=== PATIENT | female | born 1965 | race Two or more races ===

== ENCOUNTER 2016-07-20 08:24 | Inpatient (IN) | payer MEDICAID ==
[~2016-07-20] VITALS: Ht 162.6 cm; Wt 72.6 kg
[2016-07-20] VITALS (8 sets, daily range): BP systolic 146–172; BP diastolic 74–95
[~2016-07-20 08:24] MED LIST: NKM
--- NOTE | 2016-07-20 08:42 | Emergency Room Report ---
History of Present Illness General Chief Complaint: Pain Source: Patient, EMS Present Illness HPI 51-year-old female presents to ED for evaluation. Per EMS patient is complaining of back pain. Patient was found on the street. patient has chronic history of back pain. Patient is homeless. Upon arrival patient is lethargic. Patient had swollen eyes, swollen arms and legs. EMS later noted that patient has a history of dialysis but her last dialysis was approximately 10 days ago. Patient denies any chest pain or shortness of breath. States that she started dialysis one year ago. Only gets dialysis at [facility]. No other aggravating relieving factors. Denies any other associated symptoms Allergies: Coded Allergies: No Known Allergies (Unverified , 07/20/16) Patient History Past Medical History: DM, HTN, renal disease, dialysis Pertinent Family History: none Social History: Denies: alcohol use, drug use, smoking Now: No Immunizations: UTD Reviewed Nursing Documentation: PMH: Agreed, PSxH: Agreed Nursing Documentation-PMH Hx Hypertension: Yes Hx Diabetes: Yes Hx Dialysis: Yes - [facility] ON RIGHT SIDE OF ARM Review of Systems All Other Systems: negative except mentioned in HPI Physical Exam Vital Signs Date Time Temp Pulse Resp B/P Pulse Ox O2 Delivery O2 Flow Rate FiO2 07/20/16 08:17 95.5 75 17 145/71 98 Room Air Sp02 EP Interpretation: reviewed, normal General Appearance: no apparent distress, alert, GCS 15, non-toxic Head: normocephalic, atraumatic, other - eyes swollen bilaterally Eyes: bilateral eye EOMI, bilateral eye PERRL, bilateral eye other - eyes swollen ENT: hearing grossly normal, normal pharynx, no angioedema, normal voice Neck: full range of motion, supple/symm/no masses Respiratory: chest non-tender, lungs clear, normal breath sounds, speaking full sentences Cardiovascular #1: regular rate, rhythm, no edema Gastrointestinal: normal inspection Rectal: deferred Genitourinary: no CVA tenderness Musculoskeletal: swelling - 2+ pitting edema Neurologic: other - lethargic Psychiatric: other - lethargic Skin: normal inspection Lymphatic: normal inspection Medical Decision Making Diagnostic Impression: Primary Impression: Hyperkalemia, diminished renal excretion Additional Impressions: Fluid overload Qualified Codes: E87.70 - Fluid overload, unspecified Opiate dependence Qualified Codes: F11.29 - Opioid dependence with unspecified opioid-induced disorder ESRD (end stage renal disease) on dialysis ER Course Hospital Course 51-year-old female presents ED complaining of back pain. However presents with swollen face and swollen extremities. History of end-stage renal disease. Missed dialysis x10 days Differential diagnoses include: CA/unstable angina, V. tach, bradycardia, hyperkalemia, fluid overload Clinical course Patient placed on stretcher. 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 After initial history and physical I ordered labs, EKG Patient is difficult IV access status I placed a referral EJ line labs reviewed- potassium 6.1. BUN/Cr elevated. hb 7.4. trop negative EKG - NSR, no acute changes interpreted by me CXR - cardiomegaly. permacath in place. Given Kayexalate, insulin/D50 and calcium. Patient is already in fluid overload and would not tolerate transfusion. Patient will require dialysis before she be transfused Case discussed with Dr. Luna and he agreed to accept the patient to his service for further care and support I. I feel this is a highly complex case requiring extensive working including EKG/Rhythm strip, Xray/CT/US, Blood/urine lab work, repeat exams while in ED, and administration of strong opiates/narcotics for pain control, admission to hospital or close patient follow up. Diagnosis - hyperkalemia, ESRD on dialysis, fluid overload, opiate dependence Admitted to telemetry in serious condition Labs Test 07/20/16 08:24 07/20/16 08:38 07/20/16 08:45 Sodium Level 134 mEQ/L (135-145) Potassium Level 6.1 mEQ/L (3.4-4.9) Chloride Level 90 mEQ/L (98-107) Carbon Dioxide Level 21 mEQ/L (20-30) Anion Gap 23 (5-15) Blood Urea Nitrogen 79 mg/dL (7-23) Creatinine 10.2 mg/dL (0.5-0.9) Estimat Glomerular Filtration Rate 4.0 mL/min (>60) Glucose Level 98 mg/dL (74-106) Calcium Level 7.3 mg/dL (8.6-10.2) Total Bilirubin < 0.2 mg/dL (0.0-1.2) Aspartate Amino Transf (AST/SGOT) 20 U/L (5-40) Alanine Aminotransferase (ALT/SGPT) 9 U/L (3-33) Alkaline Phosphatase 55 U/L (35-104) Total Creatine Kinase 193 U/L (26-140) Creatine Kinase MB 4.6 ng/mL (< 3.8) Creatine Kinase MB Relative Index 2.3 Troponin I < 0.30 ng/mL (<=0.30) Total Protein 6.4 g/dL (6.6-8.7) Albumin 2.6 g/dL (3.5-5.2) Globulin 3.8 g/dL Albumin/Globulin Ratio 0.6 (1.0-2.7) Salicylates Level < 1 mg/dL (10-30) Urine Opiates Screen Positive (NEGATIVE) Acetaminophen Level < 10 ug/mL (10-30) Urine Barbiturates Screen Negative (NEGATIVE) Phencyclidine (PCP) Screen Negative (NEGATIVE) Urine Amphetamines Screen Negative (NEGATIVE) Urine Benzodiazepines Screen Negative (NEGATIVE) Urine Cocaine Screen Negative (NEGATIVE) Urine Marijuana (THC) Screen Negative (NEGATIVE) Serum Alcohol < 10 mg/dL White Blood Count 13.6 K/UL (4.8-10.8) Red Blood Count 2.81 M/UL (4.20-5.40) Hemoglobin 7.4 G/DL (12.0-16.0) Hematocrit 23.1 % (37.0-47.0) Mean Corpuscular Volume 82 FL (80-99) Mean Corpuscular Hemoglobin 26.5 PG (27.0-31.0) Mean Corpuscular Hemoglobin Concent 32.2 G/DL (32.0-36.0) Red Cell Distribution Width 17.9 % (11.6-14.8) Platelet Count 400 K/UL (150-450) Mean Platelet Volume 5.1 FL (6.5-10.1) Neutrophils (%) (Auto) % (45.0-75.0) Lymphocytes (%) (Auto) % (20.0-45.0) Monocytes (%) (Auto) % (1.0-10.0) Eosinophils (%) (Auto) % (0.0-3.0) Basophils (%) (Auto) % (0.0-2.0) Differential Total Cells Counted 100 Neutrophils % (Manual) 79 % (45-75) Lymphocytes % (Manual) 11 % (20-45) Monocytes % (Manual) 7 % (1-10) Eosinophils % (Manual) 3 % (0-3) Basophils % (Manual) 0 % (0-2) Band Neutrophils 0 % (0-8) Platelet Estimate Adequate Platelet Morphology Normal Hypochromasia 1+ Anisocytosis 1+ EKG Diagnostic Results Rate: normal Rhythm: NSR ST Segments: other ASA given to the pt in ED: No Rhythm Strip Diag. Results EP Interpretation: yes Rhythm: NSR, no PVC's, no ectopy Chest X-Ray Diagnostic Results Chest X-Ray Ordered: Yes # of Views/Limited/Complete: 1 View Interpretation: no consolidation, no effusion, no pneumothorax, no acute cardiopulmonary disease, other - cardiomegaly. permacath in place Indication: Other - fluid overload Impression: No acute disease Date Electronically Signed: Jul 20, 2016 Time Electronically Signed: 10:01 Last Vital Signs Date Time Temp Pulse Resp B/P Pulse Ox O2 Delivery O2 Flow Rate FiO2 07/20/16 08:17 95.5 75 17 145/71 98 Room Air Status: improved Disposition: ADMITTED INPATIENT Condition: Serious TANGELA BUCKNER M.D. Jul 20, 2016 08:42
[2016-07-20 09:19] LABS: MEAN CORPUSCULAR HEMOGLOBIN 26.5 PG (27.0-31.0); MEAN CORPUSCULAR HGB CONC 32.2 G/DL (32.0-36.0); MEAN CORPUSCULAR VOLUME 82 FL (80-99); MEAN PLATELET VOLUME 5.1 FL (6.5-10.1); PLATELET COUNT 400 K/UL (150-450); RED BLOOD COUNT 2.81 M/UL (4.20-5.40); RED CELL DISTRIBUTION WIDTH 17.9 % (11.6-14.8); WHITE BLOOD COUNT 13.6 K/UL (4.8-10.8)
[2016-07-20 09:40] LABS: TROPONIN I < 0.30 ng/mL (<=0.30)
[2016-07-20 09:41] LABS: ACETAMINOPHEN < 10 ug/mL (10-30); ALANINE AMINOTRANSFERASE 9 U/L (3-33); ALBUMIN/GLOBULIN RATIO 0.6 (1.0-2.7); ALCOHOL < 10 mg/dL; ANION GAP 23 (5-15); ASPARTATE AMINO TRANSFERASE 20 U/L (5-40); CALCIUM 7.3 mg/dL (8.6-10.2); CARBON DIOXIDE 21 mEQ/L (20-30); CHLORIDE 90 mEQ/L (98-107); CREATININE 10.2 mg/dL (0.5-0.9); HEMOLYSIS 9; SODIUM 134 mEQ/L (135-145); TOTAL PROTEIN 6.4 g/dL (6.6-8.7)
[2016-07-20 09:42] LABS: POTASSIUM 6.1 mEQ/L (3.4-4.9)
[2016-07-20 09:52] LABS: CKMB 4.6 ng/mL (< 3.8)
[2016-07-20 09:58] LABS: ANISOCYTOSIS 1+; BAND NEUTROPHILS % (MANUAL) 0 % (0-8); BASOPHILS % (MANUAL) 0 % (0-2); EOSINOPHILS % (MANUAL) 3 % (0-3); HYPOCHROMASIA 1+; LYMPHOCYTES % (MANUAL) 11 % (20-45); NEUTROPHILS % (MANUAL) 79 % (45-75); PLATELET ESTIMATE ADEQUATE; PLATELET MORPHOLOGY NORMAL; TOTAL CELLS COUNTED 100
[2016-07-20] MEDS ORDERED: Sodium Polystyrene Sulfonate 15gm Powder ORAL ONE (10:00)
[2016-07-20] MEDS ORDERED: Calcium Gluconate 1gm/10ml vial IVP ONE (10:00)
[2016-07-20] MEDS ORDERED: Miralax 17gm pkt ORAL PRN (10:15)
[2016-07-20] MEDS ORDERED: DuoNeb 0.5-3(2.5)mg/3ml neb HHN PRN (10:15)
--- NOTE | 2016-07-20 10:20 | Consultation ---
Consult Note Consult Note Chief Complaint: Pain 51-year-old female presents to ED for evaluation. Per EMS patient is complaining of back pain. Patient was found on the street. patient has chronic history of back pain. Patient is homeless. Upon arrival patient is lethargic. Patient had swollen eyes, swollen arms and legs. EMS later noted that patient has a history of dialysis but her last dialysis was approximately 10 days ago. Patient denies any chest pain or shortness of breath. States that she started dialysis one year ago. Only gets dialysis at [facility]. No other aggravating relieving factors. Denies any other associated symptoms Past Medical History: DM, HTN, renal disease, dialysis Hx Hypertension: Yes Hx Diabetes: Yes Hx Dialysis: Yes - [facility] ON RIGHT SIDE OF ARM Assessment/Plan ESRD , Right chest Permacath- No Dialysis for sometimes Volume Overload Encephalopathy Anemia Plan: Dialysis NOW, + UF Anemia vitale BP control per orders ERICK MOSES Jul 20, 2016 10:20
[2016-07-20] MEDS ORDERED: Sodium Polystyrene Sulfonate Enema RECTAL ONE (10:45)
[2016-07-20 11:06] LABS: INR 1.1 (0.9-1.1)
[2016-07-20 11:44] LABS: IRON 20 ug/dL (37-145); TOTAL IRON BINDING CAPACITY 183 ug/dL (250-400)
[2016-07-20 11:56] LABS: PHOSPHORUS 6.6 MG/DL (2.5-4.9)
[2016-07-20 12:10] LABS: FERRITIN 549 ng/mL (13-150); URIC ACID 7.7 MG/DL (2.6-7.2)
--- NOTE | 2016-07-20 13:37 | History and Physical ---
History of Present Illness General Date patient seen: Jul 20, 2016 Reason for Hospitalization: Pain Present Illness HPI 51-year-old female with hx of ESRF, homelessness presented to ED for evaluation of back pain. Patient was found on the street. Upon arrival patient was lethargic. Patient had swollen eyes, swollen arms and legs. EMS later noted that patient has a history of dialysis but her last dialysis was approximately 10 days ago. Upon arrival to floor, she still is lethargic and somnolent and cant' give any accurate history. Allergies: Coded Allergies: No Known Allergies (Unverified , 07/20/16) Medication History Scheduled No Known Medications* (NKM - No Known Medications*), 0 ., (Reported) Patient History Healthcare decision maker Resuscitation status Advanced Directive on File Past Medical/Surgical History Past Medical/Surgical History: (1) Homelessness (2) ESRD (end stage renal disease) on dialysis Review of Systems All Other Systems: negative except mentioned in HPI Physical Exam General Appearance: WD/WN Lines, tubes and drains: peripheral HEENT: normocephalic, anicteric Neck: non-tender, normal alignment Respiratory/Chest: chest wall non-tender, lungs clear Breasts: no masses Cardiovascular/Chest: normal peripheral pulses Abdomen: normal bowel sounds, non tender Genitourinary/Rectal: normal genital exam, normal rectal exam Extremities: normal range of motion, moderate edema Skin Exam: normal pigmentation, cyanotic Neurologic: social services aide II-XII grossly normal, no motor/sensory deficits Lymphatic: anterior cervical Last 24 Hour Vital Signs Date Time Temp Pulse Resp B/P Pulse Ox O2 Delivery O2 Flow Rate FiO2 07/20/16 11:31 96.1 67 18 148/75 99 Room Air 07/20/16 10:51 95.5 88 16 166/88 95 Room Air 07/20/16 10:30 88 16 166/88 95 Room Air 07/20/16 08:25 88 17 172/91 100 Room Air 07/20/16 08:17 95.5 75 17 145/71 98 Room Air Laboratory Tests Test 07/20/16 08:24 07/20/16 08:38 07/20/16 08:45 Sodium Level 134 mEQ/L (135-145) L Potassium Level 6.1 mEQ/L (3.4-4.9) *H Chloride Level 90 mEQ/L (98-107) L Carbon Dioxide Level 21 mEQ/L (20-30) Anion Gap 23 (5-15) H Blood Urea Nitrogen 79 mg/dL (7-23) H Creatinine 10.2 mg/dL (0.5-0.9) H Estimat Glomerular Filtration Rate 4.0 mL/min (>60) Glucose Level 98 mg/dL (74-106) Calcium Level 7.3 mg/dL (8.6-10.2) L Total Bilirubin < 0.2 mg/dL (0.0-1.2) Aspartate Amino Transf (AST/SGOT) 20 U/L (5-40) Alanine Aminotransferase (ALT/SGPT) 9 U/L (3-33) Alkaline Phosphatase 55 U/L (35-104) Total Creatine Kinase 193 U/L (26-140) H Creatine Kinase MB 4.6 ng/mL (< 3.8) H Creatine Kinase MB Relative Index 2.3 Troponin I < 0.30 ng/mL (<=0.30) Pro-B-Type Natriuretic Peptide > 20087 pg/mL (0-125) H Total Protein 6.4 g/dL (6.6-8.7) L Albumin 2.6 g/dL (3.5-5.2) L Globulin 3.8 g/dL Albumin/Globulin Ratio 0.6 (1.0-2.7) L Salicylates Level < 1 mg/dL (10-30) L Urine Opiates Screen Positive (NEGATIVE) H Acetaminophen Level < 10 ug/mL (10-30) L Urine Barbiturates Screen Negative (NEGATIVE) Phencyclidine (PCP) Screen Negative (NEGATIVE) Urine Amphetamines Screen Negative (NEGATIVE) Urine Benzodiazepines Screen Negative (NEGATIVE) Urine Cocaine Screen Negative (NEGATIVE) Urine Marijuana (THC) Screen Negative (NEGATIVE) Serum Alcohol < 10 mg/dL Ammonia 82 umol/L (11-51) H White Blood Count 13.6 K/UL (4.8-10.8) H Red Blood Count 2.81 M/UL (4.20-5.40) L Hemoglobin 7.4 G/DL (12.0-16.0) L Hematocrit 23.1 % (37.0-47.0) L Mean Corpuscular Volume 82 FL (80-99) Mean Corpuscular Hemoglobin 26.5 PG (27.0-31.0) L Mean Corpuscular Hemoglobin Concent 32.2 G/DL (32.0-36.0) Red Cell Distribution Width 17.9 % (11.6-14.8) H Platelet Count 400 K/UL (150-450) Mean Platelet Volume 5.1 FL (6.5-10.1) L Neutrophils (%) (Auto) % (45.0-75.0) Lymphocytes (%) (Auto) % (20.0-45.0) Monocytes (%) (Auto) % (1.0-10.0) Eosinophils (%) (Auto) % (0.0-3.0) Basophils (%) (Auto) % (0.0-2.0) Differential Total Cells Counted 100 Neutrophils % (Manual) 79 % (45-75) H Lymphocytes % (Manual) 11 % (20-45) L Monocytes % (Manual) 7 % (1-10) Eosinophils % (Manual) 3 % (0-3) Basophils % (Manual) 0 % (0-2) Band Neutrophils 0 % (0-8) Platelet Estimate Adequate Platelet Morphology Normal Hypochromasia 1+ Anisocytosis 1+ Prothrombin Time 11.0 SEC (9.30-11.50) Prothromb Time International Ratio 1.1 (0.9-1.1) Activated Partial Thromboplast Time 34 SEC (23-33) H Hemoglobin A1c 4.4 % (< 6.0) Uric Acid 7.7 MG/DL (2.6-7.2) H Phosphorus Level 6.6 MG/DL (2.5-4.9) H Iron Level 20 ug/dL (37-145) L Total Iron Binding Capacity 183 ug/dL (250-400) L Percent Iron Saturation 11 % (15-50) L Unsaturated Iron Binding 163 ug/dL (112-346) Ferritin 549 ng/mL (13-150) H Vitamin B12 Level 474 pg/mL (211-946) Folate Pending Height (Feet): 5 Height (Inches): 4.00 Weight (Pounds): 160 Medications Current Medications Medications (Trade) Dose Ordered Sig/Papo Route PRN Reason Start Time Stop Time Status Last Admin Dose Admin Acetaminophen (Tylenol) 650 mg Q4H PRN ORAL Fever 07/20/16 10:15 08/19/16 10:14 Albuterol/ Ipratropium (DuoNeb 0.5-3(2.5)mg/3ml) 3 ml Q4H PRN HHN Shortness of Breath 07/20/16 10:15 07/25/16 10:14 Dextrose (Dextrose 50%) STAT PRN IV Hypoglycemia 07/20/16 10:15 08/19/16 10:14 Heparin Sodium (Porcine) (Heparin 5000 units/ml) 5,000 units EVERY 12 HOURS SUBQ 07/20/16 21:00 08/19/16 20:59 Ondansetron HCl (Zofran) 4 mg Q6H PRN IVP Nausea & Vomiting 07/20/16 10:15 08/19/16 10:14 Polyethylene Glycol (Miralax) 17 gm DAILYPRN PRN ORAL Constipation 07/20/16 10:15 08/19/16 10:14 Temazepam (Restoril) 15 mg HSPRN PRN ORAL Insomnia 07/20/16 10:15 07/27/16 10:14 Assessment/Plan Problem List: (1) ESRF (end stage renal failure) ICD Codes: N18.6 - End stage renal disease SNOMED: 02003690 (2) Fluid overload ICD Codes: E87.70 - Fluid overload, unspecified SNOMED: 19608693 Qualifiers: Qualified Codes: E87.70 - Fluid overload, unspecified (3) Opiate dependence ICD Codes: F11.20 - Opioid dependence, uncomplicated SNOMED: 86286704 Qualifiers: Qualified Codes: F11.29 - Opioid dependence with unspecified opioid-induced disorder (4) Homelessness ICD Codes: Z59.0 - Homelessness SNOMED: 75182163 Assessment/Plan respiratory treatment Hemodialysis neonatal social worker check electrolytes monitor bp check echocardiogram EMMANUEL DOUGHERTY Jul 20, 2016 13:37
--- NOTE | 2016-07-20 13:47 | Diagnostic Imaging Report ---
Indication: Cough Technique: One view of the chest Comparison: none Findings: Patient is rotated to the right. There is a right jugular tunneled dialysis catheter. The heart is enlarged. There is equivocal minimal interstitial congestion. No focal airspace consolidation. No effusions Impression: Cardiomegaly. Equivocal minimal interstitial congestion-correlate with clinical findings. No acute process otherwise
[2016-07-20] MEDS: Heparin 5000 units/ml inj SUBQ SCH (21:13)
[2016-07-21 00:05] VITALS: BP 145/83
[2016-07-21 04:12] VITALS: BP 148/91
[2016-07-21 07:35] LABS: MEAN CORPUSCULAR HGB CONC 32.3 G/DL (32.0-36.0); MEAN CORPUSCULAR VOLUME 84 FL (80-99); MEAN PLATELET VOLUME 5.2 FL (6.5-10.1); PLATELET COUNT 363 K/UL (150-450); RED BLOOD COUNT 2.92 M/UL (4.20-5.40); RED CELL DISTRIBUTION WIDTH 17.4 % (11.6-14.8); WHITE BLOOD COUNT 10.1 K/UL (4.8-10.8)
[2016-07-21 07:55] LABS: AMMONIA 28 umol/L (11-51)
[2016-07-21 07:56] LABS: ALANINE AMINOTRANSFERASE 8 U/L (3-33); ALBUMIN/GLOBULIN RATIO 0.6 (1.0-2.7); ANION GAP 18 (5-15); ASPARTATE AMINO TRANSFERASE 14 U/L (5-40); CARBON DIOXIDE 26 mEQ/L (20-30); CHLORIDE 92 mEQ/L (98-107); CHOLESTEROL 139 mg/dL (< 200); CHOLESTEROL/HDL RATIO 3.2 (3.3-4.4); CREATININE 8.3 mg/dL (0.5-0.9); HEMOLYSIS 13; LDL CHOLESTEROL (CALC.) 76 mg/dL (60-99); MAGNESIUM 1.9 mg/dL (1.7-2.5); PHOSPHORUS 5.6 mg/dL (2.5-4.8); POTASSIUM 5.6 mEQ/L (3.4-4.9); SODIUM 136 mEQ/L (135-145); TOTAL PROTEIN 5.4 g/dL (6.6-8.7); URIC ACID 6.2 mg/dL (3.0-7.5)
--- NOTE | 2016-07-21 08:01 | Cardiology Report ---
APPROVED REPORT EXAM: Two-dimensional and M-mode echocardiogram with Doppler and color Doppler. INDICATION LV function M-Mode DIMENSIONS IVSd1.2 (0.7-1.1cm)Left Atrium (MM)3.9 (1.6-4.0cm) LVDd4.0 (3.5-5.6cm)Aortic Root3.2 (2.0-3.7cm) PWd2.2 (0.7-1.1cm)Aortic Cusp Exc.2.1 (1.5-2.0cm) LVDs2.7 (2.5-4.0cm) PWs2.5 cm Normal left ventricular chamber size, systolic function and wall motion. Left ventricular ejection fraction estimated to be 60 %. Mild left ventricular hypertrophy. Anterior Echo-free space, may be due to pericardial fat or effusion. Mild left atrial enlargement. Right cardiac chamber sizes are within normal limits. Focal aortic valve sclerosis with adequate cusp excursion. Thickened mitral valve leaflets with normal excursion. Mitral annulus and aortic root calcification. Normal pulmonic valve structure. Normal tricuspid valve structure. IVC dilated at 2.7 cm without physiologic collapse suggestive of increased RA pressure. A color flow and spectral Doppler study was performed and revealed: Mild aortic regurgitation. Moderate mitral regurgitation. Mitral diastolic velocities suggest reduced left ventricular relaxation c/w mild LV diastolic dysfunction (Grade I). Moderate tricuspid regurgitation. Tricuspid systolic velocities suggests peak right ventricular systolic pressure of 71 mmHg, consistent with severe pulmonary hypertension. Mild pulmonic regurgitation present.
[2016-07-21 08:25] VITALS: BP 146/90
[2016-07-21 09:03] LABS: BASOPHILS % (MANUAL) 3 % (0-2); EOSINOPHILS % (MANUAL) 3 % (0-3); LYMPHOCYTES % (MANUAL) 16 % (20-45); NEUTROPHILS % (MANUAL) 77 % (45-75); TOTAL CELLS COUNTED 100
[2016-07-21 09:04] LABS: ANISOCYTOSIS 1+; BAND NEUTROPHILS % (MANUAL) 0 % (0-8); HYPOCHROMASIA 3+; PLATELET ESTIMATE ADEQUATE; PLATELET MORPHOLOGY NORMAL
[2016-07-21] MEDS: Heparin 5000 units/ml inj SUBQ SCH ×2 (09:13→20:52)
--- NOTE | 2016-07-21 09:44 | General Progress Note ---
Assessment/Plan Status: stable - from renal stand Status Narrative K 5.6 Assessment/Plan status; ESRD , Right chest Permacath- No Dialysis for sometimes Volume Overload Encephalopathy Anemia Plan: Dialysis 07/20 next 07/22 Anemia vitale, IV Iron and SQ EPO BP control- Phos binders , Vit D and Kayexelate per orders Subjective ROS Limited/Unobtainable: No Constitutional: Reports: malaise, weakness Allergies: Coded Allergies: No Known Allergies (Unverified , 07/20/16) Objective Last 24 Hour Vital Signs Date Time Temp Pulse Resp B/P Pulse Ox O2 Delivery O2 Flow Rate FiO2 07/21/16 08:25 97.9 82 20 146/90 100 Nasal Cannula 2.0 07/21/16 07:55 Nasal Cannula 2.0 28 07/21/16 07:54 100 Nasal Cannula 2.0 28 07/21/16 07:53 83 18 Room Air 21 07/21/16 04:12 98.1 82 19 148/91 100 07/21/16 04:00 82 07/21/16 03:43 98.1 07/21/16 03:21 78 20 99 Nasal Cannula 2.0 28 07/21/16 03:11 Nasal Cannula 2.0 28 07/21/16 03:11 99 Nasal Cannula 2.0 28 07/21/16 03:09 82 22 99 Nasal Cannula 2.0 28 07/21/16 00:05 98.1 94 19 145/83 96 Room Air 07/21/16 00:00 90 07/20/16 20:06 98.2 86 19 147/83 99 Room Air 07/20/16 20:00 85 07/20/16 19:58 84 18 Room Air 21 07/20/16 18:00 96.3 92 20 146/74 100 Room Air 07/20/16 16:52 Room Air 07/20/16 16:50 96.6 78 20 164/91 97 Room Air 07/20/16 16:00 77 07/20/16 15:26 97.2 91 18 154/95 100 Room Air 07/20/16 13:15 96.3 75 165/94 Room Air 07/20/16 13:15 Room Air 07/20/16 12:00 77 07/20/16 11:31 96.1 67 18 148/75 99 Room Air 07/20/16 10:51 95.5 88 16 166/88 95 Room Air 07/20/16 10:30 88 16 166/88 95 Room Air Intake and Output 07/20/16 07/21/16 19:00 07:00 Intake Total 0 ml 240 ml Output Total 2100 ml 100 ml Balance -2100 ml 140 ml Intake Oral 0 ml 240 ml Output Urine Total 100 ml 100 ml Peritoneal Dialysis UF 2000 ml Laboratory Tests 07/21/16 05:10: White Blood Count 10.1, Red Blood Count 2.92L, Hemoglobin 7.9L, Hematocrit 24.4L , Mean Corpuscular Volume 84, Mean Corpuscular Hemoglobin 27.0, Mean Corpuscular Hemoglobin Concent 32.3, Red Cell Distribution Width 17.4H, Platelet Count 363, Mean Platelet Volume 5.2L, Neutrophils (%) (Auto) , Lymphocytes (%) (Auto) , Monocytes (%) (Auto) , Eosinophils (%) (Auto) , Basophils (%) (Auto) , Differential Total Cells Counted 100, Neutrophils % ( Manual) 77H, Lymphocytes % (Manual) 16L, Monocytes % (Manual) 1, Eosinophils % ( Manual) 3, Basophils % (Manual) 3H, Band Neutrophils 0, Platelet Estimate Adequate, Platelet Morphology Normal, Hypochromasia 3+, Anisocytosis 1+, Sodium Level 136, Potassium Level 5.6H, Chloride Level 92L, Carbon Dioxide Level 26, Anion Gap 18H, Blood Urea Nitrogen 54#H, Creatinine 8.3H, Estimat Glomerular Filtration Rate 5.0, Glucose Level 79, Uric Acid 6.2, Calcium Level 7.0L, Phosphorus Level 5.6H, Magnesium Level 1.9, Total Bilirubin < 0.2, Aspartate Amino Transf (AST/SGOT) 14, Alanine Aminotransferase (ALT/SGPT) 8, Alkaline Phosphatase 46, Ammonia 28, Total Protein 5.4L, Albumin 2.1L, Globulin 3.3, Albumin/Globulin Ratio 0.6L, Triglycerides Level 95, Cholesterol Level 139, LDL Cholesterol 76, HDL Cholesterol 44, Cholesterol/HDL Ratio 3.2L Height (Feet): 5 Height (Inches): 4.00 Weight (Pounds): 160 General Appearance: no apparent distress, lethargic Objective no change ERICK MOSES Jul 21, 2016 09:44
[2016-07-21] MEDS ORDERED: Vitamin D 50,000 units cap ORAL SCH (10:00)
[2016-07-21] MEDS ORDERED: Sodium Polystyrene Sulfonate 15gm Powder ORAL ONE (10:00)
[2016-07-21] MEDS ORDERED: Calcitriol 0.5mcg Cap ORAL SCH (10:00)
[2016-07-21 11:30] VITALS: BP 149/94
[2016-07-21] MEDS ORDERED: Iron Sucrose 200 MG in NS 110 ML IVPB ONE (12:00)
--- NOTE | 2016-07-21 12:37 | Pulmonology Progress Note ---
Assessment/Plan Problems: (1) ESRF (end stage renal failure) (2) Fluid overload (3) Opiate dependence (4) Homelessness Assessment/Plan HD by nephrology check electrolytes social service consult dc planning Subjective ROS Limited/Unobtainable: No Interval Events: got dialyzed yesterday, got blood as well Allergies: Coded Allergies: No Known Allergies (Unverified , 07/20/16) Objective Last 24 Hour Vital Signs Date Time Temp Pulse Resp B/P Pulse Ox O2 Delivery O2 Flow Rate FiO2 07/21/16 11:42 79 149/94 07/21/16 11:30 98.4 79 20 149/94 99 Nasal Cannula 2.0 07/21/16 08:25 97.9 82 20 146/90 100 Nasal Cannula 2.0 07/21/16 07:55 Nasal Cannula 2.0 28 07/21/16 07:54 100 Nasal Cannula 2.0 28 07/21/16 07:53 83 18 Room Air 21 07/21/16 04:12 98.1 82 19 148/91 100 07/21/16 04:00 82 07/21/16 03:43 98.1 07/21/16 03:21 78 20 99 Nasal Cannula 2.0 28 07/21/16 03:11 Nasal Cannula 2.0 28 07/21/16 03:11 99 Nasal Cannula 2.0 28 07/21/16 03:09 82 22 99 Nasal Cannula 2.0 28 07/21/16 00:05 98.1 94 19 145/83 96 Room Air 07/21/16 00:00 90 07/20/16 20:06 98.2 86 19 147/83 99 Room Air 07/20/16 20:00 85 07/20/16 19:58 84 18 Room Air 21 07/20/16 18:00 96.3 92 20 146/74 100 Room Air 07/20/16 16:52 Room Air 07/20/16 16:50 96.6 78 20 164/91 97 Room Air 07/20/16 16:00 77 07/20/16 15:26 97.2 91 18 154/95 100 Room Air 07/20/16 13:15 96.3 75 165/94 Room Air 07/20/16 13:15 Room Air Intake and Output 07/20/16 07/21/16 19:00 07:00 Intake Total 0 ml 240 ml Output Total 2100 ml 100 ml Balance -2100 ml 140 ml Intake Oral 0 ml 240 ml Output Urine Total 100 ml 100 ml Peritoneal Dialysis UF 2000 ml General Appearance: WD/WN HEENT: normocephalic, atraumatic Respiratory/Chest: chest wall non-tender, lungs clear Abdomen: normal bowel sounds, soft, non tender Genitourinary: normal external genitalia Extremities: no clubbing Skin: no rash Laboratory Tests 07/21/16 05:10: White Blood Count 10.1, Red Blood Count 2.92L, Hemoglobin 7.9L, Hematocrit 24.4L , Mean Corpuscular Volume 84, Mean Corpuscular Hemoglobin 27.0, Mean Corpuscular Hemoglobin Concent 32.3, Red Cell Distribution Width 17.4H, Platelet Count 363, Mean Platelet Volume 5.2L, Neutrophils (%) (Auto) , Lymphocytes (%) (Auto) , Monocytes (%) (Auto) , Eosinophils (%) (Auto) , Basophils (%) (Auto) , Differential Total Cells Counted 100, Neutrophils % ( Manual) 77H, Lymphocytes % (Manual) 16L, Monocytes % (Manual) 1, Eosinophils % ( Manual) 3, Basophils % (Manual) 3H, Band Neutrophils 0, Platelet Estimate Adequate, Platelet Morphology Normal, Hypochromasia 3+, Anisocytosis 1+, Sodium Level 136, Potassium Level 5.6H, Chloride Level 92L, Carbon Dioxide Level 26, Anion Gap 18H, Blood Urea Nitrogen 54#H, Creatinine 8.3H, Estimat Glomerular Filtration Rate 5.0, Glucose Level 79, Uric Acid 6.2, Calcium Level 7.0L, Phosphorus Level 5.6H, Magnesium Level 1.9, Total Bilirubin < 0.2, Aspartate Amino Transf (AST/SGOT) 14, Alanine Aminotransferase (ALT/SGPT) 8, Alkaline Phosphatase 46, Ammonia 28, Total Protein 5.4L, Albumin 2.1L, Globulin 3.3, Albumin/Globulin Ratio 0.6L, Triglycerides Level 95, Cholesterol Level 139, LDL Cholesterol 76, HDL Cholesterol 44, Cholesterol/HDL Ratio 3.2L 07/21/16 11:55: Urine Color [Pending], Urine Appearance [Pending], Urine pH [Pending], Urine Specific [place] [Pending], Urine Protein [Pending], Urine Glucose (UA) [Pending ], Urine Ketones [Pending], Urine Occult Blood [Pending], Urine Nitrite [Pending ], Urine Bilirubin [Pending], Urine Urobilinogen [Pending], Urine Leukocyte Esterase [Pending], Urine RBC [Pending], Urine WBC [Pending], Urine Squamous Epithelial Cells [Pending], Urine Bacteria [Pending] Current Medications Medications (Trade) Dose Ordered Sig/Papo Route PRN Reason Start Time Stop Time Status Last Admin Dose Admin Acetaminophen (Tylenol) 650 mg Q4H PRN ORAL Fever 07/20/16 10:15 08/19/16 10:14 07/21/16 02:44 Albuterol/ Ipratropium (DuoNeb 0.5-3(2.5)mg/3ml) 3 ml Q4H PRN HHN Shortness of Breath 07/20/16 10:15 07/25/16 10:14 07/21/16 03:12 Amlodipine Besylate (Norvasc) 5 mg DAILY ORAL 07/21/16 10:00 08/20/16 09:59 07/21/16 11:42 Calcitriol (Rocaltrol) 0.5 mcg DAILY ORAL 07/21/16 10:00 08/20/16 09:59 07/21/16 11:42 Dextrose (Dextrose 50%) STAT PRN IV Hypoglycemia 07/20/16 10:15 08/19/16 10:14 Epoetin Sid (Procrit (for ESRD on dialysis)) 10,000 units MON-WED-WED SUBQ 07/22/16 21:00 08/21/16 20:59 Ergocalciferol (Drisdol) 50,000 intlu QWEEK ORAL 07/21/16 10:00 08/20/16 09:59 07/21/16 11:47 Heparin Sodium (Porcine) (Heparin 5000 units/ml) 5,000 units EVERY 12 HOURS SUBQ 07/20/16 21:00 08/19/16 20:59 07/21/16 09:13 Ondansetron HCl (Zofran) 4 mg Q6H PRN IVP Nausea & Vomiting 07/20/16 10:15 08/19/16 10:14 Polyethylene Glycol (Miralax) 17 gm DAILYPRN PRN ORAL Constipation 07/20/16 10:15 08/19/16 10:14 Sevelamer Carbonate (Renvela) 1,600 mg THREE TIMES A DAY ORAL 07/21/16 10:00 08/20/16 09:59 07/21/16 12:28 Temazepam (Restoril) 15 mg HSPRN PRN ORAL Insomnia 07/20/16 10:15 07/27/16 10:14 EMMANUEL DOUGHERTY Jul 21, 2016 12:37
[2016-07-21 12:44] LABS: APPEARANCE,URINE CLEAR; KETONES,URINE NEGATIVE (NEGATIVE); LEUKOCYTE ESTERASE ,URINE NEGATIVE (NEGATIVE); NITRITE,URINE NEGATIVE (NEGATIVE); PH,URINE 8 (4.5-8.0); PROTEIN,URINE 4+ (NEGATIVE); UROBILINOGEN,URINE NORMAL MG/DL (0.0-1.0)
[2016-07-21 13:08] LABS: BACTERIA,URINE FEW /HPF; SQUAMOUS EPITHELIAL CELL,UR FEW /LPF (NONE/OCC); WBC,URINE 0-2 /HPF (0 - 2)
[2016-07-21 14:02] LABS: OTHERS PATHOLOGIST COMMENT
[2016-07-21 16:00] VITALS: BP 155/99
[2016-07-21] MEDS: DuoNeb 0.5-3(2.5)mg/3ml neb HHN PRN (17:46)
--- NOTE | 2016-07-21 18:14 | Cardiology Report ---
APPROVED REPORT EKG Measurement Heart [id number] Normal sinus rhythm Possible Anterior infarct, age undetermined Abnormal ECG
[2016-07-21 20:00] VITALS: BP 164/108
[2016-07-21] MEDS ORDERED: Morphine Sulfate 2mg/ml Inj IVP PRN (22:30)
[2016-07-22] VITALS (9 sets, daily range): BP systolic 114–220; BP diastolic 72–108
[2016-07-22 07:12] LABS: ALANINE AMINOTRANSFERASE 8 U/L (3-33); ALBUMIN/GLOBULIN RATIO 0.6 (1.0-2.7); ANION GAP 18 (5-15); ASPARTATE AMINO TRANSFERASE 16 U/L (5-40); CALCIUM 6.8 mg/dL (8.6-10.2); CARBON DIOXIDE 25 mEQ/L (20-30); CHLORIDE 93 mEQ/L (98-107); CREATININE 9.3 mg/dL (0.5-0.9); GLOMERULAR FILTRATION RATE 4.5 mL/min (>60); HEMOLYSIS 21; MAGNESIUM 1.9 mg/dL (1.7-2.5); PHOSPHORUS 6.6 mg/dL (2.5-4.8); POTASSIUM 5.5 mEQ/L (3.4-4.9); SODIUM 136 mEQ/L (135-145); TOTAL PROTEIN 5.6 g/dL (6.6-8.7); URIC ACID 6.7 mg/dL (3.0-7.5)
[2016-07-22] MEDS: Docusate 100mg cap ORAL SCH ×3 (09:20→18:00)
--- NOTE | 2016-07-22 10:28 | General Progress Note ---
Assessment/Plan Status: doing well Status Narrative homeless- asks for placement OP dialysis Assessment/Plan status; ESRD , Right chest Permacath- ( and left arm fistula with bruit) No Dialysis for sometimes Volume Overload Encephalopathy Anemia Plan: Dialysis 07/20 next 07/22 Anemia vitale, IV Iron and SQ EPO BP control- adjust meds- DC singh Phos binders , Vit D and Kayexelate SS eval per orders Subjective ROS Limited/Unobtainable: No Constitutional: Reports: malaise, other - more responsive Allergies: Coded Allergies: No Known Allergies (Unverified , 07/20/16) Objective Last 24 Hour Vital Signs Date Time Temp Pulse Resp B/P Pulse Ox O2 Delivery O2 Flow Rate FiO2 07/22/16 09:00 82 149/89 07/22/16 08:26 99 Room Air 07/22/16 08:26 Room Air 07/22/16 08:26 76 16 Room Air 21 07/22/16 08:00 97.2 76 20 156/72 99 Room Air 07/22/16 04:00 96.9 82 20 149/89 Room Air 07/22/16 00:00 97.8 85 20 114/101 99 Room Air 07/21/16 23:47 184/101 07/21/16 20:00 97.9 89 16 164/108 98 Room Air 07/21/16 19:33 98 Room Air 07/21/16 19:33 Room Air 07/21/16 19:32 80 18 Room Air 21 07/21/16 17:34 90 17 98 Nasal Cannula 2.0 07/21/16 17:27 88 16 98 Nasal Cannula 2.0 07/21/16 16:00 98.2 87 20 155/99 96 Room Air 07/21/16 12:00 79 07/21/16 11:42 79 149/94 07/21/16 11:30 98.4 79 20 149/94 99 Nasal Cannula 2.0 Intake and Output 07/21/16 07/22/16 19:00 07:00 Intake Total 440 ml Output Total 160 ml 100 ml Balance 280 ml -100 ml Intake Oral 440 ml Output Urine Total 160 ml 100 ml # Bowel Movements 1 Laboratory Tests 07/21/16 11:55: Urine Color Yellow, Urine Appearance Clear, Urine pH 8, Urine Specific [place] 1.015, Urine Protein 4+H, Urine Glucose (UA) 3+H, Urine Ketones Negative, Urine Occult Blood 2+H, Urine Nitrite Negative, Urine Bilirubin Negative, Urine Urobilinogen Normal, Urine Leukocyte Esterase Negative, Urine RBC 2-4H, Urine WBC 0-2, Urine Squamous Epithelial Cells Few, Urine Bacteria Few 07/22/16 05:15: Sodium Level 136, Potassium Level 5.5H, Chloride Level 93L, Carbon Dioxide Level 25, Anion Gap 18H, Blood Urea Nitrogen 62H, Creatinine 9.3H, Estimat Glomerular Filtration Rate 4.5, Glucose Level 74, Uric Acid 6.7, Calcium Level 6.8L, Phosphorus Level 6.6H, Magnesium Level 1.9, Total Bilirubin < 0.2, Aspartate Amino Transf (AST/SGOT) 16, Alanine Aminotransferase (ALT/SGPT) 8, Alkaline Phosphatase 43, Total Protein 5.6L, Albumin 2.1L, Globulin 3.5, Albumin /Globulin Ratio 0.6L Height (Feet): 5 Height (Inches): 4.00 Weight (Pounds): 160 General Appearance: no apparent distress, lethargic Cardiovascular: regular rhythm Respiratory/Chest: decreased breath sounds Abdomen: soft Objective no change ERICK MOSES Jul 22, 2016 10:28
[2016-07-22] MEDS: Calcitriol 0.5mcg Cap ORAL SCH (10:40)
[2016-07-22] MEDS: Heparin 5000 units/ml inj SUBQ SCH ×2 (10:41→21:00)
[2016-07-22] MEDS: Morphine Sulfate 2mg/ml Inj SUBQ PRN (15:06)
[2016-07-22 17:29] LABS: MEAN CORPUSCULAR HEMOGLOBIN 27.8 PG (27.0-31.0); MEAN CORPUSCULAR HGB CONC 32.5 G/DL (32.0-36.0); MEAN CORPUSCULAR VOLUME 85 FL (80-99); MEAN PLATELET VOLUME 4.6 FL (6.5-10.1); PLATELET COUNT 326 K/UL (150-450); RED BLOOD COUNT 2.73 M/UL (4.20-5.40); RED CELL DISTRIBUTION WIDTH 17.5 % (11.6-14.8); WHITE BLOOD COUNT 11.5 K/UL (4.8-10.8)
[2016-07-22 18:46] LABS: ANISOCYTOSIS 1+; BASOPHILS % (MANUAL) 1 % (0-2); EOSINOPHILS % (MANUAL) 3 % (0-3); HYPOCHROMASIA 2+; LYMPHOCYTES % (MANUAL) 17 % (20-45); NEUTROPHILS % (MANUAL) 73 % (45-75); TOTAL CELLS COUNTED 100
[2016-07-22 18:47] LABS: BAND NEUTROPHILS % (MANUAL) 0 % (0-8); PLATELET ESTIMATE ADEQUATE; PLATELET MORPHOLOGY NORMAL
[2016-07-22] MEDS ORDERED: Epogen (for ESRD on dialysis) SUBQ SCH (21:00)
[2016-07-22] MEDS: Epogen (for ESRD on dialysis) SUBQ SCH (21:00)
[2016-07-22] MEDS ORDERED: Minoxidil 2.5mg tab ORAL ONE (22:00)
--- NOTE | 2016-07-22 22:17 | Pulmonology Progress Note ---
Assessment/Plan Problems: (1) ESRF (end stage renal failure) (2) Fluid overload (3) Opiate dependence (4) Homelessness Assessment/Plan HD by nephrology check electrolytes social service consult bilateral arthrocentesis done awaiting placement in a snif in [place] Subjective ROS Limited/Unobtainable: No Constitutional: Reports: no symptoms HEENT: Repors: no symptoms Allergies: Coded Allergies: No Known Allergies (Unverified , 07/20/16) Objective Last 24 Hour Vital Signs Date Time Temp Pulse Resp B/P Pulse Ox O2 Delivery O2 Flow Rate FiO2 07/22/16 21:08 78 177/96 07/22/16 20:38 94 Nasal Cannula 2.0 28 07/22/16 20:38 Nasal Cannula 2.0 28 07/22/16 20:36 78 18 Nasal Cannula 2.0 28 07/22/16 19:54 97.3 72 18 215/108 98 Room Air 07/22/16 19:23 Room Air 2.0 21 07/22/16 18:56 220/108 07/22/16 18:36 86 207/101 07/22/16 18:36 207/101 07/22/16 16:30 98.8 86 18 182/101 99 Room Air 07/22/16 16:00 Room Air 2.0 07/22/16 12:44 174/90 07/22/16 12:09 98.1 72 18 174/90 99 Room Air 07/22/16 09:00 82 149/89 07/22/16 08:26 99 Room Air 07/22/16 08:26 Room Air 07/22/16 08:26 76 16 Room Air 21 07/22/16 08:00 97.2 76 20 156/72 99 Room Air 07/22/16 04:00 96.9 82 20 149/89 Room Air 07/22/16 00:00 97.8 85 20 114/101 99 Room Air 07/21/16 23:47 184/101 Intake and Output 07/21/16 07/22/16 19:00 07:00 Intake Total 440 ml Output Total 160 ml 100 ml Balance 280 ml -100 ml Intake Oral 440 ml Output Urine Total 160 ml 100 ml # Bowel Movements 1 General Appearance: WD/WN HEENT: normocephalic Respiratory/Chest: chest wall non-tender, lungs clear Cardiovascular: normal peripheral pulses, normal rate Abdomen: normal bowel sounds, soft, non tender Extremities: no cyanosis, other - effusion in both knees Skin: no rash Microbiology Date/Time Source Procedure Growth Status 07/20/16 09:15 Nasal Nares MRSA Culture - Final Staphylococcus Aureus - Mrsa Complete 07/21/16 11:55 Indwelling Cath Urine Culture - Preliminary NO GROWTH Resulted 07/20/16 09:15 Rectum VRE Culture - Final Enterococcus Faecium - Vre Complete Laboratory Tests 07/22/16 05:15: Sodium Level 136, Potassium Level 5.5H, Chloride Level 93L, Carbon Dioxide Level 25, Anion Gap 18H, Blood Urea Nitrogen 62H, Creatinine 9.3H, Estimat Glomerular Filtration Rate 4.5, Glucose Level 74, Uric Acid 6.7, Calcium Level 6.8L, Phosphorus Level 6.6H, Magnesium Level 1.9, Total Bilirubin < 0.2, Aspartate Amino Transf (AST/SGOT) 16, Alanine Aminotransferase (ALT/SGPT) 8, Alkaline Phosphatase 43, Total Protein 5.6L, Albumin 2.1L, Globulin 3.5, Albumin /Globulin Ratio 0.6L 07/22/16 16:30: White Blood Count 11.5H, Red Blood Count 2.73L, Hemoglobin 7.6L, Hematocrit 23.3L, Mean Corpuscular Volume 85, Mean Corpuscular Hemoglobin 27.8, Mean Corpuscular Hemoglobin Concent 32.5, Red Cell Distribution Width 17.5H, Platelet Count 326, Mean Platelet Volume 4.6L, Neutrophils (%) (Auto) , Lymphocytes (%) (Auto) , Monocytes (%) (Auto) , Eosinophils (%) (Auto) , Basophils (%) (Auto) , Differential Total Cells Counted 100, Neutrophils % ( Manual) 73, Lymphocytes % (Manual) 17L, Monocytes % (Manual) 6, Eosinophils % ( Manual) 3, Basophils % (Manual) 1, Band Neutrophils 0, Platelet Estimate Adequate, Platelet Morphology Normal, Red Blood Cell Morphology , Hypochromasia 2+, Anisocytosis 1+, Hepatitis B Surface Antigen [Pending], Hepatitis B Surface Antibody, Quant [Pending], Hepatitis C Antibody [Pending] 07/22/16 17:00: Body Fluid Source [Pending], Body Fluid Volume [Pending], Body Fluid RBC [ Pending], Body Fluid Total Nucleated Cells [Pending], Body Fluid Polynuclear WBCs (%) [Pending], Body Fluid Mononuclear WBCs (%) [Pending] Current Medications Medications (Trade) Dose Ordered Sig/Papo Route PRN Reason Start Time Stop Time Status Last Admin Dose Admin Acetaminophen (Tylenol) 650 mg Q4H PRN ORAL Fever 07/21/16 15:00 08/20/16 14:59 Albuterol/ Ipratropium (DuoNeb 0.5-3(2.5)mg/3ml) 3 ml Q4H PRN HHN Shortness of Breath 07/21/16 15:00 07/26/16 14:59 07/21/16 17:46 Calcitriol (Rocaltrol) 0.5 mcg DAILY ORAL 07/22/16 09:00 08/21/16 08:59 07/22/16 10:40 Clonidine HCl (Catapres) 0.1 mg Q4H PRN ORAL For High Blood Pressure 07/22/16 23:59 08/21/16 23:58 Clonidine HCl (Catapres) 0.1 mg Q6H PRN ORAL For High Blood Pressure 07/21/16 22:30 07/22/16 22:30 07/22/16 18:36 Dextrose (Dextrose 50%) STAT PRN IV Hypoglycemia 07/21/16 15:00 08/20/16 14:59 Docusate Sodium (Colace) 100 mg THREE TIMES A DAY ORAL 07/22/16 09:00 08/21/16 08:59 07/22/16 18:00 Epoetin Sid (Procrit (for ESRD on dialysis)) 10,000 units WED-WED-WED SUBQ 07/22/16 21:00 08/21/16 20:59 Ergocalciferol (Drisdol) 50,000 intlu QWEEK ORAL 07/28/16 09:00 08/27/16 08:59 Heparin Sodium (Porcine) (Heparin 5000 units/ml) 5,000 units EVERY 12 HOURS SUBQ 07/21/16 21:00 08/20/16 20:59 07/22/16 10:41 Lisinopril (Prinivil) 20 mg Q12HR ORAL 07/22/16 22:00 08/21/16 21:59 Morphine Sulfate (Morphine Sulfate) 2 mg Q4H PRN SUBQ For Pain 07/22/16 15:00 07/29/16 14:59 07/22/16 15:06 Nifedipine (Procardia XL) 30 mg Q12HR ORAL 07/23/16 09:00 08/22/16 08:59 Ondansetron HCl (Zofran) 4 mg Q6H PRN IVP Nausea & Vomiting 07/21/16 15:00 08/20/16 14:59 Polyethylene Glycol (Miralax) 17 gm DAILYPRN PRN ORAL Constipation 07/21/16 15:00 08/20/16 14:59 Sevelamer Carbonate (Renvela) 2,400 mg THREE TIMES A DAY ORAL 07/22/16 09:00 08/21/16 08:59 07/22/16 18:37 Temazepam (Restoril) 15 mg HSPRN PRN ORAL Insomnia 07/21/16 21:00 07/28/16 20:59 EMMANUEL DOUGHERTY Jul 22, 2016 22:17
[2016-07-22 22:23] LABS: BD FL VOLUME 100 mL
[2016-07-22 22:24] LABS: BODY FLUID NUCLEATED CELLS 44 /CUMM; BODY FLUID RBC 1753 /CUMM; MONONUCLEAR WBC 83 %; POLYMORPHONUCLEAR WBC 17 %
[2016-07-22] MEDS: Lisinopril 20mg tab ORAL SCH (22:47)
[2016-07-22 22:55] LABS: BD FL VOLUME 50 mL
[2016-07-22 22:56] LABS: BODY FLUID NUCLEATED CELLS 108 /CUMM; BODY FLUID RBC 1797 /CUMM; MONONUCLEAR WBC 92 %; POLYMORPHONUCLEAR WBC 8 %
[2016-07-23] MEDS: Morphine Sulfate 2mg/ml Inj SUBQ PRN ×2 (01:47→09:13)
[2016-07-23 04:00] VITALS: BP 167/78
[2016-07-23 06:48] LABS: ALANINE AMINOTRANSFERASE 8 U/L (3-33); ALBUMIN/GLOBULIN RATIO 0.6 (1.0-2.7); ANION GAP 17 (5-15); ASPARTATE AMINO TRANSFERASE 13 U/L (5-40); CALCIUM 7.3 mg/dL (8.6-10.2); CARBON DIOXIDE 28 mEQ/L (20-30); CHLORIDE 92 mEQ/L (98-107); CREATININE 6.8 mg/dL (0.5-0.9); GLOMERULAR FILTRATION RATE 6.4 mL/min (>60); HEMOLYSIS 1; PHOSPHORUS 5.3 mg/dL (2.5-4.8); POTASSIUM 4.1 mEQ/L (3.4-4.9); SODIUM 137 mEQ/L (135-145); TOTAL PROTEIN 5.7 g/dL (6.6-8.7); URIC ACID 4.8 mg/dL (3.0-7.5)
[2016-07-23 07:11] LABS: MEAN CORPUSCULAR HEMOGLOBIN 26.6 PG (27.0-31.0); MEAN CORPUSCULAR HGB CONC 31.2 G/DL (32.0-36.0); MEAN CORPUSCULAR VOLUME 85 FL (80-99); MEAN PLATELET VOLUME 4.7 FL (6.5-10.1); PLATELET COUNT 353 K/UL (150-450); RED BLOOD COUNT 2.93 M/UL (4.20-5.40); RED CELL DISTRIBUTION WIDTH 17.4 % (11.6-14.8); WHITE BLOOD COUNT 12.1 K/UL (4.8-10.8)
[2016-07-23 08:00] VITALS: BP 169/98
[2016-07-23] MEDS ORDERED: Lisinopril 20mg tab ORAL SCH (09:00)
[2016-07-23] MEDS ORDERED: Metoprolol 25mg tab ORAL SCH (09:00)
[2016-07-23] MEDS: Calcitriol 0.5mcg Cap ORAL SCH (09:03)
[2016-07-23] MEDS: Lisinopril 20mg tab ORAL SCH ×2 (09:03→20:23)
[2016-07-23] MEDS: Docusate 100mg cap ORAL SCH ×3 (09:04→17:44)
[2016-07-23] MEDS: Heparin 5000 units/ml inj SUBQ SCH ×2 (09:09→20:24)
[2016-07-23] MEDS: Miralax 17gm pkt ORAL PRN (09:26)
[2016-07-23 10:43] LABS: ANISOCYTOSIS 1+; BAND NEUTROPHILS % (MANUAL) 0 % (0-8); BASOPHILS % (MANUAL) 0 % (0-2); EOSINOPHILS % (MANUAL) 4 % (0-3); HYPOCHROMASIA 1+; LYMPHOCYTES % (MANUAL) 14 % (20-45); NEUTROPHILS % (MANUAL) 79 % (45-75); PLATELET ESTIMATE ADEQUATE; PLATELET MORPHOLOGY NORMAL; TOTAL CELLS COUNTED 100
[2016-07-23 12:10] VITALS: BP 169/93
--- NOTE | 2016-07-23 13:46 | General Progress Note ---
Assessment/Plan Status: stable Status Narrative BP OOC Assessment/Plan Status; ESRD , Right chest Permacath- ( and left arm fistula with bruit) No Dialysis for sometimes Volume Overload Encephalopathy Anemia Plan: Dialysis next 07/24 Anemia vitale, IV Iron and SQ EPO BP control- adjust meds- DC singh Phos binders , Vit D and Kayexelate prn SS eval per orders Subjective ROS Limited/Unobtainable: No Constitutional: Reports: malaise Allergies: Coded Allergies: No Known Allergies (Unverified , 07/20/16) Objective Last 24 Hour Vital Signs Date Time Temp Pulse Resp B/P Pulse Ox O2 Delivery O2 Flow Rate FiO2 07/23/16 12:13 169/93 07/23/16 12:10 98.2 73 19 169/93 97 Room Air 07/23/16 10:00 81 18 Nasal Cannula 2.0 28 07/23/16 10:00 96 Nasal Cannula 2.0 28 07/23/16 10:00 Nasal Cannula 2.0 28 07/23/16 09:43 98.4 07/23/16 09:03 90 169/98 07/23/16 09:03 90 169/98 07/23/16 09:03 169/98 07/23/16 08:00 98.4 90 18 169/98 96 Room Air 07/23/16 05:37 167/78 07/23/16 04:00 98.2 93 20 167/78 100 Nasal Cannula 2.0 07/22/16 23:57 98.6 82 18 164/93 92 Nasal Cannula 2.0 07/22/16 22:47 164/93 07/22/16 22:46 164/93 07/22/16 21:08 78 177/96 07/22/16 20:38 94 Nasal Cannula 2.0 07/22/16 20:38 Nasal Cannula 2.0 28 07/22/16 20:36 78 18 Nasal Cannula 2.0 28 07/22/16 19:54 97.3 72 18 215/108 98 Room Air 07/22/16 19:23 Room Air 2.0 21 07/22/16 18:56 220/108 07/22/16 18:36 86 207/101 07/22/16 18:36 207/101 07/22/16 16:30 98.8 86 18 182/101 99 Room Air 07/22/16 16:00 Room Air 2.0 21 Intake and Output 07/22/16 07/23/16 19:00 07:00 Intake Total 450 ml 120 ml Output Total 100 ml 2300 ml Balance 350 ml -2180 ml Intake Oral 450 ml 120 ml Output Urine Total 100 ml 0 ml Hemodialysis UF 2300 ml Laboratory Tests 07/22/16 16:30: White Blood Count 11.5H, Red Blood Count 2.73L, Hemoglobin 7.6L, Hematocrit 23.3L, Mean Corpuscular Volume 85, Mean Corpuscular Hemoglobin 27.8, Mean Corpuscular Hemoglobin Concent 32.5, Red Cell Distribution Width 17.5H, Platelet Count 326, Mean Platelet Volume 4.6L, Neutrophils (%) (Auto) , Lymphocytes (%) (Auto) , Monocytes (%) (Auto) , Eosinophils (%) (Auto) , Basophils (%) (Auto) , Differential Total Cells Counted 100, Neutrophils % ( Manual) 73, Lymphocytes % (Manual) 17L, Monocytes % (Manual) 6, Eosinophils % ( Manual) 3, Basophils % (Manual) 1, Band Neutrophils 0, Platelet Estimate Adequate, Platelet Morphology Normal, Red Blood Cell Morphology , Hypochromasia 2+, Anisocytosis 1+, Hepatitis B Surface Antigen [Pending], Hepatitis B Surface Antibody, Quant [Pending], Hepatitis C Antibody [Pending] 07/22/16 17:00: Body Fluid Source Synovial, l, Body Fluid Volume 50, Body Fluid RBC 1797, Body Fluid Total Nucleated Cells 108, Body Fluid Polynuclear WBCs (%) 8, Body Fluid Mononuclear WBCs (%) 92, Synovial Fluid Crystals [Pending] 07/23/16 04:55: White Blood Count 12.1H, Red Blood Count 2.93L, Hemoglobin 7.8L, Hematocrit 24.9L, Mean Corpuscular Volume 85, Mean Corpuscular Hemoglobin 26.6L, Mean Corpuscular Hemoglobin Concent 31.2L, Red Cell Distribution Width 17.4H, Platelet Count 353, Mean Platelet Volume 4.7L, Neutrophils (%) (Auto) , Lymphocytes (%) (Auto) , Monocytes (%) (Auto) , Eosinophils (%) (Auto) , Basophils (%) (Auto) , Differential Total Cells Counted 100, Neutrophils % ( Manual) 79H, Lymphocytes % (Manual) 14L, Monocytes % (Manual) 3, Eosinophils % ( Manual) 4H, Basophils % (Manual) 0, Band Neutrophils 0, Platelet Estimate Adequate, Platelet Morphology Normal, Hypochromasia 1+, Anisocytosis 1+, Sodium Level 137, Potassium Level 4.1, Chloride Level 92L, Carbon Dioxide Level 28, Anion Gap 17H, Blood Urea Nitrogen 43H, Creatinine 6.8H, Estimat Glomerular Filtration Rate 6.4, Glucose Level 89, Uric Acid 4.8, Calcium Level 7.3L, Phosphorus Level 5.3H, Total Bilirubin < 0.2, Aspartate Amino Transf (AST/SGOT) 13, Alanine Aminotransferase (ALT/SGPT) 8, Alkaline Phosphatase 43, Pro-B-Type Natriuretic Peptide > [id number], Total Protein 5.7L, Albumin 2.2L, Globulin 3.5, Albumin/Globulin Ratio 0.6L Height (Feet): 5 Height (Inches): 4.00 Weight (Pounds): 160 General Appearance: no apparent distress Objective no change ERICK MOSES Jul 23, 2016 13:46
--- NOTE | 2016-07-23 15:52 | Pulmonology Progress Note ---
Assessment/Plan Problems: (1) ESRF (end stage renal failure) (2) Fluid overload (3) Opiate dependence (4) Homelessness Assessment/Plan HD by nephrology check electrolytes social service consult bilateral arthrocentesis done awaiting placement in a snif in [place] Subjective Interval Events: comfortable Allergies: Coded Allergies: No Known Allergies (Unverified , 07/20/16) Objective Last 24 Hour Vital Signs Date Time Temp Pulse Resp B/P Pulse Ox O2 Delivery O2 Flow Rate FiO2 07/23/16 12:13 169/93 07/23/16 12:10 98.2 73 19 169/93 97 Room Air 07/23/16 10:00 81 18 Nasal Cannula 2.0 28 07/23/16 10:00 96 Nasal Cannula 2.0 28 07/23/16 10:00 Nasal Cannula 2.0 28 07/23/16 09:43 98.4 07/23/16 09:03 90 169/98 07/23/16 09:03 90 169/98 07/23/16 09:03 169/98 07/23/16 08:00 98.4 90 18 169/98 96 Room Air 07/23/16 05:37 167/78 07/23/16 04:00 98.2 93 20 167/78 100 Nasal Cannula 2.0 07/22/16 23:57 98.6 82 18 164/93 92 Nasal Cannula 2.0 07/22/16 22:47 164/93 07/22/16 22:46 164/93 07/22/16 21:08 78 177/96 07/22/16 20:38 94 Nasal Cannula 2.0 28 07/22/16 20:38 Nasal Cannula 2.0 28 07/22/16 20:36 78 18 Nasal Cannula 2.0 28 07/22/16 19:54 97.3 72 18 215/108 98 Room Air 07/22/16 19:23 Room Air 2.0 21 07/22/16 18:56 220/108 07/22/16 18:36 86 207/101 07/22/16 18:36 207/101 07/22/16 16:30 98.8 86 18 182/101 99 Room Air 07/22/16 16:00 Room Air 2.0 21 Intake and Output 07/22/16 07/23/16 19:00 07:00 Intake Total 450 ml 120 ml Output Total 100 ml 2300 ml Balance 350 ml -2180 ml Intake Oral 450 ml 120 ml Output Urine Total 100 ml 0 ml Hemodialysis UF 2300 ml Objective General Appearance: WD/WN HEENT: normocephalic Respiratory/Chest: chest wall non-tender, lungs clear Cardiovascular: normal peripheral pulses, normal rate Abdomen: normal bowel sounds, soft, non tender Extremities: no cyanosis, other - effusion in both knees Skin: no rash General Appearance: WD/WN Microbiology Date/Time Source Procedure Growth Status 07/22/16 17:00 Synovial Fluid Gram Stain - Final Resulted 07/22/16 17:00 Synovial Fluid Body Fluid Culture - Preliminary NO GROWTH Resulted 07/22/16 17:00 Synovial Fluid Gram Stain - Final Resulted 07/22/16 17:00 Synovial Fluid Body Fluid Culture - Preliminary NO GROWTH Resulted 07/21/16 11:55 Indwelling Cath Urine Culture - Preliminary NO GROWTH AFTER 24 HOURS Resulted Laboratory Tests 07/22/16 16:30: White Blood Count 11.5H, Red Blood Count 2.73L, Hemoglobin 7.6L, Hematocrit 23.3L, Mean Corpuscular Volume 85, Mean Corpuscular Hemoglobin 27.8, Mean Corpuscular Hemoglobin Concent 32.5, Red Cell Distribution Width 17.5H, Platelet Count 326, Mean Platelet Volume 4.6L, Neutrophils (%) (Auto) , Lymphocytes (%) (Auto) , Monocytes (%) (Auto) , Eosinophils (%) (Auto) , Basophils (%) (Auto) , Differential Total Cells Counted 100, Neutrophils % ( Manual) 73, Lymphocytes % (Manual) 17L, Monocytes % (Manual) 6, Eosinophils % ( Manual) 3, Basophils % (Manual) 1, Band Neutrophils 0, Platelet Estimate Adequate, Platelet Morphology Normal, Red Blood Cell Morphology , Hypochromasia 2+, Anisocytosis 1+, Hepatitis B Surface Antigen [Pending], Hepatitis B Surface Antibody, Quant [Pending], Hepatitis C Antibody [Pending] 07/22/16 17:00: Body Fluid Source Synovial, l, Body Fluid Volume 50, Body Fluid RBC 1797, Body Fluid Total Nucleated Cells 108, Body Fluid Polynuclear WBCs (%) 8, Body Fluid Mononuclear WBCs (%) 92, Synovial Fluid Crystals [Pending] 07/23/16 04:55: White Blood Count 12.1H, Red Blood Count 2.93L, Hemoglobin 7.8L, Hematocrit 24.9L, Mean Corpuscular Volume 85, Mean Corpuscular Hemoglobin 26.6L, Mean Corpuscular Hemoglobin Concent 31.2L, Red Cell Distribution Width 17.4H, Platelet Count 353, Mean Platelet Volume 4.7L, Neutrophils (%) (Auto) , Lymphocytes (%) (Auto) , Monocytes (%) (Auto) , Eosinophils (%) (Auto) , Basophils (%) (Auto) , Differential Total Cells Counted 100, Neutrophils % ( Manual) 79H, Lymphocytes % (Manual) 14L, Monocytes % (Manual) 3, Eosinophils % ( Manual) 4H, Basophils % (Manual) 0, Band Neutrophils 0, Platelet Estimate Adequate, Platelet Morphology Normal, Hypochromasia 1+, Anisocytosis 1+, Sodium Level 137, Potassium Level 4.1, Chloride Level 92L, Carbon Dioxide Level 28, Anion Gap 17H, Blood Urea Nitrogen 43H, Creatinine 6.8H, Estimat Glomerular Filtration Rate 6.4, Glucose Level 89, Uric Acid 4.8, Calcium Level 7.3L, Phosphorus Level 5.3H, Total Bilirubin < 0.2, Aspartate Amino Transf (AST/SGOT) 13, Alanine Aminotransferase (ALT/SGPT) 8, Alkaline Phosphatase 43, Pro-B-Type Natriuretic Peptide > 31440M, Total Protein 5.7L, Albumin 2.2L, Globulin 3.5, Albumin/Globulin Ratio 0.6L Current Medications Medications (Trade) Dose Ordered Sig/Papo Route PRN Reason Start Time Stop Time Status Last Admin Dose Admin Acetaminophen (Tylenol) 650 mg Q4H PRN ORAL Fever 07/21/16 15:00 08/20/16 14:59 Albuterol/ Ipratropium (DuoNeb 0.5-3(2.5)mg/3ml) 3 ml Q4H PRN HHN Shortness of Breath 07/21/16 15:00 07/26/16 14:59 07/21/16 17:46 Calcitriol (Rocaltrol) 0.5 mcg DAILY ORAL 07/22/16 09:00 08/21/16 08:59 07/23/16 09:03 Clonidine HCl (Catapres) 0.1 mg Q8H ORAL 07/23/16 22:00 08/22/16 21:59 Dextrose (Dextrose 50%) STAT PRN IV Hypoglycemia 07/21/16 15:00 08/20/16 14:59 Docusate Sodium (Colace) 100 mg THREE TIMES A DAY ORAL 07/22/16 09:00 08/21/16 08:59 07/23/16 12:14 Epoetin Sid (Procrit (for ESRD on dialysis)) 10,000 units WED-WED-WED SUBQ 07/22/16 21:00 08/21/16 20:59 Ergocalciferol (Drisdol) 50,000 intlu QWEEK ORAL 07/28/16 09:00 08/27/16 08:59 Heparin Sodium (Porcine) (Heparin 5000 units/ml) 5,000 units EVERY 12 HOURS SUBQ 07/21/16 21:00 08/20/16 20:59 07/23/16 09:09 Lisinopril (Prinivil) 20 mg Q12HR ORAL 07/22/16 22:00 08/21/16 21:59 07/23/16 09:03 Minoxidil (Loniten) 2.5 mg Q4H PRN ORAL SBP>160 07/23/16 13:45 08/22/16 13:44 Morphine Sulfate (Morphine Sulfate) 2 mg Q4H PRN SUBQ For Pain 07/22/16 15:00 07/29/16 14:59 07/23/16 09:13 Nifedipine (Procardia XL) 60 mg Q12HR ORAL 07/23/16 09:00 08/22/16 08:59 07/23/16 09:03 Ondansetron HCl (Zofran) 4 mg Q6H PRN IVP Nausea & Vomiting 07/21/16 15:00 08/20/16 14:59 Polyethylene Glycol (Miralax) 17 gm DAILYPRN PRN ORAL Constipation 07/21/16 15:00 08/20/16 14:59 07/23/16 09:26 Sevelamer Carbonate (Renvela) 2,400 mg THREE TIMES A DAY ORAL 07/22/16 09:00 08/21/16 08:59 07/23/16 12:13 Temazepam (Restoril) 15 mg HSPRN PRN ORAL Insomnia 07/21/16 21:00 07/28/16 20:59 EMMANUEL DOUGHERTY Jul 23, 2016 15:52
[2016-07-23 16:00] VITALS: BP 146/73
[2016-07-23 20:27] VITALS: BP 147/82
[2016-07-24 00:24] VITALS: BP 167/80
[2016-07-24 04:39] VITALS: BP 154/91
[2016-07-24] MEDS: Morphine Sulfate 2mg/ml Inj SUBQ PRN ×2 (04:46→22:11)
[2016-07-24 07:36] VITALS: BP 123/73
--- NOTE | 2016-07-24 08:30 | Pulmonology Progress Note ---
Assessment/Plan Assessment/Plan ASSESSMENT ESRD on HD fluid overload anemia of chronic renal disease s/p blood transfusion, hyperkalemia acute encephalopathy severe pulmonary HTN HTN moderate MR opiate dependency homelessness s/p bilateral arthrocentesis PLAN OF CARE [place] floor HD as per nephro monitor renal parameters, lytes s/p Kayexalate, K stable O2 HHN prn CXR with some interstitial congestion ECHO with EF 60% and RVSP of 71 c/w severe pulmonary HTN , moderate MR acute encephalopathy likely was due to ESRD and missed HD as well as elevated ammonia ammonia level pending for this am BP management with CCB and Clonidine anemia w/up with low iron, on IV iron and EPO, monitor HH, transfuse prn , urine cx negative, synovial fluid negative ( from arthrocentesis) phospho binders elizabeth D DVT prophylaxis awaiting for placement case discussed and evaluated by supervising physician Subjective Allergies: Coded Allergies: No Known Allergies (Unverified , 07/20/16) Subjective afebrile on RA pulse ox stable labs pending for this am mental status back to baseline denies chest pain, SOB Objective Last 24 Hour Vital Signs Date Time Temp Pulse Resp B/P Pulse Ox O2 Delivery O2 Flow Rate FiO2 07/24/16 07:36 97.9 85 15 123/73 95 Room Air 07/24/16 06:11 157/89 07/24/16 05:16 99.1 07/24/16 04:39 99.1 93 20 154/91 96 Room Air 07/24/16 00:24 98.2 100 21 167/80 96 Room Air 07/23/16 22:55 166/74 07/23/16 20:27 99.1 92 18 147/82 96 Room Air 07/23/16 20:23 146/73 07/23/16 20:22 80 146/73 07/23/16 19:16 Nasal Cannula 2.0 28 07/23/16 19:16 94 Nasal Cannula 2.0 28 07/23/16 19:16 80 18 Nasal Cannula 2.0 28 07/23/16 16:00 98.2 86 18 146/73 90 Nasal Cannula 2.0 07/23/16 12:13 169/93 07/23/16 12:10 98.2 73 19 169/93 97 Room Air 07/23/16 10:00 81 18 Nasal Cannula 2.0 07/23/16 10:00 96 Nasal Cannula 2.0 28 07/23/16 10:00 Nasal Cannula 2.0 28 07/23/16 09:03 90 169/98 07/23/16 09:03 90 169/98 07/23/16 09:03 169/98 Intake and Output 07/23/16 07/24/16 19:00 07:00 Intake Total 420 ml Balance 420 ml Intake Oral 420 ml # Voids 1 # Bowel Movements 1 General Appearance: no acute distress, other - awake, alert, responsive HEENT: anicteric, mucous membranes moist Respiratory/Chest: lungs clear - mdoerate air entry , no respiratory distress, no accessory muscle use, other - R chest PermCath and left arm fistula with bruit Abdomen: normal bowel sounds, soft, non tender Extremities: other - knee edema +1, trace edema BLE Neurologic/Psychiatric: abnormal gait, alert Microbiology Date/Time Source Procedure Growth Status 07/22/16 17:00 Synovial Fluid Gram Stain - Final Resulted 07/22/16 17:00 Synovial Fluid Body Fluid Culture - Preliminary NO GROWTH Resulted 07/22/16 17:00 Synovial Fluid Gram Stain - Final Resulted 07/22/16 17:00 Synovial Fluid Body Fluid Culture - Preliminary NO GROWTH Resulted 07/21/16 11:55 Indwelling Cath Urine Culture - Final NO GROWTH AFTER 48 HOURS Complete Current Medications Medications (Trade) Dose Ordered Sig/Papo Route PRN Reason Start Time Stop Time Status Last Admin Dose Admin Acetaminophen (Tylenol) 650 mg Q4H PRN ORAL Fever 07/21/16 15:00 08/20/16 14:59 Albuterol/ Ipratropium (DuoNeb 0.5-3(2.5)mg/3ml) 3 ml Q4H PRN HHN Shortness of Breath 07/21/16 15:00 07/26/16 14:59 07/21/16 17:46 Calcitriol (Rocaltrol) 0.5 mcg DAILY ORAL 07/22/16 09:00 08/21/16 08:59 07/23/16 09:03 Clonidine HCl (Catapres) 0.1 mg Q8H ORAL 07/23/16 22:00 08/22/16 21:59 07/24/16 06:11 Dextrose (Dextrose 50%) STAT PRN IV Hypoglycemia 07/21/16 15:00 08/20/16 14:59 Docusate Sodium (Colace) 100 mg THREE TIMES A DAY ORAL 07/22/16 09:00 08/21/16 08:59 07/23/16 17:44 Epoetin Sid (Procrit (for ESRD on dialysis)) 10,000 units WED-WED-WED SUBQ 07/22/16 21:00 08/21/16 20:59 Ergocalciferol (Drisdol) 50,000 intlu QWEEK ORAL 07/28/16 09:00 08/27/16 08:59 Heparin Sodium (Porcine) (Heparin 5000 units/ml) 5,000 units EVERY 12 HOURS SUBQ 07/21/16 21:00 08/20/16 20:59 07/23/16 20:24 Lisinopril (Prinivil) 20 mg Q12HR ORAL 07/22/16 22:00 08/21/16 21:59 07/23/16 20:23 Minoxidil (Loniten) 2.5 mg Q4H PRN ORAL SBP>160 07/23/16 13:45 08/22/16 13:44 Morphine Sulfate (Morphine Sulfate) 2 mg Q4H PRN SUBQ For Pain 07/22/16 15:00 07/29/16 14:59 07/24/16 04:46 Nifedipine (Procardia XL) 60 mg Q12HR ORAL 07/23/16 09:00 08/22/16 08:59 07/23/16 20:22 Ondansetron HCl (Zofran) 4 mg Q6H PRN IVP Nausea & Vomiting 07/21/16 15:00 08/20/16 14:59 Polyethylene Glycol (Miralax) 17 gm DAILYPRN PRN ORAL Constipation 07/21/16 15:00 08/20/16 14:59 07/23/16 09:26 Sevelamer Carbonate (Renvela) 2,400 mg THREE TIMES A DAY ORAL 07/22/16 09:00 08/21/16 08:59 07/23/16 17:44 Temazepam (Restoril) 15 mg HSPRN PRN ORAL Insomnia 07/21/16 21:00 07/28/16 20:59 Whitney Cornejo NP ([facility]) Jul 24, 2016 08:30
[2016-07-24] MEDS: Lisinopril 20mg tab ORAL SCH ×2 (09:00→21:03)
[2016-07-24 09:14] LABS: OTHERS PATHOLOGIST COMMENT
[2016-07-24] MEDS: Docusate 100mg cap ORAL SCH ×3 (09:40→18:31)
[2016-07-24] MEDS: Heparin 5000 units/ml inj SUBQ SCH ×2 (09:41→21:04)
[2016-07-24] MEDS: Calcitriol 0.5mcg Cap ORAL SCH (09:46)
--- NOTE | 2016-07-24 09:54 | General Progress Note ---
Assessment/Plan Status: stable Assessment/Plan Status; ESRD , Right chest Permacath- ( and left arm fistula with bruit) No Dialysis for sometimes Volume Overload Encephalopathy Anemia Plan: Dialysis next 07/24 today Anemia vitale, IV Iron and SQ EPO BP control- adjust meds- DC singh Phos binders , Vit D and Kayexelate prn SS eval for disposition per orders Subjective ROS Limited/Unobtainable: No Allergies: Coded Allergies: No Known Allergies (Unverified , 07/20/16) Objective Last 24 Hour Vital Signs Date Time Temp Pulse Resp B/P Pulse Ox O2 Delivery O2 Flow Rate FiO2 07/24/16 09:00 75 123/73 07/24/16 09:00 123/73 07/24/16 08:04 95 Nasal Cannula 2.0 07/24/16 08:04 Nasal Cannula 2.0 28 07/24/16 08:04 75 18 Nasal Cannula 2.0 07/24/16 07:36 97.9 85 15 123/73 95 Room Air 07/24/16 06:11 157/89 07/24/16 05:16 99.1 07/24/16 04:39 99.1 93 20 154/91 96 Room Air 07/24/16 00:24 98.2 100 21 167/80 96 Room Air 07/23/16 22:55 166/74 07/23/16 20:27 99.1 92 18 147/82 96 Room Air 07/23/16 20:23 146/73 07/23/16 20:22 80 146/73 07/23/16 19:16 Nasal Cannula 2.0 07/23/16 19:16 94 Nasal Cannula 2.0 07/23/16 19:16 80 18 Nasal Cannula 2.0 07/23/16 16:00 98.2 86 18 146/73 90 Nasal Cannula 2.0 07/23/16 12:13 169/93 07/23/16 12:10 98.2 73 19 169/93 97 Room Air 07/23/16 10:00 81 18 Nasal Cannula 2.0 07/23/16 10:00 96 Nasal Cannula 2.0 28 07/23/16 10:00 Nasal Cannula 2.0 28 Intake and Output 07/23/16 07/24/16 19:00 07:00 Intake Total 420 ml Balance 420 ml Intake Oral 420 ml # Voids 1 # Bowel Movements 1 Height (Feet): 5 Height (Inches): 4.00 Weight (Pounds): 160 General Appearance: no apparent distress Objective no change ERICK MOSES Jul 24, 2016 09:54
[2016-07-24 12:50] VITALS: BP 132/79
[2016-07-24 16:13] VITALS: BP 152/78
[2016-07-24 20:00] VITALS: BP 150/97
[2016-07-24] MEDS: Epogen (for ESRD on dialysis) SUBQ SCH (21:05)
[2016-07-25] VITALS: BP 144/86
[2016-07-25 04:00] VITALS: BP 146/83
[2016-07-25 08:00] VITALS: BP 175/91
[2016-07-25] MEDS ORDERED: Tubing IV Secondary IV ONE (09:10)
[2016-07-25] MEDS: Docusate 100mg cap ORAL SCH ×3 (09:35→18:25)
[2016-07-25] MEDS: Calcitriol 0.5mcg Cap ORAL SCH (09:35)
[2016-07-25] MEDS: Lisinopril 20mg tab ORAL SCH ×2 (09:35→21:18)
[2016-07-25] MEDS: Heparin 5000 units/ml inj SUBQ SCH ×2 (09:37→21:19)
[2016-07-25] MEDS: Minoxidil 2.5mg tab ORAL PRN (09:39)
--- NOTE | 2016-07-25 11:32 | Pulmonology Progress Note ---
Assessment/Plan Assessment/Plan ASSESSMENT ESRD on HD fluid overload anemia of chronic renal disease s/p blood transfusion, hyperkalemia -resolved acute encephalopathy -resolved severe pulmonary HTN HTN moderate MR opiate dependency homelessness s/p bilateral arthrocentesis PLAN OF CARE [place] floor HD as per nephro monitor renal parameters, lytes s/p Kayexalate, K stable O2 HHN prn CXR with some interstitial congestion ECHO with EF 60% and RVSP of 71 c/w severe pulmonary HTN , moderate MR acute encephalopathy likely was due to ESRD and missed HD as well as elevated ammonia ammonia level WNL BP management with CCB and Clonidine anemia w/up with low iron, on IV iron and EPO, monitor HH, transfuse prn , goal to keep Hgb above 7 urine cx negative, synovial fluid negative ( from arthrocentesis) phospho binders vitamin D DVT prophylaxis awaiting for placement PT Rx, ambulants with walker case discussed and evaluated by supervising physician Subjective Allergies: Coded Allergies: No Known Allergies (Unverified , 07/20/16) Subjective afebrile on RA pulse ox stable still with mild leukocytosis mental status back to baseline denies chest pain, SOB Objective Last 24 Hour Vital Signs Date Time Temp Pulse Resp B/P Pulse Ox O2 Delivery O2 Flow Rate FiO2 07/25/16 09:39 175/91 07/25/16 09:35 175/91 07/25/16 09:34 86 175/91 07/25/16 08:00 98.2 86 18 175/91 93 Room Air 07/25/16 07:12 75 16 Room Air 21 07/25/16 07:12 94 Room Air 21 07/25/16 07:12 Room Air 07/25/16 06:10 146/83 07/25/16 04:00 97.9 92 18 146/83 97 Nasal Cannula 15.0 07/25/16 00:00 97.0 94 20 144/86 96 Nasal Cannula 15.0 07/24/16 22:41 98.8 07/24/16 22:12 168/92 07/24/16 21:03 98 150/97 07/24/16 21:03 150/97 07/24/16 20:00 98.8 98 18 150/97 95 Nasal Cannula 15.0 07/24/16 19:17 94 Nasal Cannula 2.0 28 6/16/17 19:17 83 18 Nasal Cannula 2.0 28 07/24/16 19:17 Nasal Cannula 2.0 28 07/24/16 16:13 97.9 84 16 152/78 94 Room Air 07/24/16 15:59 Nasal Cannula 2.0 28 07/24/16 14:00 132/79 07/24/16 12:50 98.4 87 16 132/79 93 Nasal Cannula 07/24/16 11:50 Nasal Cannula 2.0 28 Intake and Output 07/24/16 07/25/16 19:00 07:00 Intake Total 1500 ml 680 ml Output Total 2300 ml 0 ml Balance -800 ml 680 ml Intake Oral 1500 ml 680 ml Output Urine Total 0 ml Hemodialysis UF 2300 ml Objective General Appearance: no acute distress, awake, alert, responsive HEENT: anicteric, mucous membranes moist Respiratory/Chest: lungs clear - moderate air entry , no respiratory distress, no accessory muscle use, R chest PermCath and left arm fistula with bruit Abdomen: normal bowel sounds, soft, non tender Extremities: knee edema +1, trace edema BLE Neurologic/Psychiatric: abnormal gait, alert Microbiology Date/Time Source Procedure Growth Status 07/22/16 17:00 Synovial Fluid Gram Stain - Final Resulted 07/22/16 17:00 Synovial Fluid Body Fluid Culture - Preliminary NO GROWTH AFTER 72 HOURS Resulted 07/22/16 17:00 Synovial Fluid Gram Stain - Final Resulted 07/22/16 17:00 Synovial Fluid Body Fluid Culture - Preliminary NO GROWTH AFTER 72 HOURS Resulted Laboratory Tests 07/24/16 14:15: Ammonia 12 Current Medications Medications (Trade) Dose Ordered Sig/Papo Route PRN Reason Start Time Stop Time Status Last Admin Dose Admin Acetaminophen (Tylenol) 650 mg Q4H PRN ORAL Fever 07/21/16 15:00 08/20/16 14:59 Albuterol/ Ipratropium (DuoNeb 0.5-3(2.5)mg/3ml) 3 ml Q4H PRN HHN Shortness of Breath 07/21/16 15:00 07/26/16 14:59 07/21/16 17:46 Calcitriol (Rocaltrol) 0.5 mcg DAILY ORAL 07/22/16 09:00 08/21/16 08:59 07/25/16 09:35 Clonidine HCl (Catapres) 0.1 mg Q8H ORAL 07/23/16 22:00 08/22/16 21:59 07/25/16 06:10 Dextrose (Dextrose 50%) STAT PRN IV Hypoglycemia 07/21/16 15:00 08/20/16 14:59 Docusate Sodium (Colace) 100 mg THREE TIMES A DAY ORAL 07/22/16 09:00 08/21/16 08:59 07/25/16 09:35 Epoetin Sid (Procrit (for ESRD on dialysis)) 10,000 units WED-WED-WED SUBQ 07/22/16 21:00 08/21/16 20:59 07/24/16 21:05 Ergocalciferol (Drisdol) 50,000 intlu QWEEK ORAL 07/28/16 09:00 08/27/16 08:59 Heparin Sodium (Porcine) (Heparin 5000 units/ml) 5,000 units EVERY 12 HOURS SUBQ 07/21/16 21:00 08/20/16 20:59 07/25/16 09:37 Lisinopril (Prinivil) 20 mg Q12HR ORAL 07/22/16 22:00 08/21/16 21:59 07/25/16 09:35 Minoxidil (Loniten) 2.5 mg Q4H PRN ORAL SBP>160 07/23/16 13:45 08/22/16 13:44 07/25/16 09:39 Morphine Sulfate (Morphine Sulfate) 2 mg Q4H PRN SUBQ For Pain 07/22/16 15:00 07/29/16 14:59 07/24/16 22:11 Nifedipine (Procardia XL) 60 mg Q12HR ORAL 07/23/16 09:00 08/22/16 08:59 07/25/16 09:34 Ondansetron HCl (Zofran) 4 mg Q6H PRN IVP Nausea & Vomiting 07/21/16 15:00 08/20/16 14:59 Polyethylene Glycol (Miralax) 17 gm DAILYPRN PRN ORAL Constipation 07/21/16 15:00 08/20/16 14:59 07/23/16 09:26 Sevelamer Carbonate (Renvela) 2,400 mg THREE TIMES A DAY ORAL 07/22/16 09:00 08/21/16 08:59 07/25/16 09:35 Temazepam (Restoril) 15 mg HSPRN PRN ORAL Insomnia 07/21/16 21:00 07/28/16 20:59 [facility] ([facility])Whitney NP Jul 25, 2016 11:32
[2016-07-25 12:00] VITALS: BP 134/68
[2016-07-25 15:52] VITALS: BP 143/72
--- NOTE | 2016-07-25 16:15 | General Progress Note ---
Assessment/Plan Status: stable Assessment/Plan Status; ESRD , Right chest Permacath- ( and left arm fistula with bruit) No Dialysis for sometimes Volume Overload Encephalopathy Anemia Plan: Dialysis next 07/27 today Anemia vitale, IV Iron and SQ EPO BP control- adjust meds- DC singh Phos binders , Vit D and Kayexelate prn SS eval for disposition per orders Subjective ROS Limited/Unobtainable: No Allergies: Coded Allergies: No Known Allergies (Unverified , 07/20/16) Objective Last 24 Hour Vital Signs Date Time Temp Pulse Resp B/P Pulse Ox O2 Delivery O2 Flow Rate FiO2 07/25/16 15:52 98.8 100 18 143/72 93 Room Air 07/25/16 12:58 134/68 07/25/16 12:00 97.2 95 20 134/68 94 Room Air 07/25/16 09:39 175/91 07/25/16 09:35 175/91 07/25/16 09:34 86 175/91 07/25/16 08:00 98.2 86 18 175/91 93 Room Air 07/25/16 07:12 75 16 Room Air 21 07/25/16 07:12 94 Room Air 21 07/25/16 07:12 Room Air 07/25/16 06:10 146/83 07/25/16 04:00 97.9 92 18 146/83 97 Nasal Cannula 15.0 07/25/16 00:00 97.0 94 20 144/86 96 Nasal Cannula 15.0 07/24/16 22:41 98.8 07/24/16 22:12 168/92 07/24/16 21:03 98 150/97 07/24/16 21:03 150/97 07/24/16 20:00 98.8 98 18 150/97 95 Nasal Cannula 15.0 07/24/16 19:17 94 Nasal Cannula 2.0 28 07/24/16 19:17 83 18 Nasal Cannula 2.0 28 07/24/16 19:17 Nasal Cannula 2.0 28 Intake and Output 07/24/16 07/25/16 19:00 07:00 Intake Total 1500 ml 680 ml Output Total 2300 ml 0 ml Balance -800 ml 680 ml Intake Oral 1500 ml 680 ml Output Urine Total 0 ml Hemodialysis UF 2300 ml Height (Feet): 5 Height (Inches): 4.00 Weight (Pounds): 160 General Appearance: no apparent distress Objective no change ERICK MOSES Jul 25, 2016 16:15
[2016-07-25] MEDS: Morphine Sulfate 2mg/ml Inj SUBQ PRN (18:21)
[2016-07-25 20:00] VITALS: BP 173/79
[2016-07-25] MEDS: Artificial Tears 1.4% Op Soln BOTH EYES PRN (22:53)
[2016-07-26] VITALS: BP 173/96
[2016-07-26 04:00] VITALS: BP 193/108
[2016-07-26] MEDS: Minoxidil 2.5mg tab ORAL PRN ×2 (04:31→10:09)
[2016-07-26] MEDS: Morphine Sulfate 2mg/ml Inj SUBQ PRN ×3 (04:32→21:33)
[2016-07-26] MEDS: DuoNeb 0.5-3(2.5)mg/3ml neb HHN PRN ×2 (04:53→19:10)
[2016-07-26 08:00] VITALS: BP 179/80
[2016-07-26] MEDS: Renvela 2400 mg pkt ORAL SCH ×3 (10:08→18:01)
[2016-07-26] MEDS: Calcitriol 0.5mcg Cap ORAL SCH (10:08)
[2016-07-26] MEDS: Miralax 17gm pkt ORAL PRN (10:09)
[2016-07-26] MEDS: Docusate 100mg cap ORAL SCH ×3 (10:09→18:01)
[2016-07-26] MEDS: Lisinopril 20mg tab ORAL SCH ×2 (10:09→21:24)
[2016-07-26] MEDS: Heparin 5000 units/ml inj SUBQ SCH ×2 (10:12→21:23)
--- NOTE | 2016-07-26 11:28 | Pulmonology Progress Note ---
Assessment/Plan Assessment/Plan ASSESSMENT ESRD on HD fluid overload anemia of chronic renal disease s/p blood transfusion, hyperkalemia -resolved acute encephalopathy -resolved severe pulmonary HTN HTN moderate MR opiate dependency homelessness s/p bilateral arthrocentesis PLAN OF CARE [place] floor HD as per nephro monitor renal parameters, lytes s/p Kayexalate, K stable O2 HHN prn CXR with some interstitial congestion ECHO with EF 60% and RVSP of 71 c/w severe pulmonary HTN , moderate MR acute encephalopathy likely was due to ESRD and missed HD as well as initially elevated ammonia ammonia level WNL currently BP management with CCB and Clonidine anemia w/up with low iron, on IV iron and EPO, monitor HH, transfuse prn , goal to keep Hgb above 7 urine cx negative, synovial fluid negative ( from arthrocentesis) phospho binders vitamin D DVT prophylaxis awaiting for placement PT Rx, ambulatory with walker if challenges with dc planning to SNF,patient is ambulatory with walker case discussed and evaluated by supervising physician Subjective Allergies: Coded Allergies: No Known Allergies (Unverified , 07/20/16) Subjective afebrile on RA pulse ox stable mental status back to baseline denies chest pain, SOB declined labs for 2 days Objective Last 24 Hour Vital Signs Date Time Temp Pulse Resp B/P Pulse Ox O2 Delivery O2 Flow Rate FiO2 07/26/16 10:09 179/80 07/26/16 10:09 179/80 07/26/16 10:08 88 179/80 07/26/16 08:00 97.0 88 18 179/80 97 Nasal Cannula 2.0 07/26/16 07:22 Nasal Cannula 2.0 28 07/26/16 07:22 83 16 Nasal Cannula 2.0 28 07/26/16 07:22 95 Nasal Cannula 2.0 28 07/26/16 05:48 173/96 07/26/16 05:05 87 17 100 Nasal Cannula 2.0 07/26/16 04:54 94 16 97 Nasal Cannula 2.0 07/26/16 04:31 173/96 07/26/16 04:00 98.2 92 20 193/108 96 Nasal Cannula 2.0 07/26/16 00:00 98.2 95 20 173/96 96 Nasal Cannula 07/25/16 21:18 173/79 07/25/16 21:18 97 173/79 07/25/16 21:18 173/79 07/25/16 20:00 98.2 97 20 173/79 97 Nasal Cannula 2.0 07/25/16 19:10 Nasal Cannula 2.0 28 07/25/16 19:10 95 Nasal Cannula 2.0 28 07/25/16 19:10 74 16 Room Air 21 07/25/16 15:52 98.8 100 18 143/72 93 Room Air 07/25/16 12:58 134/68 07/25/16 12:00 97.2 95 20 134/68 94 Room Air Intake and Output 07/25/16 07/26/16 19:00 07:00 Intake Total 600 ml Balance 600 ml Intake Oral 600 ml # Voids 1 Objective General Appearance: no acute distress, awake, alert, responsive HEENT: anicteric, mucous membranes moist Respiratory/Chest: lungs clear - moderate air entry , no respiratory distress, no accessory muscle use, R chest PermCath and left arm fistula with bruit Abdomen: normal bowel sounds, soft, non tender Extremities: knee edema +1, trace edema BLE Neurologic/Psychiatric: abnormal gait, alert Current Medications Medications (Trade) Dose Ordered Sig/Papo Route PRN Reason Start Time Stop Time Status Last Admin Dose Admin Acetaminophen (Tylenol) 650 mg Q4H PRN ORAL Fever 07/21/16 15:00 08/20/16 14:59 Albuterol/ Ipratropium (DuoNeb 0.5-3(2.5)mg/3ml) 3 ml Q4H PRN HHN Shortness of Breath 07/21/16 15:00 07/26/16 14:59 07/26/16 04:53 Artificial Tears (Akwa-Tears) 2 drop Q6H PRN BOTH EYES Dry Eyes 07/25/16 22:30 08/24/16 22:29 07/25/16 22:53 Calcitriol (Rocaltrol) 0.5 mcg DAILY ORAL 07/22/16 09:00 08/21/16 08:59 07/26/16 10:08 Clonidine HCl (Catapres) 0.1 mg Q8H ORAL 07/23/16 22:00 08/22/16 21:59 07/26/16 05:48 Dextrose (Dextrose 50%) STAT PRN IV Hypoglycemia 07/21/16 15:00 08/20/16 14:59 Docusate Sodium (Colace) 100 mg THREE TIMES A DAY ORAL 07/22/16 09:00 08/21/16 08:59 07/26/16 10:09 Epoetin Sid (Procrit (for ESRD on dialysis)) 10,000 units WED-WED-WED SUBQ 07/22/16 21:00 08/21/16 20:59 07/24/16 21:05 Ergocalciferol (Drisdol) 50,000 intlu QWEEK ORAL 07/28/16 09:00 08/27/16 08:59 Heparin Sodium (Porcine) (Heparin 5000 units/ml) 5,000 units EVERY 12 HOURS SUBQ 07/21/16 21:00 08/20/16 20:59 07/26/16 10:12 Lisinopril (Prinivil) 20 mg Q12HR ORAL 07/22/16 22:00 08/21/16 21:59 07/26/16 10:09 Minoxidil (Loniten) 2.5 mg Q4H PRN ORAL SBP>160 07/23/16 13:45 08/22/16 13:44 07/26/16 10:09 Morphine Sulfate (Morphine Sulfate) 2 mg Q4H PRN SUBQ For Pain 07/22/16 15:00 07/29/16 14:59 07/26/16 10:22 Nifedipine (Procardia XL) 60 mg Q12HR ORAL 07/23/16 09:00 08/22/16 08:59 07/26/16 10:08 Ondansetron HCl (Zofran) 4 mg Q6H PRN IVP Nausea & Vomiting 07/21/16 15:00 08/20/16 14:59 Polyethylene Glycol (Miralax) 17 gm DAILYPRN PRN ORAL Constipation 07/21/16 15:00 08/20/16 14:59 07/26/16 10:09 Sevelamer Carbonate (Renvela) 2,400 mg THREE TIMES A DAY ORAL 07/26/16 09:00 08/25/16 08:59 07/26/16 10:08 Temazepam (Restoril) 15 mg HSPRN PRN ORAL Insomnia 07/21/16 21:00 07/28/16 20:59 Whitney Cornejo NP ([facility]) Jul 26, 2016 11:28
[2016-07-26 11:36] VITALS: BP 160/84
[2016-07-26 15:51] VITALS: BP 151/79
[2016-07-26 20:00] VITALS: BP 168/86
--- NOTE | 2016-07-26 21:27 | General Progress Note ---
Assessment/Plan Status: unchanged Assessment/Plan Status; ESRD , Right chest Permacath- ( and left arm fistula with bruit) No Dialysis for sometimes Volume Overload Encephalopathy Anemia right UE venous out let obstruction Plan: Dialysis next 07/27 today- Venogram RUE Anemia vitale, IV Iron and SQ EPO BP control- adjust meds- DC singh Phos binders , Vit D and Kayexelate prn SS eval for disposition per orders Subjective ROS Limited/Unobtainable: No Constitutional: Reports: malaise, other - right UE swelling Allergies: Coded Allergies: No Known Allergies (Unverified , 07/20/16) Objective Last 24 Hour Vital Signs Date Time Temp Pulse Resp B/P Pulse Ox O2 Delivery O2 Flow Rate FiO2 07/26/16 20:00 98.6 99 18 168/86 92 Room Air 07/26/16 19:20 97 16 97 Nasal Cannula 2.0 28 07/26/16 19:14 28 07/26/16 19:13 94 16 96 Nasal Cannula 2.0 28 07/26/16 19:13 96 Nasal Cannula 2.0 28 07/26/16 19:13 Nasal Cannula 2.0 28 07/26/16 19:12 94 16 Nasal Cannula 2.0 28 07/26/16 15:51 97.9 98 18 151/79 100 Nasal Cannula 2.0 07/26/16 14:18 160/84 07/26/16 11:36 98.2 90 18 160/84 100 Nasal Cannula 2.0 07/26/16 10:52 98.2 07/26/16 10:09 179/80 07/26/16 10:09 179/80 07/26/16 10:08 88 179/80 07/26/16 08:00 97.0 88 18 179/80 97 Nasal Cannula 2.0 07/26/16 07:22 Nasal Cannula 2.0 28 07/26/16 07:22 83 16 Nasal Cannula 2.0 28 07/26/16 07:22 95 Nasal Cannula 2.0 28 07/26/16 05:48 173/96 07/26/16 05:05 87 17 100 Nasal Cannula 2.0 07/26/16 04:54 94 16 97 Nasal Cannula 2.0 07/26/16 04:31 173/96 07/26/16 04:00 98.2 92 20 193/108 96 Nasal Cannula 2.0 07/26/16 00:00 98.2 95 20 173/96 96 Nasal Cannula Intake and Output 07/25/16 07/26/16 19:00 07:00 Intake Total 600 ml Balance 600 ml Intake Oral 600 ml # Voids 1 Height (Feet): 5 Height (Inches): 4.00 Weight (Pounds): 160 General Appearance: no apparent distress Respiratory/Chest: other - permacath right chest Extremities: other - RUE swelling Edema: 4+ Arm (R) Objective no change ERICK MOSES Jul 26, 2016 21:26
[2016-07-27] VITALS (21 sets, daily range): BP systolic 134–202; BP diastolic 75–95
[2016-07-27] MEDS: Morphine Sulfate 2mg/ml Inj SUBQ PRN ×2 (03:20→18:05)
[2016-07-27 08:38] LABS: HEPATITIS BE ANTIGEN/CEDARS NONREACTIVE (NONREACTIVE); HEPATITIS C VIRUS AB/CEDARS 14.57 S/CO (<0.80)
[2016-07-27] MEDS: Lisinopril 20mg tab ORAL SCH ×2 (08:57→21:57)
[2016-07-27] MEDS: Calcitriol 0.5mcg Cap ORAL SCH (08:57)
[2016-07-27] MEDS: Renvela 2400 mg pkt ORAL SCH ×3 (08:58→18:01)
[2016-07-27] MEDS: Heparin 5000 units/ml inj SUBQ SCH ×2 (09:00→22:03)
[2016-07-27] MEDS: Docusate 100mg cap ORAL SCH ×3 (09:02→18:01)
[2016-07-27] MEDS ORDERED: Heparin 2000 units/Ns 1000ml 1,000 ML ONE (10:13)
[2016-07-27] MEDS ORDERED: Lidocaine 1% Plain 30 ml INJ ONE (10:13)
[2016-07-27] MEDS ORDERED: Sodium Bicarbonate 4% 2.4meq/5ml vial IV PRN (10:30)
[2016-07-27] MEDS ORDERED: Lidocaine 1% Plain 30 ml INJ PRN (10:30)
[2016-07-27] MEDS ORDERED: Heparin 2000 units/Ns 1000ml INJ PRN (10:30)
--- NOTE | 2016-07-27 11:00 | General Progress Note ---
Assessment/Plan Status: stable Assessment/Plan Status; ESRD , Right chest Permacath- ( and left arm fistula with bruit) No Dialysis for sometimes Volume Overload Encephalopathy Anemia right UE venous out let obstruction Plan: Dialysis next 07/27 today- Venogram RUE Anemia vitale, IV Iron and SQ EPO BP control- adjust meds- Phos binders , Vit D and Kayexelate prn SS eval for disposition per orders Subjective ROS Limited/Unobtainable: No Allergies: Coded Allergies: No Known Allergies (Unverified , 07/20/16) Objective Last 24 Hour Vital Signs Date Time Temp Pulse Resp B/P Pulse Ox O2 Delivery O2 Flow Rate FiO2 07/27/16 08:58 80 166/90 07/27/16 08:57 166/90 07/27/16 08:00 98.1 80 18 166/90 100 Nasal Cannula 2.0 07/27/16 05:34 134/75 07/27/16 04:00 98.2 89 18 134/75 98 Nasal Cannula 2.0 07/27/16 00:00 98.6 101 20 159/77 95 Nasal Cannula 3.0 07/26/16 21:24 168/86 07/26/16 21:24 99 168/86 07/26/16 21:24 168/86 07/26/16 20:00 98.6 99 18 168/86 92 Room Air 07/26/16 19:20 97 16 97 Nasal Cannula 2.0 28 07/26/16 19:14 28 07/26/16 19:13 94 16 96 Nasal Cannula 2.0 28 07/26/16 19:13 96 Nasal Cannula 2.0 28 07/26/16 19:13 Nasal Cannula 2.0 28 07/26/16 19:12 94 16 Nasal Cannula 2.0 28 07/26/16 15:51 97.9 98 18 151/79 100 Nasal Cannula 2.0 07/26/16 14:18 160/84 07/26/16 11:36 98.2 90 18 160/84 100 Nasal Cannula 2.0 Intake and Output 07/26/16 07/27/16 19:00 07:00 Intake Total 720 ml Balance 720 ml Intake Oral 720 ml # Voids 1 1 Height (Feet): 5 Height (Inches): 4.00 Weight (Pounds): 160 General Appearance: no apparent distress Cardiovascular: normal rate Respiratory/Chest: lungs clear Abdomen: soft Edema: 3+ Arm (R) Objective no change ERICK MOSES Jul 27, 2016 11:00
[2016-07-27] MEDS ORDERED: Lidocaine 1% 10mg/ml/EPI 0.01mg/ml 50ml INJ ONE (12:30)
--- NOTE | 2016-07-27 17:02 | General Progress Note ---
Progress Note Progress Note Dictated consult to follow ESRD on HD s/p right chest permcath and left basilic vein avf (1st stage) 6 months ago at [facility] by another physician Obese Medical non-compliance with uremia DM HTN Anemia s/p right chest permcath removal Anasarca and arm edema Rec; HD via [facility] cath/ do not use left arm avf--too deep medial and inaccessible Abx per ID PRBC with HD Check arm duplex Once cleared by ID and optimized; will schedule for left arm basilic vein transposition avf/graft and new permcath in OR Social worl/case mx eval re placement d/w Dr Luna and RN at bedside RAVIN LAI Jul 27, 2016 17:02
[2016-07-27] MEDS: Artificial Tears 1.4% Op Soln BOTH EYES PRN (18:08)
--- NOTE | 2016-07-27 19:18 | Pulmonology Progress Note ---
Assessment/Plan Problems: (1) ESRF (end stage renal failure) (2) Fluid overload (3) Opiate dependence (4) Homelessness Assessment/Plan HD by nephrology check electrolytes social service consult bilateral arthrocentesis done no access for HD, vascular surgeon f/u persistent high wbc, ID evaluation Subjective ROS Limited/Unobtainable: No Allergies: Coded Allergies: No Known Allergies (Unverified , 07/20/16) Objective Last 24 Hour Vital Signs Date Time Temp Pulse Resp B/P Pulse Ox O2 Delivery O2 Flow Rate FiO2 07/27/16 18:35 97.6 07/27/16 16:16 97.6 93 20 174/80 99 Nasal Cannula 2.0 07/27/16 13:43 194/07/27/16 13:15 86 14 100 Nasal Cannula 6.0 07/27/16 13:10 89 14 100 Nasal Cannula 6.0 07/27/16 13:05 89 14 100 Nasal Cannula 6.0 07/27/16 13:00 89 14 191 100 Nasal Cannula 6.0 07/27/16 12:55 88 14 191 100 Nasal Cannula 6.0 07/27/16 12:50 91 14 202/92 100 Nasal Cannula 6.0 07/27/16 12:45 88 12 183/83 100 Nasal Cannula 6.0 07/27/16 12:40 89 10 195/86 100 Nasal Cannula 6.0 07/27/16 12:35 88 20 180/95 99 Nasal Cannula 6.0 07/27/16 12:30 83 18 185/84 100 Nasal Cannula 6.0 07/27/16 12:25 82 18 186/88 100 Nasal Cannula 6.0 07/27/16 12:20 82 18 183/83 100 Nasal Cannula 6.0 07/27/16 12:15 84 18 189/88 100 Nasal Cannula 6.0 07/27/16 12:10 85 16 186/87 100 Nasal Cannula 6.0 07/27/16 12:05 84 18 185/88 100 Nasal Cannula 6.0 07/27/16 10:24 88 18 6.0 07/27/16 09:45 98 Nasal Cannula 2.0 28 07/27/16 09:45 Nasal Cannula 2.0 28 07/27/16 09:45 81 16 Nasal Cannula 2.0 28 07/27/16 08:58 80 166/90 07/27/16 08:57 166/90 07/27/16 08:00 98.1 80 18 166/90 100 Nasal Cannula 2.0 07/27/16 05:34 134/75 07/27/16 04:00 98.2 89 18 134/75 98 Nasal Cannula 2.0 07/27/16 00:00 98.6 101 20 159/77 95 Nasal Cannula 3.0 07/26/16 21:24 168/86 07/26/16 21:24 99 168/86 07/26/16 21:24 168/86 07/26/16 20:00 98.6 99 18 168/86 92 Room Air 07/26/16 19:20 97 16 97 Nasal Cannula 2.0 28 Intake and Output 07/26/16 07/27/16 19:00 07:00 Intake Total 720 ml Balance 720 ml Intake Oral 720 ml # Voids 1 1 Objective General Appearance: WD/WN HEENT: normocephalic Respiratory/Chest: chest wall non-tender, lungs clear Cardiovascular: normal peripheral pulses, normal rate Abdomen: normal bowel sounds, soft, non tender Extremities: no cyanosis, other - effusion in both knees Skin: no rash Current Medications Medications (Trade) Dose Ordered Sig/Papo Route PRN Reason Start Time Stop Time Status Last Admin Dose Admin Acetaminophen (Tylenol) 650 mg Q4H PRN ORAL Fever 07/21/16 15:00 08/20/16 14:59 Albuterol/ Ipratropium (DuoNeb 0.5-3(2.5)mg/3ml) 3 ml Q4H PRN HHN Shortness of Breath 07/26/16 12:00 07/31/16 11:59 07/26/16 19:10 Artificial Tears (Akwa-Tears) 2 drop Q6H PRN BOTH EYES Dry Eyes 07/25/16 22:30 08/24/16 22:29 07/27/16 18:08 Calcitriol (Rocaltrol) 0.5 mcg DAILY ORAL 07/22/16 09:00 08/21/16 08:59 07/27/16 08:57 Clonidine HCl (Catapres) 0.1 mg Q8H ORAL 07/23/16 22:00 08/22/16 21:59 07/27/16 13:43 Dextrose (Dextrose 50%) STAT PRN IV Hypoglycemia 07/21/16 15:00 08/20/16 14:59 Docusate Sodium (Colace) 100 mg THREE TIMES A DAY ORAL 07/22/16 09:00 08/21/16 08:59 07/27/16 18:01 Epoetin Sid (Procrit (for ESRD on dialysis)) 10,000 units WED-WED-WED SUBQ 07/22/16 21:00 08/21/16 20:59 07/24/16 21:05 Ergocalciferol (Drisdol) 50,000 intlu QWEEK ORAL 07/28/16 09:00 08/27/16 08:59 Heparin Sodium (Porcine) (Heparin 5000 units/ml) 5,000 units EVERY 12 HOURS SUBQ 07/21/16 21:00 08/20/16 20:59 07/26/16 21:23 Heparin Sodium/ Sodium Chloride (Heparin 2000 units/Ns 1000ml premix) 2,000 unit ONCE PRN INJ VENOGRAM 07/27/16 10:30 07/27/16 23:59 Lidocaine HCl (Xylocaine 1% 30ml) 30 ml ONCE PRN INJ VENOGRAM 07/27/16 10:30 07/27/16 23:59 Lisinopril (Prinivil) 20 mg Q12HR ORAL 07/22/16 22:00 08/21/16 21:59 07/27/16 08:57 Minoxidil (Loniten) 2.5 mg Q4H PRN ORAL SBP>160 07/23/16 13:45 08/22/16 13:44 07/26/16 10:09 Morphine Sulfate (Morphine Sulfate) 2 mg Q4H PRN SUBQ For Pain 07/22/16 15:00 07/29/16 14:59 07/27/16 18:05 Nifedipine (Procardia XL) 60 mg Q12HR ORAL 07/23/16 09:00 08/22/16 08:59 07/27/16 08:58 Ondansetron HCl (Zofran) 4 mg Q6H PRN IVP Nausea & Vomiting 07/21/16 15:00 08/20/16 14:59 Polyethylene Glycol (Miralax) 17 gm DAILYPRN PRN ORAL Constipation 07/21/16 15:00 08/20/16 14:59 07/26/16 10:09 Sevelamer Carbonate (Renvela) 2,400 mg THREE TIMES A DAY ORAL 07/26/16 09:00 08/25/16 08:59 07/27/16 18:01 Sodium Bicarbonate (Sodium Bicarbonate 4%) 5 ml ONCE PRN IV prn venogram 07/27/16 10:30 07/27/16 20:59 Temazepam (Restoril) 15 mg HSPRN PRN ORAL Insomnia 07/21/16 21:00 07/28/16 20:59 EMMANUEL DOUGHERTY Jul 27, 2016 19:18
[2016-07-27] MEDS: Epogen (for ESRD on dialysis) SUBQ SCH (21:59)
--- NOTE | 2016-07-27 22:39 | Diagnostic Imaging Report ---
APPROVED REPORT CPT Code: 71502 Present Symptoms Upper Extremity Pain: Right Upper Extremity Edema: Right Shortness of breath UPPER EXTREMITY: Venous imaging reveals patency of the internal jugular, subclavian, axillary and brachial veins. The basilic vein is also patent. Doppler indicates normal spontaneous flow within these venous segments. The cephalic vein was not well visualized.
--- NOTE | 2016-07-27 23:45 | Consultation ---
DATE OF CONSULTATION: 07/27/2016 VASCULAR SURGERY CONSULTATION CONSULTING PHYSICIAN: Michael Arroyo M.D. REFERRING PHYSICIAN: 1. Mikey Luna M.D. 2. Cortes Rick M.D. REASON FOR CONSULTATION: AV shunt evaluation. HISTORY OF PRESENT ILLNESS: This is a 51-year-old -[place] female who reportedly suffers from end-stage renal disease on hemodialysis. The patient had a right chest tunneled Gjye-I-Cqffydog as well as left medial antecubital basilic vein first-stage AV fistula done at [facility], reportedly six months ago by another physician. The patient reportedly was found with altered mental status. The patient does suffer from opiate-dependency and uremic encephalopathy. Since admission, her right chest [id number] has been removed. She does have anasarca arm and leg edema. She has a medial left antecubital basilic vein fistula, which is very deep and vascular surgery is consulted for further evaluation. PAST MEDICAL HISTORY: As above. The patient with obesity, hypertension, encephalopathy, end-stage renal disease on hemodialysis, history of right chest Bajg-S-Dabuxdqu as well as left medial basilic vein AV fistula first stage, opiate dependency, anemia, and hypertension. MEDICATIONS: See attached MAR. ALLERGIES: No known drug allergies. SOCIAL HISTORY: Denies history of smoking, drugs or alcohol--Opiate dependent FAMILY HISTORY: Unremarkable. REVIEW OF SYSTEMS: Cardiovascular: No history of chest pain or palpitation. Pulmonary: No cough. No hemoptysis. Gastrointestinal: No history of abdominal pain, constipation, or diarrhea. Genitourinary: No urinary symptoms. Neurological: No history of stroke or seizures. PHYSICAL EXAMINATION: VITAL SIGNS: Heart rate is 80, temperature 98.1 degrees, respirations 18, blood pressure is 166/90 and saturation is 100% on two liters. CHEST: He has a left medial very deep basilic vein AV fistula and has a palpable thrill, it is too deep to be accessed. She has bilateral arm edema. Right chest Perm-A-Cath site is clean, dry and intact. It has been removed already by another physician. LUNGS: Rhonchi. HEART: Regular rate and rhythm. ABDOMEN: Soft and nontender. EXTREMITIES: She has palpable femoral pulses. Feet are warm. Intact dopplersbilaterally. LABORATORY AND DIAGNOSTIC DATA: Her laboratories from 07/23/2016 revealed WBC of 12.1, hemoglobin 7.8 and platelet count 353,000. Her INR is 1.1. Her sodium 137, potassium 4.1, BUN is 43, creatinine 6.8 and glucose is 89. Her BNP is more than 70,000. IMPRESSION: 1. End-stage renal disease, requiring permanent access for hemodialysis. 2. History of left antecubital medial basilic vein arteriovenous fistula inaccessible and too deep. 3. History of obesity. 4. Uremia. 5. Encephalopathy. 6. Opiate dependency. 7. Anasarca. 8. Hypertension. PLAN AND RECOMMENDATION: 1. We will obtain arm AV shunt duplex and vein mapping. 2. Continue dialysis through a temporary Jose Carlos catheter. 3. Antibiotics per Infectious Disease service. 4. Once medically optimized and cleared by ID service and Renal service, we will schedule the patient for more permanent access with a left upper arm basilic vein transposition AV fistula versus graft placement as well as a new tunneled Perm-A-Cath. This will be scheduled in the operating room. The above was discussed at length with the patient and the nurse at bedside. Michael Arroyo M.D. DR: EMMIE JOB#: [id number] CC: Genevieve Wheeler M.D. George Fouladian, M.D. [facility]Matt
[2016-07-28] VITALS (9 sets, daily range): BP systolic 159–208; BP diastolic 76–93
[2016-07-28] MEDS: Minoxidil 2.5mg tab ORAL PRN ×2 (04:28→08:48)
[2016-07-28] MEDS: Renvela 2400 mg pkt ORAL SCH ×3 (08:48→17:32)
[2016-07-28] MEDS: Calcitriol 0.5mcg Cap ORAL SCH (08:48)
[2016-07-28] MEDS: Lisinopril 20mg tab ORAL SCH ×2 (08:49→21:00)
[2016-07-28] MEDS: Docusate 100mg cap ORAL SCH ×3 (08:53→17:32)
[2016-07-28] MEDS: Vitamin D 50,000 units cap ORAL SCH (08:54)
[2016-07-28] MEDS: Heparin 5000 units/ml inj SUBQ SCH ×2 (08:54→21:00)
--- NOTE | 2016-07-28 09:38 | General Progress Note ---
Assessment/Plan Status: unchanged Status Narrative right permacath removed yesterdat + angioplasty has no access , due for a muharkar- Vasc. Surg already on board Assessment/Plan Status; ESRD , Right chest Permacath- ( and left arm fistula with bruit) No Dialysis for sometimes Volume Overload Encephalopathy Anemia right UE venous out let obstruction Plan: Dialysis as soon as an access is placed Anemia vitale, IV Iron and SQ EPO BP control- adjust meds- Phos binders , Vit D and Kayexelate prn SS eval for disposition per orders Subjective ROS Limited/Unobtainable: No Constitutional: Reports: malaise Allergies: Coded Allergies: No Known Allergies (Unverified , 07/20/16) Objective Last 24 Hour Vital Signs Date Time Temp Pulse Resp B/P Pulse Ox O2 Delivery O2 Flow Rate FiO2 07/28/16 08:49 78 194/86 07/28/16 08:49 194/86 07/28/16 08:48 194/86 07/28/16 08:33 97.0 93 20 196/86 95 Room Air 07/28/16 07:54 Room Air 07/28/16 07:53 96 Room Air 21 07/28/16 07:52 93 18 Room Air 21 07/28/16 05:51 168/95 07/28/16 04:28 167/102 07/28/16 04:00 98.1 87 20 169/90 98 Nasal Cannula 2.0 07/28/16 04:00 98.1 87 20 169/90 98 Room Air 07/28/16 00:00 97.7 93 20 159/83 98 Room Air 07/27/16 21:58 97 161/88 07/27/16 21:57 161/88 07/27/16 21:56 161/88 07/27/16 20:07 83 18 Nasal Cannula 2.0 28 07/27/16 20:07 Nasal Cannula 2.0 28 07/27/16 20:07 98 Nasal Cannula 2.0 28 07/27/16 20:00 98.2 95 20 157/83 96 Room Air 07/27/16 18:35 97.6 07/27/16 16:16 97.6 93 20 174/80 99 Nasal Cannula 2.0 07/27/16 13:43 194/85 07/27/16 13:15 86 14 194/85 100 Nasal Cannula 6.0 07/27/16 13:10 89 14 100 Nasal Cannula 6.0 07/27/16 13:05 89 14 100 Nasal Cannula 6.0 07/27/16 13:00 89 14 100 Nasal Cannula 6.0 07/27/16 12:55 88 14 100 Nasal Cannula 6.0 07/27/16 12:50 91 14 100 Nasal Cannula 6.0 07/27/16 12:45 88 12 183/83 100 Nasal Cannula 6.0 07/27/16 12:40 89 10 100 Nasal Cannula 6.0 07/27/16 12:35 88 20 180/95 99 Nasal Cannula 6.0 07/27/16 12:30 83 18 185/84 100 Nasal Cannula 6.0 07/27/16 12:25 82 18 186/88 100 Nasal Cannula 6.0 07/27/16 12:20 82 18 183/83 100 Nasal Cannula 6.0 07/27/16 12:15 84 18 189/88 100 Nasal Cannula 6.0 07/27/16 12:10 85 16 186/87 100 Nasal Cannula 6.0 07/27/16 12:05 84 18 185/88 100 Nasal Cannula 6.0 07/27/16 10:24 88 18 6.0 07/27/16 09:45 98 Nasal Cannula 2.0 28 07/27/16 09:45 Nasal Cannula 2.0 28 07/27/16 09:45 81 16 Nasal Cannula 2.0 28 Intake and Output 07/27/16 07/28/16 19:00 07:00 Intake Total 840 ml Balance 840 ml Intake Oral 840 ml # Voids 2 Height (Feet): 5 Height (Inches): 4.00 Weight (Pounds): 160 General Appearance: no apparent distress Cardiovascular: regular rhythm Respiratory/Chest: decreased breath sounds Abdomen: distended Edema: 2+ Arm (L), 2+ Arm (R) Objective no change ERICK MOSES Jul 28, 2016 09:38
--- NOTE | 2016-07-28 10:24 | Consultation ---
Consult Note Consult Note ID # [id number] JORGE LUIS FREEMAN M.D. Jul 28, 2016 10:24
[2016-07-28] MEDS ORDERED: Lidocaine 1% Plain 30 ml INJ ONE (12:00)
[2016-07-28] MEDS ORDERED: Heparin 2000 units/Ns 1000ml INJ ONE (12:00)
[2016-07-28] MEDS: DuoNeb 0.5-3(2.5)mg/3ml neb HHN PRN (12:29)
--- NOTE | 2016-07-28 14:17 | Pre-Procedure Note/Attestation ---
Pre-Procedure Note/Attestation Complete Prior to Procedure Planned Procedure: not applicable Procedure Narrative: Temporary dialysis catheter Indications for Procedure Pre-Operative Diagnosis: renal failure Attestation I attest that I discussed the nature of the procedure; its benefits; risks and complications; and alternatives (and the risks and benefits of such alternatives ), prior to the procedure, with the patient (or the patient's legal front desk representative). I attest that, if there was a reasonable possibility of needing a blood transfusion, the patient (or the patient's legal front desk representative) was given the [facility] standardized written summary, pursuant to the Fercho Ainsley Blood Safety Act ([place] Health and Safety Code # 1645, as amended). I attest that I re-evaluated the patient just prior to the surgery and that there has been no change in the patient's H&P, except as documented below: MEGGAN RIZVI M.D. Jul 28, 2016 14:17
[2016-07-28] MEDS ORDERED: Heparin Sod 1000 units/ml 10ml ONE (14:34)
[2016-07-28] MEDS: cloNIDine 0.2mg Tab ORAL SCH ×2 (15:04→23:11)
--- NOTE | 2016-07-28 16:00 | Brief Operative Note ---
Immediate Post Operative Note Operative Note Pre-op Diagnosis: renal failure Procedure: R groin asha Post-op Diagnosis: same as pre-op Findings: consistent w/pre-op dx studies Anesthesia: local Specimen: none Complications: none Fluids: none Implant(s) used?: Yes - 30 cm temp dialysis catheter 3 lumen MEGGAN RIZVI M.D. Jul 28, 2016 16:00
--- NOTE | 2016-07-28 18:40 | Pulmonology Progress Note ---
Assessment/Plan Problems: (1) ESRF (end stage renal failure) (2) Fluid overload (3) Opiate dependence (4) Homelessness Assessment/Plan HD by nephrology check electrolytes social service consult bilateral arthrocentesis done persistent high wbc, ID evaluation new access by radiology put today Subjective ROS Limited/Unobtainable: No Allergies: Coded Allergies: No Known Allergies (Unverified , 07/20/16) Objective Last 24 Hour Vital Signs Date Time Temp Pulse Resp B/P Pulse Ox O2 Delivery O2 Flow Rate FiO2 07/28/16 16:09 98.2 92 20 172/83 96 Room Air 07/28/16 15:04 206/93 07/28/16 14:30 88 22 206/93 100 Nasal Cannula 2.0 07/28/16 14:25 90 22 196/91 99 Nasal Cannula 2.0 07/28/16 14:12 90 16 2.0 07/28/16 12:31 28 07/28/16 12:31 92 16 99 Nasal Cannula 2.0 28 07/28/16 12:29 87 16 99 Nasal Cannula 2.0 28 07/28/16 12:07 98.1 87 19 177/87 99 Room Air 07/28/16 08:49 78 194/86 07/28/16 08:49 194/86 07/28/16 08:48 194/86 07/28/16 08:33 97.0 93 20 196/86 95 Room Air 07/28/16 07:54 Room Air 07/28/16 07:53 96 Room Air 21 07/28/16 07:52 93 18 Room Air 21 07/28/16 05:51 168/95 07/28/16 04:28 167/102 07/28/16 04:00 98.1 87 20 169/90 98 Nasal Cannula 2.0 07/28/16 04:00 98.1 87 20 169/90 98 Room Air 07/28/16 00:00 97.7 93 20 159/83 98 Room Air 07/27/16 21:58 97 161/88 07/27/16 21:57 161/88 07/27/16 21:56 161/88 07/27/16 20:07 83 18 Nasal Cannula 2.0 28 07/27/16 20:07 Nasal Cannula 2.0 28 07/27/16 20:07 98 Nasal Cannula 2.0 28 07/27/16 20:00 98.2 95 20 157/83 96 Room Air Intake and Output 07/27/16 07/28/16 19:00 07:00 Intake Total 840 ml Balance 840 ml Intake Oral 840 ml # Voids 2 Objective General Appearance: WD/WN HEENT: normocephalic Respiratory/Chest: chest wall non-tender, lungs clear Cardiovascular: normal peripheral pulses, normal rate Abdomen: normal bowel sounds, soft, non tender Extremities: no cyanosis, other - effusion in both knees Skin: no rash Current Medications Medications (Trade) Dose Ordered Sig/Papo Route PRN Reason Start Time Stop Time Status Last Admin Dose Admin Acetaminophen (Tylenol) 650 mg Q4H PRN ORAL Fever 07/21/16 15:00 08/20/16 14:59 Albuterol/ Ipratropium (DuoNeb 0.5-3(2.5)mg/3ml) 3 ml Q4H PRN HHN Shortness of Breath 07/26/16 12:00 07/31/16 11:59 07/28/16 12:29 Artificial Tears (Akwa-Tears) 2 drop Q6H PRN BOTH EYES Dry Eyes 07/25/16 22:30 08/24/16 22:29 07/27/16 18:08 Calcitriol (Rocaltrol) 0.5 mcg DAILY ORAL 07/22/16 09:00 08/21/16 08:59 07/28/16 08:48 Clonidine HCl (Catapres) 0.2 mg Q8H ORAL 07/28/16 14:00 08/27/16 13:59 07/28/16 15:04 Dextrose (Dextrose 50%) STAT PRN IV Hypoglycemia 07/21/16 15:00 08/20/16 14:59 Docusate Sodium (Colace) 100 mg THREE TIMES A DAY ORAL 07/22/16 09:00 08/21/16 08:59 07/28/16 17:32 Epoetin Sid (Procrit (for ESRD on dialysis)) 10,000 units MON-WED-WED SUBQ 07/22/16 21:00 08/21/16 20:59 07/27/16 21:59 Ergocalciferol (Drisdol) 50,000 intlu QWEEK ORAL 07/28/16 09:00 08/27/16 08:59 Heparin Sodium (Porcine) (Heparin 5000 units/ml) 5,000 units EVERY 12 HOURS SUBQ 07/21/16 21:00 08/20/16 20:59 07/27/16 22:03 Lisinopril (Prinivil) 20 mg Q12HR ORAL 07/22/16 22:00 08/21/16 21:59 07/28/16 08:49 Minoxidil (Loniten) 2.5 mg Q4H PRN ORAL SBP>160 07/23/16 13:45 08/22/16 13:44 07/28/16 08:48 Morphine Sulfate (Morphine Sulfate) 2 mg Q4H PRN SUBQ For Pain 07/22/16 15:00 07/29/16 14:59 07/27/16 18:05 Nifedipine (Procardia XL) 60 mg Q12HR ORAL 07/23/16 09:00 08/22/16 08:59 07/28/16 08:49 Ondansetron HCl (Zofran) 4 mg Q6H PRN IVP Nausea & Vomiting 07/21/16 15:00 08/20/16 14:59 Polyethylene Glycol (Miralax) 17 gm DAILYPRN PRN ORAL Constipation 07/21/16 15:00 08/20/16 14:59 07/26/16 10:09 Sevelamer Carbonate (Renvela) 2,400 mg THREE TIMES A DAY ORAL 07/26/16 09:00 08/25/16 08:59 07/28/16 17:32 Temazepam (Restoril) 15 mg HSPRN PRN ORAL Insomnia 07/21/16 21:00 07/28/16 20:59 EMMANUEL DOUGHERTY Jul 28, 2016 18:40
[2016-07-28 20:04] LABS: MEAN CORPUSCULAR HEMOGLOBIN 27.3 PG (27.0-31.0); MEAN CORPUSCULAR HGB CONC 32.8 G/DL (32.0-36.0); MEAN CORPUSCULAR VOLUME 83 FL (80-99); MEAN PLATELET VOLUME 4.4 FL (6.5-10.1); PLATELET COUNT 408 K/UL (150-450); RED BLOOD COUNT 2.64 M/UL (4.20-5.40); RED CELL DISTRIBUTION WIDTH 16.6 % (11.6-14.8); WHITE BLOOD COUNT 9.6 K/UL (4.8-10.8)
[2016-07-28 20:37] LABS: ALANINE AMINOTRANSFERASE 6 U/L (3-33); ALBUMIN/GLOBULIN RATIO 0.5 (1.0-2.7); ANION GAP 17 (5-15); ASPARTATE AMINO TRANSFERASE 19 U/L (5-40); CALCIUM 7.9 mg/dL (8.6-10.2); CARBON DIOXIDE 27 mEQ/L (20-30); CHLORIDE 89 mEQ/L (98-107); CREATININE 9.2 mg/dL (0.5-0.9); GLOMERULAR FILTRATION RATE 4.5 mL/min (>60); HEMOLYSIS 3; POTASSIUM 5.9 mEQ/L (3.4-4.9); SODIUM 133 mEQ/L (135-145); TOTAL PROTEIN 5.7 g/dL (6.6-8.7)
--- NOTE | 2016-07-28 21:00 | Consultation ---
DATE OF CONSULTATION: 07/28/2016 CONSULTING PHYSICIAN: Albert Todd M.D. REFERRING PHYSICIAN: Mikey Luna M.D. REASON FOR CONSULTATION: Evaluation of the patient for leukocytosis. HISTORY OF PRESENT ILLNESS: The patient is a 51-year-old female with multiple medical problems, who was admitted to this medical center for lethargy. The patient was found to have mild leukocytosis that has been persistent. The patient also had some swelling in the knees status post tap showed no significant evidence of arthritis. Infectious Disease consultation has been requested for further evaluation of the patient. The patient denies having fever or chills. MEDICATIONS: Off of antibiotics. ALLERGIES: No known drug allergies. SOCIAL HISTORY: The patient is homeless. FAMILY HISTORY: Noncontributory. REVIEW OF SYSTEMS: Pulmonary: No significant cough. Cardiovascular: No chest pain. Abdomen: No diarrhea. No nausea or vomiting. Genitourinary: The patient has end-stage renal disease. Skin: No rash. Musculoskeletal: As mentioned above. PHYSICAL EXAMINATION: VITAL SIGNS: Temperature is 97 degrees, blood pressure 194/86, pulse 93, and respiratory rate 18. HEENT: Mild pale conjunctivae No icterus. NECK: No lymphadenopathy. CHEST: Coarse breathing sounds. HEART: S1 and S2. ABDOMEN: Soft and nontender. EXTREMITIES: No cyanosis. The patient has a site of AV fistula on the left arm. LABORATORY AND DIAGNOSTIC DATA: Spinal fluid shows 108 and 44 white blood cells, 92 and 82 respectively lymphocytes. UA unremarkable. White blood cells at the time of admission, 13.6 and today is 12.1, hemoglobin 7.8, and platelets 353,000. BUN 43 and creatinine 6.8. ALT, AST and alkaline phosphatase unremarkable. Hepatitis BS antibody positive. Hepatitis C antibody positive. Synovial fluid culture no growth. So far urine culture, no growth. Chest x-ray, [facility]. ASSESSMENT: The patient is a 51-year-old female with multiple medical problems who has been admitted to this medical center with general weakness. The patient has lost access and it was removed since it was nonfunctional. The patient is afebrile, no significant signs or symptoms that suggest infectious process. Bacteremia is less likely however blood culture . Leukocytosis is mild, does not appear to be due to any infectious process. We will monitor the patient off of antibiotics for that. PLAN: 1. We will monitor the patient off of antibiotics. 2. We will send blood culture. 3. Monitor CBC. 4. Monitor BMP. 5. Check hepatitis B PCR. 6. Based on the patient's clinical course and labs, we will do further recommendation. Thank you, Dr. Luna, for allowing me to participate in the care of this patient. I will follow this patient with you during this hospitalization. Albert Todd M.D. DR: CYDNEY JOB#: [id number] CC:
[2016-07-28 21:13] LABS: BAND NEUTROPHILS % (MANUAL) 1 % (0-8); BASOPHILS % (MANUAL) 1 % (0-2); EOSINOPHILS % (MANUAL) 6 % (0-3); LYMPHOCYTES % (MANUAL) 24 % (20-45); NEUTROPHILS % (MANUAL) 63 % (45-75); TOTAL CELLS COUNTED 100
[2016-07-28 21:14] LABS: ANISOCYTOSIS 1+; HYPOCHROMASIA 1+; PLATELET ESTIMATE ADEQUATE; PLATELET MORPHOLOGY NORMAL
[2016-07-28] MEDS: Morphine Sulfate 2mg/ml Inj SUBQ PRN (23:11)
[2016-07-29] VITALS (8 sets, daily range): BP systolic 156–184; BP diastolic 80–93
[2016-07-29] MEDS: cloNIDine 0.2mg Tab ORAL SCH ×3 (05:31→21:58)
[2016-07-29] MEDS: Renvela 2400 mg pkt ORAL SCH ×3 (09:27→17:40)
[2016-07-29] MEDS: Docusate 100mg cap ORAL SCH ×3 (09:27→17:40)
[2016-07-29] MEDS: Calcitriol 0.5mcg Cap ORAL SCH (09:27)
[2016-07-29] MEDS: Lisinopril 20mg tab ORAL SCH ×2 (09:27→20:27)
[2016-07-29] MEDS: Heparin 5000 units/ml inj SUBQ SCH ×2 (09:35→20:28)
--- NOTE | 2016-07-29 09:57 | Infectious Diseases Prog Note ---
Assessment/Plan Assessment/Plan A: The patient is a 51-year-old female with Low grade fever x 1 Leukocytosis , improving Hepatitis BS antibody positive. Hepatitis C antibody positive status post knee joint tap : No evidence of arthritis ESRD on HD PLAN: monitor the patient off of antibiotics. Monitor blood culture. Monitor CBC. Monitor BMP. hepatitis C PCR HD as per nephro Subjective Constitutional: Denies: anorexia, chills, drenching sweats, fatigue, fever, no symptoms, other Allergies: Coded Allergies: No Known Allergies (Unverified , 07/20/16) Objective Vital Signs Last 24 Hour Vital Signs Date Time Temp Pulse Resp B/P Pulse Ox O2 Delivery O2 Flow Rate FiO2 07/29/16 09:27 82 161/82 07/29/16 09:27 161/82 07/29/16 08:27 98.6 82 20 161/82 96 Nasal Cannula 2.0 07/29/16 07:39 98 Nasal Cannula 2.0 28 07/29/16 07:39 Nasal Cannula 2.0 07/29/16 07:38 79 16 Nasal Cannula 2.0 07/29/16 05:31 177/89 07/29/16 04:00 97.9 83 20 177/89 98 Nasal Cannula 07/29/16 00:57 99.0 167/92 07/29/16 00:00 100.6 99 19 181/85 99 Nasal Cannula 07/28/16 23:11 188/75 07/28/16 21:26 Nasal Cannula 2.0 21 07/28/16 21:00 89 161/76 07/28/16 21:00 161/76 07/28/16 20:00 98.4 89 17 161/76 94 Nasal Cannula 07/28/16 19:30 Room Air 21 07/28/16 19:30 95 Room Air 21 07/28/16 19:30 94 16 Room Air 21 07/28/16 18:45 Room Air 2.0 07/28/16 16:09 98.2 92 20 172/83 96 Room Air 07/28/16 15:04 206/93 07/28/16 14:30 88 22 206/93 100 Nasal Cannula 2.0 07/28/16 14:25 90 22 196/91 99 Nasal Cannula 2.0 07/28/16 14:12 90 16 2.0 07/28/16 12:31 28 07/28/16 12:31 92 16 99 Nasal Cannula 2.0 28 07/28/16 12:29 87 16 99 Nasal Cannula 2.0 28 07/28/16 12:07 98.1 87 19 177/87 99 Room Air Height (Feet): 5 Height (Inches): 4.00 Weight (Pounds): 160 HEENT: anicteric Respiratory/Chest: no respiratory distress Cardiovascular: regularly irregular Abdomen: non distended Laboratory Tests Test 07/28/16 19:30 White Blood Count 9.6 K/UL (4.8-10.8) Red Blood Count 2.64 M/UL (4.20-5.40) L Hemoglobin 7.2 G/DL (12.0-16.0) L Hematocrit 22.0 % (37.0-47.0) L Mean Corpuscular Volume 83 FL (80-99) Mean Corpuscular Hemoglobin 27.3 PG (27.0-31.0) Mean Corpuscular Hemoglobin Concent 32.8 G/DL (32.0-36.0) Red Cell Distribution Width 16.6 % (11.6-14.8) H Platelet Count 408 K/UL (150-450) Mean Platelet Volume 4.4 FL (6.5-10.1) L Neutrophils (%) (Auto) % (45.0-75.0) Lymphocytes (%) (Auto) % (20.0-45.0) Monocytes (%) (Auto) % (1.0-10.0) Eosinophils (%) (Auto) % (0.0-3.0) Basophils (%) (Auto) % (0.0-2.0) Differential Total Cells Counted 100 Neutrophils % (Manual) 63 % (45-75) Lymphocytes % (Manual) 24 % (20-45) Monocytes % (Manual) 5 % (1-10) Eosinophils % (Manual) 6 % (0-3) H Basophils % (Manual) 1 % (0-2) Band Neutrophils 1 % (0-8) Platelet Estimate Adequate Platelet Morphology Normal Hypochromasia 1+ Anisocytosis 1+ Sodium Level 133 mEQ/L (135-145) L Potassium Level 5.9 mEQ/L (3.4-4.9) H Chloride Level 89 mEQ/L (98-107) L Carbon Dioxide Level 27 mEQ/L (20-30) Anion Gap 17 (5-15) H Blood Urea Nitrogen 71 mg/dL (7-23) H Creatinine 9.2 mg/dL (0.5-0.9) H Estimat Glomerular Filtration Rate 4.5 mL/min (>60) Glucose Level 112 mg/dL (74-106) H Calcium Level 7.9 mg/dL (8.6-10.2) L Total Bilirubin < 0.2 mg/dL (0.0-1.2) Aspartate Amino Transf (AST/SGOT) 19 U/L (5-40) Alanine Aminotransferase (ALT/SGPT) 6 U/L (3-33) Alkaline Phosphatase 37 U/L (35-104) Total Protein 5.7 g/dL (6.6-8.7) L Albumin 2.1 g/dL (3.5-5.2) L Globulin 3.6 g/dL Albumin/Globulin Ratio 0.5 (1.0-2.7) L Hepatitis C Antibody Pending Hepatitis C RNA (PCR) IUs/ml Pending Hepatitis C RNA (PCR) log IUs/ml Pending Current Medications Medications (Trade) Dose Ordered Sig/Papo Route PRN Reason Start Time Stop Time Status Last Admin Dose Admin Acetaminophen (Tylenol) 650 mg Q4H PRN ORAL Fever 07/21/16 15:00 08/20/16 14:59 Albuterol/ Ipratropium (DuoNeb 0.5-3(2.5)mg/3ml) 3 ml Q4H PRN HHN Shortness of Breath 07/26/16 12:00 07/31/16 11:59 07/28/16 12:29 Artificial Tears (Akwa-Tears) 2 drop Q6H PRN BOTH EYES Dry Eyes 07/25/16 22:30 08/24/16 22:29 07/27/16 18:08 Calcitriol (Rocaltrol) 0.5 mcg DAILY ORAL 07/22/16 09:00 08/21/16 08:59 07/29/16 09:27 Clonidine HCl (Catapres) 0.2 mg Q8H ORAL 07/28/16 14:00 08/27/16 13:59 07/29/16 05:31 Dextrose (Dextrose 50%) STAT PRN IV Hypoglycemia 07/21/16 15:00 08/20/16 14:59 Docusate Sodium (Colace) 100 mg THREE TIMES A DAY ORAL 07/22/16 09:00 08/21/16 08:59 07/29/16 09:27 Epoetin Sid (Procrit (for ESRD on dialysis)) 10,000 units WED-WED-WED SUBQ 07/22/16 21:00 08/21/16 20:59 07/27/16 21:59 Ergocalciferol (Drisdol) 50,000 intlu QWEEK ORAL 07/28/16 09:00 08/27/16 08:59 Heparin Sodium (Porcine) (Heparin 5000 units/ml) 5,000 units EVERY 12 HOURS SUBQ 07/21/16 21:00 08/20/16 20:59 07/29/16 09:35 Lisinopril (Prinivil) 20 mg Q12HR ORAL 07/22/16 22:00 08/21/16 21:59 07/29/16 09:27 Minoxidil (Loniten) 2.5 mg Q4H PRN ORAL SBP>160 07/23/16 13:45 08/22/16 13:44 07/28/16 08:48 Morphine Sulfate (Morphine Sulfate) 2 mg Q4H PRN SUBQ For Pain 07/22/16 15:00 07/29/16 14:59 07/28/16 23:11 Nifedipine (Procardia XL) 60 mg Q12HR ORAL 07/23/16 09:00 08/22/16 08:59 07/29/16 09:27 Ondansetron HCl (Zofran) 4 mg Q6H PRN IVP Nausea & Vomiting 07/21/16 15:00 08/20/16 14:59 Polyethylene Glycol (Miralax) 17 gm DAILYPRN PRN ORAL Constipation 07/21/16 15:00 08/20/16 14:59 07/26/16 10:09 Sevelamer Carbonate (Renvela) 2,400 mg THREE TIMES A DAY ORAL 07/26/16 09:00 08/25/16 08:59 07/29/16 09:27 JORGE LUIS FREEMAN M.D. Jul 29, 2016 09:57
--- NOTE | 2016-07-29 10:46 | Diagnostic Imaging Report ---
Indication: WEAK Technique: Informed consent obtained prior to commencement of the procedure.. Ultrasound confirms patent compressible right common femoral and greater saphenous vein. Total sterile technique, including sterile probe cover and sterile gel, sterile gloves, hand hygiene, hat, mask, sterile gown, large sterile drape, and preparation with 2% chlorhexidine utilized.Local anesthesia with 1% lidocaine. Under real-time ultrasound guidance, puncture lateral branch of right greater saphenous vein using 20-gauge micropuncture needle. Saphenous venous access was utilized in order to keep the catheter away from the inguinal fold. Passage of an 0.018 guidewire, insertion 4 Czech micropuncture introducer, passage 0.035 guidewire, over which was passed serial dilators and then a 3 cm length triple-lumen temporary dialysis catheter, under fluoroscopic supervision. Completion stored digital radiograph obtained, demonstrating catheter tip position at mid inferior vena cava The patient tolerated the procedure well, without immediate complication. Fluoroscopy time 0.5 minutes Dose Area Product [id number] [id number] Impression: Successful placement of right femoral central venous catheter, as described.
--- NOTE | 2016-07-29 14:20 | General Progress Note ---
Assessment/Plan Status: stable Status Narrative has Jose Carlos in groin - dialysed 07/28 Assessment/Plan Status; ESRD , presented Right chest Permacath- ( and left arm fistula with bruit) No Dialysis for sometimes Volume Overload Encephalopathy Anemia right UE venous out let obstruction Plan: Right Permacath removed 07/27 Jose Carlos femoral placed 07/29 HD 07/30 with transfusion Anemia vitale, IV Iron and SQ EPO BP control- adjust meds- Phos binders , Vit D and Kayexelate prn SS eval for disposition per orders Subjective ROS Limited/Unobtainable: No Allergies: Coded Allergies: No Known Allergies (Unverified , 07/20/16) Objective Last 24 Hour Vital Signs Date Time Temp Pulse Resp B/P Pulse Ox O2 Delivery O2 Flow Rate FiO2 07/29/16 11:55 98.2 82 20 156/84 96 Nasal Cannula 2.0 07/29/16 09:27 82 161/82 07/29/16 09:27 161/82 07/29/16 08:27 98.6 82 20 161/82 96 Nasal Cannula 2.0 07/29/16 07:39 98 Nasal Cannula 2.0 28 07/29/16 07:39 Nasal Cannula 2.0 28 07/29/16 07:38 79 16 Nasal Cannula 2.0 07/29/16 05:31 177/89 07/29/16 04:00 97.9 83 20 177/89 98 Nasal Cannula 07/29/16 00:57 99.0 167/92 07/29/16 00:00 100.6 99 19 181/85 99 Nasal Cannula 07/28/16 23:11 188/75 07/28/16 21:26 Nasal Cannula 2.0 07/28/16 21:00 89 161/76 07/28/16 21:00 161/76 07/28/16 20:00 98.4 89 17 161/76 94 Nasal Cannula 07/28/16 19:30 Room Air 21 07/28/16 19:30 95 Room Air 21 07/28/16 19:30 94 16 Room Air 21 07/28/16 18:45 Room Air 2.0 28 07/28/16 16:09 98.2 92 20 172/83 96 Room Air 07/28/16 15:04 206/93 07/28/16 14:30 88 22 206/93 100 Nasal Cannula 2.0 07/28/16 14:25 90 22 196/91 99 Nasal Cannula 2.0 Intake and Output 07/28/16 07/29/16 19:00 07:00 Intake Total 240 ml 120 ml Output Total 2500 ml Balance 240 ml -2380 ml Intake Oral 240 ml 120 ml Hemodialysis UF 2500 ml # Voids 1 Laboratory Tests 07/28/16 19:30: White Blood Count 9.6, Red Blood Count 2.64L, Hemoglobin 7.2L, Hematocrit 22.0L , Mean Corpuscular Volume 83, Mean Corpuscular Hemoglobin 27.3, Mean Corpuscular Hemoglobin Concent 32.8, Red Cell Distribution Width 16.6H, Platelet Count 408, Mean Platelet Volume 4.4L, Neutrophils (%) (Auto) , Lymphocytes (%) (Auto) , Monocytes (%) (Auto) , Eosinophils (%) (Auto) , Basophils (%) (Auto) , Differential Total Cells Counted 100, Neutrophils % ( Manual) 63, Lymphocytes % (Manual) 24, Monocytes % (Manual) 5, Eosinophils % ( Manual) 6H, Basophils % (Manual) 1, Band Neutrophils 1, Platelet Estimate Adequate, Platelet Morphology Normal, Hypochromasia 1+, Anisocytosis 1+, Sodium Level 133L, Potassium Level 5.9H, Chloride Level 89L, Carbon Dioxide Level 27, Anion Gap 17H, Blood Urea Nitrogen 71H, Creatinine 9.2H, Estimat Glomerular Filtration Rate 4.5, Glucose Level 112H, Calcium Level 7.9L, Total Bilirubin < 0.2, Aspartate Amino Transf (AST/SGOT) 19, Alanine Aminotransferase (ALT/SGPT) 6 , Alkaline Phosphatase 37, Total Protein 5.7L, Albumin 2.1L, Globulin 3.6, Albumin/Globulin Ratio 0.5L, Hepatitis C Antibody [Pending], Hepatitis C RNA ( PCR) IUs/ml [Pending], Hepatitis C RNA (PCR) log IUs/ml [Pending] Height (Feet): 5 Height (Inches): 4.00 Weight (Pounds): 160 General Appearance: no apparent distress Cardiovascular: tachycardia Respiratory/Chest: decreased breath sounds Objective no change ERICK MOSES Jul 29, 2016 14:20
[2016-07-29] MEDS: Artificial Tears 1.4% Op Soln BOTH EYES PRN (15:07)
[2016-07-29] MEDS ORDERED: Morphine Sulfate 2mg/ml Inj SUBQ PRN (16:15)
--- NOTE | 2016-07-29 16:22 | Pulmonology Progress Note ---
Assessment/Plan Problems: (1) ESRF (end stage renal failure) (2) Fluid overload (3) Opiate dependence (4) Homelessness Assessment/Plan HD by nephrology check electrolytes s/p bilateral arthrocentesis persistent high wbc, ID evaluation need fistula repair in am Subjective ROS Limited/Unobtainable: No Constitutional: Reports: no symptoms HEENT: Repors: no symptoms Respiratory: Reports: no symptoms Allergies: Coded Allergies: No Known Allergies (Unverified , 07/20/16) Objective Last 24 Hour Vital Signs Date Time Temp Pulse Resp B/P Pulse Ox O2 Delivery O2 Flow Rate FiO2 07/29/16 15:07 156/84 07/29/16 11:55 98.2 82 20 156/84 96 Nasal Cannula 2.0 07/29/16 09:27 82 161/82 07/29/16 09:27 161/82 07/29/16 08:27 98.6 82 20 161/82 96 Nasal Cannula 2.0 07/29/16 07:39 98 Nasal Cannula 2.0 28 07/29/16 07:39 Nasal Cannula 2.0 28 07/29/16 07:38 79 16 Nasal Cannula 2.0 28 07/29/16 05:31 177/89 07/29/16 04:00 97.9 83 20 177/89 98 Nasal Cannula 07/29/16 00:57 99.0 167/92 07/29/16 00:00 100.6 99 19 181/85 99 Nasal Cannula 07/28/16 23:11 188/75 07/28/16 21:26 Nasal Cannula 2.0 21 07/28/16 21:00 89 161/76 07/28/16 21:00 161/76 07/28/16 20:00 98.4 89 17 161/76 94 Nasal Cannula 07/28/16 19:30 Room Air 21 07/28/16 19:30 95 Room Air 21 07/28/16 19:30 94 16 Room Air 21 07/28/16 18:45 Room Air 2.0 28 Intake and Output 07/28/16 07/29/16 19:00 07:00 Intake Total 240 ml 120 ml Output Total 2500 ml Balance 240 ml -2380 ml Intake Oral 240 ml 120 ml Hemodialysis UF 2500 ml # Voids 1 Objective General Appearance: WD/WN HEENT: normocephalic Respiratory/Chest: chest wall non-tender, lungs clear Cardiovascular: normal peripheral pulses, normal rate Abdomen: normal bowel sounds, soft, non tender Extremities: no cyanosis, other - effusion in both knees Skin: no rash Laboratory Tests 07/28/16 19:30: White Blood Count 9.6, Red Blood Count 2.64L, Hemoglobin 7.2L, Hematocrit 22.0L , Mean Corpuscular Volume 83, Mean Corpuscular Hemoglobin 27.3, Mean Corpuscular Hemoglobin Concent 32.8, Red Cell Distribution Width 16.6H, Platelet Count 408, Mean Platelet Volume 4.4L, Neutrophils (%) (Auto) , Lymphocytes (%) (Auto) , Monocytes (%) (Auto) , Eosinophils (%) (Auto) , Basophils (%) (Auto) , Differential Total Cells Counted 100, Neutrophils % ( Manual) 63, Lymphocytes % (Manual) 24, Monocytes % (Manual) 5, Eosinophils % ( Manual) 6H, Basophils % (Manual) 1, Band Neutrophils 1, Platelet Estimate Adequate, Platelet Morphology Normal, Hypochromasia 1+, Anisocytosis 1+, Sodium Level 133L, Potassium Level 5.9H, Chloride Level 89L, Carbon Dioxide Level 27, Anion Gap 17H, Blood Urea Nitrogen 71H, Creatinine 9.2H, Estimat Glomerular Filtration Rate 4.5, Glucose Level 112H, Calcium Level 7.9L, Total Bilirubin < 0.2, Aspartate Amino Transf (AST/SGOT) 19, Alanine Aminotransferase (ALT/SGPT) 6 , Alkaline Phosphatase 37, Total Protein 5.7L, Albumin 2.1L, Globulin 3.6, Albumin/Globulin Ratio 0.5L, Hepatitis C Antibody [Pending], Hepatitis C RNA ( PCR) IUs/ml [Pending], Hepatitis C RNA (PCR) log IUs/ml [Pending] Current Medications Medications (Trade) Dose Ordered Sig/Papo Route PRN Reason Start Time Stop Time Status Last Admin Dose Admin Acetaminophen (Tylenol) 650 mg Q4H PRN ORAL Fever 07/21/16 15:00 08/20/16 14:59 Albuterol/ Ipratropium (DuoNeb 0.5-3(2.5)mg/3ml) 3 ml Q4H PRN HHN Shortness of Breath 07/26/16 12:00 07/31/16 11:59 07/28/16 12:29 Artificial Tears (Akwa-Tears) 2 drop Q6H PRN BOTH EYES Dry Eyes 07/25/16 22:30 08/24/16 22:29 07/29/16 15:07 Calcitriol (Rocaltrol) 0.5 mcg DAILY ORAL 07/22/16 09:00 08/21/16 08:59 07/29/16 09:27 Clonidine HCl (Catapres) 0.2 mg Q8H ORAL 07/28/16 14:00 08/27/16 13:59 07/29/16 15:07 Dextrose (Dextrose 50%) STAT PRN IV Hypoglycemia 07/21/16 15:00 08/20/16 14:59 Docusate Sodium (Colace) 100 mg THREE TIMES A DAY ORAL 07/22/16 09:00 08/21/16 08:59 07/29/16 15:07 Epoetin Sid (Procrit (for ESRD on dialysis)) 10,000 units WED-WED-WED SUBQ 07/22/16 21:00 08/21/16 20:59 07/27/16 21:59 Ergocalciferol (Drisdol) 50,000 intlu QWEEK ORAL 07/28/16 09:00 08/27/16 08:59 Heparin Sodium (Porcine) (Heparin 5000 units/ml) 5,000 units EVERY 12 HOURS SUBQ 07/21/16 21:00 08/20/16 20:59 07/29/16 09:35 Lisinopril (Prinivil) 20 mg Q12HR ORAL 07/22/16 22:00 08/21/16 21:59 07/29/16 09:27 Minoxidil (Loniten) 2.5 mg Q4H PRN ORAL SBP>160 07/23/16 13:45 08/22/16 13:44 07/28/16 08:48 Morphine Sulfate (Morphine Sulfate) 2 mg Q4H PRN SUBQ For Pain 07/29/16 16:15 08/05/16 16:14 Nifedipine (Procardia XL) 60 mg Q12HR ORAL 07/23/16 09:00 08/22/16 08:59 07/29/16 09:27 Ondansetron HCl (Zofran) 4 mg Q6H PRN IVP Nausea & Vomiting 07/21/16 15:00 08/20/16 14:59 Polyethylene Glycol (Miralax) 17 gm DAILYPRN PRN ORAL Constipation 07/21/16 15:00 08/20/16 14:59 07/26/16 10:09 Sevelamer Carbonate (Renvela) 2,400 mg THREE TIMES A DAY ORAL 07/26/16 09:00 08/25/16 08:59 07/29/16 15:07 EMMANUEL DOUGHERTY Jul 29, 2016 16:22
[2016-07-29] MEDS: Minoxidil 2.5mg tab ORAL PRN (17:40)
[2016-07-29] MEDS: Epogen (for ESRD on dialysis) SUBQ SCH (20:26)
[2016-07-30] VITALS (13 sets, daily range): BP systolic 143–218; BP diastolic 80–104
[2016-07-30] MEDS: cloNIDine 0.2mg Tab ORAL SCH ×3 (05:09→21:31)
[2016-07-30 07:09] LABS: MEAN CORPUSCULAR HEMOGLOBIN 28.3 PG (27.0-31.0); MEAN CORPUSCULAR HGB CONC 33.3 G/DL (32.0-36.0); MEAN CORPUSCULAR VOLUME 85 FL (80-99); MEAN PLATELET VOLUME 4.9 FL (6.5-10.1); PLATELET COUNT 471 K/UL (150-450); RED BLOOD COUNT 2.64 M/UL (4.20-5.40); WHITE BLOOD COUNT 7.9 K/UL (4.8-10.8)
[2016-07-30 07:32] LABS: ALANINE AMINOTRANSFERASE 7 U/L (3-33); ALBUMIN/GLOBULIN RATIO 0.6 (1.0-2.7); ASPARTATE AMINO TRANSFERASE 11 U/L (5-40); CALCIUM 7.9 mg/dL (8.6-10.2); CARBON DIOXIDE 28 mEQ/L (20-30); CHLORIDE 91 mEQ/L (98-107); CREATININE 8.4 mg/dL (0.5-0.9); HEMOLYSIS 0; SODIUM 134 mEQ/L (135-145); TOTAL PROTEIN 5.7 g/dL (6.6-8.7)
[2016-07-30 07:44] LABS: ANION GAP 15 (5-15)
[2016-07-30 07:47] LABS: POTASSIUM 6.3 mEQ/L (3.4-4.9)
[2016-07-30 07:49] LABS: PROTHROMBIN TIME 10.5 SEC (9.30-11.50)
[2016-07-30] MEDS: Heparin 5000 units/ml inj SUBQ SCH ×2 (08:16→21:06)
[2016-07-30] MEDS: Calcitriol 0.5mcg Cap ORAL SCH (09:33)
[2016-07-30] MEDS: Renvela 2400 mg pkt ORAL SCH ×3 (09:33→17:29)
[2016-07-30] MEDS: Lisinopril 20mg tab ORAL SCH ×2 (09:34→21:04)
[2016-07-30] MEDS: Docusate 100mg cap ORAL SCH ×3 (09:36→17:28)
[2016-07-30] MEDS ORDERED: Thrombin 5000 units TOPIC ONE (10:00)
[2016-07-30] MEDS ORDERED: Lidocaine 1% Plain 30 ml INJ ONE (10:01)
[2016-07-30] MEDS ORDERED: Isovue-M 300 15ml INJ ONE (10:01)
[2016-07-30] MEDS ORDERED: Bupivacaine 0.25% Inj 30ml INJ ONE (10:02)
[2016-07-30] MEDS ORDERED: Bacitracin 50000 Units Vial ONE (10:03)
[2016-07-30] MEDS ORDERED: Lidocaine 0.5% Epi 50 mL Vial ONE (10:03)
[2016-07-30 10:10] LABS: ANISOCYTOSIS 1+; BAND NEUTROPHILS % (MANUAL) 0 % (0-8); BASOPHILS % (MANUAL) 0 % (0-2); EOSINOPHILS % (MANUAL) 7 % (0-3); HYPOCHROMASIA 1+; LYMPHOCYTES % (MANUAL) 16 % (20-45); NEUTROPHILS % (MANUAL) 72 % (45-75); PLATELET ESTIMATE ADEQUATE; PLATELET MORPHOLOGY NORMAL; TOTAL CELLS COUNTED 100
[2016-07-30 10:48] LABS: OTHERS PATHOLOGIST COMMENT
[2016-07-30] MEDS ORDERED: Sterile Water Irrig 1000ml IRRIG ONE (11:00)
[2016-07-30] MEDS ORDERED: Midazolam 2mg/2ml Inj ONE (11:00)
[2016-07-30] MEDS ORDERED: NS Irrig 1000ml ONE (11:00)
[2016-07-30] MEDS ORDERED: Morphine Sulfate 10mg/ml Inj ONE (11:00)
[2016-07-30] MEDS ORDERED: fentaNYL 100 mcg/2 mL IV ONE (11:00)
[2016-07-30] MEDS ORDERED: NS 275ml ONE (11:00)
--- NOTE | 2016-07-30 11:07 | Anethesia Preoperative Eval ---
Anesthesia Pre-op PMH/ROS General Date of Evaluation: Jul 30, 2016 Time of Evaluation: 11:01 Anesthesiologist: Aquiles ASA Score: ASA 3 Mallampati Score Class I : Soft palate, uvula, fauces, pillars visible Class II: Soft palate, uvula, fauces visible Class III: Soft palate, base of uvula visible Class IV: Only hard plate visible Mallampati Classification: Class III Surgeon: Dina Diagnosis: ESRD Surgical Procedure: Revision of L arm A-V shunt Anesthesia History: none Social History: smoking - h/o, alcohol use - h/o abuse, drug use - h/o IVDA Family History: no anesthesia problems Allergies: Coded Allergies: No Known Allergies (Unverified , 07/20/16) Medications: see eMAR Past Medical History Cardiovascular: Reports: HTN, Denies: CAD, RI, arrhythmia, other, valve dz Pulmonary: Reports: LOUIS, Denies: COPD, asthma, other Gastrointestinal/Genitourinary: Reports: ESRD - last HD 07/28, GERD, other - Hep C. Neurologic/Psychiatric: Reports: depression/anxiety, other - encephalopathy, Denies: CVA, TIA, dementia Endocrine: Reports: hypothyroidism, Denies: DM, other, steroids HEENT: Denies: MORONGO (L), MORONGO (R), cataract (L), cataract (R), glaucoma, other Hematology/Immune: Reports: anemia - of chronic d-s, Denies: DVT, bleeding disorder, other Musculoskeletal/Integumentary: Reports: DJD, edema - bilateral upper extr., Denies: DDD, OA, RA, other PMH Narrative: as above PSxH Narrative: multiple for HD access Anesthesia Pre-op Phys. Exam Physician Exam Last Vital Signs Date Time Temp Pulse Resp B/P Pulse Ox O2 Delivery O2 Flow Rate FiO2 07/30/16 09:34 162/83 07/30/16 09:33 86 07/30/16 08:02 98.1 15 98 07/30/16 07:28 Nasal Cannula 2.0 28 Constitutional: NAD Neurologic: CN 2-12 intact Cardiovascular: RRR Respiratory: other - diminished breath sounds Gastrointestinal: S/NT/ND Airway Exam Mallampati Score: Class III MO: limited Neck: short ROM: limited Teeth: missing, broken Dentures: no lower, no upper Anesthesia Pre-op A/P Labs Coagulation Test 07/30/16 06:15 Prothrombin Time 10.5 SEC (9.30-11.50) Prothromb Time International Ratio 1.0 (0.9-1.1) Activated Partial Thromboplast Time 33 SEC (23-33) Studies Pre-op Studies: echo - EF >50% Risk Assessment & Plan Assessment: ASA 3 Plan: GA with LMA possible intraoperative blood transfusion Status Change Before Surgery: No Pre-Antibiotics Drug: Ancef 1 gr. Given Within 1 Hr of Incision: Yes Time Given: 11:25 WILLIAM GREEN M.D. Jul 30, 2016 11:07
--- NOTE | 2016-07-30 11:14 | Pre-Procedure Note/Attestation ---
Pre-Procedure Note/Attestation Complete Prior to Procedure Planned Procedure: left Procedure Narrative: Left arm arteriovenous shunt revision and dialysis catheter replacement Indications for Procedure Pre-Operative Diagnosis: ESRD need for access Inaccessible left arm av shunt Attestation I attest that I discussed the nature of the procedure; its benefits; risks and complications; and alternatives (and the risks and benefits of such alternatives ), prior to the procedure, with the patient (or the patient's legal sales donor recruitment representative). I attest that, if there was a reasonable possibility of needing a blood transfusion, the patient (or the patient's legal sales donor recruitment representative) was given the [facility] standardized written summary, pursuant to the Fercho [place] Blood Safety Act ([place] Health and Safety Code # 1645, as amended). I attest that I re-evaluated the patient just prior to the surgery and that there has been no change in the patient's H&P, except as documented below: RAVIN LAI Jul 30, 2016 11:14
[2016-07-30] MEDS ORDERED: Propofol 10mg/ml 20ml IV ONE (12:06)
[2016-07-30] MEDS ORDERED: DiphenhydrAMINE 50mg/ml Inj IVP PRN (13:30)
[2016-07-30] MEDS ORDERED: Midazolam 2mg/2ml Inj IVP PRN (13:30)
[2016-07-30] MEDS ORDERED: Bacitracin Oint 15gm Tube TOPIC ONE (13:51)
--- NOTE | 2016-07-30 14:47 | Operative Note - PDOC ---
Operative Note Operative Note Pre-op Diagnosis: ESRD need for access Inaccessible left arm av shunt Procedure: Left arm basilic vein transposition avf Ligation of old avf Left IJ permcath (14.5 Fr x 27 cm [employer]) Left IJ cvp line Remove right femoral Jose Carlos cath Bilateral jugular ultrasound Post-op Diagnosis: same as pre-op Operative Findings: consistent w/pre-op dx studies Surgeon: Ravin Arroyo MD Anesthesiologist: Aquiles FAYE Anesthesia: local Specimen: none Complications: none Condition: stable Fluids: 300 Estimated Blood Loss: minimal Drains: none Implant(s) used?: Yes - 14.5 fr x 27 cm RAVIN Montes Jul 30, 2016 14:47
--- NOTE | 2016-07-30 14:55 | General Progress Note ---
Progress Note Progress Note New left upper arm basilic vein transposition avf done with 2+ thrill 2+ radial pulse Old left arm avf ligated Right IJ occluded by ultrasound Left IJ permcath placed without difficulty Left IJ CVP line placed for anesthesia-- had no IV access Right fem Jose Carlos cath removed Patient tolerated procedure and anesthesia well Rec HD via new permcath Remove neck cvp line before discharge 2 wks f/u for left arm suture removal Allow 6-8 wks for left arm avf maturation prior to shunt use Ok for d/c planning per vascular point RAVIN LAI Jul 30, 2016 14:55
--- NOTE | 2016-07-30 14:56 | Immediate Post-Op Evaluation ---
Immediate Post-Op Evalulation Immediate Post-Op Evalulation Procedure: Revision of L arm A-V fistula, Dialysis scatheter replacement Date of Evaluation: Jul 30, 2016 Time of Evaluation: 14:54 IV Fluids: 300 Blood Products: 1 unit of PRBC Estimated Blood Loss: 50 Urinary Output: none Blood Pressure Systolic: 168 Blood Pressure Diastolic: 86 Pulse Rate: 82 Respiratory Rate: 20 O2 Sat by Pulse Oximetry: 99 Temperature (Fahrenheit): 97.6 Pain Score (1-10): 2 Nausea: No Vomiting: No Complications none Patient Status: reacts, patent, none Hydration Status: adequate WILLIAM GREEN M.D. Jul 30, 2016 14:56
[2016-07-30] MEDS: Meperidine 25mg/0.5ml Inj (FOR RIGORS ONLY) IV PRN ×2 (15:17→17:08)
--- NOTE | 2016-07-30 15:46 | Diagnostic Imaging Report ---
Indications: Central venous catheter placement Technique: Portable AP chest Findings: Comparison: 07/20/2016 Right-sided hemodialysis catheter has been removed. New tunneled hemodialysis catheter has been placed via the left internal jugular vein, tip in the region of the right atrium. Separate centimeters catheter has also been placed via the left internal jugular vein, tip in the region of the central aspect of the left brachiocephalic vein. No pneumothorax, apical pleural cap, or mediastinal widening demonstrated. Consolidative opacity has developed in the left lung base. Blunting of the left costophrenic angle has developed and persists on the right. Cardiac silhouette remains enlarged. No other change. IMPRESSION: Removal of right, placement of left tunneled hemodialysis catheters, tip of the latter in acceptable position; no evidence of acute complication Interval placement of separate central venous catheter via left internal jugular vein, tip in acceptable position; no evidence of acute complication Development of left lung base atelectasis versus pneumonia Persistent right, development of left basal pleural effusion this, may be congestive
[2016-07-30] MEDS: Hydromorphone 0.5mg/0.5ml inj IVP PRN ×2 (15:47→17:09)
--- NOTE | 2016-07-30 15:53 | General Progress Note ---
Assessment/Plan Status: unchanged Status Narrative has new AVF and permacath Assessment/Plan Status; ESRD , presented Right chest Permacath- ( and left arm fistula with bruit) No Dialysis for sometimes Volume Overload Encephalopathy Anemia right UE venous out let obstruction Plan: HD 07/30 with transfusion pending Anemia vitale, IV Iron and SQ EPO BP control- adjust meds- Phos binders , Vit D and Kayexelate prn SS eval for disposition per orders discussed with RN Subjective ROS Limited/Unobtainable: No Allergies: Coded Allergies: No Known Allergies (Unverified , 07/20/16) Objective Last 24 Hour Vital Signs Date Time Temp Pulse Resp B/P Pulse Ox O2 Delivery O2 Flow Rate FiO2 07/30/16 15:30 81 17 198/89 100 Simple Mask 6.0 07/30/16 15:15 88 16 205/93 100 Simple Mask 6.0 07/30/16 15:00 81 18 218/100 100 Simple Mask 6.0 07/30/16 14:56 82 20 99 07/30/16 14:50 79 17 203/104 100 Simple Mask 6.0 07/30/16 14:45 98.1 83 20 169/82 100 Simple Mask 6.0 07/30/16 09:34 162/83 07/30/16 09:33 86 162/83 07/30/16 08:02 98.1 86 15 162/83 98 07/30/16 07:28 84 18 Nasal Cannula 2.0 07/30/16 07:28 96 Nasal Cannula 2.0 07/30/16 07:28 Nasal Cannula 2.0 07/30/16 05:09 143/82 07/30/16 04:00 98.2 81 18 143/82 99 Room Air 07/29/16 23:59 98.4 80 17 157/80 94 Nasal Cannula 07/29/16 21:58 167/78 07/29/16 20:27 184/93 07/29/16 20:26 87 184/93 07/29/16 20:04 Nasal Cannula 2.0 28 07/29/16 20:04 97 Nasal Cannula 2.0 07/29/16 20:04 85 18 Nasal Cannula 2.0 07/29/16 20:00 97.3 87 20 184/93 94 Nasal Cannula 6/21/17 17:40 172/85 07/29/16 16:23 98.0 80 19 172/85 96 Nasal Cannula 2.0 Intake and Output 07/29/16 07/30/16 19:00 07:00 Intake Total 360 ml Output Total 0 ml Balance 360 ml Intake Oral 360 ml Output Urine Total 0 ml Laboratory Tests 07/30/16 06:15: Prothrombin Time 10.5, Prothromb Time International Ratio 1.0, Activated Partial Thromboplast Time 33 Height (Feet): 5 Height (Inches): 4.00 Weight (Pounds): 160 General Appearance: no apparent distress Objective no change ERICK MOSES Jul 30, 2016 15:53
[2016-07-30] MEDS ORDERED: ceFAZolin sod 0.5 GM in D5W 55 ML IV SCH (17:00)
--- NOTE | 2016-07-30 17:48 | Pulmonology Progress Note ---
Assessment/Plan Problems: (1) ESRF (end stage renal failure) (2) Fluid overload (3) Opiate dependence (4) Homelessness Assessment/Plan HD by nephrology check electrolytes s/p bilateral arthrocentesis discharge when ok with Nephroly Subjective ROS Limited/Unobtainable: No Allergies: Coded Allergies: No Known Allergies (Unverified , 07/20/16) Objective Last 24 Hour Vital Signs Date Time Temp Pulse Resp B/P Pulse Ox O2 Delivery O2 Flow Rate FiO2 07/30/16 16:40 97.8 81 16 196/96 100 Nasal Cannula 3.0 07/30/16 16:30 85 18 203/92 100 Nasal Cannula 3.0 07/30/16 16:15 87 16 205/95 100 Nasal Cannula 3.0 07/30/16 16:10 Nasal Cannula 3.0 28 07/30/16 16:00 82 15 189/98 100 Nasal Cannula 3.0 07/30/16 15:45 85 14 200/89 100 Nasal Cannula 3.0 07/30/16 15:30 81 17 198/89 100 Simple Mask 6.0 07/30/16 15:15 88 16 205/93 100 Simple Mask 6.0 07/30/16 15:00 81 18 218/100 100 Simple Mask 6.0 07/30/16 14:56 82 20 99 07/30/16 14:50 79 17 203/104 100 Simple Mask 6.0 07/30/16 14:45 98.1 83 20 169/82 100 Simple Mask 6.0 07/30/16 09:34 162/83 07/30/16 09:33 86 162/83 07/30/16 08:02 98.1 86 15 162/83 98 07/30/16 07:28 84 18 Nasal Cannula 2.0 28 07/30/16 07:28 96 Nasal Cannula 2.0 28 07/30/16 07:28 Nasal Cannula 2.0 28 07/30/16 05:09 143/82 07/30/16 04:00 98.2 81 18 143/82 99 Room Air 07/29/16 23:59 98.4 80 17 157/80 94 Nasal Cannula 07/29/16 21:58 167/78 07/29/16 20:27 184/93 07/29/16 20:26 87 184/93 6/21/17 20:04 Nasal Cannula 2.0 28 07/29/16 20:04 97 Nasal Cannula 2.0 28 07/29/16 20:04 85 18 Nasal Cannula 2.0 28 07/29/16 20:00 97.3 87 20 184/93 94 Nasal Cannula Intake and Output 07/29/16 07/30/16 19:00 07:00 Intake Total 360 ml Output Total 0 ml Balance 360 ml Intake Oral 360 ml Output Urine Total 0 ml Objective General Appearance: WD/WN HEENT: normocephalic Respiratory/Chest: chest wall non-tender, lungs clear Cardiovascular: normal peripheral pulses, normal rate Abdomen: normal bowel sounds, soft, non tender Extremities: no cyanosis, other - effusion in both knees Skin: no rash Laboratory Tests 07/30/16 06:15: Prothrombin Time 10.5, Prothromb Time International Ratio 1.0, Activated Partial Thromboplast Time 33 Current Medications Medications (Trade) Dose Ordered Sig/Papo Route PRN Reason Start Time Stop Time Status Last Admin Dose Admin Acetaminophen (Tylenol) 650 mg Q4H PRN ORAL Fever 07/21/16 15:00 08/20/16 14:59 Albuterol/ Ipratropium (DuoNeb 0.5-3(2.5)mg/3ml) 3 ml Q4H PRN HHN Shortness of Breath 07/26/16 12:00 07/31/16 11:59 07/28/16 12:29 Artificial Tears (Akwa-Tears) 2 drop Q6H PRN BOTH EYES Dry Eyes 07/25/16 22:30 08/24/16 22:29 07/29/16 15:07 Calcitriol (Rocaltrol) 0.5 mcg DAILY ORAL 07/22/16 09:00 08/21/16 08:59 07/30/16 09:33 Cefazolin Sodium/ Dextrose (Ancef/D5W) 55 ml @ 110 mls/hr Q8H IV 07/30/16 17:00 08/06/16 16:59 Clonidine HCl (Catapres) 0.2 mg Q8H ORAL 07/28/16 14:00 08/27/16 13:59 07/29/16 21:58 Dextrose (Dextrose 50%) STAT PRN IV Hypoglycemia 07/21/16 15:00 08/20/16 14:59 Diphenhydramine HCl (Benadryl) 25 mg Q15M PRN IVP Itching 07/30/16 13:30 07/30/16 20:30 07/30/16 16:27 Docusate Sodium (Colace) 100 mg THREE TIMES A DAY ORAL 07/22/16 09:00 08/21/16 08:59 07/29/16 17:40 Epoetin Sid (Procrit (for ESRD on dialysis)) 10,000 units WED-WED-WED SUBQ 07/22/16 21:00 08/21/16 20:59 07/29/16 20:26 Ergocalciferol (Drisdol) 50,000 intlu QWEEK ORAL 07/28/16 09:00 08/27/16 08:59 Heparin Sodium (Porcine) (Heparin 5000 units/ml) 5,000 units EVERY 12 HOURS SUBQ 07/21/16 21:00 08/20/16 20:59 07/29/16 20:28 Hydromorphone HCl (Dilaudid) 0.5 mg Q15M PRN IVP Severe Pain (Pain Scale 7-10) 07/30/16 13:30 07/30/16 20:30 07/30/16 15:47 Lisinopril (Prinivil) 20 mg Q12HR ORAL 07/22/16 22:00 08/21/16 21:59 07/30/16 09:34 Meperidine HCl 25 mg 25 mg Q15M PRN IV Shivering 07/30/16 13:30 07/30/16 20:30 07/30/16 15:17 Midazolam HCl (Versed 2mg/2ml vial) 1 mg Q15M PRN IVP For Anxiety 07/30/16 13:30 07/30/16 20:30 Minoxidil (Loniten) 2.5 mg Q4H PRN ORAL SBP>160 07/23/16 13:45 08/22/16 13:44 07/29/16 17:40 Morphine Sulfate 2 mg 2 mg Q4H PRN SUBQ For Pain 07/29/16 16:15 08/05/16 16:14 Nifedipine (Procardia XL) 60 mg Q12HR ORAL 07/23/16 09:00 08/22/16 08:59 07/30/16 09:33 Ondansetron HCl (Zofran) 4 mg Q1H PRN IVP Nausea & Vomiting 07/30/16 13:30 07/30/16 20:30 Ondansetron HCl (Zofran) 4 mg Q6H PRN IVP Nausea & Vomiting 07/21/16 15:00 08/20/16 14:59 Polyethylene Glycol (Miralax) 17 gm DAILYPRN PRN ORAL Constipation 07/21/16 15:00 08/20/16 14:59 07/26/16 10:09 Sevelamer Carbonate (Renvela) 2,400 mg THREE TIMES A DAY ORAL 07/26/16 09:00 08/25/16 08:59 07/30/16 09:33 Sodium Chloride (Sodium Chloride 1000ml bag) 1,000 ml @ 10 mls/hr Q24H IVLG 07/30/16 13:25 07/30/16 20:30 EMMANUEL DOUGHERTY Jul 30, 2016 17:48
--- NOTE | 2016-07-30 18:20 | Infectious Diseases Prog Note ---
Assessment/Plan Assessment/Plan A: The patient is a 51-year-old female with Low grade fever , SP Leukocytosis , SP Hepatitis BS antibody positive. Hepatitis C antibody positive status post knee joint tap : No evidence of arthritis ESRD on HD SP Left arm arteriovenous shunt revision and dialysis catheter replacement SP right, placement of left tunneled hemodialysis catheter 07/28 PLAN: monitor the patient off of antibiotics. Monitor blood culture. Monitor CBC. Monitor BMP. hepatitis C PCR HD as per nephro Subjective Constitutional: Denies: anorexia, chills, drenching sweats, fatigue, fever, no symptoms, other Allergies: Coded Allergies: No Known Allergies (Unverified , 07/20/16) Objective Vital Signs Last 24 Hour Vital Signs Date Time Temp Pulse Resp B/P Pulse Ox O2 Delivery O2 Flow Rate FiO2 07/30/16 16:40 97.8 81 16 196/96 100 Nasal Cannula 3.0 07/30/16 16:30 85 18 203/92 100 Nasal Cannula 3.0 07/30/16 16:10 Nasal Cannula 3.0 07/30/16 16:00 82 15 189/98 100 Nasal Cannula 3.0 07/30/16 15:45 85 14 200/89 100 Nasal Cannula 3.0 07/30/16 15:30 81 17 198/89 100 Simple Mask 6.0 07/30/16 15:15 88 16 205/93 100 Simple Mask 6.0 07/30/16 15:00 81 18 218/100 100 Simple Mask 6.0 07/30/16 14:56 82 20 99 07/30/16 14:50 79 17 203/104 100 Simple Mask 6.0 07/30/16 14:45 98.1 83 20 169/82 100 Simple Mask 6.0 07/30/16 09:34 162/83 07/30/16 09:33 86 162/83 07/30/16 08:02 98.1 86 15 162/83 98 07/30/16 07:28 84 18 Nasal Cannula 2.0 07/30/16 07:28 96 Nasal Cannula 2.0 07/30/16 07:28 Nasal Cannula 2.0 07/30/16 05:09 143/82 07/30/16 04:00 98.2 81 18 143/82 99 Room Air 07/29/16 23:59 98.4 80 17 157/80 94 Nasal Cannula 07/29/16 21:58 167/78 07/29/16 20:27 184/93 07/29/16 20:26 87 184/93 07/29/16 20:04 Nasal Cannula 2.0 28 07/29/16 20:04 97 Nasal Cannula 2.0 28 07/29/16 20:04 85 18 Nasal Cannula 2.0 28 07/29/16 20:00 97.3 87 20 184/93 94 Nasal Cannula Height (Feet): 5 Height (Inches): 4.00 Weight (Pounds): 160 HEENT: anicteric Respiratory/Chest: normal breath sounds Cardiovascular: regular rhythm Abdomen: no organomegaly Laboratory Tests Test 07/30/16 06:15 Prothrombin Time 10.5 SEC (9.30-11.50) Prothromb Time International Ratio 1.0 (0.9-1.1) Activated Partial Thromboplast Time 33 SEC (23-33) Current Medications Medications (Trade) Dose Ordered Sig/Papo Route PRN Reason Start Time Stop Time Status Last Admin Dose Admin Acetaminophen (Tylenol) 650 mg Q4H PRN ORAL Fever 07/21/16 15:00 08/20/16 14:59 Albuterol/ Ipratropium (DuoNeb 0.5-3(2.5)mg/3ml) 3 ml Q4H PRN HHN Shortness of Breath 07/26/16 12:00 07/31/16 11:59 07/28/16 12:29 Artificial Tears (Akwa-Tears) 2 drop Q6H PRN BOTH EYES Dry Eyes 07/25/16 22:30 08/24/16 22:29 07/29/16 15:07 Calcitriol (Rocaltrol) 0.5 mcg DAILY ORAL 07/22/16 09:00 08/21/16 08:59 07/30/16 09:33 Cefazolin Sodium/ Dextrose (Ancef/D5W) 55 ml @ 110 mls/hr Q8H IV 07/30/16 17:00 08/06/16 16:59 Clonidine HCl (Catapres) 0.2 mg Q8H ORAL 07/28/16 14:00 08/27/16 13:59 07/29/16 21:58 Dextrose (Dextrose 50%) STAT PRN IV Hypoglycemia 07/21/16 15:00 08/20/16 14:59 Diphenhydramine HCl (Benadryl) 25 mg Q15M PRN IVP Itching 07/30/16 13:30 07/30/16 20:30 07/30/16 16:27 Docusate Sodium (Colace) 100 mg THREE TIMES A DAY ORAL 07/22/16 09:00 08/21/16 08:59 07/29/16 17:40 Epoetin Sid (Procrit (for ESRD on dialysis)) 10,000 units WED-WED-WED SUBQ 07/22/16 21:00 08/21/16 20:59 07/29/16 20:26 Ergocalciferol (Drisdol) 50,000 intlu QWEEK ORAL 07/28/16 09:00 08/27/16 08:59 Heparin Sodium (Porcine) (Heparin 5000 units/ml) 5,000 units EVERY 12 HOURS SUBQ 07/21/16 21:00 08/20/16 20:59 07/29/16 20:28 Hydromorphone HCl (Dilaudid) 0.5 mg Q15M PRN IVP Severe Pain (Pain Scale 7-10) 07/30/16 13:30 07/30/16 20:30 07/30/16 15:47 Lisinopril (Prinivil) 20 mg Q12HR ORAL 07/22/16 22:00 08/21/16 21:59 07/30/16 09:34 Meperidine HCl 25 mg 25 mg Q15M PRN IV Shivering 07/30/16 13:30 07/30/16 20:30 07/30/16 15:17 Midazolam HCl (Versed 2mg/2ml vial) 1 mg Q15M PRN IVP For Anxiety 07/30/16 13:30 07/30/16 20:30 Minoxidil (Loniten) 2.5 mg Q4H PRN ORAL SBP>160 07/23/16 13:45 08/22/16 13:44 07/29/16 17:40 Morphine Sulfate 2 mg 2 mg Q4H PRN SUBQ For Pain 07/29/16 16:15 08/05/16 16:14 Nifedipine (Procardia XL) 60 mg Q12HR ORAL 07/23/16 09:00 08/22/16 08:59 07/30/16 09:33 Ondansetron HCl (Zofran) 4 mg Q1H PRN IVP Nausea & Vomiting 07/30/16 13:30 07/30/16 20:30 Ondansetron HCl (Zofran) 4 mg Q6H PRN IVP Nausea & Vomiting 07/21/16 15:00 08/20/16 14:59 Polyethylene Glycol (Miralax) 17 gm DAILYPRN PRN ORAL Constipation 07/21/16 15:00 08/20/16 14:59 07/26/16 10:09 Sevelamer Carbonate (Renvela) 2,400 mg THREE TIMES A DAY ORAL 07/26/16 09:00 08/25/16 08:59 07/30/16 09:33 Sodium Chloride (Sodium Chloride 1000ml bag) 1,000 ml @ 10 mls/hr Q24H IVLG 07/30/16 13:25 07/30/16 20:30 JORGE LUIS FREEMAN M.D. Jul 30, 2016 18:20
[2016-07-30] MEDS: Artificial Tears 1.4% Op Soln BOTH EYES PRN (20:18)
[2016-07-31] VITALS: BP 131/65
[2016-07-31] MEDS ORDERED: Morphine Sulfate 2mg/ml Inj IVP PRN (00:15)
[2016-07-31] MEDS: Morphine Sulfate 4mg/ml Inj IVP PRN ×2 (03:52→09:52)
[2016-07-31] MEDS: cloNIDine 0.2mg Tab ORAL SCH ×3 (06:15→21:17)
[2016-07-31 07:54] VITALS: BP 163/93
--- NOTE | 2016-07-31 09:37 | Infectious Diseases Prog Note ---
Assessment/Plan Assessment/Plan A: The patient is a 51-year-old female with Low grade fever , SP Leukocytosis , SP Hepatitis BS antibody positive. Hepatitis C antibody positive status post knee joint tap : No evidence of arthritis ESRD on HD SP Left arm arteriovenous shunt revision and dialysis catheter replacement SP right, placement of left tunneled hemodialysis catheter 07/28 PLAN: monitor the patient off of antibiotics. Monitor CBC. Monitor BMP. hepatitis C PCR HD as per nephro Subjective Constitutional: Denies: anorexia, chills, drenching sweats, fatigue, fever, no symptoms, other Allergies: Coded Allergies: No Known Allergies (Unverified , 07/20/16) Objective Vital Signs Last 24 Hour Vital Signs Date Time Temp Pulse Resp B/P Pulse Ox O2 Delivery O2 Flow Rate FiO2 07/31/16 07:54 97.7 89 15 163/93 96 Room Air 07/31/16 06:15 160/90 07/31/16 00:00 98.7 94 18 131/65 97 Room Air 07/30/16 22:48 99.9 07/30/16 21:31 168/84 07/30/16 21:04 97 168/84 07/30/16 21:04 168/84 07/30/16 20:25 99 Nasal Cannula 3.0 32 07/30/16 20:25 Nasal Cannula 3.0 32 07/30/16 20:00 97.5 87 20 176/80 100 Nasal Cannula 07/30/16 19:56 Nasal Cannula 3.0 28 07/30/16 16:40 97.8 81 16 196/96 100 Nasal Cannula 3.0 07/30/16 16:30 85 18 203/92 100 Nasal Cannula 3.0 07/30/16 16:10 Nasal Cannula 3.0 28 07/30/16 16:00 82 15 189/98 100 Nasal Cannula 3.0 07/30/16 15:45 85 14 200/89 100 Nasal Cannula 3.0 07/30/16 15:30 81 17 198/89 100 Simple Mask 6.0 07/30/16 15:15 88 16 205/93 100 Simple Mask 6.0 07/30/16 15:00 81 18 218/100 100 Simple Mask 6.0 07/30/16 14:56 82 20 99 07/30/16 14:50 79 17 203/104 100 Simple Mask 6.0 07/30/16 14:45 98.1 83 20 169/82 100 Simple Mask 6.0 Height (Feet): 5 Height (Inches): 4.00 Weight (Pounds): 160 HEENT: anicteric Respiratory/Chest: normal breath sounds Cardiovascular: regularly irregular Abdomen: non distended Current Medications Medications (Trade) Dose Ordered Sig/Papo Route PRN Reason Start Time Stop Time Status Last Admin Dose Admin Acetaminophen (Tylenol) 650 mg Q4H PRN ORAL Fever 07/21/16 15:00 08/20/16 14:59 07/30/16 21:49 Albuterol/ Ipratropium (DuoNeb 0.5-3(2.5)mg/3ml) 3 ml Q4H PRN HHN Shortness of Breath 07/26/16 12:00 07/31/16 11:59 07/28/16 12:29 Artificial Tears (Akwa-Tears) 2 drop Q6H PRN BOTH EYES Dry Eyes 07/25/16 22:30 08/24/16 22:29 07/30/16 20:18 Calcitriol (Rocaltrol) 0.5 mcg DAILY ORAL 07/22/16 09:00 08/21/16 08:59 07/30/16 09:33 Clonidine HCl (Catapres) 0.2 mg Q8H ORAL 07/28/16 14:00 08/27/16 13:59 07/31/16 06:15 Dextrose (Dextrose 50%) STAT PRN IV Hypoglycemia 07/21/16 15:00 08/20/16 14:59 Docusate Sodium (Colace) 100 mg THREE TIMES A DAY ORAL 07/22/16 09:00 08/21/16 08:59 07/29/16 17:40 Epoetin Sid (Procrit (for ESRD on dialysis)) 10,000 units MON-WED-FRI SUBQ 07/22/16 21:00 08/21/16 20:59 07/29/16 20:26 Ergocalciferol (Drisdol) 50,000 intlu QWEEK ORAL 07/28/16 09:00 08/27/16 08:59 Heparin Sodium (Porcine) (Heparin 5000 units/ml) 5,000 units EVERY 12 HOURS SUBQ 07/21/16 21:00 08/20/16 20:59 07/30/16 21:06 Lisinopril (Prinivil) 20 mg Q12HR ORAL 07/22/16 22:00 08/21/16 21:59 07/30/16 21:04 Minoxidil (Loniten) 2.5 mg Q4H PRN ORAL SBP>160 07/23/16 13:45 08/22/16 13:44 07/29/16 17:40 Morphine Sulfate (Morphine Sulfate) 4 mg Q4H PRN IVP For Pain 07/30/16 22:30 08/06/16 22:29 07/31/16 03:52 Nifedipine (Procardia XL) 60 mg Q12HR ORAL 07/23/16 09:00 08/22/16 08:59 07/30/16 21:04 Ondansetron HCl (Zofran) 4 mg Q6H PRN IVP Nausea & Vomiting 07/21/16 15:00 08/20/16 14:59 Polyethylene Glycol (Miralax) 17 gm DAILYPRN PRN ORAL Constipation 07/21/16 15:00 08/20/16 14:59 07/26/16 10:09 Sevelamer Carbonate (Renvela) 2,400 mg THREE TIMES A DAY ORAL 07/26/16 09:00 08/25/16 08:59 07/30/16 09:33 JORGE LUIS FREEMAN M.D. Jul 31, 2016 09:37
[2016-07-31] MEDS: Calcitriol 0.5mcg Cap ORAL SCH (09:50)
[2016-07-31] MEDS: Heparin 5000 units/ml inj SUBQ SCH ×2 (09:50→21:19)
[2016-07-31] MEDS: Lisinopril 20mg tab ORAL SCH ×2 (09:50→21:17)
[2016-07-31] MEDS: Minoxidil 2.5mg tab ORAL PRN ×2 (09:51→14:46)
[2016-07-31] MEDS: Renvela 2400 mg pkt ORAL SCH ×3 (09:51→18:02)
[2016-07-31] MEDS: Miralax 17gm pkt ORAL PRN (09:51)
[2016-07-31] MEDS: Docusate 100mg cap ORAL SCH ×3 (09:51→18:02)
[2016-07-31 09:56] LABS: BASOPHILS % (AUTO) 0.9 % (0.0-2.0); EOSINOPHILS % (AUTO) 3.6 % (0.0-3.0); LYMPHOCYTES % (AUTO) 15.5 % (20.0-45.0); MEAN CORPUSCULAR HEMOGLOBIN 28.7 PG (27.0-31.0); MEAN CORPUSCULAR HGB CONC 33.3 G/DL (32.0-36.0); MEAN CORPUSCULAR VOLUME 86 FL (80-99); MEAN PLATELET VOLUME 4.9 FL (6.5-10.1); MONOCYTES % (AUTO) 7.6 % (1.0-10.0); NEUTROPHILS % (AUTO) 72.4 % (45.0-75.0); PLATELET COUNT 467 K/UL (150-450); RED BLOOD COUNT 3.27 M/UL (4.20-5.40); RED CELL DISTRIBUTION WIDTH 15.7 % (11.6-14.8); WHITE BLOOD COUNT 9.6 K/UL (4.8-10.8)
[2016-07-31 10:33] LABS: ALBUMIN/GLOBULIN RATIO 0.6 (1.0-2.7); CALCIUM 7.7 mg/dL (8.6-10.2); CREATININE 6.5 mg/dL (0.5-0.9); GLOMERULAR FILTRATION RATE 6.7 mL/min (>60); PHOSPHORUS 4.5 mg/dL (2.5-4.8); POTASSIUM 4.8 mEQ/L (3.4-4.9); TOTAL PROTEIN 5.8 g/dL (6.6-8.7)
--- NOTE | 2016-07-31 11:00 | Diagnostic Imaging Report ---
Indication: VENOUS ACC intraoperative Technique: Digital intraoperative images Comparison: None Findings: Intraprocedural images document placement of a tunneled dialysis catheter via the left internal jugular vein, tip in the high right atrium. Subsequent images document placement of a left jugular central venous catheter, tip projected at the level of the innominate venous confluence. Impression: Intraoperative imaging, as described
[2016-07-31 11:30] VITALS: BP 199/105
--- NOTE | 2016-07-31 13:04 | 48 Hour Post Anesthesia Eval ---
Post Anesthesia Evaluation Procedure: Revision of L arm A-V fistula, Dialysis scatheter replacement Date of Evaluation: Jul 31, 2016 Time of Evaluation: 12:57 Blood Pressure Systolic: 156 0: 78 Pulse Rate: 76 Respiratory Rate: 22 Temperature (Fahrenheit): 97.6 O2 Sat by Pulse Oximetry: 98 Airway: patent Nausea: No Vomiting: No Pain Intensity: 3 Hydration Status: adequate Cardiopulmonary Status: stable Mental Status/LOC: patient returned to baseline Follow-up Care/Observations: n/a Post-Anesthesia Complications: none Follow-up care needed: N/A WILLIAM GREEN M.D. Jul 31, 2016 13:04
--- NOTE | 2016-07-31 13:14 | General Progress Note ---
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 Subjective ROS Limited/Unobtainable: No Constitutional: Reports: malaise, weakness Allergies: Coded Allergies: No Known Allergies (Unverified , 07/20/16) Objective Last 24 Hour Vital Signs Date Time Temp Pulse Resp B/P Pulse Ox O2 Delivery O2 Flow Rate FiO2 07/31/16 13:04 76 22 98 07/31/16 11:30 98.6 95 18 199/105 96 Room Air 07/31/16 09:51 163/93 07/31/16 09:50 89 163/93 07/31/16 09:50 163/93 07/31/16 07:54 97.7 89 15 163/93 96 Room Air 07/31/16 06:15 160/90 07/31/16 00:00 98.7 94 18 131/65 97 Room Air 07/30/16 22:48 99.9 07/30/16 21:31 168/84 07/30/16 21:04 97 168/84 07/30/16 21:04 168/84 07/30/16 20:25 99 Nasal Cannula 3.0 32 07/30/16 20:25 Nasal Cannula 3.0 32 07/30/16 20:00 97.5 87 20 176/80 100 Nasal Cannula 07/30/16 19:56 Nasal Cannula 3.0 07/30/16 16:40 97.8 81 16 196/96 100 Nasal Cannula 3.0 07/30/16 16:30 85 18 203/92 100 Nasal Cannula 3.0 07/30/16 16:10 Nasal Cannula 3.0 28 07/30/16 16:00 82 15 189/98 100 Nasal Cannula 3.0 07/30/16 15:45 85 14 200/89 100 Nasal Cannula 3.0 07/30/16 15:30 81 17 198/89 100 Simple Mask 6.0 07/30/16 15:15 88 16 205/93 100 Simple Mask 6.0 07/30/16 15:00 81 18 218/100 100 Simple Mask 6.0 07/30/16 14:56 82 20 99 07/30/16 14:50 79 17 203/104 100 Simple Mask 6.0 07/30/16 14:45 98.1 83 20 169/82 100 Simple Mask 6.0 Intake and Output 07/30/16 07/31/16 19:00 07:00 Intake Total 50 ml 120 ml Output Total 2300 ml Balance 50 ml -2180 ml Intake Oral 0 ml 120 ml IV Total 50 ml Hemodialysis UF 2300 ml # Voids 1 Laboratory Tests 07/31/16 08:00: White Blood Count 9.6, Red Blood Count 3.27L, Hemoglobin 9.4L, Hematocrit 28.1L , Mean Corpuscular Volume 86, Mean Corpuscular Hemoglobin 28.7, Mean Corpuscular Hemoglobin Concent 33.3, Red Cell Distribution Width 15.7H, Platelet Count 467H, Mean Platelet Volume 4.9L, Neutrophils (%) (Auto) 72.4, Lymphocytes (%) (Auto) 15.5L, Monocytes (%) (Auto) 7.6, Eosinophils (%) (Auto) 3.6H, Basophils (%) (Auto) 0.9, Sodium Level 134L, Potassium Level 4.8, Chloride Level 90L, Carbon Dioxide Level 31H, Anion Gap 13, Blood Urea Nitrogen 47H, Creatinine 6.5H, Estimat Glomerular Filtration Rate 6.7, Glucose Level 101 , Calcium Level 7.7L, Phosphorus Level 4.5, Total Bilirubin 0.2, Aspartate Amino Transf (AST/SGOT) 15, Alanine Aminotransferase (ALT/SGPT) 5, Alkaline Phosphatase 41, Total Protein 5.8L, Albumin 2.2L, Globulin 3.6, Albumin/ Globulin Ratio 0.6L Height (Feet): 5 Height (Inches): 4.00 Weight (Pounds): 160 General Appearance: no apparent distress Respiratory/Chest: decreased breath sounds Abdomen: soft, distended Objective no change ERICK MOSES Jul 31, 2016 13:14
--- NOTE | 2016-07-31 13:27 | Pulmonology Progress Note ---
Assessment/Plan Problems: (1) ESRF (end stage renal failure) (2) Fluid overload (3) Opiate dependence (4) Homelessness Assessment/Plan HD by nephrology check electrolytes monitor BP s/p bilateral arthrocentesis awaiting placement all notes reviewed. Subjective ROS Limited/Unobtainable: No Constitutional: Reports: no symptoms HEENT: Repors: no symptoms Respiratory: Reports: no symptoms Allergies: Coded Allergies: No Known Allergies (Unverified , 07/20/16) Objective Last 24 Hour Vital Signs Date Time Temp Pulse Resp B/P Pulse Ox O2 Delivery O2 Flow Rate FiO2 07/31/16 13:04 76 22 98 07/31/16 11:30 98.6 95 18 199/105 96 Room Air 07/31/16 09:51 163/93 07/31/16 09:50 89 163/93 07/31/16 09:50 163/93 07/31/16 07:54 97.7 89 15 163/93 96 Room Air 07/31/16 06:15 160/90 07/31/16 00:00 98.7 94 18 131/65 97 Room Air 07/30/16 22:48 99.9 07/30/16 21:31 168/84 07/30/16 21:04 97 168/84 07/30/16 21:04 168/84 07/30/16 20:25 99 Nasal Cannula 3.0 32 07/30/16 20:25 Nasal Cannula 3.0 32 07/30/16 20:00 97.5 87 20 176/80 100 Nasal Cannula 07/30/16 19:56 Nasal Cannula 3.0 28 07/30/16 16:40 97.8 81 16 196/96 100 Nasal Cannula 3.0 07/30/16 16:30 85 18 203/92 100 Nasal Cannula 3.0 07/30/16 16:10 Nasal Cannula 3.0 28 07/30/16 16:00 82 15 189/98 100 Nasal Cannula 3.0 07/30/16 15:45 85 14 200/89 100 Nasal Cannula 3.0 07/30/16 15:30 81 17 198/89 100 Simple Mask 6.0 07/30/16 15:15 88 16 205/93 100 Simple Mask 6.0 07/30/16 15:00 81 18 218/100 100 Simple Mask 6.0 07/30/16 14:56 82 20 99 07/30/16 14:50 79 17 203/104 100 Simple Mask 6.0 07/30/16 14:45 98.1 83 20 169/82 100 Simple Mask 6.0 Intake and Output 07/30/16 07/31/16 19:00 07:00 Intake Total 50 ml 120 ml Output Total 2300 ml Balance 50 ml -2180 ml Intake Oral 0 ml 120 ml IV Total 50 ml Hemodialysis UF 2300 ml # Voids 1 Objective General Appearance: WD/WN HEENT: normocephalic Respiratory/Chest: chest wall non-tender, lungs clear Cardiovascular: normal peripheral pulses, normal rate Abdomen: normal bowel sounds, soft, non tender Extremities: no cyanosis, other - effusion in both knees Skin: no rash Laboratory Tests 07/31/16 08:00: White Blood Count 9.6, Red Blood Count 3.27L, Hemoglobin 9.4L, Hematocrit 28.1L , Mean Corpuscular Volume 86, Mean Corpuscular Hemoglobin 28.7, Mean Corpuscular Hemoglobin Concent 33.3, Red Cell Distribution Width 15.7H, Platelet Count 467H, Mean Platelet Volume 4.9L, Neutrophils (%) (Auto) 72.4, Lymphocytes (%) (Auto) 15.5L, Monocytes (%) (Auto) 7.6, Eosinophils (%) (Auto) 3.6H, Basophils (%) (Auto) 0.9, Sodium Level 134L, Potassium Level 4.8, Chloride Level 90L, Carbon Dioxide Level 31H, Anion Gap 13, Blood Urea Nitrogen 47H, Creatinine 6.5H, Estimat Glomerular Filtration Rate 6.7, Glucose Level 101 , Calcium Level 7.7L, Phosphorus Level 4.5, Total Bilirubin 0.2, Aspartate Amino Transf (AST/SGOT) 15, Alanine Aminotransferase (ALT/SGPT) 5, Alkaline Phosphatase 41, Total Protein 5.8L, Albumin 2.2L, Globulin 3.6, Albumin/ Globulin Ratio 0.6L Current Medications Medications (Trade) Dose Ordered Sig/Papo Route PRN Reason Start Time Stop Time Status Last Admin Dose Admin Acetaminophen (Tylenol) 650 mg Q4H PRN ORAL Fever 07/21/16 15:00 08/20/16 14:59 07/30/16 21:49 Artificial Tears (Akwa-Tears) 2 drop Q6H PRN BOTH EYES Dry Eyes 07/25/16 22:30 08/24/16 22:29 07/30/16 20:18 Calcitriol (Rocaltrol) 0.5 mcg DAILY ORAL 07/22/16 09:00 08/21/16 08:59 07/31/16 09:50 Chlorhexidine Gluconate (Celeste-Hex 2%) 1 applic Q24H TOPIC 07/31/16 21:00 08/30/16 20:59 Clonidine HCl (Catapres) 0.2 mg Q8H ORAL 07/28/16 14:00 08/27/16 13:59 07/31/16 06:15 Dextrose (Dextrose 50%) STAT PRN IV Hypoglycemia 07/21/16 15:00 08/20/16 14:59 Docusate Sodium (Colace) 100 mg THREE TIMES A DAY ORAL 07/22/16 09:00 08/21/16 08:59 07/31/16 09:51 Epoetin Sid (Procrit (for ESRD on dialysis)) 10,000 units WED-WED-WED SUBQ 07/22/16 21:00 08/21/16 20:59 07/29/16 20:26 Ergocalciferol (Drisdol) 50,000 intlu QWEEK ORAL 07/28/16 09:00 08/27/16 08:59 Heparin Sodium (Porcine) (Heparin 5000 units/ml) 5,000 units EVERY 12 HOURS SUBQ 07/21/16 21:00 08/20/16 20:59 07/31/16 09:50 Lisinopril (Prinivil) 20 mg Q12HR ORAL 07/22/16 22:00 08/21/16 21:59 07/31/16 09:50 Minoxidil (Loniten) 2.5 mg Q4H PRN ORAL SBP>160 07/23/16 13:45 08/22/16 13:44 07/31/16 09:51 Morphine Sulfate (Morphine Sulfate) 4 mg Q4H PRN IVP For Pain 07/30/16 22:30 08/06/16 22:29 07/31/16 09:52 Nifedipine (Procardia XL) 60 mg Q12HR ORAL 07/23/16 09:00 08/22/16 08:59 07/31/16 09:50 Ondansetron HCl (Zofran) 4 mg Q6H PRN IVP Nausea & Vomiting 07/21/16 15:00 08/20/16 14:59 Polyethylene Glycol (Miralax) 17 gm DAILYPRN PRN ORAL Constipation 07/21/16 15:00 08/20/16 14:59 07/31/16 09:51 Sevelamer Carbonate (Renvela) 2,400 mg THREE TIMES A DAY ORAL 07/26/16 09:00 08/25/16 08:59 07/31/16 09:51 EMMANUEL DOUGHERTY Jul 31, 2016 13:27
[2016-07-31 16:05] VITALS: BP 149/80
[2016-07-31] MEDS: Artificial Tears 1.4% Op Soln BOTH EYES PRN (18:02)
[2016-07-31 20:00] VITALS: BP 159/85
[2016-07-31] MEDS: Dyna-Hex 2% Top Sol 8oz TOPIC SCH (21:18)
[2016-07-31] MEDS: Epogen (for ESRD on dialysis) SUBQ SCH (21:18)
[2016-08-01] VITALS: BP 168/90
[2016-08-01] MEDS: Morphine Sulfate 4mg/ml Inj IVP PRN ×5 (00:44→23:21)
[2016-08-01] MEDS: Minoxidil 2.5mg tab ORAL PRN (03:31)
[2016-08-01 04:00] VITALS: BP 149/78
[2016-08-01] MEDS: Artificial Tears 1.4% Op Soln BOTH EYES PRN ×2 (04:59→18:51)
[2016-08-01] MEDS: cloNIDine 0.2mg Tab ORAL SCH ×3 (05:34→21:30)
[2016-08-01 07:46] LABS: BASOPHILS % (AUTO) 1.6 % (0.0-2.0); EOSINOPHILS % (AUTO) 4.6 % (0.0-3.0); LYMPHOCYTES % (AUTO) 22.7 % (20.0-45.0); MEAN CORPUSCULAR HEMOGLOBIN 28.1 PG (27.0-31.0); MEAN CORPUSCULAR HGB CONC 32.2 G/DL (32.0-36.0); MEAN CORPUSCULAR VOLUME 87 FL (80-99); MEAN PLATELET VOLUME 5.1 FL (6.5-10.1); MONOCYTES % (AUTO) 10.2 % (1.0-10.0); NEUTROPHILS % (AUTO) 60.9 % (45.0-75.0); PLATELET COUNT 437 K/UL (150-450); RED BLOOD COUNT 3.28 M/UL (4.20-5.40); RED CELL DISTRIBUTION WIDTH 16.2 % (11.6-14.8); WHITE BLOOD COUNT 9.5 K/UL (4.8-10.8)
[2016-08-01 08:10] LABS: ALANINE AMINOTRANSFERASE 5 U/L (3-33); ALBUMIN/GLOBULIN RATIO 0.6 (1.0-2.7); ANION GAP 14 (5-15); ASPARTATE AMINO TRANSFERASE 12 U/L (5-40); CALCIUM 7.8 mg/dL (8.6-10.2); CARBON DIOXIDE 30 mEQ/L (20-30); CHLORIDE 91 mEQ/L (98-107); CREATININE 7.4 mg/dL (0.5-0.9); GLOMERULAR FILTRATION RATE 5.8 mL/min (>60); HEMOLYSIS 2; PHOSPHORUS 4.9 mg/dL (2.5-4.8); POTASSIUM 5.3 mEQ/L (3.4-4.9); SODIUM 135 mEQ/L (135-145)
[2016-08-01 08:30] VITALS: BP 147/79
[2016-08-01] MEDS: Lisinopril 20mg tab ORAL SCH ×2 (09:00→21:29)
--- NOTE | 2016-08-01 09:35 | General Progress Note ---
Assessment/Plan Status: stable Assessment/Plan Status; ESRD , presented Right chest Permacath- ( and left arm fistula with bruit) No Dialysis for sometimes Volume Overload Encephalopathy Anemia right UE venous out let obstruction Plan: HD due today 08/01 Transfused 07/30 BP control- adjust meds- Phos binders , Vit D and Kayexelate prn SS eval for disposition per orders discussed with shuttlecock feather trimmer Subjective ROS Limited/Unobtainable: No Constitutional: Reports: malaise, weakness Allergies: Coded Allergies: No Known Allergies (Unverified , 07/20/16) Objective Last 24 Hour Vital Signs Date Time Temp Pulse Resp B/P Pulse Ox O2 Delivery O2 Flow Rate FiO2 08/01/16 08:30 98.2 91 19 147/79 94 Nasal Cannula 08/01/16 05:34 149/78 08/01/16 04:00 98.4 90 18 149/78 100 Room Air 08/01/16 03:31 168/90 08/01/16 00:00 99.1 87 20 168/90 100 Nasal Cannula 3.0 07/31/16 21:17 159/85 07/31/16 21:17 91 159/85 07/31/16 21:17 159/85 07/31/16 20:00 98.2 91 18 159/85 100 Nasal Cannula 2.0 07/31/16 19:05 98 Nasal Cannula 3.0 32 07/31/16 19:05 Nasal Cannula 3.0 32 07/31/16 16:05 99.5 99 18 149/80 97 Room Air 07/31/16 14:46 199/105 07/31/16 14:44 156/78 07/31/16 13:04 76 22 98 07/31/16 11:30 98.6 95 18 199/105 96 Room Air 07/31/16 09:51 163/93 07/31/16 09:50 89 163/93 07/31/16 09:50 163/93 Intake and Output 07/31/16 08/01/16 19:00 07:00 Intake Total 1000 ml 120 ml Balance 1000 ml 120 ml Intake Oral 1000 ml 120 ml # Voids 1 Laboratory Tests 08/01/16 05:00: White Blood Count 9.5, Red Blood Count 3.28L, Hemoglobin 9.2L, Hematocrit 28.6L , Mean Corpuscular Volume 87, Mean Corpuscular Hemoglobin 28.1, Mean Corpuscular Hemoglobin Concent 32.2, Red Cell Distribution Width 16.2H, Platelet Count 437, Mean Platelet Volume 5.1L, Neutrophils (%) (Auto) 60.9, Lymphocytes (%) (Auto) 22.7, Monocytes (%) (Auto) 10.2H, Eosinophils (%) (Auto) 4.6H, Basophils (%) (Auto) 1.6, Sodium Level 135, Potassium Level 5.3H, Chloride Level 91L, Carbon Dioxide Level 30, Anion Gap 14, Blood Urea Nitrogen 54H, Creatinine 7.4H, Estimat Glomerular Filtration Rate 5.8, Glucose Level 82, Calcium Level 7.8L, Phosphorus Level 4.9H, Total Bilirubin < 0.2, Aspartate Amino Transf (AST/SGOT) 12, Alanine Aminotransferase (ALT/SGPT) 5, Alkaline Phosphatase 43, Total Protein 6.0L, Albumin 2.3L, Globulin 3.7, Albumin/ Globulin Ratio 0.6L Height (Feet): 5 Height (Inches): 4.00 Weight (Pounds): 160 General Appearance: no apparent distress Objective no change ERICK MOSES Aug 01, 2016 09:35
[2016-08-01] MEDS: Calcitriol 0.5mcg Cap ORAL SCH (10:44)
[2016-08-01] MEDS: Docusate 100mg cap ORAL SCH ×4 (10:44→17:58)
[2016-08-01] MEDS: Heparin 5000 units/ml inj SUBQ SCH ×2 (10:46→21:32)
[2016-08-01] MEDS: Renvela 2400 mg pkt ORAL SCH ×4 (10:46→17:58)
[2016-08-01 12:00] VITALS: BP_SYST 107; BP_SYST 154; BP_DIAS 65; BP_DIAS 93
[2016-08-01 14:13] LABS: HEP C VIRUS RNA (LOG IU/ML) 4.276 (.); HEPATITIS C QUANT 18860 IU/mL (.)
[2016-08-01 16:06] VITALS: BP 155/80
--- NOTE | 2016-08-01 17:52 | Pulmonology Progress Note ---
Assessment/Plan Problems: (1) ESRF (end stage renal failure) (2) Fluid overload (3) Opiate dependence (4) Homelessness Assessment/Plan HD by nephrology check electrolytes monitor BP s/p bilateral arthrocentesis awaiting placement all notes reviewed. Subjective ROS Limited/Unobtainable: No Allergies: Coded Allergies: No Known Allergies (Unverified , 07/20/16) Objective Last 24 Hour Vital Signs Date Time Temp Pulse Resp B/P Pulse Ox O2 Delivery O2 Flow Rate FiO2 08/01/16 16:06 98.2 92 19 155/80 95 Nasal Cannula 08/01/16 15:15 Nasal Cannula 2.0 08/01/16 12:00 98.1 85 18 154/93 100 Nasal Cannula 08/01/16 11:40 Nasal Cannula 2.0 08/01/16 09:00 91 147/79 08/01/16 09:00 147/79 08/01/16 08:30 98.2 91 19 147/79 94 Nasal Cannula 08/01/16 05:34 149/78 08/01/16 04:00 98.4 90 18 149/78 100 Room Air 08/01/16 03:31 168/90 08/01/16 00:00 99.1 87 20 168/90 100 Nasal Cannula 3.0 07/31/16 21:17 159/85 07/31/16 21:17 91 159/85 07/31/16 21:17 159/85 07/31/16 20:00 98.2 91 18 159/85 100 Nasal Cannula 2.0 07/31/16 19:05 98 Nasal Cannula 3.0 32 07/31/16 19:05 Nasal Cannula 3.0 32 Intake and Output 07/31/16 08/01/16 19:00 07:00 Intake Total 1000 ml 120 ml Balance 1000 ml 120 ml Intake Oral 1000 ml 120 ml # Voids 1 Objective General Appearance: WD/WN HEENT: normocephalic Respiratory/Chest: chest wall non-tender, lungs clear Cardiovascular: normal peripheral pulses, normal rate Abdomen: normal bowel sounds, soft, non tender Extremities: no cyanosis, other - effusion in both knees Skin: no rash Laboratory Tests 08/01/16 05:00: White Blood Count 9.5, Red Blood Count 3.28L, Hemoglobin 9.2L, Hematocrit 28.6L , Mean Corpuscular Volume 87, Mean Corpuscular Hemoglobin 28.1, Mean Corpuscular Hemoglobin Concent 32.2, Red Cell Distribution Width 16.2H, Platelet Count 437, Mean Platelet Volume 5.1L, Neutrophils (%) (Auto) 60.9, Lymphocytes (%) (Auto) 22.7, Monocytes (%) (Auto) 10.2H, Eosinophils (%) (Auto) 4.6H, Basophils (%) (Auto) 1.6, Sodium Level 135, Potassium Level 5.3H, Chloride Level 91L, Carbon Dioxide Level 30, Anion Gap 14, Blood Urea Nitrogen 54H, Creatinine 7.4H, Estimat Glomerular Filtration Rate 5.8, Glucose Level 82, Calcium Level 7.8L, Phosphorus Level 4.9H, Total Bilirubin < 0.2, Aspartate Amino Transf (AST/SGOT) 12, Alanine Aminotransferase (ALT/SGPT) 5, Alkaline Phosphatase 43, Total Protein 6.0L, Albumin 2.3L, Globulin 3.7, Albumin/ Globulin Ratio 0.6L Current Medications Medications (Trade) Dose Ordered Sig/Papo Route PRN Reason Start Time Stop Time Status Last Admin Dose Admin Acetaminophen (Tylenol) 650 mg Q4H PRN ORAL Fever 07/21/16 15:00 08/20/16 14:59 07/30/16 21:49 Artificial Tears (Akwa-Tears) 2 drop Q6H PRN BOTH EYES Dry Eyes 07/25/16 22:30 08/24/16 22:29 08/01/16 04:59 Calcitriol (Rocaltrol) 0.5 mcg DAILY ORAL 07/22/16 09:00 08/21/16 08:59 08/01/16 10:44 Chlorhexidine Gluconate (Celeste-Hex 2%) 1 applic Q24H TOPIC 07/31/16 21:00 08/30/16 20:59 07/31/16 21:18 Clonidine HCl (Catapres) 0.2 mg Q8H ORAL 07/28/16 14:00 08/27/16 13:59 08/01/16 05:34 Dextrose (Dextrose 50%) STAT PRN IV Hypoglycemia 07/21/16 15:00 08/20/16 14:59 Docusate Sodium (Colace) 100 mg THREE TIMES A DAY ORAL 07/22/16 09:00 08/21/16 08:59 08/01/16 10:44 Epoetin Sid (Procrit (for ESRD on dialysis)) 10,000 units WED-WED-WED SUBQ 07/22/16 21:00 08/21/16 20:59 07/31/16 21:18 Ergocalciferol (Drisdol) 50,000 intlu QWEEK ORAL 07/28/16 09:00 08/27/16 08:59 Heparin Sodium (Porcine) (Heparin 5000 units/ml) 5,000 units EVERY 12 HOURS SUBQ 07/21/16 21:00 08/20/16 20:59 08/01/16 10:46 Lisinopril (Prinivil) 20 mg Q12HR ORAL 07/22/16 22:00 08/21/16 21:59 07/31/16 21:17 Minoxidil (Loniten) 2.5 mg Q4H PRN ORAL SBP>160 07/23/16 13:45 08/22/16 13:44 08/01/16 03:31 Morphine Sulfate (Morphine Sulfate) 4 mg Q4H PRN IVP For Pain 07/30/16 22:30 08/06/16 22:29 08/01/16 12:14 Nifedipine (Procardia XL) 60 mg Q12HR ORAL 07/23/16 09:00 08/22/16 08:59 07/31/16 21:17 Ondansetron HCl (Zofran) 4 mg Q6H PRN IVP Nausea & Vomiting 07/21/16 15:00 08/20/16 14:59 Polyethylene Glycol (Miralax) 17 gm DAILYPRN PRN ORAL Constipation 07/21/16 15:00 08/20/16 14:59 07/31/16 09:51 Sevelamer Carbonate (Renvela) 2,400 mg THREE TIMES A DAY ORAL 07/26/16 09:00 08/25/16 08:59 08/01/16 10:46 EMMANUEL DOUGHERTY Aug 01, 2016 17:52
[2016-08-01] MEDS: Miralax 17gm pkt ORAL PRN (17:58)
[2016-08-01 20:00] VITALS: BP 168/82
[2016-08-01] MEDS: Dyna-Hex 2% Top Sol 8oz TOPIC SCH (21:29)
[2016-08-02] VITALS: BP 170/90
[2016-08-02] MEDS: Minoxidil 2.5mg tab ORAL PRN ×2 (00:26→23:41)
--- NOTE | 2016-08-02 03:15 | Operative Note - Dictated ---
DATE OF OPERATION: 07/30/2016 SURGEON: Michael Arroyo M.D. ANESTHESIOLOGIST: Mj Kwan M.D. PREOPERATIVE DIAGNOSES: 1. End-stage renal disease requiring permanent access for hemodialysis. 2. Morbid obesity with history of hypertension, diabetes, and hepatitis C. 3. History of noncompliance and opioid dependency. 4. History of right-sided central vein occlusion with a prior history of PermCath catheter and left antecubital AV shunt placement by another physician. 5. Limited venous access. POSTOPERATIVE DIAGNOSES: 1. End-stage renal disease requiring permanent access for hemodialysis. 2. Morbid obesity with history of hypertension, diabetes, and hepatitis C. 3. History of noncompliance and opioid dependency. 4. History of right-sided central vein occlusion with a prior history of PermCath catheter and left antecubital AV shunt placement by another physician. 5. Limited venous access. PROCEDURE: 1. Left upper arm basilic vein transposition arteriovenous fistula. 2. Exploration and ligation of old left antecubital arteriovenous fistula. 3. Dilatation of left upper arm basilic vein. 4. Placement of left internal jugular vein tunnelled hemodialysis PermCath catheter (14.5-Bhutanese x 23 cm HemoStar Swoodoo). 5. Bilateral internal jugular vein ultrasound sonography with intraoperative fluoroscopy with interpretation and supervision of the above. 6. Placement of the left proximal internal jugular vein central venous catheter and removal of the right femoral temporary dialysis catheter. ANESTHESIA: Local with general. COMPLICATIONS: None. FINDINGS: 1. Left basilic vein AV fistula at antecubital fossa, it was too deep to be accessible for HD so ligated closer arterial anastomosis. Then the proximal basilic vein was dilated and dissected all the way down to the axillary vein, this was transposed to the subcutaneous tissue and new anastomosis was performed. The brachial artery was soft, measured about 4 mm in size with minimal plaques with transposition of AV fistula. The patient has a strongly palpable thrill and radial pulse. 2. The patient had no peripheral IV access. Thus, internal jugular vein central venous catheter was placed which was widely patent for anesthesia and medications use. The right internal jugular vein was completely thrombosed. The left internal jugular vein was widely patent with a good case of central venous catheter with the tip at the proximal superior vena cava. 3. The left internal jugular vein tunnelled permcatheter was also placed with the tip in the atriocaval junction with good curvature. The femoral Jose Carlos catheter was removed. 4. The patient will be dialyzed through left chest PermCath catheter for another six weeks until further maturation of the left arm AV shunt prior to AV shunt access use. INDICATION FOR THE PROCEDURE: This is a 51-year-old female who presented for evaluation and procedure. Risks and benefits were discussed and consent was obtained. BRIEF HISTORY AND PROCEDURE: The patient was brought to the procedure room. After a dose of antibiotics and sedation by the anesthesiologist, left chest and left arm was prepped and draped in usual sterile manner. The left right internal jugular vein was visualized using ultrasonography. This was accessed using micropuncture technique. A 4-Bhutanese sheath was placed. Over 3.5 guidewire, sequential dilation was carried out. A 16-Bhutanese self peeling sheath was placed. The left chest was anesthetized. Skin was incised. A 14.5-Bhutanese x 27 centimeter HemoStar Bard was subcutaneously tunneled towards the left neck and left chest. The catheter was advanced with self-peeling sheath. The sheath was peeled away. There was good curvature and good venous flush. The tip of the PermCath and left chest was in the atrial femoral junction. The PermCath was flushed with heparinized solution and secured to the skin using 3-0 and 2-0 nylon suture interuppted and 4-0 Monocryl subcuticular skin closure. Both internal jugular vein was visualized using ultrasonography. The findings were as mentioned above. The proximal left internal jugular vein was accessed using a micropuncture technique, over an 0.35 guidewire sequential dilation was carried out and a 8-Bhutanese x 16 cm double lumen cvp catheter was advanced without difficulty. The wire was removed. The catheter was flushed with heparinized saline solution and secured the skin using 2-0 nylon suture. Sterile dressings were applied. The patient tolerated this part of the procedure well and left OR. Longitudinal skin incision was placed on the medial aspect of the upper arm up to the left axillary segment. Old basilic vein AV fistula was circumferentially dissected and proximal basilic vein was dilated all the way down to the left axillary vein. All the branches were divided between 2-0 and 3-0 silk suture. Vein was flushed with heparinized solution. Left lateral upper arm subcutaneous tunnel was created. The tunnel was dilated using a red rubber catheter the vein was brought through the tunnel. The left brachial artery was sharply dissected. Proximal double loop control was obtained. Arteriotomy less than half a centimeter was carried out. The left brachial artery was flushed with heparinized saline solution. Attention is carried out between end of the basilic vein and brachial artery using a running 6-0 Prolene suture. Forward and backward flush was given. Anastomosis was completed. Flow was restored with a strongly palpable thrill and radial pulse. Anastomosis remained hemostatic. Wound was irrigated with antibiotic irrigation and closed using interrupted 2-0 and 3-0 Vicryl suture. The skin was closed using skin nyasia and sterile dressing was applied. The patient tolerated this part of the procedure very well. Attention was then turned to the right femoral catheter, this was removed. Old femoral Jose Carlos was removed. Local pressure dressing was achieved. Sterile dressing applied. The patient tolerated the procedure very well. Michael Arroyo M.D. DR: JENNIFER JOB#: [id number] CC: Mikey uLna M.D.; Fax#: [phone] Arroyo M.D. ; Fax#: [phone] Rick M.D. [facility]ITALMatt
[2016-08-02] MEDS: Morphine Sulfate 4mg/ml Inj IVP PRN ×3 (03:24→21:33)
[2016-08-02 04:00] VITALS: BP 167/91
[2016-08-02] MEDS: cloNIDine 0.2mg Tab ORAL SCH ×3 (06:39→21:31)
[2016-08-02 08:00] VITALS: BP 134/80
[2016-08-02] MEDS: Docusate 100mg cap ORAL SCH ×3 (10:01→18:15)
--- NOTE | 2016-08-02 10:01 | Infectious Diseases Prog Note ---
Assessment/Plan Assessment/Plan ASSESSMENT: 51-year-old female with: Low grade fever , SP Leukocytosis , SP Hepatitis BS antibody positive. Hepatitis C antibody, PCR positive / chronic HCV - LFTs WNL status post knee joint tap : No evidence of arthritis ESRD on HD SP Left arm arteriovenous shunt revision and dialysis catheter replacement SP right, placement of left tunneled hemodialysis catheter 07/28 MRSA, VRE colonized NKDA Full Code PLAN: monitor the patient off of antibiotics. Monitor CBC. Monitor BMP. hepatitis C PCR, outpt Rx HD as per nephro Subjective Allergies: Coded Allergies: No Known Allergies (Unverified , 07/20/16) Subjective remains afebrile. comfortable Objective Vital Signs Last 24 Hour Vital Signs Date Time Temp Pulse Resp B/P Pulse Ox O2 Delivery O2 Flow Rate FiO2 08/02/16 08:00 97.1 89 18 134/80 93 Room Air 08/02/16 06:39 167/91 08/02/16 04:00 97.7 89 18 167/91 96 Room Air 08/02/16 00:26 168/82 08/02/16 00:00 98.4 92 19 170/90 97 Room Air 08/01/16 22:47 Room Air 08/01/16 22:47 Room Air 08/01/16 21:30 168/82 08/01/16 21:29 102 168/82 08/01/16 21:29 168/82 08/01/16 20:00 98.4 102 20 168/82 95 Room Air 08/01/16 16:06 98.2 92 19 155/80 95 Nasal Cannula 08/01/16 15:15 Nasal Cannula 2.0 08/01/16 12:00 98.1 85 18 154/93 100 Nasal Cannula 08/01/16 11:40 Nasal Cannula 2.0 Height (Feet): 5 Height (Inches): 4.00 Weight (Pounds): 160 General Appearance: no acute distress Respiratory/Chest: no respiratory distress Cardiovascular: normal rate, regular rhythm Abdomen: normal bowel sounds, soft, non tender, non distended Current Medications Medications (Trade) Dose Ordered Sig/Papo Route PRN Reason Start Time Stop Time Status Last Admin Dose Admin Acetaminophen (Tylenol) 650 mg Q4H PRN ORAL Fever 07/21/16 15:00 08/20/16 14:59 07/30/16 21:49 Artificial Tears (Akwa-Tears) 2 drop Q6H PRN BOTH EYES Dry Eyes 07/25/16 22:30 08/24/16 22:29 08/01/16 18:51 Calcitriol (Rocaltrol) 0.5 mcg DAILY ORAL 07/22/16 09:00 08/21/16 08:59 08/01/16 10:44 Chlorhexidine Gluconate (Celeste-Hex 2%) 1 applic Q24H TOPIC 07/31/16 21:00 08/30/16 20:59 08/01/16 21:29 Clonidine HCl (Catapres) 0.2 mg Q8H ORAL 07/28/16 14:00 08/27/16 13:59 08/02/16 06:39 Dextrose (Dextrose 50%) STAT PRN IV Hypoglycemia 07/21/16 15:00 08/20/16 14:59 Docusate Sodium (Colace) 100 mg THREE TIMES A DAY ORAL 07/22/16 09:00 08/21/16 08:59 08/01/16 17:58 Epoetin Sid (Procrit (for ESRD on dialysis)) 10,000 units WED-WED-WED SUBQ 07/22/16 21:00 08/21/16 20:59 07/31/16 21:18 Ergocalciferol (Drisdol) 50,000 intlu QWEEK ORAL 07/28/16 09:00 08/27/16 08:59 Heparin Sodium (Porcine) (Heparin 5000 units/ml) 5,000 units EVERY 12 HOURS SUBQ 07/21/16 21:00 08/20/16 20:59 08/01/16 21:32 Lisinopril (Prinivil) 20 mg Q12HR ORAL 07/22/16 22:00 08/21/16 21:59 08/01/16 21:29 Minoxidil (Loniten) 2.5 mg Q4H PRN ORAL SBP>160 07/23/16 13:45 08/22/16 13:44 08/02/16 00:26 Morphine Sulfate (Morphine Sulfate) 4 mg Q4H PRN IVP For Pain 07/30/16 22:30 08/06/16 22:29 08/02/16 03:24 Nifedipine (Procardia XL) 60 mg Q12HR ORAL 07/23/16 09:00 08/22/16 08:59 08/01/16 21:29 Ondansetron HCl (Zofran) 4 mg Q6H PRN IVP Nausea & Vomiting 07/21/16 15:00 08/20/16 14:59 08/01/16 22:25 Polyethylene Glycol (Miralax) 17 gm DAILYPRN PRN ORAL Constipation 07/21/16 15:00 08/20/16 14:59 08/01/16 17:58 Sevelamer Carbonate (Renvela) 2,400 mg THREE TIMES A DAY ORAL 07/26/16 09:00 08/25/16 08:59 08/01/16 17:58 LISETTE NICHOLS Aug 02, 2016 10:01
[2016-08-02] MEDS: Renvela 2400 mg pkt ORAL SCH ×3 (10:02→18:15)
[2016-08-02] MEDS: Lisinopril 20mg tab ORAL SCH ×2 (10:02→21:32)
[2016-08-02] MEDS: Calcitriol 0.5mcg Cap ORAL SCH (10:02)
[2016-08-02] MEDS: Heparin 5000 units/ml inj SUBQ SCH ×2 (10:04→21:34)
--- NOTE | 2016-08-02 10:36 | General Progress Note ---
Assessment/Plan Status: stable Assessment/Plan Status; ESRD , presented Right chest Permacath- ( and left arm fistula with bruit) No Dialysis for sometimes Volume Overload Encephalopathy Anemia right UE venous out let obstruction Plan: HD next 08/03 Transfused 07/30 BP control- adjust meds- Phos binders , Vit D and Kayexelate prn SS eval for disposition per orders discussed with director of marketing analytics Subjective ROS Limited/Unobtainable: No Constitutional: Reports: malaise Allergies: Coded Allergies: No Known Allergies (Unverified , 07/20/16) Objective Last 24 Hour Vital Signs Date Time Temp Pulse Resp B/P Pulse Ox O2 Delivery O2 Flow Rate FiO2 08/02/16 10:02 134/80 08/02/16 10:01 89 134/80 08/02/16 08:00 97.1 89 18 134/80 93 Room Air 08/02/16 06:39 167/91 08/02/16 04:00 97.7 89 18 167/91 96 Room Air 08/02/16 00:26 168/82 08/02/16 00:00 98.4 92 19 170/90 97 Room Air 08/01/16 22:47 Room Air 08/01/16 22:47 Room Air 08/01/16 21:30 168/82 08/01/16 21:29 102 168/82 08/01/16 21:29 168/82 08/01/16 20:00 98.4 102 20 168/82 95 Room Air 08/01/16 16:06 98.2 92 19 155/80 95 Nasal Cannula 08/01/16 15:15 Nasal Cannula 2.0 08/01/16 12:00 98.1 85 18 154/93 100 Nasal Cannula 08/01/16 11:40 Nasal Cannula 2.0 Intake and Output 08/01/16 08/02/16 19:00 07:00 Intake Total 180 ml Output Total 3700 ml Balance -3700 ml 180 ml Intake Oral 180 ml Hemodialysis UF 3700 ml Height (Feet): 5 Height (Inches): 4.00 Weight (Pounds): 160 General Appearance: no apparent distress Cardiovascular: normal peripheral pulses Respiratory/Chest: decreased breath sounds Objective no change ERICK MOSES Aug 02, 2016 10:36
[2016-08-02 12:00] VITALS: BP 147/84
[2016-08-02] MEDS ORDERED: Docusate 100mg cap ORAL SCH (13:30)
[2016-08-02] MEDS: Lactulose 20gm/30ml UDC ORAL SCH ×2 (14:50→18:15)
[2016-08-02] MEDS: Nystatin Powder 100,000 units/gm 15gm TOPIC SCH ×2 (15:37→18:21)
[2016-08-02 16:00] VITALS: BP 136/77
--- NOTE | 2016-08-02 17:50 | Pulmonology Progress Note ---
Assessment/Plan Problems: (1) ESRF (end stage renal failure) (2) Fluid overload (3) Opiate dependence (4) Homelessness (5) Hepatitis C Assessment/Plan HD by nephrology check electrolytes monitor BP s/p bilateral arthrocentesis awaiting placement all notes reviewed. Subjective ROS Limited/Unobtainable: No Constitutional: Reports: no symptoms HEENT: Repors: no symptoms Respiratory: Reports: no symptoms Cardiovascular: Reports: no symptoms Allergies: Coded Allergies: No Known Allergies (Unverified , 07/20/16) Objective Last 24 Hour Vital Signs Date Time Temp Pulse Resp B/P Pulse Ox O2 Delivery O2 Flow Rate FiO2 08/02/16 16:00 98.4 85 19 136/77 96 Room Air 08/02/16 14:56 Nasal Cannula 2.0 28 08/02/16 14:56 97 Nasal Cannula 2.0 28 08/02/16 14:54 141/81 08/02/16 12:00 98.1 88 19 147/84 99 Room Air 08/02/16 10:02 134/80 08/02/16 10:01 89 134/80 08/02/16 08:00 97.1 89 18 134/80 93 Room Air 08/02/16 06:39 167/91 08/02/16 04:00 97.7 89 18 167/91 96 Room Air 08/02/16 00:26 168/82 08/02/16 00:00 98.4 92 19 170/90 97 Room Air 08/01/16 22:47 Room Air 08/01/16 22:47 Room Air 08/01/16 21:30 168/82 08/01/16 21:29 102 168/82 08/01/16 21:29 168/82 08/01/16 20:00 98.4 102 20 168/82 95 Room Air Intake and Output 08/01/16 08/02/16 19:00 07:00 Intake Total 180 ml Output Total 3700 ml Balance -3700 ml 180 ml Intake Oral 180 ml Hemodialysis UF 3700 ml Objective General Appearance: WD/WN HEENT: normocephalic Respiratory/Chest: chest wall non-tender, lungs clear Cardiovascular: normal peripheral pulses, normal rate Abdomen: normal bowel sounds, soft, non tender Extremities: no cyanosis, other - effusion in both knees Skin: no rash Current Medications Medications (Trade) Dose Ordered Sig/Papo Route PRN Reason Start Time Stop Time Status Last Admin Dose Admin Acetaminophen (Tylenol) 650 mg Q4H PRN ORAL Fever 07/21/16 15:00 08/20/16 14:59 07/30/16 21:49 Artificial Tears (Akwa-Tears) 2 drop Q6H PRN BOTH EYES Dry Eyes 07/25/16 22:30 08/24/16 22:29 08/01/16 18:51 Calcitriol (Rocaltrol) 0.5 mcg DAILY ORAL 07/22/16 09:00 08/21/16 08:59 08/02/16 10:02 Chlorhexidine Gluconate (Celeste-Hex 2%) 1 applic Q24H TOPIC 07/31/16 21:00 08/30/16 20:59 08/01/16 21:29 Clonidine HCl (Catapres) 0.2 mg Q8H ORAL 07/28/16 14:00 08/27/16 13:59 08/02/16 14:54 Dextrose (Dextrose 50%) STAT PRN IV Hypoglycemia 07/21/16 15:00 08/20/16 14:59 Docusate Sodium (Colace) 100 mg THREE TIMES A DAY ORAL 07/22/16 09:00 08/21/16 08:59 08/02/16 14:50 Epoetin Sid (Procrit (for ESRD on dialysis)) 10,000 units WED-WED-WED SUBQ 07/22/16 21:00 08/21/16 20:59 07/31/16 21:18 Ergocalciferol (Drisdol) 50,000 intlu QWEEK ORAL 07/28/16 09:00 08/27/16 08:59 Heparin Sodium (Porcine) (Heparin 5000 units/ml) 5,000 units EVERY 12 HOURS SUBQ 07/21/16 21:00 08/20/16 20:59 08/02/16 10:04 Lactulose (Cephulac) 30 gm THREE TIMES A DAY ORAL 08/02/16 13:30 09/01/16 13:29 08/02/16 14:50 Lisinopril (Prinivil) 20 mg Q12HR ORAL 07/22/16 22:00 08/21/16 21:59 08/02/16 10:02 Mineral Oil (Fleet's Mineral Oil Enema) 133 ml EVERY OTHER DAY RECTAL 08/04/16 09:00 09/03/16 08:59 Minoxidil (Loniten) 2.5 mg Q4H PRN ORAL SBP>160 07/23/16 13:45 08/22/16 13:44 08/02/16 00:26 Morphine Sulfate (Morphine Sulfate) 4 mg Q4H PRN IVP For Pain 07/30/16 22:30 08/06/16 22:29 08/02/16 16:27 Nifedipine (Procardia XL) 60 mg Q12HR ORAL 07/23/16 09:00 08/22/16 08:59 08/02/16 10:01 Nystatin (Nystop Powder) 1 applic THREE TIMES A DAY TOPIC 08/02/16 13:00 09/01/16 12:59 08/02/16 15:37 Ondansetron HCl (Zofran) 4 mg Q6H PRN IVP Nausea & Vomiting 07/21/16 15:00 08/20/16 14:59 08/01/16 22:25 Polyethylene Glycol (Miralax) 17 gm BEDTIME ORAL 08/02/16 21:00 09/01/16 20:59 Polyethylene Glycol (Miralax) 17 gm DAILYPRN PRN ORAL Constipation 07/21/16 15:00 08/20/16 14:59 08/01/16 17:58 Sennosides (Senokot) 8.6 mg DAILY ORAL 08/03/16 09:00 09/02/16 08:59 Sevelamer Carbonate (Renvela) 2,400 mg THREE TIMES A DAY ORAL 07/26/16 09:00 08/25/16 08:59 08/02/16 14:50 EMMANUEL DOUGHERTY Aug 02, 2016 17:50
[2016-08-02 20:00] VITALS: BP 155/81
[2016-08-02] MEDS: Miralax 17gm pkt ORAL SCH (21:32)
[2016-08-02] MEDS: Dyna-Hex 2% Top Sol 8oz TOPIC SCH (21:32)
[2016-08-03] VITALS (9 sets, daily range): BP systolic 141–195; BP diastolic 70–111
[2016-08-03] MEDS: Morphine Sulfate 4mg/ml Inj IVP PRN ×3 (01:56→20:49)
[2016-08-03] MEDS: Artificial Tears 1.4% Op Soln BOTH EYES PRN ×2 (04:41→18:28)
[2016-08-03 05:03] LABS: BASOPHILS % (AUTO) 1.7 % (0.0-2.0); EOSINOPHILS % (AUTO) 4.9 % (0.0-3.0); LYMPHOCYTES % (AUTO) 17.1 % (20.0-45.0); MEAN CORPUSCULAR HEMOGLOBIN 27.7 PG (27.0-31.0); MEAN CORPUSCULAR HGB CONC 31.7 G/DL (32.0-36.0); MEAN CORPUSCULAR VOLUME 87 FL (80-99); MEAN PLATELET VOLUME 4.9 FL (6.5-10.1); MONOCYTES % (AUTO) 9.9 % (1.0-10.0); NEUTROPHILS % (AUTO) 66.4 % (45.0-75.0); PLATELET COUNT 431 K/UL (150-450); RED BLOOD COUNT 3.18 M/UL (4.20-5.40); RED CELL DISTRIBUTION WIDTH 16.4 % (11.6-14.8); WHITE BLOOD COUNT 9.9 K/UL (4.8-10.8)
[2016-08-03 05:39] LABS: ALANINE AMINOTRANSFERASE 5 U/L (3-33); ALBUMIN/GLOBULIN RATIO 0.7 (1.0-2.7); ANION GAP 15 (5-15); ASPARTATE AMINO TRANSFERASE 14 U/L (5-40); CALCIUM 8.3 mg/dL (8.6-10.2); CARBON DIOXIDE 31 mEQ/L (20-30); CHLORIDE 92 mEQ/L (98-107); CREATININE 6.5 mg/dL (0.5-0.9); GLOMERULAR FILTRATION RATE 6.7 mL/min (>60); HEMOLYSIS 0; PHOSPHORUS 4.5 mg/dL (2.5-4.8); POTASSIUM 5.3 mEQ/L (3.4-4.9); SODIUM 138 mEQ/L (135-145); TOTAL PROTEIN 5.7 g/dL (6.6-8.7)
[2016-08-03] MEDS: cloNIDine 0.2mg Tab ORAL SCH ×3 (05:46→21:42)
[2016-08-03] MEDS: Nystatin Powder 100,000 units/gm 15gm TOPIC SCH ×3 (08:27→18:27)
[2016-08-03] MEDS: Lactulose 20gm/30ml UDC ORAL SCH ×3 (08:28→18:27)
[2016-08-03] MEDS: Renvela 2400 mg pkt ORAL SCH ×3 (08:28→18:27)
[2016-08-03] MEDS: Lisinopril 20mg tab ORAL SCH ×2 (08:29→20:40)
[2016-08-03] MEDS: Docusate 100mg cap ORAL SCH ×3 (08:29→18:27)
[2016-08-03] MEDS: Calcitriol 0.5mcg Cap ORAL SCH (08:30)
[2016-08-03] MEDS: Heparin 5000 units/ml inj SUBQ SCH ×2 (08:32→20:48)
--- NOTE | 2016-08-03 11:21 | General Progress Note ---
Assessment/Plan Status: stable - from renal stand Assessment/Plan Status; ESRD , presented Right chest Permacath- ( and left arm fistula with bruit) No Dialysis for sometimes Volume Overload Encephalopathy Anemia right UE venous out let obstruction Plan: HD next 08/03- done Transfused 07/30 BP control- adjust meds- Phos binders , Vit D and Kayexelate prn SS eval for disposition per orders discussed with glost placer Subjective ROS Limited/Unobtainable: No Allergies: Coded Allergies: No Known Allergies (Unverified , 07/20/16) Objective Last 24 Hour Vital Signs Date Time Temp Pulse Resp B/P Pulse Ox O2 Delivery O2 Flow Rate FiO2 08/03/16 08:29 169/77 08/03/16 08:28 77 169/77 08/03/16 08:15 Nasal Cannula 2.0 08/03/16 08:15 98 Nasal Cannula 2.0 08/03/16 08:03 97.9 77 20 169/77 97 Nasal Cannula 2.0 08/03/16 08:00 97.2 83 21 169/70 Room Air 08/03/16 08:00 Room Air 08/03/16 05:46 195/105 08/03/16 04:30 98.6 83 20 195/105 99 Nasal Cannula 3.0 08/03/16 04:30 Nasal Cannula 3.0 08/03/16 04:00 98.2 86 18 147/85 94 Nasal Cannula 2.0 08/03/16 00:00 98.2 94 20 188/97 99 Nasal Cannula 2.0 08/02/16 23:41 188/97 08/02/16 21:32 87 155/81 08/02/16 21:32 155/81 08/02/16 21:31 155/81 08/02/16 20:00 98.4 87 18 155/81 97 Nasal Cannula 08/02/16 19:45 96 Nasal Cannula 2.0 08/02/16 19:45 Nasal Cannula 2.0 08/02/16 16:00 98.4 85 19 136/77 96 Room Air 08/02/16 14:56 Nasal Cannula 2.0 08/02/16 14:56 97 Nasal Cannula 2.0 08/02/16 14:54 141/81 08/02/16 12:00 98.1 88 19 147/84 99 Room Air Intake and Output 08/02/16 08/03/16 19:00 07:00 Intake Total 240 ml Balance 240 ml Intake Oral 240 ml # Voids 1 # Bowel Movements 2 Laboratory Tests 08/03/16 04:30: White Blood Count 9.9, Red Blood Count 3.18L, Hemoglobin 8.8L, Hematocrit 27.7L , Mean Corpuscular Volume 87, Mean Corpuscular Hemoglobin 27.7, Mean Corpuscular Hemoglobin Concent 31.7L, Red Cell Distribution Width 16.4H, Platelet Count 431, Mean Platelet Volume 4.9L, Neutrophils (%) (Auto) 66.4, Lymphocytes (%) (Auto) 17.1L, Monocytes (%) (Auto) 9.9, Eosinophils (%) (Auto) 4.9H, Basophils (%) (Auto) 1.7, Sodium Level 138, Potassium Level 5.3H, Chloride Level 92L, Carbon Dioxide Level 31H, Anion Gap 15, Blood Urea Nitrogen 47H, Creatinine 6.5H, Estimat Glomerular Filtration Rate 6.7, Glucose Level 90, Calcium Level 8.3L, Phosphorus Level 4.5, Total Bilirubin < 0.2, Aspartate Amino Transf (AST/SGOT) 14, Alanine Aminotransferase (ALT/SGPT) 5, Alkaline Phosphatase 46, Total Protein 5.7L, Albumin 2.4L, Globulin 3.3, Albumin/ Globulin Ratio 0.7L Height (Feet): 5 Height (Inches): 4.00 Weight (Pounds): 160 General Appearance: no apparent distress Objective no change ERICK MOSES Aug 03, 2016 11:21
--- NOTE | 2016-08-03 14:52 | Pulmonology Progress Note ---
Assessment/Plan Problems: (1) ESRF (end stage renal failure) (2) Fluid overload (3) Opiate dependence (4) Homelessness (5) Hepatitis C Assessment/Plan dc planning in processHD by nephrology check electrolytes monitor BP s/p bilateral arthrocentesis awaiting placement all notes reviewed. Subjective ROS Limited/Unobtainable: No Constitutional: Reports: no symptoms HEENT: Repors: no symptoms Respiratory: Reports: no symptoms Allergies: Coded Allergies: No Known Allergies (Unverified , 07/20/16) Objective Last 24 Hour Vital Signs Date Time Temp Pulse Resp B/P Pulse Ox O2 Delivery O2 Flow Rate FiO2 08/03/16 13:34 141/72 08/03/16 11:41 97.6 87 20 141/72 96 Nasal Cannula 2.0 08/03/16 08:29 169/77 08/03/16 08:28 77 169/77 08/03/16 08:15 Nasal Cannula 2.0 08/03/16 08:15 98 Nasal Cannula 2.0 08/03/16 08:03 97.9 77 20 169/77 97 Nasal Cannula 2.0 08/03/16 08:00 97.2 83 21 169/70 Room Air 08/03/16 08:00 Room Air 08/03/16 05:46 195/105 08/03/16 04:30 98.6 83 20 195/105 99 Nasal Cannula 3.0 08/03/16 04:30 Nasal Cannula 3.0 08/03/16 04:00 98.2 86 18 147/85 94 Nasal Cannula 2.0 08/03/16 00:00 98.2 94 20 188/97 99 Nasal Cannula 2.0 08/02/16 23:41 188/97 08/02/16 21:32 87 155/81 08/02/16 21:32 155/81 08/02/16 21:31 155/81 08/02/16 20:00 98.4 87 18 155/81 97 Nasal Cannula 08/02/16 19:45 96 Nasal Cannula 2.0 08/02/16 19:45 Nasal Cannula 2.0 08/02/16 16:00 98.4 85 19 136/77 96 Room Air 08/02/16 14:56 Nasal Cannula 2.0 08/02/16 14:56 97 Nasal Cannula 2.0 08/02/16 14:54 141/81 Intake and Output 08/02/16 08/03/16 19:00 07:00 Intake Total 240 ml Balance 240 ml Intake Oral 240 ml # Voids 1 # Bowel Movements 2 Objective General Appearance: WD/WN HEENT: normocephalic Respiratory/Chest: chest wall non-tender, lungs clear Cardiovascular: normal peripheral pulses, normal rate Abdomen: normal bowel sounds, soft, non tender Extremities: no cyanosis, other - effusion in both knees Skin: no rash Laboratory Tests 08/03/16 04:30: White Blood Count 9.9, Red Blood Count 3.18L, Hemoglobin 8.8L, Hematocrit 27.7L , Mean Corpuscular Volume 87, Mean Corpuscular Hemoglobin 27.7, Mean Corpuscular Hemoglobin Concent 31.7L, Red Cell Distribution Width 16.4H, Platelet Count 431, Mean Platelet Volume 4.9L, Neutrophils (%) (Auto) 66.4, Lymphocytes (%) (Auto) 17.1L, Monocytes (%) (Auto) 9.9, Eosinophils (%) (Auto) 4.9H, Basophils (%) (Auto) 1.7, Sodium Level 138, Potassium Level 5.3H, Chloride Level 92L, Carbon Dioxide Level 31H, Anion Gap 15, Blood Urea Nitrogen 47H, Creatinine 6.5H, Estimat Glomerular Filtration Rate 6.7, Glucose Level 90, Calcium Level 8.3L, Phosphorus Level 4.5, Total Bilirubin < 0.2, Aspartate Amino Transf (AST/SGOT) 14, Alanine Aminotransferase (ALT/SGPT) 5, Alkaline Phosphatase 46, Total Protein 5.7L, Albumin 2.4L, Globulin 3.3, Albumin/ Globulin Ratio 0.7L Current Medications Medications (Trade) Dose Ordered Sig/Papo Route PRN Reason Start Time Stop Time Status Last Admin Dose Admin Acetaminophen (Tylenol) 650 mg Q4H PRN ORAL Fever 07/21/16 15:00 08/20/16 14:59 07/30/16 21:49 Artificial Tears (Akwa-Tears) 2 drop Q6H PRN BOTH EYES Dry Eyes 07/25/16 22:30 08/24/16 22:29 08/03/16 04:41 Calcitriol (Rocaltrol) 0.5 mcg DAILY ORAL 07/22/16 09:00 08/21/16 08:59 08/03/16 08:30 Chlorhexidine Gluconate (Celeste-Hex 2%) 1 applic Q24H TOPIC 07/31/16 21:00 08/30/16 20:59 08/02/16 21:32 Clonidine HCl (Catapres) 0.2 mg Q8H ORAL 07/28/16 14:00 08/27/16 13:59 08/03/16 13:34 Dextrose (Dextrose 50%) STAT PRN IV Hypoglycemia 07/21/16 15:00 08/20/16 14:59 Docusate Sodium (Colace) 100 mg THREE TIMES A DAY ORAL 07/22/16 09:00 08/21/16 08:59 08/03/16 13:34 Epoetin Sid (Procrit (for ESRD on dialysis)) 10,000 units WED-WED-WED SUBQ 07/22/16 21:00 08/21/16 20:59 07/31/16 21:18 Ergocalciferol (Drisdol) 50,000 intlu QWEEK ORAL 07/28/16 09:00 08/27/16 08:59 Heparin Sodium (Porcine) (Heparin 5000 units/ml) 5,000 units EVERY 12 HOURS SUBQ 07/21/16 21:00 08/20/16 20:59 08/03/16 08:32 Hydralazine HCl (Apresoline) 25 mg Q8HR ORAL 08/03/16 14:00 09/02/16 13:59 Lactulose (Cephulac) 30 gm THREE TIMES A DAY ORAL 08/02/16 13:30 09/01/16 13:29 08/03/16 13:34 Lisinopril (Prinivil) 20 mg Q12HR ORAL 07/22/16 22:00 08/21/16 21:59 08/03/16 08:29 Mineral Oil (Fleet's Mineral Oil Enema) 133 ml EVERY OTHER DAY RECTAL 08/04/16 09:00 09/03/16 08:59 Minoxidil (Loniten) 2.5 mg Q4H PRN ORAL SBP>160 07/23/16 13:45 08/22/16 13:44 08/02/16 23:41 Morphine Sulfate (Morphine Sulfate) 4 mg Q4H PRN IVP For Pain 07/30/16 22:30 08/06/16 22:29 08/03/16 13:35 Nifedipine (Procardia XL) 60 mg Q12HR ORAL 07/23/16 09:00 08/22/16 08:59 08/03/16 08:28 Nystatin (Nystop Powder) 1 applic THREE TIMES A DAY TOPIC 08/02/16 13:00 09/01/16 12:59 08/03/16 13:34 Ondansetron HCl (Zofran) 4 mg Q6H PRN IVP Nausea & Vomiting 07/21/16 15:00 08/20/16 14:59 08/02/16 23:10 Polyethylene Glycol (Miralax) 17 gm BEDTIME ORAL 08/02/16 21:00 09/01/16 20:59 08/02/16 21:32 Polyethylene Glycol (Miralax) 17 gm DAILYPRN PRN ORAL Constipation 07/21/16 15:00 08/20/16 14:59 08/01/16 17:58 Sennosides (Senokot) 8.6 mg DAILY ORAL 08/03/16 09:00 09/02/16 08:59 08/03/16 08:28 Sevelamer Carbonate (Renvela) 2,400 mg THREE TIMES A DAY ORAL 07/26/16 09:00 08/25/16 08:59 08/03/16 13:34 EMMANUEL DOUGHERTY Aug 03, 2016 14:52
[2016-08-03] MEDS: HydrALAZINE 50mg tab ORAL SCH ×2 (15:02→21:43)
--- NOTE | 2016-08-03 18:25 | Infectious Diseases Prog Note ---
Assessment/Plan Assessment/Plan ASSESSMENT: 51-year-old female with: Low grade fever , SP Leukocytosis , SP Hepatitis BS antibody positive. Hepatitis C antibody, PCR positive / chronic HCV - LFTs WNL status post knee joint tap : No evidence of arthritis ESRD on HD SP Left arm arteriovenous shunt revision and dialysis catheter replacement SP right, placement of left tunneled hemodialysis catheter 07/28 Homeless MRSA, VRE colonized NKDA Full Code PLAN: ok to DC off of antibiotics from ID standpoint Monitor CBC. Monitor BMP. hepatitis C PCR, outpt Rx HD as per nephro DC planning Subjective Allergies: Coded Allergies: No Known Allergies (Unverified , 07/20/16) Subjective remains afebrile. DC planning ongoing Objective Vital Signs Last 24 Hour Vital Signs Date Time Temp Pulse Resp B/P Pulse Ox O2 Delivery O2 Flow Rate FiO2 08/03/16 16:27 20 149/85 97 08/03/16 15:30 98.0 89 19 166/88 95 Nasal Cannula 2.0 08/03/16 15:02 166/88 08/03/16 13:34 141/72 08/03/16 11:41 97.6 87 20 141/72 96 Nasal Cannula 2.0 08/03/16 08:29 169/77 08/03/16 08:28 77 169/77 08/03/16 08:15 Nasal Cannula 2.0 28 08/03/16 08:15 98 Nasal Cannula 2.0 28 08/03/16 08:03 97.9 77 20 169/77 97 Nasal Cannula 2.0 08/03/16 08:00 97.2 83 21 169/70 Room Air 08/03/16 08:00 Room Air 08/03/16 05:46 195/105 08/03/16 04:30 98.6 83 20 195/105 99 Nasal Cannula 3.0 08/03/16 04:30 Nasal Cannula 3.0 08/03/16 04:00 98.2 86 18 147/85 94 Nasal Cannula 2.0 08/03/16 00:00 98.2 94 20 188/97 99 Nasal Cannula 2.0 08/02/16 23:41 188/97 08/02/16 21:32 87 155/81 08/02/16 21:32 155/81 08/02/16 21:31 155/81 08/02/16 20:00 98.4 87 18 155/81 97 Nasal Cannula 08/02/16 19:45 96 Nasal Cannula 2.0 28 08/02/16 19:45 Nasal Cannula 2.0 28 Height (Feet): 5 Height (Inches): 4.00 Weight (Pounds): 160 General Appearance: no acute distress Respiratory/Chest: no respiratory distress Cardiovascular: normal rate, regular rhythm Abdomen: normal bowel sounds, soft, non tender, non distended Laboratory Tests Test 08/03/16 04:30 White Blood Count 9.9 K/UL (4.8-10.8) Red Blood Count 3.18 M/UL (4.20-5.40) L Hemoglobin 8.8 G/DL (12.0-16.0) L Hematocrit 27.7 % (37.0-47.0) L Mean Corpuscular Volume 87 FL (80-99) Mean Corpuscular Hemoglobin 27.7 PG (27.0-31.0) Mean Corpuscular Hemoglobin Concent 31.7 G/DL (32.0-36.0) L Red Cell Distribution Width 16.4 % (11.6-14.8) H Platelet Count 431 K/UL (150-450) Mean Platelet Volume 4.9 FL (6.5-10.1) L Neutrophils (%) (Auto) 66.4 % (45.0-75.0) Lymphocytes (%) (Auto) 17.1 % (20.0-45.0) L Monocytes (%) (Auto) 9.9 % (1.0-10.0) Eosinophils (%) (Auto) 4.9 % (0.0-3.0) H Basophils (%) (Auto) 1.7 % (0.0-2.0) Sodium Level 138 mEQ/L (135-145) Potassium Level 5.3 mEQ/L (3.4-4.9) H Chloride Level 92 mEQ/L (98-107) L Carbon Dioxide Level 31 mEQ/L (20-30) H Anion Gap 15 (5-15) Blood Urea Nitrogen 47 mg/dL (7-23) H Creatinine 6.5 mg/dL (0.5-0.9) H Estimat Glomerular Filtration Rate 6.7 mL/min (>60) Glucose Level 90 mg/dL (74-106) Calcium Level 8.3 mg/dL (8.6-10.2) L Phosphorus Level 4.5 mg/dL (2.5-4.8) Total Bilirubin < 0.2 mg/dL (0.0-1.2) Aspartate Amino Transf (AST/SGOT) 14 U/L (5-40) Alanine Aminotransferase (ALT/SGPT) 5 U/L (3-33) Alkaline Phosphatase 46 U/L (35-104) Total Protein 5.7 g/dL (6.6-8.7) L Albumin 2.4 g/dL (3.5-5.2) L Globulin 3.3 g/dL Albumin/Globulin Ratio 0.7 (1.0-2.7) L Current Medications Medications (Trade) Dose Ordered Sig/Papo Route PRN Reason Start Time Stop Time Status Last Admin Dose Admin Acetaminophen (Tylenol) 650 mg Q4H PRN ORAL Fever 07/21/16 15:00 08/20/16 14:59 07/30/16 21:49 Artificial Tears (Akwa-Tears) 2 drop Q6H PRN BOTH EYES Dry Eyes 07/25/16 22:30 08/24/16 22:29 08/03/16 04:41 Calcitriol (Rocaltrol) 0.5 mcg DAILY ORAL 07/22/16 09:00 08/21/16 08:59 08/03/16 08:30 Chlorhexidine Gluconate (Celeste-Hex 2%) 1 applic Q24H TOPIC 07/31/16 21:00 08/30/16 20:59 08/02/16 21:32 Clonidine HCl (Catapres) 0.2 mg Q8H ORAL 07/28/16 14:00 08/27/16 13:59 08/03/16 13:34 Dextrose (Dextrose 50%) STAT PRN IV Hypoglycemia 07/21/16 15:00 08/20/16 14:59 Docusate Sodium (Colace) 100 mg THREE TIMES A DAY ORAL 07/22/16 09:00 08/21/16 08:59 08/03/16 13:34 Epoetin Sid (Procrit (for ESRD on dialysis)) 10,000 units WED-WED-WED SUBQ 07/22/16 21:00 08/21/16 20:59 07/31/16 21:18 Ergocalciferol (Drisdol) 50,000 intlu QWEEK ORAL 07/28/16 09:00 08/27/16 08:59 Heparin Sodium (Porcine) (Heparin 5000 units/ml) 5,000 units EVERY 12 HOURS SUBQ 07/21/16 21:00 08/20/16 20:59 08/03/16 08:32 Hydralazine HCl (Apresoline) 25 mg Q8HR ORAL 08/03/16 14:00 09/02/16 13:59 08/03/16 15:02 Lactulose (Cephulac) 30 gm THREE TIMES A DAY ORAL 08/02/16 13:30 09/01/16 13:29 08/03/16 13:34 Lisinopril (Prinivil) 20 mg Q12HR ORAL 07/22/16 22:00 08/21/16 21:59 08/03/16 08:29 Mineral Oil (Fleet's Mineral Oil Enema) 133 ml EVERY OTHER DAY RECTAL 08/04/16 09:00 09/03/16 08:59 Minoxidil (Loniten) 2.5 mg Q4H PRN ORAL SBP>160 07/23/16 13:45 08/22/16 13:44 08/02/16 23:41 Morphine Sulfate (Morphine Sulfate) 4 mg Q4H PRN IVP For Pain 07/30/16 22:30 08/06/16 22:29 08/03/16 13:35 Nifedipine (Procardia XL) 60 mg Q12HR ORAL 07/23/16 09:00 08/22/16 08:59 08/03/16 08:28 Nystatin (Nystop Powder) 1 applic THREE TIMES A DAY TOPIC 08/02/16 13:00 09/01/16 12:59 08/03/16 13:34 Ondansetron HCl (Zofran) 4 mg Q6H PRN IVP Nausea & Vomiting 07/21/16 15:00 08/20/16 14:59 08/02/16 23:10 Polyethylene Glycol (Miralax) 17 gm BEDTIME ORAL 08/02/16 21:00 09/01/16 20:59 08/02/16 21:32 Polyethylene Glycol (Miralax) 17 gm DAILYPRN PRN ORAL Constipation 07/21/16 15:00 08/20/16 14:59 08/01/16 17:58 Sennosides (Senokot) 8.6 mg DAILY ORAL 08/03/16 09:00 09/02/16 08:59 08/03/16 08:28 Sevelamer Carbonate (Renvela) 2,400 mg THREE TIMES A DAY ORAL 07/26/16 09:00 08/25/16 08:59 08/03/16 13:34 LISETTE NICHOLS Aug 03, 2016 18:25
[2016-08-03] MEDS: Miralax 17gm pkt ORAL SCH (20:40)
[2016-08-03] MEDS: Dyna-Hex 2% Top Sol 8oz TOPIC SCH (21:41)
[2016-08-03] MEDS: Epogen (for ESRD on dialysis) SUBQ SCH (21:41)
[2016-08-04] VITALS: BP 157/93
[2016-08-04] MEDS: Morphine Sulfate 4mg/ml Inj IVP PRN ×4 (01:26→18:35)
[2016-08-04 04:00] VITALS: BP 156/80
[2016-08-04] MEDS: HydrALAZINE 50mg tab ORAL SCH ×3 (06:33→22:08)
[2016-08-04] MEDS: cloNIDine 0.2mg Tab ORAL SCH ×3 (06:33→22:08)
[2016-08-04 07:49] VITALS: BP 138/82
[2016-08-04] MEDS: Vitamin D 50,000 units cap ORAL SCH (08:06)
[2016-08-04] MEDS: Lactulose 20gm/30ml UDC ORAL SCH ×3 (08:06→17:47)
[2016-08-04] MEDS: Calcitriol 0.5mcg Cap ORAL SCH (08:06)
[2016-08-04] MEDS: Renvela 2400 mg pkt ORAL SCH ×3 (08:06→17:46)
[2016-08-04] MEDS: Docusate 100mg cap ORAL SCH ×3 (08:06→17:46)
--- NOTE | 2016-08-04 08:56 | General Progress Note ---
Assessment/Plan Status: stable Assessment/Plan Status; ESRD , presented Right chest Permacath- ( and left arm fistula with bruit) No Dialysis for sometimes Volume Overload Encephalopathy Anemia right UE venous out let obstruction Plan: HD next 08/05 Transfused 07/30 BP control- adjust meds- Phos binders , Vit D and Kayexelate prn SS eval for disposition per orders discussed with belt notcher Subjective ROS Limited/Unobtainable: No Allergies: Coded Allergies: No Known Allergies (Unverified , 07/20/16) Objective Last 24 Hour Vital Signs Date Time Temp Pulse Resp B/P Pulse Ox O2 Delivery O2 Flow Rate FiO2 08/04/16 07:49 98.6 88 20 138/82 97 Nasal Cannula 2.0 08/04/16 06:36 98 Nasal Cannula 2.0 08/04/16 06:36 Nasal Cannula 2.0 08/04/16 06:33 156/80 08/04/16 06:33 156/80 08/04/16 04:00 98.2 76 18 156/80 97 Room Air 08/04/16 00:00 99.9 87 16 157/93 95 Nasal Cannula 08/03/16 23:25 Nasal Cannula 2.0 28 08/03/16 23:25 98 Nasal Cannula 2.0 28 08/03/16 21:43 158/111 08/03/16 21:42 158/111 08/03/16 20:41 89 158/111 08/03/16 20:40 158/111 08/03/16 20:00 98.2 89 18 158/111 97 Nasal Cannula 08/03/16 16:27 20 149/85 97 08/03/16 15:30 98.0 89 19 166/88 95 Nasal Cannula 2.0 08/03/16 15:02 166/88 08/03/16 13:34 141/72 08/03/16 11:41 97.6 87 20 141/72 96 Nasal Cannula 2.0 Intake and Output 08/03/16 08/04/16 19:00 07:00 Intake Total 360 ml 120 ml Output Total 3000 ml Balance -2640 ml 120 ml Intake Oral 360 ml 120 ml Output Urine Total 0 ml Hemodialysis UF 3000 ml # Bowel Movements 2 Height (Feet): 5 Height (Inches): 4.00 Weight (Pounds): 160 General Appearance: no apparent distress Objective no change FOULADIAN,ERICK Aug 04, 2016 08:56
[2016-08-04] MEDS: Fleet's Mineral Oil Enema RECTAL SCH (09:00)
[2016-08-04] MEDS: Lisinopril 20mg tab ORAL SCH ×2 (10:37→22:09)
[2016-08-04] MEDS: Nystatin Powder 100,000 units/gm 15gm TOPIC SCH ×3 (10:37→17:47)
[2016-08-04] MEDS: Heparin 5000 units/ml inj SUBQ SCH ×2 (10:38→21:00)
[2016-08-04 11:21] VITALS: BP 146/60
--- NOTE | 2016-08-04 14:41 | Diagnostic Imaging Report ---
APPROVED REPORT CPT Code: 09546 Present Symptoms Comments: Swelling BILATERAL: Imaging reveals a patent deep venous system bilaterally. There is no evidence of thrombus within the femoral, popliteal segments. The greater saphenous veins are also within normal limits. Doppler indicates normal spontaneous flow within these segments.
--- NOTE | 2016-08-04 14:46 | Diagnostic Imaging Report ---
APPROVED REPORT CPT Code: G0365 Present Symptoms Comments: Hx of median left antecubital basilic vein AVF Comments The left arms cephalic and basilic veins were measured and evaluated for patency. Vein Measurements(cm) Cephalic Basilic Right LeftRight Left Upper Arm0.43Mid Upper Arm0.73 Mid Upper Arm0.39Antecubital Fossa0.41 Upper Forearm0.39 Antecubital Fossa0.24Wrist LEFT UPPER EXTREMITY: Imaging reveals patency of the brachial artery to basilic vein dialysis access graft at the median antecubital vein level. Velocities obtained from the fistula are within normal limits in the proximal and distal anastomotic site. The venous outflow is widely patent. There is no evidence of pseudo-aneurysm or abscess. Velocities were obtained from different levels are as follows: Proximal brachial artery: 151 cm/s Proximal anastomosis: 3.8 mm, 294 cm/s Mid AVF: 5.8 mm, 260 cm/s Brachial artery: distal 60 cm/s, Radial artery 65 cm/s, and Ulnar artery 49 cm/s UPPER EXTREMITY: Venous imaging reveals patency of the internal jugular, subclavian, axillary and brachial veins. The cephalic and basilic veins are also patent. Doppler indicates normal spontaneous flow within these venous segments.
[2016-08-04 15:44] VITALS: BP 151/82
--- NOTE | 2016-08-04 16:01 | Pulmonology Progress Note ---
Assessment/Plan Problems: (1) ESRF (end stage renal failure) (2) Fluid overload (3) Opiate dependence (4) Homelessness (5) Hepatitis C Assessment/Plan dc planning in process HD by nephrology check electrolytes monitor BP s/p bilateral arthrocentesis awaiting placement all notes reviewed. Subjective ROS Limited/Unobtainable: No Constitutional: Reports: no symptoms HEENT: Repors: no symptoms Respiratory: Reports: no symptoms Allergies: Coded Allergies: No Known Allergies (Unverified , 07/20/16) Objective Last 24 Hour Vital Signs Date Time Temp Pulse Resp B/P Pulse Ox O2 Delivery O2 Flow Rate FiO2 08/04/16 15:44 98.2 90 20 151/82 96 Nasal Cannula 2.0 08/04/16 15:32 151/82 08/04/16 15:32 151/82 08/04/16 11:21 98.1 79 20 146/60 96 Nasal Cannula 2.0 08/04/16 10:37 138/82 08/04/16 10:36 88 138/82 08/04/16 07:49 98.6 88 20 138/82 97 Nasal Cannula 2.0 08/04/16 06:36 98 Nasal Cannula 2.0 08/04/16 06:36 Nasal Cannula 2.0 08/04/16 06:33 156/80 08/04/16 06:33 156/80 08/04/16 04:00 98.2 76 18 156/80 97 Room Air 08/04/16 00:00 99.9 87 16 157/93 95 Nasal Cannula 08/03/16 23:25 Nasal Cannula 2.0 28 08/03/16 23:25 98 Nasal Cannula 2.0 28 08/03/16 21:43 158/111 08/03/16 21:42 158/111 08/03/16 20:41 89 158/111 08/03/16 20:40 158/111 08/03/16 20:00 98.2 89 18 158/111 97 Nasal Cannula 08/03/16 16:27 20 149/85 97 Intake and Output 08/03/16 08/04/16 19:00 07:00 Intake Total 360 ml 120 ml Output Total 3000 ml Balance -2640 ml 120 ml Intake Oral 360 ml 120 ml Output Urine Total 0 ml Hemodialysis UF 3000 ml # Bowel Movements 2 Objective General Appearance: WD/WN HEENT: normocephalic Respiratory/Chest: chest wall non-tender, lungs clear Cardiovascular: normal peripheral pulses, normal rate Abdomen: normal bowel sounds, soft, non tender Extremities: no cyanosis, other - effusion in both knees Skin: no rash Current Medications Medications (Trade) Dose Ordered Sig/Papo Route PRN Reason Start Time Stop Time Status Last Admin Dose Admin Acetaminophen (Tylenol) 650 mg Q4H PRN ORAL Fever 07/21/16 15:00 08/20/16 14:59 07/30/16 21:49 Artificial Tears (Akwa-Tears) 2 drop Q6H PRN BOTH EYES Dry Eyes 07/25/16 22:30 08/24/16 22:29 08/03/16 18:28 Calcitriol (Rocaltrol) 0.5 mcg DAILY ORAL 07/22/16 09:00 08/21/16 08:59 08/04/16 08:06 Chlorhexidine Gluconate (Celeste-Hex 2%) 1 applic Q24H TOPIC 07/31/16 21:00 08/30/16 20:59 08/03/16 21:41 Clonidine HCl (Catapres) 0.2 mg Q8H ORAL 07/28/16 14:00 08/27/16 13:59 08/04/16 15:32 Dextrose (Dextrose 50%) STAT PRN IV Hypoglycemia 07/21/16 15:00 08/20/16 14:59 Docusate Sodium (Colace) 100 mg THREE TIMES A DAY ORAL 07/22/16 09:00 08/21/16 08:59 08/04/16 14:18 Epoetin Sid (Procrit (for ESRD on dialysis)) 10,000 units WED-WED-WED SUBQ 07/22/16 21:00 08/21/16 20:59 08/03/16 21:41 Ergocalciferol (Drisdol) 50,000 intlu QWEEK ORAL 07/28/16 09:00 08/27/16 08:59 08/04/16 08:06 Heparin Sodium (Porcine) (Heparin 5000 units/ml) 5,000 units EVERY 12 HOURS SUBQ 07/21/16 21:00 08/20/16 20:59 08/04/16 10:38 Hydralazine HCl (Apresoline) 25 mg Q8HR ORAL 08/03/16 14:00 09/02/16 13:59 08/04/16 15:32 Lactulose (Cephulac) 30 gm THREE TIMES A DAY ORAL 08/02/16 13:30 09/01/16 13:29 08/03/16 18:27 Lisinopril (Prinivil) 20 mg Q12HR ORAL 07/22/16 22:00 08/21/16 21:59 08/04/16 10:37 Mineral Oil (Fleet's Mineral Oil Enema) 133 ml EVERY OTHER DAY RECTAL 08/04/16 09:00 09/03/16 08:59 Minoxidil (Loniten) 2.5 mg Q4H PRN ORAL SBP>160 07/23/16 13:45 08/22/16 13:44 08/02/16 23:41 Morphine Sulfate (Morphine Sulfate) 4 mg Q4H PRN IVP For Pain 07/30/16 22:30 08/06/16 22:29 08/04/16 14:18 Nifedipine (Procardia XL) 60 mg Q12HR ORAL 07/23/16 09:00 08/22/16 08:59 08/04/16 10:36 Nystatin (Nystop Powder) 1 applic THREE TIMES A DAY TOPIC 08/02/16 13:00 09/01/16 12:59 08/04/16 14:18 Ondansetron HCl (Zofran) 4 mg Q6H PRN IVP Nausea & Vomiting 07/21/16 15:00 08/20/16 14:59 08/02/16 23:10 Polyethylene Glycol (Miralax) 17 gm BEDTIME ORAL 08/02/16 21:00 09/01/16 20:59 08/03/16 20:40 Polyethylene Glycol (Miralax) 17 gm DAILYPRN PRN ORAL Constipation 07/21/16 15:00 08/20/16 14:59 08/01/16 17:58 Sennosides (Senokot) 8.6 mg DAILY ORAL 08/03/16 09:00 09/02/16 08:59 08/04/16 08:05 Sevelamer Carbonate (Renvela) 2,400 mg THREE TIMES A DAY ORAL 07/26/16 09:00 08/25/16 08:59 08/04/16 14:18 EMMANUEL DOUGHERTY 27, 2017 16:01
--- NOTE | 2016-08-04 16:34 | Diagnostic Imaging Report ---
Indications: Hemodialysis-dependent chronic kidney disease, right upper extremity swelling, indwelling right sided tunneled hemodialysis catheter, left upper extremity arteriovenous fistula created one year ago per patient, never used Technique: Procedure, indications, risks, alternatives were explained to the patient, who understands and gives written consent to proceed. Strict aseptic technique was utilized, including hand washing, use of hat and mask, use of sterile gown and gloves, prepping of right arm skin with 2% chlorhexidine solution, and application of large sterile barrier over this area. Skin and subcutaneous soft tissues were infiltrated with 1% lidocaine and sodium bicarbonate. A small dermatotomy made, through which the larger of 2 patent right brachial veins percutaneously under direct sonographic guidance with a 5 Citizen [place] micropuncture set. Dilute nonionic iodine contrast injected micropuncture dilator, digital subtraction images of right upper extremity central veins obtained. The micropuncture dilator left in place. Strict aseptic technique was utilized, including hand washing, use of hat and mask, use of sterile gown and gloves, prepping of external portion of indwelling tunneled hemodialysis catheter, surrounding right chest wall skin with 2% chlorhexidine solution, and application of full body sterile barrier over this area. Skin and subcutaneous soft tissues along the subcutaneous portion of catheter were infiltrated with 1% lidocaine and sodium bicarbonate. The subcutaneous portion of the dialysis catheter was blunt-dissected free, then catheter easily removed. Dermatotomy site and subcutaneous tract were manually compressed to achieve hemostasis, then cleansed and bandaged. Final spot film image was obtained. In the right arm, exchange was made over a 0.035 inch Bentson guidewire for a 7 Citizen [place] introducer sheath and 5 Citizen [place] Kumpe catheter. Latter was advanced with the aid of a 0.035 inch steerable hydrophilic guidewire across the stenosis in the proximal aspect of the right cephalic vein into, then through the superior vena cava into the inferior vena cava. Exchange was made through the catheter for the Bentson guidewire. Stenosis in the right brachiocephalic vein was nominally dilated for a duration of 5 minutes with a 12 x 40 mm balloon angioplasty catheter, latter deflated and removed, contrast injected and followup images obtained. 5 Citizen [place] Kumpe catheter or a vascular sheath over guidewire into superior vena cava, then advanced with the aid of a steerable hydrophilic guidewire retrograde through the left brachiocephalic, subclavian, and axillary veins into the left basilic vein. Nonionic contrast was injected, digital subtraction images of left upper extremity venous outflow from elbow to the chest obtained. All remaining apparatus was removed, right arm dermatotomy site manually compressed to achieve hemostasis, then cleansed and bandaged. Patient tolerated procedures well without immediate complications and was returned to her room in stable condition. Total fluoroscopy time: 711 seconds. Dose-area product: 71 mGy-m2 Findings: Right upper extremity venogram demonstrates patent, normal caliber] and subclavian veins, focal high-grade stenosis up to 80% diameter and proximal aspect of right brachiocephalic vein traversed by indwelling tunneled hemodialysis catheter, normal caliber superior vena cava. High-grade stenosis persists following tunneled dialysis catheter removal. Stenosis reduced to less than 50% diameter following balloon angioplasty. Removed catheter is intact. Multiple planes at the level of the left elbow opacify, converging admission the level to form a single dominant runoff vein--either basilic or brachial, continuing as relatively enlarged left axillary and subclavian veins. Though surgical clips are present within the soft tissues at the level of the left elbow, neither arteriovenous -- anastomosis nor arterial inflow could be identified. IMPRESSION: Focal high-grade stenosis up to 80% diameter and right brachiocephalic vein, traverses by indwelling hemodialysis catheter, reduced to less than 50% diameter following catheter removal and balloon angioplasty. Should stenosis recur within 3 months, this would constitute failure of angioplasty. Consideration should then be given to stent placement. Tunneled hemodialysis catheter removal Patent left upper extremity venous outflow is described with failure to identify arteriovenous fistula at the level of the elbow. Further evaluation warranted.
--- NOTE | 2016-08-04 19:04 | Infectious Diseases Prog Note ---
Assessment/Plan Assessment/Plan ASSESSMENT: 51-year-old female with: Low grade fever , SP Leukocytosis , SP Hepatitis BS antibody positive. Hepatitis C antibody, PCR positive / chronic HCV - LFTs WNL status post knee joint tap : No evidence of arthritis ESRD on HD SP Left arm arteriovenous shunt revision and dialysis catheter replacement SP right, placement of left tunneled hemodialysis catheter 07/28 Homeless MRSA, VRE colonized NKDA Full Code PLAN: ok to DC off of antibiotics from ID standpoint Monitor CBC. Monitor BMP. hepatitis C PCR, outpt Rx HD as per nephro DC planning Subjective Allergies: Coded Allergies: No Known Allergies (Unverified , 07/20/16) Subjective remains afebrile. DC planning ongoing Objective Vital Signs Last 24 Hour Vital Signs Date Time Temp Pulse Resp B/P Pulse Ox O2 Delivery O2 Flow Rate FiO2 08/04/16 15:44 98.2 90 20 151/82 96 Nasal Cannula 2.0 08/04/16 15:32 151/82 08/04/16 15:32 151/82 08/04/16 11:21 98.1 79 20 146/60 96 Nasal Cannula 2.0 08/04/16 10:37 138/82 08/04/16 10:36 88 138/82 08/04/16 07:49 98.6 88 20 138/82 97 Nasal Cannula 2.0 08/04/16 06:36 98 Nasal Cannula 2.0 08/04/16 06:36 Nasal Cannula 2.0 08/04/16 06:33 156/80 08/04/16 06:33 156/80 08/04/16 04:00 98.2 76 18 156/80 97 Room Air 08/04/16 00:00 99.9 87 16 157/93 95 Nasal Cannula 08/03/16 23:25 Nasal Cannula 2.0 28 08/03/16 23:25 98 Nasal Cannula 2.0 28 08/03/16 21:43 158/111 08/03/16 21:42 158/111 08/03/16 20:41 89 158/111 08/03/16 20:40 158/111 08/03/16 20:00 98.2 89 18 158/111 97 Nasal Cannula Height (Feet): 5 Height (Inches): 4.00 Weight (Pounds): 160 General Appearance: no acute distress Respiratory/Chest: no respiratory distress Cardiovascular: normal rate, regular rhythm Abdomen: normal bowel sounds, soft, non tender, non distended Current Medications Medications (Trade) Dose Ordered Sig/Papo Route PRN Reason Start Time Stop Time Status Last Admin Dose Admin Acetaminophen (Tylenol) 650 mg Q4H PRN ORAL Fever 07/21/16 15:00 08/20/16 14:59 07/30/16 21:49 Artificial Tears (Akwa-Tears) 2 drop Q6H PRN BOTH EYES Dry Eyes 07/25/16 22:30 08/24/16 22:29 08/03/16 18:28 Calcitriol (Rocaltrol) 0.5 mcg DAILY ORAL 07/22/16 09:00 08/21/16 08:59 08/04/16 08:06 Chlorhexidine Gluconate (Celeste-Hex 2%) 1 applic Q24H TOPIC 07/31/16 21:00 08/30/16 20:59 08/03/16 21:41 Clonidine HCl (Catapres) 0.2 mg Q8H ORAL 07/28/16 14:00 08/27/16 13:59 08/04/16 15:32 Dextrose (Dextrose 50%) STAT PRN IV Hypoglycemia 07/21/16 15:00 08/20/16 14:59 Docusate Sodium (Colace) 100 mg THREE TIMES A DAY ORAL 07/22/16 09:00 08/21/16 08:59 08/04/16 17:46 Epoetin Sid (Procrit (for ESRD on dialysis)) 10,000 units WED-WED-WED SUBQ 07/22/16 21:00 08/21/16 20:59 08/03/16 21:41 Ergocalciferol (Drisdol) 50,000 intlu QWEEK ORAL 07/28/16 09:00 08/27/16 08:59 08/04/16 08:06 Heparin Sodium (Porcine) (Heparin 5000 units/ml) 5,000 units EVERY 12 HOURS SUBQ 07/21/16 21:00 08/20/16 20:59 08/04/16 10:38 Hydralazine HCl (Apresoline) 25 mg Q8HR ORAL 08/03/16 14:00 09/02/16 13:59 08/04/16 15:32 Lactulose (Cephulac) 30 gm THREE TIMES A DAY ORAL 08/02/16 13:30 09/01/16 13:29 08/03/16 18:27 Lisinopril (Prinivil) 20 mg Q12HR ORAL 07/22/16 22:00 08/21/16 21:59 08/04/16 10:37 Mineral Oil (Fleet's Mineral Oil Enema) 133 ml EVERY OTHER DAY RECTAL 08/04/16 09:00 09/03/16 08:59 Minoxidil (Loniten) 2.5 mg Q4H PRN ORAL SBP>160 07/23/16 13:45 08/22/16 13:44 08/02/16 23:41 Morphine Sulfate (Morphine Sulfate) 4 mg Q4H PRN IVP For Pain 07/30/16 22:30 08/06/16 22:29 08/04/16 18:35 Nifedipine (Procardia XL) 60 mg Q12HR ORAL 07/23/16 09:00 08/22/16 08:59 08/04/16 10:36 Nystatin (Nystop Powder) 1 applic THREE TIMES A DAY TOPIC 08/02/16 13:00 09/01/16 12:59 08/04/16 17:47 Ondansetron HCl (Zofran) 4 mg Q6H PRN IVP Nausea & Vomiting 07/21/16 15:00 08/20/16 14:59 08/02/16 23:10 Polyethylene Glycol (Miralax) 17 gm BEDTIME ORAL 08/02/16 21:00 09/01/16 20:59 08/03/16 20:40 Polyethylene Glycol (Miralax) 17 gm DAILYPRN PRN ORAL Constipation 07/21/16 15:00 08/20/16 14:59 08/01/16 17:58 Sennosides (Senokot) 8.6 mg DAILY ORAL 08/03/16 09:00 09/02/16 08:59 08/04/16 08:05 Sevelamer Carbonate (Renvela) 2,400 mg THREE TIMES A DAY ORAL 07/26/16 09:00 08/25/16 08:59 08/04/16 17:46 LISETTE NICHOLS Aug 04, 2016 19:04
[2016-08-04 20:00] VITALS: BP 156/82
[2016-08-04] MEDS: Miralax 17gm pkt ORAL SCH (21:00)
[2016-08-04] MEDS: Dyna-Hex 2% Top Sol 8oz TOPIC SCH (22:10)
[2016-08-05] VITALS: BP 165/95
[2016-08-05] MEDS: Morphine Sulfate 4mg/ml Inj IVP PRN ×4 (01:02→19:56)
[2016-08-05 04:00] VITALS: BP 157/88
[2016-08-05] MEDS: cloNIDine 0.2mg Tab ORAL SCH ×3 (05:44→22:17)
[2016-08-05] MEDS: HydrALAZINE 50mg tab ORAL SCH ×3 (05:45→22:17)
[2016-08-05 07:42] LABS: BASOPHILS % (AUTO) 1.7 % (0.0-2.0); EOSINOPHILS % (AUTO) 5.7 % (0.0-3.0); LYMPHOCYTES % (AUTO) 15.2 % (20.0-45.0); MEAN CORPUSCULAR HEMOGLOBIN 27.6 PG (27.0-31.0); MEAN CORPUSCULAR HGB CONC 31.5 G/DL (32.0-36.0); MEAN CORPUSCULAR VOLUME 88 FL (80-99); MEAN PLATELET VOLUME 4.7 FL (6.5-10.1); MONOCYTES % (AUTO) 8.5 % (1.0-10.0); NEUTROPHILS % (AUTO) 68.9 % (45.0-75.0); PLATELET COUNT 439 K/UL (150-450); RED BLOOD COUNT 3.35 M/UL (4.20-5.40); RED CELL DISTRIBUTION WIDTH 16.8 % (11.6-14.8); WHITE BLOOD COUNT 10.7 K/UL (4.8-10.8)
[2016-08-05 07:59] VITALS: BP 180/92
[2016-08-05] MEDS: Renvela 2400 mg pkt ORAL SCH ×3 (08:26→17:22)
[2016-08-05] MEDS: Docusate 100mg cap ORAL SCH ×3 (08:26→17:06)
[2016-08-05] MEDS: Lisinopril 20mg tab ORAL SCH ×2 (08:27→21:19)
[2016-08-05] MEDS: Heparin 5000 units/ml inj SUBQ SCH ×2 (08:28→21:23)
[2016-08-05] MEDS: Artificial Tears 1.4% Op Soln BOTH EYES PRN (08:30)
[2016-08-05] MEDS: Lactulose 20gm/30ml UDC ORAL SCH ×3 (08:30→17:06)
[2016-08-05] MEDS: Nystatin Powder 100,000 units/gm 15gm TOPIC SCH ×3 (08:30→17:23)
[2016-08-05] MEDS: Calcitriol 0.5mcg Cap ORAL SCH (08:32)
[2016-08-05 08:33] LABS: ALBUMIN/GLOBULIN RATIO 0.7 (1.0-2.7); CALCIUM 8.3 mg/dL (8.6-10.2); CREATININE 6.4 mg/dL (0.5-0.9); GLOMERULAR FILTRATION RATE 6.8 mL/min (>60); PHOSPHORUS 4.5 mg/dL (2.5-4.8); POTASSIUM 5.3 mEQ/L (3.4-4.9); TOTAL PROTEIN 5.9 g/dL (6.6-8.7)
--- NOTE | 2016-08-05 08:50 | Infectious Diseases Prog Note ---
Assessment/Plan Assessment/Plan ASSESSMENT: 51-year-old female with: Low grade fever , SP Leukocytosis , SP Hepatitis BS antibody positive. Hepatitis C antibody, PCR positive / chronic HCV - LFTs WNL status post knee joint tap : No evidence of arthritis ESRD on HD SP Left arm arteriovenous shunt revision and dialysis catheter replacement SP right, placement of left tunneled hemodialysis catheter 07/28 Homeless MRSA, VRE colonized NKDA Full Code PLAN: ok to DC off of antibiotics from ID standpoint Monitor CBC. Monitor BMP. HD as per nephro DC planning Subjective Constitutional: Denies: anorexia, chills, drenching sweats, fatigue, fever, no symptoms, other Allergies: Coded Allergies: No Known Allergies (Unverified , 07/20/16) Objective Vital Signs Last 24 Hour Vital Signs Date Time Temp Pulse Resp B/P Pulse Ox O2 Delivery O2 Flow Rate FiO2 08/05/16 08:27 180/92 08/05/16 08:26 82 180/92 08/05/16 07:59 98.2 82 18 180/92 99 Room Air 08/05/16 07:50 Nasal Cannula 2.0 08/05/16 07:49 98 Nasal Cannula 2.0 08/05/16 05:45 157/88 08/05/16 05:44 157/88 08/05/16 04:00 98.2 80 20 157/88 97 Nasal Cannula 2.0 08/05/16 00:00 98.2 84 20 165/95 95 Nasal Cannula 2.0 08/04/16 22:09 156/82 08/04/16 22:08 156/82 08/04/16 22:08 156/82 08/04/16 22:08 85 156/82 08/04/16 20:00 97.9 85 20 156/82 95 Room Air 08/04/16 19:02 Nasal Cannula 2.0 08/04/16 19:02 97 Nasal Cannula 2.0 08/04/16 15:44 98.2 90 20 151/82 96 Nasal Cannula 2.0 08/04/16 15:32 151/82 08/04/16 15:32 151/82 08/04/16 11:21 98.1 79 20 146/60 96 Nasal Cannula 2.0 08/04/16 10:37 138/82 08/04/16 10:36 88 138/82 Height (Feet): 5 Height (Inches): 4.00 Weight (Pounds): 160 HEENT: anicteric Respiratory/Chest: no accessory muscle use Cardiovascular: regular rhythm Abdomen: non distended Laboratory Tests Test 08/05/16 06:15 White Blood Count 10.7 K/UL (4.8-10.8) Red Blood Count 3.35 M/UL (4.20-5.40) L Hemoglobin 9.3 G/DL (12.0-16.0) L Hematocrit 29.4 % (37.0-47.0) L Mean Corpuscular Volume 88 FL (80-99) Mean Corpuscular Hemoglobin 27.6 PG (27.0-31.0) Mean Corpuscular Hemoglobin Concent 31.5 G/DL (32.0-36.0) L Red Cell Distribution Width 16.8 % (11.6-14.8) H Platelet Count 439 K/UL (150-450) Mean Platelet Volume 4.7 FL (6.5-10.1) L Neutrophils (%) (Auto) 68.9 % (45.0-75.0) Lymphocytes (%) (Auto) 15.2 % (20.0-45.0) L Monocytes (%) (Auto) 8.5 % (1.0-10.0) Eosinophils (%) (Auto) 5.7 % (0.0-3.0) H Basophils (%) (Auto) 1.7 % (0.0-2.0) Sodium Level 134 mEQ/L (135-145) L Potassium Level 5.3 mEQ/L (3.4-4.9) H Chloride Level 88 mEQ/L (98-107) L Carbon Dioxide Level 30 mEQ/L (20-30) Anion Gap 16 (5-15) H Blood Urea Nitrogen 42 mg/dL (7-23) H Creatinine 6.4 mg/dL (0.5-0.9) H Estimat Glomerular Filtration Rate 6.8 mL/min (>60) Glucose Level 91 mg/dL (74-106) Calcium Level 8.3 mg/dL (8.6-10.2) L Phosphorus Level 4.5 mg/dL (2.5-4.8) Total Bilirubin 0.3 mg/dL (0.0-1.2) Aspartate Amino Transf (AST/SGOT) 17 U/L (5-40) Alanine Aminotransferase (ALT/SGPT) 5 U/L (3-33) Alkaline Phosphatase 56 U/L (35-104) Total Protein 5.9 g/dL (6.6-8.7) L Albumin 2.5 g/dL (3.5-5.2) L Globulin 3.4 g/dL Albumin/Globulin Ratio 0.7 (1.0-2.7) L Current Medications Medications (Trade) Dose Ordered Sig/Papo Route PRN Reason Start Time Stop Time Status Last Admin Dose Admin Acetaminophen (Tylenol) 650 mg Q4H PRN ORAL Fever 07/21/16 15:00 08/20/16 14:59 07/30/16 21:49 Artificial Tears (Akwa-Tears) 2 drop Q6H PRN BOTH EYES Dry Eyes 07/25/16 22:30 08/24/16 22:29 08/05/16 08:30 Calcitriol (Rocaltrol) 0.5 mcg DAILY ORAL 07/22/16 09:00 08/21/16 08:59 08/05/16 08:32 Chlorhexidine Gluconate (Celeste-Hex 2%) 1 applic Q24H TOPIC 07/31/16 21:00 08/30/16 20:59 08/04/16 22:10 Clonidine HCl (Catapres) 0.2 mg Q8H ORAL 07/28/16 14:00 08/27/16 13:59 08/05/16 05:44 Dextrose (Dextrose 50%) STAT PRN IV Hypoglycemia 07/21/16 15:00 08/20/16 14:59 Docusate Sodium (Colace) 100 mg THREE TIMES A DAY ORAL 07/22/16 09:00 08/21/16 08:59 08/05/16 08:26 Epoetin Sid (Procrit (for ESRD on dialysis)) 10,000 units WED-WED-WED SUBQ 07/22/16 21:00 08/21/16 20:59 08/03/16 21:41 Ergocalciferol (Drisdol) 50,000 intlu QWEEK ORAL 07/28/16 09:00 08/27/16 08:59 08/04/16 08:06 Heparin Sodium (Porcine) (Heparin 5000 units/ml) 5,000 units EVERY 12 HOURS SUBQ 07/21/16 21:00 08/20/16 20:59 08/05/16 08:28 Hydralazine HCl (Apresoline) 25 mg Q8HR ORAL 08/03/16 14:00 09/02/16 13:59 08/05/16 05:45 Lactulose (Cephulac) 30 gm THREE TIMES A DAY ORAL 08/02/16 13:30 09/01/16 13:29 08/05/16 08:30 Lisinopril (Prinivil) 20 mg Q12HR ORAL 07/22/16 22:00 08/21/16 21:59 08/05/16 08:27 Mineral Oil (Fleet's Mineral Oil Enema) 133 ml EVERY OTHER DAY RECTAL 08/04/16 09:00 09/03/16 08:59 Minoxidil (Loniten) 2.5 mg Q4H PRN ORAL SBP>160 07/23/16 13:45 08/22/16 13:44 08/02/16 23:41 Morphine Sulfate (Morphine Sulfate) 4 mg Q4H PRN IVP For Pain 07/30/16 22:30 08/06/16 22:29 08/05/16 05:46 Nifedipine (Procardia XL) 60 mg Q12HR ORAL 07/23/16 09:00 08/22/16 08:59 08/05/16 08:26 Nystatin (Nystop Powder) 1 applic THREE TIMES A DAY TOPIC 08/02/16 13:00 09/01/16 12:59 08/05/16 08:30 Ondansetron HCl (Zofran) 4 mg Q6H PRN IVP Nausea & Vomiting 07/21/16 15:00 08/20/16 14:59 08/02/16 23:10 Polyethylene Glycol (Miralax) 17 gm BEDTIME ORAL 08/02/16 21:00 09/01/16 20:59 08/03/16 20:40 Polyethylene Glycol (Miralax) 17 gm DAILYPRN PRN ORAL Constipation 07/21/16 15:00 08/20/16 14:59 08/01/16 17:58 Sennosides (Senokot) 8.6 mg DAILY ORAL 08/03/16 09:00 09/02/16 08:59 08/05/16 08:26 Sevelamer Carbonate (Renvela) 2,400 mg THREE TIMES A DAY ORAL 07/26/16 09:00 08/25/16 08:59 08/05/16 08:26 JORGE LUIS FREEMAN M.D. Aug 05, 2016 08:50
--- NOTE | 2016-08-05 11:17 | General Progress Note ---
Assessment/Plan Status: stable Assessment/Plan Status; ESRD , presented Right chest Permacath- ( and left arm fistula with bruit) No Dialysis for sometimes Volume Overload Encephalopathy Anemia right UE venous out let obstruction Plan: HD next 08/05 Transfused 07/30 BP control- adjust meds- Phos binders , Vit D and Kayexelate prn SS eval for disposition per orders discussed with enrollment manager ??? Subjective ROS Limited/Unobtainable: No Constitutional: Reports: malaise Allergies: Coded Allergies: No Known Allergies (Unverified , 07/20/16) Objective Last 24 Hour Vital Signs Date Time Temp Pulse Resp B/P Pulse Ox O2 Delivery O2 Flow Rate FiO2 08/05/16 08:27 180/92 08/05/16 08:26 82 180/92 08/05/16 07:59 98.2 82 18 180/92 99 Room Air 08/05/16 07:50 Nasal Cannula 2.0 08/05/16 07:49 98 Nasal Cannula 2.0 08/05/16 05:45 157/88 08/05/16 05:44 157/88 08/05/16 04:00 98.2 80 20 157/88 97 Nasal Cannula 2.0 08/05/16 00:00 98.2 84 20 165/95 95 Nasal Cannula 2.0 08/04/16 22:09 156/82 08/04/16 22:08 156/82 08/04/16 22:08 156/82 08/04/16 22:08 85 156/82 08/04/16 20:00 97.9 85 20 156/82 95 Room Air 08/04/16 19:02 Nasal Cannula 2.0 08/04/16 19:02 97 Nasal Cannula 2.0 08/04/16 15:44 98.2 90 20 151/82 96 Nasal Cannula 2.0 08/04/16 15:32 151/82 08/04/16 15:32 151/82 08/04/16 11:21 98.1 79 20 146/60 96 Nasal Cannula 2.0 Intake and Output 08/04/16 08/05/16 19:00 07:00 Intake Total 360 ml Output Total 0 ml Balance 360 ml Intake Oral 360 ml Output Urine Total 0 ml # Voids 1 # Bowel Movements 1 1 Laboratory Tests 6/28/17 06:15: White Blood Count 10.7, Red Blood Count 3.35L, Hemoglobin 9.3L, Hematocrit 29.4L , Mean Corpuscular Volume 88, Mean Corpuscular Hemoglobin 27.6, Mean Corpuscular Hemoglobin Concent 31.5L, Red Cell Distribution Width 16.8H, Platelet Count 439, Mean Platelet Volume 4.7L, Neutrophils (%) (Auto) 68.9, Lymphocytes (%) (Auto) 15.2L, Monocytes (%) (Auto) 8.5, Eosinophils (%) (Auto) 5.7H, Basophils (%) (Auto) 1.7, Sodium Level 134L, Potassium Level 5.3H, Chloride Level 88L, Carbon Dioxide Level 30, Anion Gap 16H, Blood Urea Nitrogen 42H, Creatinine 6.4H, Estimat Glomerular Filtration Rate 6.8, Glucose Level 91, Calcium Level 8.3L, Phosphorus Level 4.5, Total Bilirubin 0.3, Aspartate Amino Transf (AST/SGOT) 17, Alanine Aminotransferase (ALT/SGPT) 5, Alkaline Phosphatase 56, Total Protein 5.9L, Albumin 2.5L, Globulin 3.4, Albumin/ Globulin Ratio 0.7L Height (Feet): 5 Height (Inches): 4.00 Weight (Pounds): 160 General Appearance: no apparent distress Objective no change ERICK MOSES Aug 05, 2016 11:17
[2016-08-05 11:55] VITALS: BP 181/93
--- NOTE | 2016-08-05 15:29 | Pulmonology Progress Note ---
Assessment/Plan Problems: (1) ESRF (end stage renal failure) (2) Fluid overload (3) Opiate dependence (4) Homelessness (5) Hepatitis C Assessment/Plan dc planning in process HD by nephrology check electrolytes monitor BP s/p bilateral arthrocentesis awaiting placement all notes reviewed. Subjective ROS Limited/Unobtainable: No Constitutional: Reports: no symptoms HEENT: Repors: no symptoms Allergies: Coded Allergies: No Known Allergies (Unverified , 07/20/16) Objective Last 24 Hour Vital Signs Date Time Temp Pulse Resp B/P Pulse Ox O2 Delivery O2 Flow Rate FiO2 08/05/16 13:19 181/93 08/05/16 13:19 181/93 08/05/16 11:55 98.4 85 18 181/93 96 Room Air 08/05/16 08:27 180/92 08/05/16 08:26 82 180/92 08/05/16 07:59 98.2 82 18 180/92 99 Room Air 08/05/16 07:50 Nasal Cannula 2.0 08/05/16 07:49 98 Nasal Cannula 2.0 08/05/16 05:45 157/88 08/05/16 05:44 157/88 08/05/16 04:00 98.2 80 20 157/88 97 Nasal Cannula 2.0 08/05/16 00:00 98.2 84 20 165/95 95 Nasal Cannula 2.0 08/04/16 22:09 156/82 08/04/16 22:08 156/82 08/04/16 22:08 156/82 08/04/16 22:08 85 156/82 08/04/16 20:00 97.9 85 20 156/82 95 Room Air 08/04/16 19:02 Nasal Cannula 2.0 08/04/16 19:02 97 Nasal Cannula 2.0 08/04/16 15:44 98.2 90 20 151/82 96 Nasal Cannula 2.0 08/04/16 15:32 151/82 08/04/16 15:32 151/82 Intake and Output 08/04/16 08/05/16 19:00 07:00 Intake Total 360 ml Output Total 0 ml Balance 360 ml Intake Oral 360 ml Output Urine Total 0 ml # Voids 1 # Bowel Movements 1 1 Objective General Appearance: WD/WN HEENT: normocephalic Respiratory/Chest: chest wall non-tender, lungs clear Cardiovascular: normal peripheral pulses, normal rate Abdomen: normal bowel sounds, soft, non tender Extremities: no cyanosis, other - effusion in both knees Skin: no rash Laboratory Tests 08/05/16 06:15: White Blood Count 10.7, Red Blood Count 3.35L, Hemoglobin 9.3L, Hematocrit 29.4L , Mean Corpuscular Volume 88, Mean Corpuscular Hemoglobin 27.6, Mean Corpuscular Hemoglobin Concent 31.5L, Red Cell Distribution Width 16.8H, Platelet Count 439, Mean Platelet Volume 4.7L, Neutrophils (%) (Auto) 68.9, Lymphocytes (%) (Auto) 15.2L, Monocytes (%) (Auto) 8.5, Eosinophils (%) (Auto) 5.7H, Basophils (%) (Auto) 1.7, Sodium Level 134L, Potassium Level 5.3H, Chloride Level 88L, Carbon Dioxide Level 30, Anion Gap 16H, Blood Urea Nitrogen 42H, Creatinine 6.4H, Estimat Glomerular Filtration Rate 6.8, Glucose Level 91, Calcium Level 8.3L, Phosphorus Level 4.5, Total Bilirubin 0.3, Aspartate Amino Transf (AST/SGOT) 17, Alanine Aminotransferase (ALT/SGPT) 5, Alkaline Phosphatase 56, Total Protein 5.9L, Albumin 2.5L, Globulin 3.4, Albumin/ Globulin Ratio 0.7L Current Medications Medications (Trade) Dose Ordered Sig/Papo Route PRN Reason Start Time Stop Time Status Last Admin Dose Admin Acetaminophen (Tylenol) 650 mg Q4H PRN ORAL Fever 07/21/16 15:00 08/20/16 14:59 07/30/16 21:49 Artificial Tears (Akwa-Tears) 2 drop Q6H PRN BOTH EYES Dry Eyes 07/25/16 22:30 08/24/16 22:29 08/05/16 08:30 Calcitriol (Rocaltrol) 0.5 mcg DAILY ORAL 07/22/16 09:00 08/21/16 08:59 08/05/16 08:32 Chlorhexidine Gluconate (Celeste-Hex 2%) 1 applic Q24H TOPIC 07/31/16 21:00 08/30/16 20:59 08/04/16 22:10 Clonidine HCl (Catapres) 0.2 mg Q8H ORAL 07/28/16 14:00 08/27/16 13:59 08/05/16 13:19 Dextrose (Dextrose 50%) STAT PRN IV Hypoglycemia 07/21/16 15:00 08/20/16 14:59 Docusate Sodium (Colace) 100 mg THREE TIMES A DAY ORAL 07/22/16 09:00 08/21/16 08:59 08/05/16 08:26 Epoetin Sid (Procrit (for ESRD on dialysis)) 10,000 units WED-WED-WED SUBQ 07/22/16 21:00 08/21/16 20:59 08/03/16 21:41 Ergocalciferol (Drisdol) 50,000 intlu QWEEK ORAL 07/28/16 09:00 08/27/16 08:59 08/04/16 08:06 Heparin Sodium (Porcine) (Heparin 5000 units/ml) 5,000 units EVERY 12 HOURS SUBQ 07/21/16 21:00 08/20/16 20:59 08/05/16 08:28 Hydralazine HCl (Apresoline) 25 mg Q8HR ORAL 08/03/16 14:00 09/02/16 13:59 08/05/16 13:19 Lactulose (Cephulac) 30 gm THREE TIMES A DAY ORAL 08/02/16 13:30 09/01/16 13:29 08/05/16 08:30 Lisinopril (Prinivil) 20 mg Q12HR ORAL 07/22/16 22:00 08/21/16 21:59 08/05/16 08:27 Mineral Oil (Fleet's Mineral Oil Enema) 133 ml EVERY OTHER DAY RECTAL 08/04/16 09:00 09/03/16 08:59 Minoxidil (Loniten) 2.5 mg Q4H PRN ORAL SBP>160 07/23/16 13:45 08/22/16 13:44 08/02/16 23:41 Morphine Sulfate (Morphine Sulfate) 4 mg Q4H PRN IVP For Pain 07/30/16 22:30 08/06/16 22:29 08/05/16 05:46 Nifedipine (Procardia XL) 60 mg Q12HR ORAL 07/23/16 09:00 08/22/16 08:59 08/05/16 08:26 Nystatin (Nystop Powder) 1 applic THREE TIMES A DAY TOPIC 08/02/16 13:00 09/01/16 12:59 08/05/16 13:19 Ondansetron HCl (Zofran) 4 mg Q6H PRN IVP Nausea & Vomiting 07/21/16 15:00 08/20/16 14:59 08/02/16 23:10 Polyethylene Glycol (Miralax) 17 gm BEDTIME ORAL 08/02/16 21:00 09/01/16 20:59 08/03/16 20:40 Polyethylene Glycol (Miralax) 17 gm DAILYPRN PRN ORAL Constipation 07/21/16 15:00 08/20/16 14:59 08/01/16 17:58 Sennosides (Senokot) 8.6 mg DAILY ORAL 08/03/16 09:00 09/02/16 08:59 08/05/16 08:26 Sevelamer Carbonate (Renvela) 2,400 mg THREE TIMES A DAY ORAL 07/26/16 09:00 08/25/16 08:59 08/05/16 13:19 EMMANUEL DOUGHERTY Aug 05, 2016 15:29
[2016-08-05 16:00] VITALS: BP 152/86
[2016-08-05 20:00] VITALS: BP 129/74
[2016-08-05] MEDS: Dyna-Hex 2% Top Sol 8oz TOPIC SCH (21:00)
[2016-08-05] MEDS: Miralax 17gm pkt ORAL SCH (21:17)
[2016-08-05] MEDS: Epogen (for ESRD on dialysis) SUBQ SCH (21:22)
[2016-08-06] VITALS: BP 120/76
[2016-08-06] MEDS: Morphine Sulfate 4mg/ml Inj IVP PRN ×6 (00:11→23:06)
[2016-08-06 04:00] VITALS: BP 152/89
[2016-08-06] MEDS: HydrALAZINE 50mg tab ORAL SCH ×3 (06:15→22:33)
[2016-08-06] MEDS: cloNIDine 0.2mg Tab ORAL SCH ×3 (06:15→22:33)
[2016-08-06 08:04] VITALS: BP 133/75
[2016-08-06] MEDS: Lactulose 20gm/30ml UDC ORAL SCH ×3 (09:00→18:32)
[2016-08-06] MEDS: Nystatin Powder 100,000 units/gm 15gm TOPIC SCH ×3 (09:09→18:32)
[2016-08-06] MEDS: Renvela 2400 mg pkt ORAL SCH ×3 (09:09→18:32)
[2016-08-06] MEDS: Lisinopril 20mg tab ORAL SCH ×2 (09:10→20:26)
[2016-08-06] MEDS: Heparin 5000 units/ml inj SUBQ SCH ×2 (09:12→20:29)
[2016-08-06] MEDS: Calcitriol 0.5mcg Cap ORAL SCH (09:12)
[2016-08-06] MEDS: Docusate 100mg cap ORAL SCH ×3 (09:22→18:32)
[2016-08-06] MEDS: Fleet's Mineral Oil Enema RECTAL SCH ×3 (09:24→18:00)
--- NOTE | 2016-08-06 09:27 | General Progress Note ---
Assessment/Plan Status: stable Assessment/Plan Status; ESRD , presented Right chest Permacath- ( and left arm fistula with bruit) No Dialysis for sometimes Volume Overload Encephalopathy Anemia right UE venous out let obstruction Plan: HD next 08/07 Transfused 07/30 BP control- adjust meds- Phos binders , Vit D and Kayexelate prn SS eval for disposition per orders discussed with risk and insurance manager ??? Subjective ROS Limited/Unobtainable: No Constitutional: Reports: malaise Allergies: Coded Allergies: No Known Allergies (Unverified , 07/20/16) Objective Last 24 Hour Vital Signs Date Time Temp Pulse Resp B/P Pulse Ox O2 Delivery O2 Flow Rate FiO2 08/06/16 09:10 85 133/75 08/06/16 09:10 133/75 08/06/16 08:08 97 Nasal Cannula 2.0 08/06/16 08:08 Nasal Cannula 2.0 08/06/16 08:04 97.9 85 15 133/75 97 08/06/16 06:15 152/89 08/06/16 06:15 152/89 08/06/16 04:00 97.9 86 18 152/89 97 Simple Mask 2.0 08/06/16 00:00 98.3 84 18 120/76 96 Nasal Cannula 2.0 08/05/16 22:17 149/71 08/05/16 22:17 149/71 08/05/16 21:19 88 129/74 08/05/16 21:19 129/74 08/05/16 20:00 98.1 88 18 129/74 96 Nasal Cannula 2.0 08/05/16 19:30 Nasal Cannula 2.0 08/05/16 19:30 96 Nasal Cannula 2.0 08/05/16 16:00 98.4 82 20 152/86 96 Nasal Cannula 2.0 08/05/16 13:19 181/93 08/05/16 13:19 181/93 08/05/16 11:55 98.4 85 18 181/93 96 Room Air Intake and Output 08/05/16 08/06/16 19:00 07:00 Intake Total 490 ml Balance 490 ml Intake Oral 490 ml # Voids 1 # Bowel Movements 2 Height (Feet): 5 Height (Inches): 4.00 Weight (Pounds): 160 General Appearance: no apparent distress Objective no change ERICK MOSES Aug 06, 2016 09:27
[2016-08-06 11:51] VITALS: BP 153/91
[2016-08-06 15:52] VITALS: BP 157/87
--- NOTE | 2016-08-06 18:41 | Pulmonology Progress Note ---
Assessment/Plan Problems: (1) ESRF (end stage renal failure) (2) Fluid overload (3) Opiate dependence (4) Homelessness (5) Hepatitis C Assessment/Plan dc planning in process HD by nephrology check electrolytes monitor BP s/p bilateral arthrocentesis awaiting placement all notes reviewed. Subjective ROS Limited/Unobtainable: No Constitutional: Reports: no symptoms HEENT: Repors: no symptoms Respiratory: Reports: no symptoms Allergies: Coded Allergies: No Known Allergies (Unverified , 07/20/16) Objective Last 24 Hour Vital Signs Date Time Temp Pulse Resp B/P Pulse Ox O2 Delivery O2 Flow Rate FiO2 08/06/16 15:52 98.8 81 15 157/87 99 Room Air 08/06/16 13:18 153/91 08/06/16 13:17 153/91 08/06/16 11:51 98.1 85 16 153/91 96 Nasal Cannula 08/06/16 09:10 85 133/75 08/06/16 09:10 133/75 08/06/16 08:08 97 Nasal Cannula 2.0 08/06/16 08:08 Nasal Cannula 2.0 08/06/16 08:04 97.9 85 15 133/75 97 08/06/16 06:15 152/89 08/06/16 06:15 152/89 08/06/16 04:00 97.9 86 18 152/89 97 Simple Mask 2.0 08/06/16 00:00 98.3 84 18 120/76 96 Nasal Cannula 2.0 08/05/16 22:17 149/71 08/05/16 22:17 149/71 08/05/16 21:19 88 129/74 08/05/16 21:19 129/74 08/05/16 20:00 98.1 88 18 129/74 96 Nasal Cannula 2.0 08/05/16 19:30 Nasal Cannula 2.0 28 08/05/16 19:30 96 Nasal Cannula 2.0 28 Intake and Output 08/05/16 08/06/16 19:00 07:00 Intake Total 490 ml Balance 490 ml Intake Oral 490 ml # Voids 1 # Bowel Movements 2 Objective General Appearance: WD/WN HEENT: normocephalic Respiratory/Chest: chest wall non-tender, lungs clear Cardiovascular: normal peripheral pulses, normal rate Abdomen: normal bowel sounds, soft, non tender Extremities: no cyanosis, other - effusion in both knees Skin: no rash Current Medications Medications (Trade) Dose Ordered Sig/Papo Route PRN Reason Start Time Stop Time Status Last Admin Dose Admin Acetaminophen (Tylenol) 650 mg Q4H PRN ORAL Fever 07/21/16 15:00 08/20/16 14:59 07/30/16 21:49 Acetaminophen/ Hydrocodone Bitart ([place] 10/325) 1 ea Q8HR PRN ORAL For Pain 08/06/16 16:15 08/13/16 16:14 Artificial Tears (Akwa-Tears) 2 drop Q6H PRN BOTH EYES Dry Eyes 07/25/16 22:30 08/24/16 22:29 08/05/16 08:30 Calcitriol (Rocaltrol) 0.5 mcg DAILY ORAL 07/22/16 09:00 08/21/16 08:59 08/06/16 09:12 Chlorhexidine Gluconate (Celeste-Hex 2%) 1 applic Q24H TOPIC 07/31/16 21:00 08/30/16 20:59 08/04/16 22:10 Clonidine HCl (Catapres) 0.2 mg Q8H ORAL 07/28/16 14:00 08/27/16 13:59 08/06/16 13:18 Dextrose (Dextrose 50%) STAT PRN IV Hypoglycemia 07/21/16 15:00 08/20/16 14:59 Docusate Sodium (Colace) 100 mg THREE TIMES A DAY ORAL 07/22/16 09:00 08/21/16 08:59 08/06/16 09:22 Epoetin Sid (Procrit (for ESRD on dialysis)) 10,000 units WED-WED-WED SUBQ 07/22/16 21:00 08/21/16 20:59 08/05/16 21:22 Ergocalciferol (Drisdol) 50,000 intlu QWEEK ORAL 07/28/16 09:00 08/27/16 08:59 08/04/16 08:06 Heparin Sodium (Porcine) (Heparin 5000 units/ml) 5,000 units EVERY 12 HOURS SUBQ 07/21/16 21:00 08/20/16 20:59 08/06/16 09:12 Hydralazine HCl (Apresoline) 25 mg Q8HR ORAL 08/03/16 14:00 09/02/16 13:59 08/06/16 13:17 Lactulose (Cephulac) 30 gm THREE TIMES A DAY ORAL 08/02/16 13:30 09/01/16 13:29 08/05/16 08:30 Lisinopril (Prinivil) 20 mg Q12HR ORAL 07/22/16 22:00 08/21/16 21:59 08/06/16 09:10 Mineral Oil (Fleet's Mineral Oil Enema) 133 ml EVERY OTHER DAY RECTAL 08/04/16 09:00 09/03/16 08:59 Minoxidil (Loniten) 2.5 mg Q4H PRN ORAL SBP>160 07/23/16 13:45 08/22/16 13:44 08/02/16 23:41 Morphine Sulfate (Morphine Sulfate) 4 mg Q4H PRN IVP For Pain 07/30/16 22:30 08/06/16 22:29 08/06/16 13:18 Nifedipine (Procardia XL) 60 mg Q12HR ORAL 07/23/16 09:00 08/22/16 08:59 08/06/16 09:10 Nystatin (Nystop Powder) 1 applic THREE TIMES A DAY TOPIC 08/02/16 13:00 09/01/16 12:59 08/06/16 18:32 Ondansetron HCl (Zofran) 4 mg Q6H PRN IVP Nausea & Vomiting 07/21/16 15:00 08/20/16 14:59 08/02/16 23:10 Polyethylene Glycol (Miralax) 17 gm BEDTIME ORAL 08/02/16 21:00 09/01/16 20:59 08/05/16 21:17 Polyethylene Glycol (Miralax) 17 gm DAILYPRN PRN ORAL Constipation 07/21/16 15:00 08/20/16 14:59 08/01/16 17:58 Sennosides (Senokot) 8.6 mg DAILY ORAL 08/03/16 09:00 09/02/16 08:59 08/06/16 09:22 Sevelamer Carbonate (Renvela) 2,400 mg THREE TIMES A DAY ORAL 07/26/16 09:00 08/25/16 08:59 08/06/16 13:18 EMMANUEL DOUGHERTY Aug 06, 2016 18:41
[2016-08-06] MEDS: Miralax 17gm pkt ORAL SCH (20:30)
[2016-08-06] MEDS: Dyna-Hex 2% Top Sol 8oz TOPIC SCH (20:30)
--- NOTE | 2016-08-06 21:52 | Infectious Diseases Prog Note ---
Assessment/Plan Assessment/Plan ASSESSMENT: 51-year-old female with: Low grade fever , SP Leukocytosis , SP Hepatitis BS antibody positive. Hepatitis C antibody, PCR positive / chronic HCV - LFTs WNL status post knee joint tap : No evidence of arthritis ESRD on HD SP Left arm arteriovenous shunt revision and dialysis catheter replacement SP right, placement of left tunneled hemodialysis catheter 07/28 Homeless MRSA, VRE colonized NKDA Full Code PLAN: ok to DC off of antibiotics from ID standpoint Monitor CBC. Monitor BMP. HD as per nephro DC planning Subjective Constitutional: Denies: anorexia, chills, drenching sweats, fatigue, fever, no symptoms, other Allergies: Coded Allergies: No Known Allergies (Unverified , 07/20/16) Objective Vital Signs Last 24 Hour Vital Signs Date Time Temp Pulse Resp B/P Pulse Ox O2 Delivery O2 Flow Rate FiO2 08/06/16 20:29 81 187/100 08/06/16 20:26 187/100 08/06/16 20:00 97.4 87 18 97 Nasal Cannula 08/06/16 15:52 98.8 81 15 157/87 99 Room Air 08/06/16 13:18 153/91 08/06/16 13:17 153/91 08/06/16 11:51 98.1 85 16 153/91 96 Nasal Cannula 08/06/16 09:10 85 133/75 08/06/16 09:10 133/75 08/06/16 08:08 97 Nasal Cannula 2.0 28 08/06/16 08:08 Nasal Cannula 2.0 08/06/16 08:04 97.9 85 15 133/75 97 08/06/16 06:15 152/89 08/06/16 06:15 152/89 08/06/16 04:00 97.9 86 18 152/89 97 Simple Mask 2.0 08/06/16 00:00 98.3 84 18 120/76 96 Nasal Cannula 2.0 08/05/16 22:17 149/71 08/05/16 22:17 149/71 Height (Feet): 5 Height (Inches): 4.00 Weight (Pounds): 160 HEENT: anicteric Respiratory/Chest: no respiratory distress Cardiovascular: no gallop/murmur Abdomen: non distended Skin: no ulcers Current Medications Medications (Trade) Dose Ordered Sig/Papo Route PRN Reason Start Time Stop Time Status Last Admin Dose Admin Acetaminophen (Tylenol) 650 mg Q4H PRN ORAL Fever 07/21/16 15:00 08/20/16 14:59 07/30/16 21:49 Acetaminophen/ Hydrocodone Bitart ([place] 10/325) 1 ea Q8HR PRN ORAL For Pain 08/06/16 16:15 08/13/16 16:14 Artificial Tears (Akwa-Tears) 2 drop Q6H PRN BOTH EYES Dry Eyes 07/25/16 22:30 08/24/16 22:29 08/05/16 08:30 Calcitriol (Rocaltrol) 0.5 mcg DAILY ORAL 07/22/16 09:00 08/21/16 08:59 08/06/16 09:12 Chlorhexidine Gluconate (Celeste-Hex 2%) 1 applic Q24H TOPIC 07/31/16 21:00 08/30/16 20:59 08/06/16 20:30 Clonidine HCl (Catapres) 0.2 mg Q8H ORAL 07/28/16 14:00 08/27/16 13:59 08/06/16 13:18 Dextrose (Dextrose 50%) STAT PRN IV Hypoglycemia 07/21/16 15:00 08/20/16 14:59 Docusate Sodium (Colace) 100 mg THREE TIMES A DAY ORAL 07/22/16 09:00 08/21/16 08:59 08/06/16 09:22 Epoetin Sid (Procrit (for ESRD on dialysis)) 10,000 units WED-WED-WED SUBQ 07/22/16 21:00 08/21/16 20:59 08/05/16 21:22 Ergocalciferol (Drisdol) 50,000 intlu QWEEK ORAL 07/28/16 09:00 08/27/16 08:59 08/04/16 08:06 Heparin Sodium (Porcine) (Heparin 5000 units/ml) 5,000 units EVERY 12 HOURS SUBQ 07/21/16 21:00 08/20/16 20:59 08/06/16 20:29 Hydralazine HCl (Apresoline) 25 mg Q8HR ORAL 08/03/16 14:00 09/02/16 13:59 08/06/16 13:17 Lactulose (Cephulac) 30 gm THREE TIMES A DAY ORAL 08/02/16 13:30 09/01/16 13:29 08/05/16 08:30 Lisinopril (Prinivil) 20 mg Q12HR ORAL 07/22/16 22:00 08/21/16 21:59 08/06/16 20:26 Mineral Oil (Fleet's Mineral Oil Enema) 133 ml EVERY OTHER DAY RECTAL 08/04/16 09:00 09/03/16 08:59 08/06/16 18:00 Minoxidil (Loniten) 2.5 mg Q4H PRN ORAL SBP>160 07/23/16 13:45 08/22/16 13:44 08/02/16 23:41 Morphine Sulfate (Morphine Sulfate) 4 mg Q4H PRN IVP For Pain 07/30/16 22:30 08/06/16 22:29 08/06/16 18:53 Nifedipine (Procardia XL) 60 mg Q12HR ORAL 07/23/16 09:00 08/22/16 08:59 08/06/16 20:29 Nystatin (Nystop Powder) 1 applic THREE TIMES A DAY TOPIC 08/02/16 13:00 09/01/16 12:59 08/06/16 18:32 Ondansetron HCl (Zofran) 4 mg Q6H PRN IVP Nausea & Vomiting 07/21/16 15:00 08/20/16 14:59 08/02/16 23:10 Polyethylene Glycol (Miralax) 17 gm BEDTIME ORAL 08/02/16 21:00 09/01/16 20:59 08/06/16 20:30 Polyethylene Glycol (Miralax) 17 gm DAILYPRN PRN ORAL Constipation 07/21/16 15:00 08/20/16 14:59 08/01/16 17:58 Sennosides (Senokot) 8.6 mg DAILY ORAL 08/03/16 09:00 09/02/16 08:59 08/06/16 09:22 Sevelamer Carbonate (Renvela) 2,400 mg THREE TIMES A DAY ORAL 07/26/16 09:00 08/25/16 08:59 08/06/16 13:18 JORGE LUIS FREEMAN M.D. Aug 06, 2016 21:52
[2016-08-07] VITALS (7 sets, daily range): BP systolic 143–197; BP diastolic 79–103
[2016-08-07] MEDS: Morphine Sulfate 4mg/ml Inj IVP PRN ×4 (03:10→20:55)
[2016-08-07] MEDS: cloNIDine 0.2mg Tab ORAL SCH ×3 (05:50→21:46)
[2016-08-07] MEDS: Minoxidil 2.5mg tab ORAL PRN (05:51)
[2016-08-07] MEDS: HydrALAZINE 50mg tab ORAL SCH ×3 (05:51→21:47)
--- NOTE | 2016-08-07 08:43 | Infectious Diseases Prog Note ---
Assessment/Plan Assessment/Plan ASSESSMENT: 51-year-old female with: Low grade fever , SP Leukocytosis , SP Hepatitis BS antibody positive. Hepatitis C antibody, PCR positive / chronic HCV - LFTs WNL status post knee joint tap : No evidence of arthritis ESRD on HD SP Left arm arteriovenous shunt revision and dialysis catheter replacement SP right, placement of left tunneled hemodialysis catheter 07/28 Homeless MRSA, VRE colonized NKDA Full Code PLAN: ok to DC off of antibiotics from ID standpoint Monitor CBC. Monitor BMP. HD as per nephro DC planning Subjective Constitutional: Denies: anorexia, chills, drenching sweats, fatigue, fever, no symptoms, other Allergies: Coded Allergies: No Known Allergies (Unverified , 07/20/16) Objective Vital Signs Last 24 Hour Vital Signs Date Time Temp Pulse Resp B/P Pulse Ox O2 Delivery O2 Flow Rate FiO2 08/07/16 08:03 98.2 90 15 182/88 93 Room Air 08/07/16 05:51 197/110 08/07/16 05:51 197/110 08/07/16 05:50 197/110 08/07/16 04:00 98.8 91 18 197/103 94 Nasal Cannula 4.0 08/07/16 03:40 98.0 08/07/16 00:00 98.0 80 22 170/99 96 Nasal Cannula 2.0 08/06/16 22:33 187/100 08/06/16 22:33 187/100 08/06/16 20:29 81 187/100 08/06/16 20:26 187/100 08/06/16 20:00 97.4 87 18 97 Nasal Cannula 08/06/16 15:52 98.8 81 15 157/87 99 Room Air 08/06/16 13:18 153/91 08/06/16 13:17 153/91 08/06/16 11:51 98.1 85 16 153/91 96 Nasal Cannula 08/06/16 09:10 85 133/75 08/06/16 09:10 133/75 Height (Feet): 5 Height (Inches): 4.00 Weight (Pounds): 160 HEENT: anicteric Respiratory/Chest: normal breath sounds Cardiovascular: no gallop/murmur Abdomen: no mass Current Medications Medications (Trade) Dose Ordered Sig/Papo Route PRN Reason Start Time Stop Time Status Last Admin Dose Admin Acetaminophen (Tylenol) 650 mg Q4H PRN ORAL Fever 07/21/16 15:00 08/20/16 14:59 07/30/16 21:49 Acetaminophen/ Hydrocodone Bitart ([place] 10/325) 1 ea Q8HR PRN ORAL For Pain 08/06/16 16:15 08/13/16 16:14 Artificial Tears (Akwa-Tears) 2 drop Q6H PRN BOTH EYES Dry Eyes 07/25/16 22:30 08/24/16 22:29 08/05/16 08:30 Calcitriol (Rocaltrol) 0.5 mcg DAILY ORAL 07/22/16 09:00 08/21/16 08:59 08/06/16 09:12 Chlorhexidine Gluconate (Celeste-Hex 2%) 1 applic Q24H TOPIC 07/31/16 21:00 08/30/16 20:59 08/06/16 20:30 Clonidine HCl (Catapres) 0.2 mg Q8H ORAL 07/28/16 14:00 08/27/16 13:59 08/07/16 05:50 Dextrose (Dextrose 50%) STAT PRN IV Hypoglycemia 07/21/16 15:00 08/20/16 14:59 Docusate Sodium (Colace) 100 mg THREE TIMES A DAY ORAL 07/22/16 09:00 08/21/16 08:59 08/06/16 09:22 Epoetin Sid (Procrit (for ESRD on dialysis)) 10,000 units WED-WED-WED SUBQ 07/22/16 21:00 08/21/16 20:59 08/05/16 21:22 Ergocalciferol (Drisdol) 50,000 intlu QWEEK ORAL 07/28/16 09:00 08/27/16 08:59 08/04/16 08:06 Heparin Sodium (Porcine) (Heparin 5000 units/ml) 5,000 units EVERY 12 HOURS SUBQ 07/21/16 21:00 08/20/16 20:59 08/06/16 20:29 Hydralazine HCl (Apresoline) 25 mg Q8HR ORAL 08/03/16 14:00 09/02/16 13:59 08/07/16 05:51 Lactulose (Cephulac) 30 gm THREE TIMES A DAY ORAL 08/02/16 13:30 09/01/16 13:29 08/05/16 08:30 Lisinopril (Prinivil) 20 mg Q12HR ORAL 07/22/16 22:00 08/21/16 21:59 08/06/16 20:26 Mineral Oil (Fleet's Mineral Oil Enema) 133 ml EVERY OTHER DAY RECTAL 08/04/16 09:00 09/03/16 08:59 08/06/16 18:00 Minoxidil (Loniten) 2.5 mg Q4H PRN ORAL SBP>160 07/23/16 13:45 08/22/16 13:44 08/07/16 05:51 Morphine Sulfate (Morphine Sulfate) 4 mg Q4H PRN IVP For Pain 08/06/16 23:00 08/13/16 22:59 08/07/16 03:10 Nifedipine (Procardia XL) 60 mg Q12HR ORAL 07/23/16 09:00 08/22/16 08:59 08/06/16 20:29 Nystatin (Nystop Powder) 1 applic THREE TIMES A DAY TOPIC 08/02/16 13:00 09/01/16 12:59 08/06/16 18:32 Ondansetron HCl (Zofran) 4 mg Q6H PRN IVP Nausea & Vomiting 07/21/16 15:00 08/20/16 14:59 08/02/16 23:10 Polyethylene Glycol (Miralax) 17 gm BEDTIME ORAL 08/02/16 21:00 09/01/16 20:59 08/06/16 20:30 Polyethylene Glycol (Miralax) 17 gm DAILYPRN PRN ORAL Constipation 07/21/16 15:00 08/20/16 14:59 08/01/16 17:58 Sennosides (Senokot) 8.6 mg DAILY ORAL 08/03/16 09:00 09/02/16 08:59 08/06/16 09:22 Sevelamer Carbonate (Renvela) 2,400 mg THREE TIMES A DAY ORAL 07/26/16 09:00 08/25/16 08:59 08/06/16 13:18 JORGE LUIS FREEMAN M.D. Aug 07, 2016 08:43
[2016-08-07] MEDS: Calcitriol 0.5mcg Cap ORAL SCH (08:47)
[2016-08-07] MEDS: Docusate 100mg cap ORAL SCH ×3 (08:47→18:34)
[2016-08-07] MEDS: Renvela 2400 mg pkt ORAL SCH ×3 (08:47→18:34)
[2016-08-07] MEDS: Heparin 5000 units/ml inj SUBQ SCH ×2 (08:48→20:45)
[2016-08-07] MEDS: Nystatin Powder 100,000 units/gm 15gm TOPIC SCH ×3 (08:49→18:34)
[2016-08-07] MEDS: Lactulose 20gm/30ml UDC ORAL SCH ×3 (08:55→18:00)
[2016-08-07] MEDS: Lisinopril 20mg tab ORAL SCH ×2 (09:00→20:42)
--- NOTE | 2016-08-07 09:44 | Pulmonology Progress Note ---
Assessment/Plan Assessment/Plan ASSESSMENT ESRD on HD fluid overload anemia of chronic renal disease s/p blood transfusion, hyperkalemia acute toxic metabolic encephalopathy due to missed HD R UE venous outlet obstruction s/p 07/30 left subclavian PermCath, removal of R femoral Jose Carlos s/p 08/03 left PermCath, left CL placement severe pulmonary HTN HTN moderate MR opiate dependency homelessness s/p bilateral arthrocentesis PLAN OF CARE MS floor HD as per nephro HD via Permacath for 6 weeks until LUE AV fistula matures as per vascular surgery recommendation monitor renal parameters, lytes s/p Kayexalate, K stable O2 HHN prn CXR with some interstitial congestion ECHO with EF 60% and RVSP of 71 c/w severe pulmonary HTN , moderate MR acute encephalopathy likely was due to ESRD and missed HD as well as elevated ammonia ammonia level down to normal BP management with multiple antiHTN regimen and optimize further as needed anemia w/up with low iron, s/p IV iron , continue EPO, monitor HH, transfuse prn , at baseline urine cx negative, synovial fluid negative ( from arthrocentesis) phospho binders vit D DVT prophylaxis bowel regimen awaiting for placement case discussed and evaluated by supervising physician Subjective Allergies: Coded Allergies: No Known Allergies (Unverified , 07/20/16) Subjective afebrile , mild leukocytosis today on RA, pulse ox stable mental status back to baseline denies chest pain, SOB HD done today, 08/07 Objective Last 24 Hour Vital Signs Date Time Temp Pulse Resp B/P Pulse Ox O2 Delivery O2 Flow Rate FiO2 08/07/16 08:57 91 143/79 08/07/16 08:03 98.2 90 15 182/88 93 Room Air 08/07/16 05:51 197/110 08/07/16 05:51 197/110 08/07/16 05:50 197/110 08/07/16 04:00 98.8 91 18 197/103 94 Nasal Cannula 4.0 08/07/16 03:40 98.0 08/07/16 00:00 98.0 80 22 170/99 96 Nasal Cannula 2.0 08/06/16 22:33 187/100 08/06/16 22:33 187/100 08/06/16 20:29 81 187/100 08/06/16 20:26 187/100 08/06/16 20:00 97.4 87 18 97 Nasal Cannula 08/06/16 15:52 98.8 81 15 157/87 99 Room Air 08/06/16 13:18 153/91 08/06/16 13:17 153/91 08/06/16 11:51 98.1 85 16 153/91 96 Nasal Cannula Intake and Output 08/06/16 08/07/16 19:00 07:00 Intake Total 1200 ml Balance 1200 ml Intake Oral 1200 ml # Voids 2 # Bowel Movements 3 Objective General Appearance: no acute distress, awake, alert, responsive HEENT: anicteric, mucous membranes moist Respiratory/Chest: lungs clear - moderate air entry , no respiratory distress, no accessory muscle use, R chest PermCath and left arm fistula with bruit Abdomen: normal bowel sounds, soft, non tender Extremities: knee edema +1, trace edema BLE Neurologic/Psychiatric: abnormal gait, alert Current Medications Medications (Trade) Dose Ordered Sig/Papo Route PRN Reason Start Time Stop Time Status Last Admin Dose Admin Acetaminophen (Tylenol) 650 mg Q4H PRN ORAL Fever 07/21/16 15:00 08/20/16 14:59 07/30/16 21:49 Acetaminophen/ Hydrocodone Bitart ([place] 10/325) 1 ea Q8HR PRN ORAL For Pain 08/06/16 16:15 08/13/16 16:14 Artificial Tears (Akwa-Tears) 2 drop Q6H PRN BOTH EYES Dry Eyes 07/25/16 22:30 08/24/16 22:29 08/05/16 08:30 Calcitriol (Rocaltrol) 0.5 mcg DAILY ORAL 07/22/16 09:00 08/21/16 08:59 08/07/16 08:47 Chlorhexidine Gluconate (Celeste-Hex 2%) 1 applic Q24H TOPIC 07/31/16 21:00 08/30/16 20:59 08/06/16 20:30 Clonidine HCl (Catapres) 0.2 mg Q8H ORAL 07/28/16 14:00 08/27/16 13:59 08/07/16 05:50 Dextrose (Dextrose 50%) STAT PRN IV Hypoglycemia 07/21/16 15:00 08/20/16 14:59 Docusate Sodium (Colace) 100 mg THREE TIMES A DAY ORAL 07/22/16 09:00 08/21/16 08:59 08/07/16 08:47 Epoetin Sid (Procrit (for ESRD on dialysis)) 10,000 units WED-WED-WED SUBQ 07/22/16 21:00 08/21/16 20:59 08/05/16 21:22 Ergocalciferol (Drisdol) 50,000 intlu QWEEK ORAL 07/28/16 09:00 08/27/16 08:59 08/04/16 08:06 Heparin Sodium (Porcine) (Heparin 5000 units/ml) 5,000 units EVERY 12 HOURS SUBQ 07/21/16 21:00 08/20/16 20:59 08/07/16 08:48 Hydralazine HCl (Apresoline) 25 mg Q8HR ORAL 08/03/16 14:00 09/02/16 13:59 08/07/16 05:51 Lactulose (Cephulac) 30 gm THREE TIMES A DAY ORAL 08/02/16 13:30 09/01/16 13:29 08/05/16 08:30 Lisinopril (Prinivil) 20 mg Q12HR ORAL 07/22/16 22:00 08/21/16 21:59 08/06/16 20:26 Mineral Oil (Fleet's Mineral Oil Enema) 133 ml EVERY OTHER DAY RECTAL 08/04/16 09:00 09/03/16 08:59 08/06/16 18:00 Minoxidil (Loniten) 2.5 mg Q4H PRN ORAL SBP>160 07/23/16 13:45 08/22/16 13:44 08/07/16 05:51 Morphine Sulfate (Morphine Sulfate) 4 mg Q4H PRN IVP For Pain 08/06/16 23:00 08/13/16 22:59 08/07/16 08:47 Nifedipine (Procardia XL) 60 mg Q12HR ORAL 07/23/16 09:00 08/22/16 08:59 08/06/16 20:29 Nystatin (Nystop Powder) 1 applic THREE TIMES A DAY TOPIC 08/02/16 13:00 09/01/16 12:59 08/07/16 08:49 Ondansetron HCl (Zofran) 4 mg Q6H PRN IVP Nausea & Vomiting 07/21/16 15:00 08/20/16 14:59 08/02/16 23:10 Polyethylene Glycol (Miralax) 17 gm BEDTIME ORAL 08/02/16 21:00 09/01/16 20:59 08/06/16 20:30 Polyethylene Glycol (Miralax) 17 gm DAILYPRN PRN ORAL Constipation 07/21/16 15:00 08/20/16 14:59 08/01/16 17:58 Sennosides (Senokot) 8.6 mg DAILY ORAL 08/03/16 09:00 09/02/16 08:59 08/06/16 09:22 Sevelamer Carbonate (Renvela) 2,400 mg THREE TIMES A DAY ORAL 07/26/16 09:00 08/25/16 08:59 08/07/16 08:47 Clemente FaganBath Va Medical CenterWhitney Pappas NP Aug 07, 2016 09:44
[2016-08-07 12:38] LABS: BASOPHILS % (AUTO) 0.9 % (0.0-2.0); EOSINOPHILS % (AUTO) 5.7 % (0.0-3.0); LYMPHOCYTES % (AUTO) 16.1 % (20.0-45.0); MEAN CORPUSCULAR HEMOGLOBIN 27.6 PG (27.0-31.0); MEAN CORPUSCULAR VOLUME 86 FL (80-99); MEAN PLATELET VOLUME 5.1 FL (6.5-10.1); MONOCYTES % (AUTO) 7.4 % (1.0-10.0); PLATELET COUNT 362 K/UL (150-450); RED BLOOD COUNT 3.35 M/UL (4.20-5.40); RED CELL DISTRIBUTION WIDTH 16.9 % (11.6-14.8)
[2016-08-07 12:53] LABS: ALBUMIN/GLOBULIN RATIO 0.7 (1.0-2.7); CALCIUM 8.2 mg/dL (8.6-10.2); CREATININE 7.1 mg/dL (0.5-0.9); PHOSPHORUS 4.8 mg/dL (2.5-4.8); POTASSIUM 5.6 mEQ/L (3.4-4.9); TOTAL PROTEIN 5.9 g/dL (6.6-8.7)
--- NOTE | 2016-08-07 14:24 | General Progress Note ---
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 Subjective ROS Limited/Unobtainable: No Allergies: Coded Allergies: No Known Allergies (Unverified , 07/20/16) Objective Last 24 Hour Vital Signs Date Time Temp Pulse Resp B/P Pulse Ox O2 Delivery O2 Flow Rate FiO2 08/07/16 11:45 Room Air 4.0 28 08/07/16 11:43 97.9 87 18 170/90 92 Room Air 08/07/16 08:57 91 143/79 08/07/16 08:03 98.2 90 15 182/88 93 Room Air 08/07/16 05:51 197/110 08/07/16 05:51 197/110 08/07/16 05:50 197/110 08/07/16 04:00 98.8 91 18 197/103 94 Nasal Cannula 4.0 08/07/16 03:40 98.0 08/07/16 00:00 98.0 80 22 170/99 96 Nasal Cannula 2.0 08/06/16 22:33 187/100 08/06/16 22:33 187/100 08/06/16 20:29 81 187/100 08/06/16 20:26 187/100 08/06/16 20:00 97.4 87 18 97 Nasal Cannula 08/06/16 15:52 98.8 81 15 157/87 99 Room Air Intake and Output 08/06/16 08/07/16 19:00 07:00 Intake Total 1200 ml Balance 1200 ml Intake Oral 1200 ml # Voids 2 # Bowel Movements 3 Laboratory Tests 08/07/16 12:08: White Blood Count 11.0H, Red Blood Count 3.35L, Hemoglobin 9.2L, Hematocrit 28.9L, Mean Corpuscular Volume 86, Mean Corpuscular Hemoglobin 27.6, Mean Corpuscular Hemoglobin Concent 32.0, Red Cell Distribution Width 16.9H, Platelet Count 362, Mean Platelet Volume 5.1L, Neutrophils (%) (Auto) 70.0, Lymphocytes (%) (Auto) 16.1L, Monocytes (%) (Auto) 7.4, Eosinophils (%) (Auto) 5.7H, Basophils (%) (Auto) 0.9, Sodium Level 133L, Potassium Level 5.6H, Chloride Level 89L, Carbon Dioxide Level 31H, Anion Gap 13, Blood Urea Nitrogen 46H, Creatinine 7.1H, Estimat Glomerular Filtration Rate 6.0, Glucose Level 98, Calcium Level 8.2L, Phosphorus Level 4.8, Total Bilirubin 0.2, Aspartate Amino Transf (AST/SGOT) 13, Alanine Aminotransferase (ALT/SGPT) 5, Alkaline Phosphatase 75, Total Protein 5.9L, Albumin 2.5L, Globulin 3.4, Albumin/ Globulin Ratio 0.7L Height (Feet): 5 Height (Inches): 4.00 Weight (Pounds): 160 General Appearance: no apparent distress Objective no change ERICK MOSES Aug 07, 2016 14:23
[2016-08-07] MEDS: Miralax 17gm pkt ORAL SCH (20:41)
[2016-08-07] MEDS: Dyna-Hex 2% Top Sol 8oz TOPIC SCH (20:45)
[2016-08-07] MEDS: Epogen (for ESRD on dialysis) SUBQ SCH (20:54)
[2016-08-08] VITALS: BP 165/92
[2016-08-08] MEDS: Morphine Sulfate 4mg/ml Inj IVP PRN ×5 (01:10→18:05)
[2016-08-08 04:00] VITALS: BP 169/92
[2016-08-08] MEDS: cloNIDine 0.2mg Tab ORAL SCH ×3 (05:44→21:50)
[2016-08-08] MEDS: HydrALAZINE 50mg tab ORAL SCH ×3 (05:45→21:51)
[2016-08-08 06:35] LABS: BASOPHILS % (AUTO) 1.6 % (0.0-2.0); EOSINOPHILS % (AUTO) 5.3 % (0.0-3.0); LYMPHOCYTES % (AUTO) 14.7 % (20.0-45.0); MEAN CORPUSCULAR HEMOGLOBIN 27.4 PG (27.0-31.0); MEAN CORPUSCULAR HGB CONC 31.6 G/DL (32.0-36.0); MEAN CORPUSCULAR VOLUME 87 FL (80-99); MEAN PLATELET VOLUME 5.2 FL (6.5-10.1); MONOCYTES % (AUTO) 9.6 % (1.0-10.0); NEUTROPHILS % (AUTO) 68.8 % (45.0-75.0); PLATELET COUNT 332 K/UL (150-450); RED BLOOD COUNT 3.19 M/UL (4.20-5.40); RED CELL DISTRIBUTION WIDTH 16.9 % (11.6-14.8); WHITE BLOOD COUNT 10.6 K/UL (4.8-10.8)
[2016-08-08 06:43] LABS: CREATININE 5.4 mg/dL (0.5-0.9); GLOMERULAR FILTRATION RATE 8.3 mL/min (>60); POTASSIUM 4.5 mEQ/L (3.4-4.9)
[2016-08-08 08:00] VITALS: BP 163/82
[2016-08-08] MEDS: Minoxidil 2.5mg tab ORAL PRN ×2 (09:51→18:05)
[2016-08-08] MEDS: Renvela 2400 mg pkt ORAL SCH ×3 (09:51→18:05)
[2016-08-08] MEDS: Calcitriol 0.5mcg Cap ORAL SCH (09:51)
[2016-08-08] MEDS: Docusate 100mg cap ORAL SCH ×3 (09:52→18:05)
[2016-08-08] MEDS: Lisinopril 20mg tab ORAL SCH ×2 (09:52→20:42)
[2016-08-08] MEDS: Lactulose 20gm/30ml UDC ORAL SCH ×3 (09:57→18:04)
[2016-08-08] MEDS: Nystatin Powder 100,000 units/gm 15gm TOPIC SCH ×3 (09:57→18:08)
[2016-08-08] MEDS: Fleet's Mineral Oil Enema RECTAL SCH (10:00)
[2016-08-08] MEDS: Heparin 5000 units/ml inj SUBQ SCH ×2 (10:02→20:43)
--- NOTE | 2016-08-08 11:24 | General Progress Note ---
Assessment/Plan Status: stable Assessment/Plan Status; ESRD , presented Right chest Permacath- ( and left arm fistula with bruit) No Dialysis for sometimes Volume Overload Encephalopathy Anemia right UE venous out let obstruction Plan: HD 08/07 next 08/10 Transfused 07/30 BP control- adjust meds- Phos binders , Vit D and Kayexelate prn SS eval for disposition per orders discussed with auto refinisher ??? Subjective ROS Limited/Unobtainable: No Allergies: Coded Allergies: No Known Allergies (Unverified , 07/20/16) Objective Last 24 Hour Vital Signs Date Time Temp Pulse Resp B/P Pulse Ox O2 Delivery O2 Flow Rate FiO2 08/08/16 09:52 163/82 08/08/16 09:51 163/82 08/08/16 09:51 92 163/82 08/08/16 08:00 97.3 92 20 163/82 87 Room Air 08/08/16 05:45 183/86 08/08/16 05:44 183/86 08/08/16 04:00 98.6 92 20 169/92 97 Nasal Cannula 3.0 08/08/16 00:00 98.2 93 22 165/92 98 Nasal Cannula 4.0 08/07/16 21:47 177/99 08/07/16 21:46 177/99 08/07/16 20:43 97 177/99 08/07/16 20:42 177/97 08/07/16 20:00 97.7 97 20 177/99 97 Nasal Cannula 08/07/16 18:42 194/115 08/07/16 18:41 194/115 08/07/16 16:02 Room Air 4.0 28 08/07/16 15:38 97.7 88 16 169/97 93 08/07/16 11:45 Room Air 4.0 28 08/07/16 11:43 97.9 87 18 170/90 92 Room Air Intake and Output 08/07/16 08/08/16 19:00 07:00 Intake Total 900 ml Output Total 3000 ml Balance -2100 ml Intake Oral 900 ml Hemodialysis UF 3000 ml # Voids 1 Laboratory Tests 08/07/16 12:08: White Blood Count 11.0H, Red Blood Count 3.35L, Hemoglobin 9.2L, Hematocrit 28.9L, Mean Corpuscular Volume 86, Mean Corpuscular Hemoglobin 27.6, Mean Corpuscular Hemoglobin Concent 32.0, Red Cell Distribution Width 16.9H, Platelet Count 362, Mean Platelet Volume 5.1L, Neutrophils (%) (Auto) 70.0, Lymphocytes (%) (Auto) 16.1L, Monocytes (%) (Auto) 7.4, Eosinophils (%) (Auto) 5.7H, Basophils (%) (Auto) 0.9, Sodium Level 133L, Potassium Level 5.6H, Chloride Level 89L, Carbon Dioxide Level 31H, Anion Gap 13, Blood Urea Nitrogen 46H, Creatinine 7.1H, Estimat Glomerular Filtration Rate 6.0, Glucose Level 98, Calcium Level 8.2L, Phosphorus Level 4.8, Total Bilirubin 0.2, Aspartate Amino Transf (AST/SGOT) 13, Alanine Aminotransferase (ALT/SGPT) 5, Alkaline Phosphatase 75, Total Protein 5.9L, Albumin 2.5L, Globulin 3.4, Albumin/ Globulin Ratio 0.7L 08/08/16 05:15: White Blood Count 10.6, Red Blood Count 3.19L, Hemoglobin 8.8L, Hematocrit 27.7L , Mean Corpuscular Volume 87, Mean Corpuscular Hemoglobin 27.4, Mean Corpuscular Hemoglobin Concent 31.6L, Red Cell Distribution Width 16.9H, Platelet Count 332, Mean Platelet Volume 5.2L, Neutrophils (%) (Auto) 68.8, Lymphocytes (%) (Auto) 14.7L, Monocytes (%) (Auto) 9.6, Eosinophils (%) (Auto) 5.3H, Basophils (%) (Auto) 1.6, Sodium Level 135, Potassium Level 4.5, Chloride Level 91L, Carbon Dioxide Level 33H, Anion Gap 11, Blood Urea Nitrogen 32H, Creatinine 5.4H, Estimat Glomerular Filtration Rate 8.3, Glucose Level 86, Calcium Level 8.0L Height (Feet): 5 Height (Inches): 4.00 Weight (Pounds): 160 General Appearance: no apparent distress Objective no change ERICK MOSES Aug 08, 2016 11:24
[2016-08-08 12:00] VITALS: BP 152/86
--- NOTE | 2016-08-08 12:31 | Infectious Diseases Prog Note ---
Assessment/Plan Assessment/Plan ASSESSMENT: 51-year-old female with: Low grade fever , SP Leukocytosis , SP Hepatitis BS antibody positive. Hepatitis C antibody, PCR positive / chronic HCV - LFTs WNL status post knee joint tap : No evidence of arthritis ESRD on HD SP Left arm arteriovenous shunt revision and dialysis catheter replacement SP right, placement of left tunneled hemodialysis catheter 07/28 Homeless MRSA, VRE colonized NKDA Full Code PLAN: pt is off of antibiotics , she is stable , ok to DC from ID standpoint Monitor CBC. Monitor BMP. HD as per nephro DC planning Subjective Constitutional: Denies: anorexia, chills, drenching sweats, fatigue, fever, no symptoms, other Allergies: Coded Allergies: No Known Allergies (Unverified , 07/20/16) Objective Vital Signs Last 24 Hour Vital Signs Date Time Temp Pulse Resp B/P Pulse Ox O2 Delivery O2 Flow Rate FiO2 08/08/16 12:00 98.6 89 20 152/86 96 Nasal Cannula 3.0 08/08/16 10:31 97.3 08/08/16 09:52 163/82 08/08/16 09:51 163/82 08/08/16 09:51 92 163/82 08/08/16 08:00 97.3 92 20 163/82 87 Room Air 08/08/16 05:45 183/86 08/08/16 05:44 183/86 08/08/16 04:00 98.6 92 20 169/92 97 Nasal Cannula 3.0 08/08/16 00:00 98.2 93 22 165/92 98 Nasal Cannula 4.0 08/07/16 21:47 177/99 08/07/16 21:46 177/99 08/07/16 20:43 97 177/99 08/07/16 20:42 177/97 08/07/16 20:00 97.7 97 20 177/99 97 Nasal Cannula 08/07/16 18:42 194/115 08/07/16 18:41 194/115 08/07/16 16:02 Room Air 4.0 28 08/07/16 15:38 97.7 88 16 169/97 93 Height (Feet): 5 Height (Inches): 4.00 Weight (Pounds): 160 HEENT: anicteric Respiratory/Chest: no respiratory distress Cardiovascular: regularly irregular Abdomen: no organomegaly Laboratory Tests Test 08/08/16 05:15 White Blood Count 10.6 K/UL (4.8-10.8) Red Blood Count 3.19 M/UL (4.20-5.40) L Hemoglobin 8.8 G/DL (12.0-16.0) L Hematocrit 27.7 % (37.0-47.0) L Mean Corpuscular Volume 87 FL (80-99) Mean Corpuscular Hemoglobin 27.4 PG (27.0-31.0) Mean Corpuscular Hemoglobin Concent 31.6 G/DL (32.0-36.0) L Red Cell Distribution Width 16.9 % (11.6-14.8) H Platelet Count 332 K/UL (150-450) Mean Platelet Volume 5.2 FL (6.5-10.1) L Neutrophils (%) (Auto) 68.8 % (45.0-75.0) Lymphocytes (%) (Auto) 14.7 % (20.0-45.0) L Monocytes (%) (Auto) 9.6 % (1.0-10.0) Eosinophils (%) (Auto) 5.3 % (0.0-3.0) H Basophils (%) (Auto) 1.6 % (0.0-2.0) Sodium Level 135 mEQ/L (135-145) Potassium Level 4.5 mEQ/L (3.4-4.9) Chloride Level 91 mEQ/L (98-107) L Carbon Dioxide Level 33 mEQ/L (20-30) H Anion Gap 11 (5-15) Blood Urea Nitrogen 32 mg/dL (7-23) H Creatinine 5.4 mg/dL (0.5-0.9) H Estimat Glomerular Filtration Rate 8.3 mL/min (>60) Glucose Level 86 mg/dL (74-106) Calcium Level 8.0 mg/dL (8.6-10.2) L Current Medications Medications (Trade) Dose Ordered Sig/Papo Route PRN Reason Start Time Stop Time Status Last Admin Dose Admin Acetaminophen (Tylenol) 650 mg Q4H PRN ORAL Fever 07/21/16 15:00 08/20/16 14:59 07/30/16 21:49 Acetaminophen/ Hydrocodone Bitart ([place] [address]) 1 ea Q8HR PRN ORAL For Pain 08/06/16 16:15 08/13/16 16:14 Artificial Tears (Akwa-Tears) 2 drop Q6H PRN BOTH EYES Dry Eyes 07/25/16 22:30 08/24/16 22:29 08/05/16 08:30 Calcitriol (Rocaltrol) 0.5 mcg DAILY ORAL 07/22/16 09:00 08/21/16 08:59 08/08/16 09:51 Chlorhexidine Gluconate (Celeste-Hex 2%) 1 applic Q24H TOPIC 07/31/16 21:00 08/30/16 20:59 08/07/16 20:45 Clonidine HCl (Catapres) 0.2 mg Q8H ORAL 07/28/16 14:00 08/27/16 13:59 08/08/16 05:44 Dextrose (Dextrose 50%) STAT PRN IV Hypoglycemia 07/21/16 15:00 08/20/16 14:59 Docusate Sodium (Colace) 100 mg THREE TIMES A DAY ORAL 07/22/16 09:00 08/21/16 08:59 08/08/16 09:52 Epoetin Sid (Procrit (for ESRD on dialysis)) 10,000 units WED-WED-WED SUBQ 07/22/16 21:00 08/21/16 20:59 08/07/16 20:54 Ergocalciferol (Drisdol) 50,000 intlu QWEEK ORAL 07/28/16 09:00 08/27/16 08:59 08/04/16 08:06 Heparin Sodium (Porcine) (Heparin 5000 units/ml) 5,000 units EVERY 12 HOURS SUBQ 07/21/16 21:00 08/20/16 20:59 08/08/16 10:02 Hydralazine HCl (Apresoline) 25 mg Q8HR ORAL 08/03/16 14:00 09/02/16 13:59 08/08/16 05:45 Lactulose (Cephulac) 30 gm THREE TIMES A DAY ORAL 08/02/16 13:30 09/01/16 13:29 08/08/16 09:57 Lisinopril (Prinivil) 20 mg Q12HR ORAL 07/22/16 22:00 08/21/16 21:59 08/08/16 09:52 Mineral Oil (Fleet's Mineral Oil Enema) 133 ml EVERY OTHER DAY RECTAL 08/04/16 09:00 09/03/16 08:59 08/08/16 10:00 Minoxidil (Loniten) 2.5 mg Q4H PRN ORAL SBP>160 07/23/16 13:45 08/22/16 13:44 08/08/16 09:51 Morphine Sulfate (Morphine Sulfate) 4 mg Q4H PRN IVP For Pain 08/06/16 23:00 08/13/16 22:59 08/08/16 10:01 Nifedipine (Procardia XL) 60 mg Q12HR ORAL 07/23/16 09:00 08/22/16 08:59 08/08/16 09:51 Nystatin (Nystop Powder) 1 applic THREE TIMES A DAY TOPIC 08/02/16 13:00 09/01/16 12:59 08/08/16 09:57 Ondansetron HCl (Zofran) 4 mg Q6H PRN IVP Nausea & Vomiting 07/21/16 15:00 08/20/16 14:59 08/02/16 23:10 Polyethylene Glycol (Miralax) 17 gm BEDTIME ORAL 08/02/16 21:00 09/01/16 20:59 08/07/16 20:41 Polyethylene Glycol (Miralax) 17 gm DAILYPRN PRN ORAL Constipation 07/21/16 15:00 08/20/16 14:59 08/01/16 17:58 Sennosides (Senokot) 8.6 mg DAILY ORAL 08/03/16 09:00 09/02/16 08:59 08/08/16 09:51 Sevelamer Carbonate (Renvela) 2,400 mg THREE TIMES A DAY ORAL 07/26/16 09:00 08/25/16 08:59 08/08/16 09:51 JORGE LUIS FREEMAN M.D. Aug 08, 2016 12:31
--- NOTE | 2016-08-08 12:35 | Pulmonology Progress Note ---
Assessment/Plan Assessment/Plan ASSESSMENT ESRD on HD fluid overload anemia of chronic renal disease s/p blood transfusion, hyperkalemia acute toxic metabolic encephalopathy due to missed HD R UE venous outlet obstruction s/p 07/30 left subclavian PermCath, removal of R femoral Jose Carlos s/p 08/03 left PermCath, left CL placement severe pulmonary HTN HTN moderate MR opiate dependency homelessness s/p bilateral arthrocentesis PLAN OF CARE MS floor HD as per nephro HD via Permacath for 6 weeks until LUE AV fistula matures as per vascular surgery recommendation monitor renal parameters, lytes s/p Kayexalate, K stable O2 HHN prn CXR with some interstitial congestion ECHO with EF 60% and RVSP of 71 c/w severe pulmonary HTN , moderate MR acute encephalopathy likely was due to ESRD and missed HD as well as elevated ammonia ammonia level down to normal BP management with multiple antiHTN regimen and optimize further as needed anemia w/up with low iron, s/p IV iron , continue EPO, monitor HH, transfuse prn , at baseline urine cx negative, synovial fluid negative ( from arthrocentesis) phospho binders vit D DVT prophylaxis bowel regimen awaiting for placement case discussed and evaluated by supervising physician Subjective Allergies: Coded Allergies: No Known Allergies (Unverified , 07/20/16) Subjective afebrile , no leukocytosis on RA , pulse ox stable mental status back to baseline denies chest pain, SOB HD done 08/07 Objective Last 24 Hour Vital Signs Date Time Temp Pulse Resp B/P Pulse Ox O2 Delivery O2 Flow Rate FiO2 08/08/16 12:00 98.6 89 20 152/86 96 Nasal Cannula 3.0 08/08/16 10:31 97.3 08/08/16 09:52 163/82 08/08/16 09:51 163/82 08/08/16 09:51 92 163/82 08/08/16 08:00 97.3 92 20 163/82 87 Room Air 08/08/16 05:45 183/86 08/08/16 05:44 183/86 08/08/16 04:00 98.6 92 20 169/92 97 Nasal Cannula 3.0 08/08/16 00:00 98.2 93 22 165/92 98 Nasal Cannula 4.0 08/07/16 21:47 177/99 08/07/16 21:46 177/99 08/07/16 20:43 97 177/99 08/07/16 20:42 177/97 08/07/16 20:00 97.7 97 20 177/99 97 Nasal Cannula 08/07/16 18:42 194/115 08/07/16 18:41 194/115 08/07/16 16:02 Room Air 4.0 28 08/07/16 15:38 97.7 88 16 169/97 93 Intake and Output 08/07/16 08/08/16 19:00 07:00 Intake Total 900 ml Output Total 3000 ml Balance -2100 ml Intake Oral 900 ml Hemodialysis UF 3000 ml # Voids 1 Objective General Appearance: no acute distress, awake, alert, responsive HEENT: anicteric, mucous membranes moist Respiratory/Chest: lungs clear - moderate air entry , no respiratory distress, no accessory muscle use, R chest PermCath and left arm fistula with bruit Abdomen: normal bowel sounds, soft, non tender Extremities: knee edema +1, trace edema BLE Neurologic/Psychiatric: abnormal gait, alert Laboratory Tests 08/08/16 05:15: White Blood Count 10.6, Red Blood Count 3.19L, Hemoglobin 8.8L, Hematocrit 27.7L , Mean Corpuscular Volume 87, Mean Corpuscular Hemoglobin 27.4, Mean Corpuscular Hemoglobin Concent 31.6L, Red Cell Distribution Width 16.9H, Platelet Count 332, Mean Platelet Volume 5.2L, Neutrophils (%) (Auto) 68.8, Lymphocytes (%) (Auto) 14.7L, Monocytes (%) (Auto) 9.6, Eosinophils (%) (Auto) 5.3H, Basophils (%) (Auto) 1.6, Sodium Level 135, Potassium Level 4.5, Chloride Level 91L, Carbon Dioxide Level 33H, Anion Gap 11, Blood Urea Nitrogen 32H, Creatinine 5.4H, Estimat Glomerular Filtration Rate 8.3, Glucose Level 86, Calcium Level 8.0L Current Medications Medications (Trade) Dose Ordered Sig/Papo Route PRN Reason Start Time Stop Time Status Last Admin Dose Admin Acetaminophen (Tylenol) 650 mg Q4H PRN ORAL Fever 07/21/16 15:00 08/20/16 14:59 07/30/16 21:49 Acetaminophen/ Hydrocodone Bitart ([place] 10/325) 1 ea Q8HR PRN ORAL For Pain 08/06/16 16:15 08/13/16 16:14 Artificial Tears (Akwa-Tears) 2 drop Q6H PRN BOTH EYES Dry Eyes 07/25/16 22:30 08/24/16 22:29 08/05/16 08:30 Calcitriol (Rocaltrol) 0.5 mcg DAILY ORAL 07/22/16 09:00 08/21/16 08:59 08/08/16 09:51 Chlorhexidine Gluconate (Celeste-Hex 2%) 1 applic Q24H TOPIC 07/31/16 21:00 08/30/16 20:59 08/07/16 20:45 Clonidine HCl (Catapres) 0.2 mg Q8H ORAL 07/28/16 14:00 08/27/16 13:59 08/08/16 05:44 Dextrose (Dextrose 50%) STAT PRN IV Hypoglycemia 07/21/16 15:00 08/20/16 14:59 Docusate Sodium (Colace) 100 mg THREE TIMES A DAY ORAL 07/22/16 09:00 08/21/16 08:59 08/08/16 09:52 Epoetin Sid (Procrit (for ESRD on dialysis)) 10,000 units WED-WED-WED SUBQ 07/22/16 21:00 08/21/16 20:59 08/07/16 20:54 Ergocalciferol (Drisdol) 50,000 intlu QWEEK ORAL 07/28/16 09:00 08/27/16 08:59 08/04/16 08:06 Heparin Sodium (Porcine) (Heparin 5000 units/ml) 5,000 units EVERY 12 HOURS SUBQ 07/21/16 21:00 08/20/16 20:59 08/08/16 10:02 Hydralazine HCl (Apresoline) 25 mg Q8HR ORAL 08/03/16 14:00 09/02/16 13:59 08/08/16 05:45 Lactulose (Cephulac) 30 gm THREE TIMES A DAY ORAL 08/02/16 13:30 09/01/16 13:29 08/08/16 09:57 Lisinopril (Prinivil) 20 mg Q12HR ORAL 07/22/16 22:00 08/21/16 21:59 08/08/16 09:52 Mineral Oil (Fleet's Mineral Oil Enema) 133 ml EVERY OTHER DAY RECTAL 08/04/16 09:00 09/03/16 08:59 08/08/16 10:00 Minoxidil (Loniten) 2.5 mg Q4H PRN ORAL SBP>160 07/23/16 13:45 08/22/16 13:44 08/08/16 09:51 Morphine Sulfate (Morphine Sulfate) 4 mg Q4H PRN IVP For Pain 08/06/16 23:00 08/13/16 22:59 08/08/16 10:01 Nifedipine (Procardia XL) 60 mg Q12HR ORAL 07/23/16 09:00 08/22/16 08:59 08/08/16 09:51 Nystatin (Nystop Powder) 1 applic THREE TIMES A DAY TOPIC 08/02/16 13:00 09/01/16 12:59 08/08/16 09:57 Ondansetron HCl (Zofran) 4 mg Q6H PRN IVP Nausea & Vomiting 07/21/16 15:00 08/20/16 14:59 08/02/16 23:10 Polyethylene Glycol (Miralax) 17 gm BEDTIME ORAL 08/02/16 21:00 09/01/16 20:59 08/07/16 20:41 Polyethylene Glycol (Miralax) 17 gm DAILYPRN PRN ORAL Constipation 07/21/16 15:00 08/20/16 14:59 08/01/16 17:58 Sennosides (Senokot) 8.6 mg DAILY ORAL 08/03/16 09:00 09/02/16 08:59 08/08/16 09:51 Sevelamer Carbonate (Renvela) 2,400 mg THREE TIMES A DAY ORAL 07/26/16 09:00 08/25/16 08:59 08/08/16 09:51 Whitney Cornejo NP ([facility]) Aug 08, 2016 12:35
[2016-08-08 16:00] VITALS: BP 178/99
[2016-08-08] MEDS: Simethicone 80mg tab ORAL PRN (16:33)
[2016-08-08 20:00] VITALS: BP 153/79
[2016-08-08] MEDS: Miralax 17gm pkt ORAL SCH (20:40)
[2016-08-08] MEDS: Dyna-Hex 2% Top Sol 8oz TOPIC SCH (20:42)
[2016-08-08] MEDS: Norco 10mg/325mg tab ORAL PRN (20:53)
[2016-08-08] MEDS: Artificial Tears 1.4% Op Soln BOTH EYES PRN (22:00)
[2016-08-09] VITALS: BP 125/87
[2016-08-09] MEDS: Morphine Sulfate 4mg/ml Inj IVP PRN ×5 (02:03→23:05)
[2016-08-09 04:00] VITALS: BP 168/88
[2016-08-09] MEDS: HydrALAZINE 50mg tab ORAL SCH ×3 (05:56→21:15)
[2016-08-09] MEDS: cloNIDine 0.2mg Tab ORAL SCH ×3 (05:57→21:17)
[2016-08-09 07:57] VITALS: BP 139/72
[2016-08-09] MEDS: Nystatin Powder 100,000 units/gm 15gm TOPIC SCH ×3 (09:32→18:52)
[2016-08-09] MEDS: Simethicone 80mg tab ORAL PRN ×2 (09:34→18:48)
[2016-08-09] MEDS: Lisinopril 20mg tab ORAL SCH ×2 (09:57→21:16)
[2016-08-09] MEDS: Calcitriol 0.5mcg Cap ORAL SCH (09:57)
[2016-08-09] MEDS: Lactulose 20gm/30ml UDC ORAL SCH ×3 (09:58→18:00)
[2016-08-09] MEDS: Docusate 100mg cap ORAL SCH ×3 (09:58→18:00)
[2016-08-09] MEDS: Renvela 2400 mg pkt ORAL SCH ×3 (09:58→18:48)
[2016-08-09] MEDS: Heparin 5000 units/ml inj SUBQ SCH ×2 (10:00→21:18)
--- NOTE | 2016-08-09 10:08 | Pulmonology Progress Note ---
Assessment/Plan Assessment/Plan ASSESSMENT ESRD on HD fluid overload anemia of chronic renal disease s/p blood transfusion, hyperkalemia acute toxic metabolic encephalopathy due to missed HD R UE venous outlet obstruction s/p 07/30 left subclavian PermCath, removal of R femoral Jose Carlos s/p 08/03 left PermCath, left CL placement severe pulmonary HTN HTN moderate MR opiate dependency homelessness s/p bilateral arthrocentesis PLAN OF CARE MS floor HD as per nephro HD via Permacath for 6 weeks until LUE AV fistula matures as per vascular surgery recommendation monitor renal parameters, lytes s/p Kayexalate, K stable O2 HHN prn CXR with some interstitial congestion ECHO with EF 60% and RVSP of 71 c/w severe pulmonary HTN , moderate MR acute encephalopathy likely was due to ESRD and missed HD as well as elevated ammonia ammonia level down to normal BP management with multiple antiHTN regimen and optimize further as needed anemia w/up with low iron, s/p IV iron , continue EPO, monitor HH, transfuse prn , at baseline urine cx negative, synovial fluid negative ( from arthrocentesis) phospho binders vit D DVT prophylaxis bowel regimen awaiting for placement , challenging case discussed and evaluated by supervising physician Subjective Allergies: Coded Allergies: No Known Allergies (Unverified , 07/20/16) Subjective afebrile , on RA, pulse ox stable mental status on baseline denies chest pain, SOB awaiting for placement Objective Last 24 Hour Vital Signs Date Time Temp Pulse Resp B/P Pulse Ox O2 Delivery O2 Flow Rate FiO2 08/09/16 09:57 84 139/72 08/09/16 09:57 139/72 08/09/16 07:57 98.1 84 20 139/72 95 Nasal Cannula 2.0 08/09/16 05:57 168/88 08/09/16 05:56 168/88 08/09/16 04:00 98.1 88 20 168/88 95 Nasal Cannula 3.0 08/09/16 00:00 98.1 92 22 125/87 97 Nasal Cannula 3.0 08/08/16 21:51 149/90 08/08/16 21:50 149/90 08/08/16 20:42 92 153/79 08/08/16 20:42 153/79 08/08/16 20:00 99.3 92 20 153/79 97 Nasal Cannula 3.0 08/08/16 18:35 98.8 08/08/16 18:05 178/99 08/08/16 16:00 98.8 91 20 178/99 97 Nasal Cannula 3.0 08/08/16 13:57 152/86 08/08/16 13:56 152/86 08/08/16 12:00 98.6 89 20 152/86 96 Nasal Cannula 3.0 Intake and Output 08/08/16 08/09/16 19:00 07:00 Intake Total 320 ml Balance 320 ml Intake Oral 320 ml # Voids 2 # Bowel Movements 2 1 Objective General Appearance: no acute distress, awake, alert, responsive HEENT: anicteric, mucous membranes moist Respiratory/Chest: lungs clear - moderate air entry , no respiratory distress, no accessory muscle use, R chest PermCath and left arm fistula with bruit Abdomen: normal bowel sounds, soft, non tender Extremities: knee edema +1, trace edema BLE Neurologic/Psychiatric: abnormal gait, alert Current Medications Medications (Trade) Dose Ordered Sig/Papo Route PRN Reason Start Time Stop Time Status Last Admin Dose Admin Acetaminophen (Tylenol) 650 mg Q4H PRN ORAL Fever 07/21/16 15:00 08/20/16 14:59 07/30/16 21:49 Acetaminophen/ Hydrocodone Bitart ([place] 10/325) 1 ea Q8HR PRN ORAL For Pain 08/06/16 16:15 08/13/16 16:14 08/08/16 20:53 Artificial Tears (Akwa-Tears) 2 drop Q6H PRN BOTH EYES Dry Eyes 07/25/16 22:30 08/24/16 22:29 08/08/16 22:00 Calcitriol (Rocaltrol) 0.5 mcg DAILY ORAL 07/22/16 09:00 08/21/16 08:59 08/09/16 09:57 Chlorhexidine Gluconate (Celeste-Hex 2%) 1 applic Q24H TOPIC 07/31/16 21:00 08/30/16 20:59 08/08/16 20:42 Clonidine HCl (Catapres) 0.2 mg Q8H ORAL 07/28/16 14:00 08/27/16 13:59 08/09/16 05:57 Dextrose (Dextrose 50%) STAT PRN IV Hypoglycemia 07/21/16 15:00 08/20/16 14:59 Docusate Sodium (Colace) 100 mg THREE TIMES A DAY ORAL 07/22/16 09:00 08/21/16 08:59 08/09/16 09:58 Epoetin Isd (Procrit (for ESRD on dialysis)) 10,000 units WED-WED-WED SUBQ 07/22/16 21:00 08/21/16 20:59 08/07/16 20:54 Ergocalciferol (Drisdol) 50,000 intlu QWEEK ORAL 07/28/16 09:00 08/27/16 08:59 08/04/16 08:06 Heparin Sodium (Porcine) (Heparin 5000 units/ml) 5,000 units EVERY 12 HOURS SUBQ 07/21/16 21:00 08/20/16 20:59 08/09/16 10:00 Hydralazine HCl (Apresoline) 25 mg Q8HR ORAL 08/03/16 14:00 09/02/16 13:59 08/09/16 05:56 Lactulose (Cephulac) 30 gm THREE TIMES A DAY ORAL 08/02/16 13:30 09/01/16 13:29 08/09/16 09:58 Lisinopril (Prinivil) 20 mg Q12HR ORAL 07/22/16 22:00 08/21/16 21:59 08/09/16 09:57 Mineral Oil (Fleet's Mineral Oil Enema) 133 ml EVERY OTHER DAY RECTAL 08/04/16 09:00 09/03/16 08:59 08/08/16 10:00 Minoxidil (Loniten) 2.5 mg Q4H PRN ORAL SBP>160 07/23/16 13:45 08/22/16 13:44 08/08/16 18:05 Morphine Sulfate (Morphine Sulfate) 4 mg Q4H PRN IVP For Pain 08/06/16 23:00 08/13/16 22:59 08/09/16 09:32 Nifedipine (Procardia XL) 60 mg Q12HR ORAL 07/23/16 09:00 08/22/16 08:59 08/09/16 09:57 Nystatin (Nystop Powder) 1 applic THREE TIMES A DAY TOPIC 08/02/16 13:00 09/01/16 12:59 08/09/16 09:32 Ondansetron HCl (Zofran) 4 mg Q6H PRN IVP Nausea & Vomiting 07/21/16 15:00 08/20/16 14:59 08/02/16 23:10 Polyethylene Glycol (Miralax) 17 gm BEDTIME ORAL 08/02/16 21:00 09/01/16 20:59 08/08/16 20:40 Polyethylene Glycol (Miralax) 17 gm DAILYPRN PRN ORAL Constipation 07/21/16 15:00 08/20/16 14:59 08/01/16 17:58 Sennosides (Senokot) 8.6 mg DAILY ORAL 08/03/16 09:00 09/02/16 08:59 08/09/16 09:57 Sevelamer Carbonate (Renvela) 2,400 mg THREE TIMES A DAY ORAL 07/26/16 09:00 08/25/16 08:59 08/09/16 09:58 Simethicone (Mylicon) 80 mg TIDPRN PRN ORAL Abdominal cramps 08/08/16 16:00 09/07/16 15:59 08/09/16 09:34 Whintey Cornejo NP ([facility]) Aug 09, 2016 10:08
--- NOTE | 2016-08-09 10:46 | General Progress Note ---
Assessment/Plan Status: stable Assessment/Plan Status; ESRD , presented Right chest Permacath- ( and left arm fistula with bruit) No Dialysis for sometimes Volume Overload Encephalopathy Anemia right UE venous out let obstruction Plan: HD 08/07 next 08/10 Transfused 07/30 BP control- adjust meds- Phos binders , Vit D and Kayexelate prn SS eval for disposition per orders discussed with advertising vice president ??? Subjective ROS Limited/Unobtainable: No Constitutional: Reports: malaise Allergies: Coded Allergies: No Known Allergies (Unverified , 07/20/16) Objective Last 24 Hour Vital Signs Date Time Temp Pulse Resp B/P Pulse Ox O2 Delivery O2 Flow Rate FiO2 08/09/16 10:02 98.1 08/09/16 09:57 84 139/72 08/09/16 09:57 139/72 08/09/16 07:57 98.1 84 20 139/72 95 Nasal Cannula 2.0 08/09/16 05:57 168/88 08/09/16 05:56 168/88 08/09/16 04:00 98.1 88 20 168/88 95 Nasal Cannula 3.0 08/09/16 00:00 98.1 92 22 125/87 97 Nasal Cannula 3.0 08/08/16 21:51 149/90 08/08/16 21:50 149/90 08/08/16 20:42 92 153/79 08/08/16 20:42 153/79 08/08/16 20:00 99.3 92 20 153/79 97 Nasal Cannula 3.0 08/08/16 18:05 178/99 08/08/16 16:00 98.8 91 20 178/99 97 Nasal Cannula 3.0 08/08/16 13:57 152/86 08/08/16 13:56 152/86 08/08/16 12:00 98.6 89 20 152/86 96 Nasal Cannula 3.0 Intake and Output 08/08/16 08/09/16 19:00 07:00 Intake Total 320 ml Balance 320 ml Intake Oral 320 ml # Voids 2 # Bowel Movements 2 1 Height (Feet): 5 Height (Inches): 4.00 Weight (Pounds): 160 General Appearance: no apparent distress Objective no change ERICK MOSES Aug 09, 2016 10:46
[2016-08-09 11:41] VITALS: BP 126/52
--- NOTE | 2016-08-09 12:20 | Infectious Diseases Prog Note ---
Assessment/Plan Assessment/Plan A: Low grade fever ,resolved Leukocytosis , resolved Hepatitis BS antibody positive. Hepatitis C antibody, PCR positive / chronic HCV - LFTs WNL status post knee joint tap : No evidence of arthritis ESRD on HD SP Left arm arteriovenous shunt revision and dialysis catheter replacement SP right, placement of left tunneled hemodialysis catheter 07/28 Homeless MRSA, VRE colonized NKDA Full Code PLAN: pt is off of antibiotics , she is stable , ok to DC from ID standpoint Subjective ROS Limited/Unobtainable: Yes Allergies: Coded Allergies: No Known Allergies (Unverified , 07/20/16) Objective Vital Signs Last 24 Hour Vital Signs Date Time Temp Pulse Resp B/P Pulse Ox O2 Delivery O2 Flow Rate FiO2 08/09/16 11:41 98.6 83 20 126/52 96 Nasal Cannula 2.0 08/09/16 10:02 98.1 08/09/16 09:57 84 139/72 08/09/16 09:57 139/72 08/09/16 07:57 98.1 84 20 139/72 95 Nasal Cannula 2.0 08/09/16 05:57 168/88 08/09/16 05:56 168/88 08/09/16 04:00 98.1 88 20 168/88 95 Nasal Cannula 3.0 08/09/16 00:00 98.1 92 22 125/87 97 Nasal Cannula 3.0 08/08/16 21:51 149/90 08/08/16 21:50 149/90 08/08/16 20:42 92 153/79 08/08/16 20:42 153/79 08/08/16 20:00 99.3 92 20 153/79 97 Nasal Cannula 3.0 08/08/16 18:05 178/99 08/08/16 16:00 98.8 91 20 178/99 97 Nasal Cannula 3.0 08/08/16 13:57 152/86 08/08/16 13:56 152/86 Height (Feet): 5 Height (Inches): 4.00 Weight (Pounds): 160 General Appearance: no acute distress HEENT: mucous membranes moist Respiratory/Chest: lungs clear Cardiovascular: normal rate, other - left IJ central line Abdomen: soft, non tender Extremities: other - edema Neurologic/Psychiatric: other - sleeping Current Medications Medications (Trade) Dose Ordered Sig/Papo Route PRN Reason Start Time Stop Time Status Last Admin Dose Admin Acetaminophen (Tylenol) 650 mg Q4H PRN ORAL Fever 07/21/16 15:00 08/20/16 14:59 07/30/16 21:49 Acetaminophen/ Hydrocodone Bitart ([place] 10/325) 1 ea Q8HR PRN ORAL For Pain 08/06/16 16:15 08/13/16 16:14 08/08/16 20:53 Artificial Tears (Akwa-Tears) 2 drop Q6H PRN BOTH EYES Dry Eyes 07/25/16 22:30 08/24/16 22:29 08/08/16 22:00 Calcitriol (Rocaltrol) 0.5 mcg DAILY ORAL 07/22/16 09:00 08/21/16 08:59 08/09/16 09:57 Chlorhexidine Gluconate (Celeste-Hex 2%) 1 applic Q24H TOPIC 07/31/16 21:00 08/30/16 20:59 08/08/16 20:42 Clonidine HCl (Catapres) 0.2 mg Q8H ORAL 07/28/16 14:00 08/27/16 13:59 08/09/16 05:57 Dextrose (Dextrose 50%) STAT PRN IV Hypoglycemia 07/21/16 15:00 08/20/16 14:59 Docusate Sodium (Colace) 100 mg THREE TIMES A DAY ORAL 07/22/16 09:00 08/21/16 08:59 08/09/16 09:58 Epoetin Sid (Procrit (for ESRD on dialysis)) 10,000 units WED-WED-WED SUBQ 07/22/16 21:00 08/21/16 20:59 08/07/16 20:54 Ergocalciferol (Drisdol) 50,000 intlu QWEEK ORAL 07/28/16 09:00 08/27/16 08:59 08/04/16 08:06 Heparin Sodium (Porcine) (Heparin 5000 units/ml) 5,000 units EVERY 12 HOURS SUBQ 07/21/16 21:00 08/20/16 20:59 08/09/16 10:00 Hydralazine HCl (Apresoline) 25 mg Q8HR ORAL 08/03/16 14:00 09/02/16 13:59 08/09/16 05:56 Lactulose (Cephulac) 30 gm THREE TIMES A DAY ORAL 08/02/16 13:30 09/01/16 13:29 08/09/16 09:58 Lisinopril (Prinivil) 20 mg Q12HR ORAL 07/22/16 22:00 08/21/16 21:59 08/09/16 09:57 Mineral Oil (Fleet's Mineral Oil Enema) 133 ml EVERY OTHER DAY RECTAL 08/04/16 09:00 09/03/16 08:59 08/08/16 10:00 Minoxidil (Loniten) 2.5 mg Q4H PRN ORAL SBP>160 07/23/16 13:45 08/22/16 13:44 08/08/16 18:05 Morphine Sulfate (Morphine Sulfate) 4 mg Q4H PRN IVP For Pain 08/06/16 23:00 08/13/16 22:59 08/09/16 09:32 Nifedipine (Procardia XL) 60 mg Q12HR ORAL 07/23/16 09:00 08/22/16 08:59 08/09/16 09:57 Nystatin (Nystop Powder) 1 applic THREE TIMES A DAY TOPIC 08/02/16 13:00 09/01/16 12:59 08/09/16 09:32 Ondansetron HCl (Zofran) 4 mg Q6H PRN IVP Nausea & Vomiting 07/21/16 15:00 08/20/16 14:59 08/02/16 23:10 Polyethylene Glycol (Miralax) 17 gm BEDTIME ORAL 08/02/16 21:00 09/01/16 20:59 08/08/16 20:40 Polyethylene Glycol (Miralax) 17 gm DAILYPRN PRN ORAL Constipation 07/21/16 15:00 08/20/16 14:59 08/01/16 17:58 Sennosides (Senokot) 8.6 mg DAILY ORAL 08/03/16 09:00 09/02/16 08:59 08/09/16 09:57 Sevelamer Carbonate (Renvela) 2,400 mg THREE TIMES A DAY ORAL 07/26/16 09:00 08/25/16 08:59 08/09/16 09:58 Simethicone (Mylicon) 80 mg TIDPRN PRN ORAL Abdominal cramps 08/08/16 16:00 09/07/16 15:59 08/09/16 09:34 RIVERA DUQUE Aug 09, 2016 12:20
[2016-08-09 15:54] VITALS: BP 143/70
[2016-08-09 20:00] VITALS: BP 207/91
[2016-08-09] MEDS: Miralax 17gm pkt ORAL SCH (21:14)
[2016-08-09] MEDS: Dyna-Hex 2% Top Sol 8oz TOPIC SCH (21:14)
[2016-08-10] VITALS: BP 154/73
[2016-08-10 04:00] VITALS: BP 153/74
[2016-08-10] MEDS: Morphine Sulfate 4mg/ml Inj IVP PRN ×3 (04:06→23:35)
[2016-08-10] MEDS: HydrALAZINE 50mg tab ORAL SCH ×3 (05:53→21:21)
[2016-08-10] MEDS: cloNIDine 0.2mg Tab ORAL SCH ×3 (05:54→21:21)
[2016-08-10 07:14] LABS: BASOPHILS % (AUTO) 1.6 % (0.0-2.0); EOSINOPHILS % (AUTO) 6.6 % (0.0-3.0); MEAN CORPUSCULAR HEMOGLOBIN 28.5 PG (27.0-31.0); MEAN CORPUSCULAR HGB CONC 32.8 G/DL (32.0-36.0); MEAN CORPUSCULAR VOLUME 87 FL (80-99); MEAN PLATELET VOLUME 5.1 FL (6.5-10.1); NEUTROPHILS % (AUTO) 62.7 % (45.0-75.0); PLATELET COUNT 327 K/UL (150-450); RED BLOOD COUNT 3.04 M/UL (4.20-5.40); RED CELL DISTRIBUTION WIDTH 16.6 % (11.6-14.8); WHITE BLOOD COUNT 9.3 K/UL (4.8-10.8)
[2016-08-10 07:36] LABS: CALCIUM 8.2 mg/dL (8.6-10.2); CREATININE 7.5 mg/dL (0.5-0.9); GLOMERULAR FILTRATION RATE 5.6 mL/min (>60); POTASSIUM 5.1 mEQ/L (3.4-4.9)
[2016-08-10 08:15] VITALS: BP 139/87
[2016-08-10] MEDS: Fleet's Mineral Oil Enema RECTAL SCH (09:00)
[2016-08-10] MEDS: Lactulose 20gm/30ml UDC ORAL SCH ×3 (09:00→18:17)
[2016-08-10] MEDS: Renvela 2400 mg pkt ORAL SCH ×3 (09:00→18:14)
[2016-08-10] MEDS: Nystatin Powder 100,000 units/gm 15gm TOPIC SCH ×3 (09:00→18:18)
[2016-08-10] MEDS: Docusate 100mg cap ORAL SCH ×3 (09:00→18:18)
[2016-08-10] MEDS: Lisinopril 20mg tab ORAL SCH ×2 (09:00→20:10)
--- NOTE | 2016-08-10 11:28 | General Progress Note ---
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 Subjective ROS Limited/Unobtainable: No Constitutional: Reports: malaise Allergies: Coded Allergies: No Known Allergies (Unverified , 07/20/16) Objective Last 24 Hour Vital Signs Date Time Temp Pulse Resp B/P Pulse Ox O2 Delivery O2 Flow Rate FiO2 08/10/16 08:15 97.5 86 20 139/87 93 Room Air 08/10/16 07:40 Nasal Cannula 2.0 28 08/10/16 05:54 153/74 08/10/16 05:53 153/74 08/10/16 04:00 97.9 77 20 153/74 98 Nasal Cannula 2.0 08/10/16 00:00 98.1 78 20 154/73 98 Nasal Cannula 2.0 08/09/16 21:17 207/91 08/09/16 21:16 88 207/91 08/09/16 21:16 207/91 08/09/16 21:15 207/91 08/09/16 20:00 98.0 88 20 207/91 96 Nasal Cannula 2.0 08/09/16 19:18 97.9 08/09/16 15:54 97.9 84 20 143/70 96 Nasal Cannula 2.0 08/09/16 13:41 126/52 08/09/16 13:40 126/52 08/09/16 11:41 98.6 83 20 126/52 96 Nasal Cannula 2.0 Intake and Output 08/09/16 08/10/16 19:00 07:00 Intake Total 360 ml Output Total 0 ml 50 ml Balance 360 ml -50 ml Intake Oral 360 ml Output Urine Total 0 ml 50 ml # Voids 1 # Bowel Movements 1 3 Laboratory Tests 08/10/16 06:00: White Blood Count 9.3, Red Blood Count 3.04L, Hemoglobin 8.7L, Hematocrit 26.5L , Mean Corpuscular Volume 87, Mean Corpuscular Hemoglobin 28.5, Mean Corpuscular Hemoglobin Concent 32.8, Red Cell Distribution Width 16.6H, Platelet Count 327, Mean Platelet Volume 5.1L, Neutrophils (%) (Auto) 62.7, Lymphocytes (%) (Auto) 20.0, Monocytes (%) (Auto) 9.0, Eosinophils (%) (Auto) 6.6H, Basophils (%) (Auto) 1.6, Sodium Level 134L, Potassium Level 5.1H, Chloride Level 90L, Carbon Dioxide Level 32H, Anion Gap 12, Blood Urea Nitrogen 41H, Creatinine 7.5H, Estimat Glomerular Filtration Rate 5.6, Glucose Level 89, Calcium Level 8.2L Height (Feet): 5 Height (Inches): 4.00 Weight (Pounds): 160 General Appearance: no apparent distress Objective no change ERICK MOSES Aug 10, 2016 11:28
[2016-08-10 12:00] VITALS: BP 125/64
[2016-08-10 12:12] LABS: BILIRUBIN,DIRECT 0.1 mg/dL (0.1-0.3); TOTAL PROTEIN 5.7 g/dL (6.6-8.7)
[2016-08-10] MEDS: Calcitriol 0.5mcg Cap ORAL SCH (14:05)
[2016-08-10] MEDS: Heparin 5000 units/ml inj SUBQ SCH ×2 (14:08→20:14)
--- NOTE | 2016-08-10 14:37 | Pulmonology Progress Note ---
Assessment/Plan Problems: (1) ESRF (end stage renal failure) (2) Fluid overload (3) Opiate dependence (4) Homelessness (5) Hepatitis C Assessment/Plan dc planning in process HD by nephrology check electrolytes monitor BP s/p bilateral arthrocentesis awaiting placement all notes reviewed. Subjective ROS Limited/Unobtainable: No Constitutional: Reports: no symptoms HEENT: Repors: no symptoms Allergies: Coded Allergies: No Known Allergies (Unverified , 07/20/16) Objective Last 24 Hour Vital Signs Date Time Temp Pulse Resp B/P Pulse Ox O2 Delivery O2 Flow Rate FiO2 08/10/16 14:05 125/64 08/10/16 14:00 125/64 08/10/16 12:00 97.6 83 20 125/64 96 Room Air 08/10/16 11:50 Room Air 2.0 28 08/10/16 09:00 83 125/64 08/10/16 09:00 125/64 08/10/16 08:15 97.5 86 20 139/87 93 Room Air 08/10/16 07:40 Nasal Cannula 2.0 08/10/16 05:54 153/74 08/10/16 05:53 153/74 08/10/16 04:00 97.9 77 20 153/74 98 Nasal Cannula 2.0 08/10/16 00:00 98.1 78 20 154/73 98 Nasal Cannula 2.0 08/09/16 21:17 207/91 08/09/16 21:16 88 207/91 08/09/16 21:16 207/91 08/09/16 21:15 207/91 08/09/16 20:00 98.0 88 20 207/91 96 Nasal Cannula 2.0 08/09/16 19:18 97.9 08/09/16 15:54 97.9 84 20 143/70 96 Nasal Cannula 2.0 Intake and Output 08/09/16 08/10/16 19:00 07:00 Intake Total 360 ml Output Total 0 ml 50 ml Balance 360 ml -50 ml Intake Oral 360 ml Output Urine Total 0 ml 50 ml # Voids 1 # Bowel Movements 1 3 Objective General Appearance: WD/WN HEENT: normocephalic Respiratory/Chest: chest wall non-tender, lungs clear Cardiovascular: normal peripheral pulses, normal rate Abdomen: normal bowel sounds, soft, non tender Extremities: no cyanosis, other - effusion in both knees Skin: no rash Laboratory Tests 08/10/16 06:00: White Blood Count 9.3, Red Blood Count 3.04L, Hemoglobin 8.7L, Hematocrit 26.5L , Mean Corpuscular Volume 87, Mean Corpuscular Hemoglobin 28.5, Mean Corpuscular Hemoglobin Concent 32.8, Red Cell Distribution Width 16.6H, Platelet Count 327, Mean Platelet Volume 5.1L, Neutrophils (%) (Auto) 62.7, Lymphocytes (%) (Auto) 20.0, Monocytes (%) (Auto) 9.0, Eosinophils (%) (Auto) 6.6H, Basophils (%) (Auto) 1.6, Sodium Level 134L, Potassium Level 5.1H, Chloride Level 90L, Carbon Dioxide Level 32H, Anion Gap 12, Blood Urea Nitrogen 41H, Creatinine 7.5H, Estimat Glomerular Filtration Rate 5.6, Glucose Level 89, Calcium Level 8.2L, Phosphorus Level 5.1H, Total Bilirubin 0.2, Direct Bilirubin 0.1, Aspartate Amino Transf (AST/SGOT) 12, Alanine Aminotransferase ( ALT/SGPT) 5, Alkaline Phosphatase 133H, Total Protein 5.7L, Albumin 2.5L Current Medications Medications (Trade) Dose Ordered Sig/Papo Route PRN Reason Start Time Stop Time Status Last Admin Dose Admin Acetaminophen (Tylenol) 650 mg Q4H PRN ORAL Fever 07/21/16 15:00 08/20/16 14:59 07/30/16 21:49 Acetaminophen/ Hydrocodone Bitart ([place] 10/325) 1 ea Q8HR PRN ORAL For Pain 08/06/16 16:15 08/13/16 16:14 08/08/16 20:53 Artificial Tears (Akwa-Tears) 2 drop Q6H PRN BOTH EYES Dry Eyes 07/25/16 22:30 08/24/16 22:29 08/08/16 22:00 Calcitriol (Rocaltrol) 0.5 mcg DAILY ORAL 07/22/16 09:00 08/21/16 08:59 08/10/16 14:05 Chlorhexidine Gluconate (Celeste-Hex 2%) 1 applic Q24H TOPIC 07/31/16 21:00 08/30/16 20:59 08/09/16 21:14 Clonidine HCl (Catapres) 0.2 mg Q8H ORAL 07/28/16 14:00 08/27/16 13:59 08/10/16 05:54 Dextrose (Dextrose 50%) STAT PRN IV Hypoglycemia 07/21/16 15:00 08/20/16 14:59 Docusate Sodium (Colace) 100 mg THREE TIMES A DAY ORAL 07/22/16 09:00 08/21/16 08:59 08/10/16 14:06 Epoetin Sid (Procrit (for ESRD on dialysis)) 10,000 units WED-WED-WED SUBQ 07/22/16 21:00 08/21/16 20:59 08/07/16 20:54 Ergocalciferol (Drisdol) 50,000 intlu QWEEK ORAL 07/28/16 09:00 08/27/16 08:59 08/04/16 08:06 Heparin Sodium (Porcine) (Heparin 5000 units/ml) 5,000 units EVERY 12 HOURS SUBQ 07/21/16 21:00 08/20/16 20:59 08/10/16 14:08 Hydralazine HCl (Apresoline) 25 mg Q8HR ORAL 08/03/16 14:00 09/02/16 13:59 08/10/16 14:05 Lactulose (Cephulac) 30 gm THREE TIMES A DAY ORAL 08/02/16 13:30 09/01/16 13:29 08/10/16 14:04 Lisinopril (Prinivil) 20 mg Q12HR ORAL 07/22/16 22:00 08/21/16 21:59 08/09/16 21:16 Mineral Oil (Fleet's Mineral Oil Enema) 133 ml EVERY OTHER DAY RECTAL 08/04/16 09:00 09/03/16 08:59 08/08/16 10:00 Minoxidil (Loniten) 2.5 mg Q4H PRN ORAL SBP>160 07/23/16 13:45 08/22/16 13:44 08/08/16 18:05 Morphine Sulfate (Morphine Sulfate) 4 mg Q4H PRN IVP For Pain 08/06/16 23:00 08/13/16 22:59 08/10/16 04:06 Nifedipine (Procardia XL) 60 mg Q12HR ORAL 07/23/16 09:00 08/22/16 08:59 08/09/16 21:16 Nystatin (Nystop Powder) 1 applic THREE TIMES A DAY TOPIC 08/02/16 13:00 09/01/16 12:59 08/10/16 14:09 Ondansetron HCl (Zofran) 4 mg Q6H PRN IVP Nausea & Vomiting 07/21/16 15:00 08/20/16 14:59 08/10/16 05:53 Polyethylene Glycol (Miralax) 17 gm BEDTIME ORAL 08/02/16 21:00 09/01/16 20:59 08/09/16 21:14 Polyethylene Glycol (Miralax) 17 gm DAILYPRN PRN ORAL Constipation 07/21/16 15:00 08/20/16 14:59 08/01/16 17:58 Sennosides (Senokot) 8.6 mg DAILY ORAL 08/03/16 09:00 09/02/16 08:59 08/10/16 14:01 Sevelamer Carbonate (Renvela) 2,400 mg THREE TIMES A DAY ORAL 07/26/16 09:00 08/25/16 08:59 08/10/16 14:04 Simethicone (Mylicon) 80 mg TIDPRN PRN ORAL Abdominal cramps 08/08/16 16:00 09/07/16 15:59 08/09/16 18:48 EMMANUEL DOUGHERTY Aug 10, 2016 14:37
[2016-08-10 16:05] VITALS: BP 129/71
[2016-08-10] MEDS: Simethicone 80mg tab ORAL PRN (18:14)
[2016-08-10 20:00] VITALS: BP 184/91
[2016-08-10] MEDS: Epogen (for ESRD on dialysis) SUBQ SCH (20:11)
[2016-08-10] MEDS: Miralax 17gm pkt ORAL SCH ×2 (20:11→20:16)
[2016-08-10] MEDS: Dyna-Hex 2% Top Sol 8oz TOPIC SCH (20:16)
--- NOTE | 2016-08-10 20:28 | Infectious Diseases Prog Note ---
Assessment/Plan Assessment/Plan ASSESSMENT: 51-year-old female with: Low grade fever , SP Leukocytosis , SP Hepatitis BS antibody positive. Hepatitis C antibody, PCR positive / chronic HCV - LFTs WNL status post knee joint tap : No evidence of arthritis ESRD on HD SP Left arm arteriovenous shunt revision and dialysis catheter replacement SP right, placement of left tunneled hemodialysis catheter 07/28 Homeless MRSA, VRE colonized NKDA Full Code PLAN: pt is off of antibiotics , she is stable , ok to DC from ID standpoint Monitor CBC. Monitor BMP. HD as per nephro DC planning Subjective Constitutional: Denies: anorexia, chills, drenching sweats, fatigue, fever, no symptoms, other Allergies: Coded Allergies: No Known Allergies (Unverified , 07/20/16) Objective Vital Signs Last 24 Hour Vital Signs Date Time Temp Pulse Resp B/P Pulse Ox O2 Delivery O2 Flow Rate FiO2 08/10/16 20:11 76 184/91 08/10/16 20:10 184/91 08/10/16 18:49 98.3 08/10/16 16:05 98.3 79 20 129/71 100 Nasal Cannula 2.0 08/10/16 14:05 125/64 08/10/16 14:00 125/64 08/10/16 12:00 97.6 83 20 125/64 96 Room Air 08/10/16 11:50 Room Air 2.0 28 08/10/16 09:00 83 125/64 08/10/16 09:00 125/64 08/10/16 08:15 97.5 86 20 139/87 93 Room Air 08/10/16 07:40 Nasal Cannula 2.0 08/10/16 05:54 153/74 08/10/16 05:53 153/74 08/10/16 04:00 97.9 77 20 153/74 98 Nasal Cannula 2.0 08/10/16 00:00 98.1 78 20 154/73 98 Nasal Cannula 2.0 08/09/16 21:17 /08/09/16 21:16 88 /08/09/16 21:16 08/09/16 21:15 Height (Feet): 5 Height (Inches): 4.00 Weight (Pounds): 160 HEENT: anicteric Respiratory/Chest: normal breath sounds Cardiovascular: normal rate Abdomen: non distended Laboratory Tests Test 08/10/16 06:00 White Blood Count 9.3 K/UL (4.8-10.8) Red Blood Count 3.04 M/UL (4.20-5.40) L Hemoglobin 8.7 G/DL (12.0-16.0) L Hematocrit 26.5 % (37.0-47.0) L Mean Corpuscular Volume 87 FL (80-99) Mean Corpuscular Hemoglobin 28.5 PG (27.0-31.0) Mean Corpuscular Hemoglobin Concent 32.8 G/DL (32.0-36.0) Red Cell Distribution Width 16.6 % (11.6-14.8) H Platelet Count 327 K/UL (150-450) Mean Platelet Volume 5.1 FL (6.5-10.1) L Neutrophils (%) (Auto) 62.7 % (45.0-75.0) Lymphocytes (%) (Auto) 20.0 % (20.0-45.0) Monocytes (%) (Auto) 9.0 % (1.0-10.0) Eosinophils (%) (Auto) 6.6 % (0.0-3.0) H Basophils (%) (Auto) 1.6 % (0.0-2.0) Sodium Level 134 mEQ/L (135-145) L Potassium Level 5.1 mEQ/L (3.4-4.9) H Chloride Level 90 mEQ/L (98-107) L Carbon Dioxide Level 32 mEQ/L (20-30) H Anion Gap 12 (5-15) Blood Urea Nitrogen 41 mg/dL (7-23) H Creatinine 7.5 mg/dL (0.5-0.9) H Estimat Glomerular Filtration Rate 5.6 mL/min (>60) Glucose Level 89 mg/dL (74-106) Calcium Level 8.2 mg/dL (8.6-10.2) L Phosphorus Level 5.1 mg/dL (2.5-4.8) H Total Bilirubin 0.2 mg/dL (0.0-1.2) Direct Bilirubin 0.1 mg/dL (0.1-0.3) Aspartate Amino Transf (AST/SGOT) 12 U/L (5-40) Alanine Aminotransferase (ALT/SGPT) 5 U/L (3-33) Alkaline Phosphatase 133 U/L (35-104) H Total Protein 5.7 g/dL (6.6-8.7) L Albumin 2.5 g/dL (3.5-5.2) L Current Medications Medications (Trade) Dose Ordered Sig/Papo Route PRN Reason Start Time Stop Time Status Last Admin Dose Admin Acetaminophen (Tylenol) 650 mg Q4H PRN ORAL Fever 07/21/16 15:00 08/20/16 14:59 07/30/16 21:49 Acetaminophen/ Hydrocodone Bitart ([place] 10/325) 1 ea Q8HR PRN ORAL For Pain 08/06/16 16:15 08/13/16 16:14 08/08/16 20:53 Artificial Tears (Akwa-Tears) 2 drop Q6H PRN BOTH EYES Dry Eyes 07/25/16 22:30 08/24/16 22:29 08/08/16 22:00 Calcitriol (Rocaltrol) 0.5 mcg DAILY ORAL 07/22/16 09:00 08/21/16 08:59 08/10/16 14:05 Chlorhexidine Gluconate (Celeste-Hex 2%) 1 applic Q24H TOPIC 07/31/16 21:00 08/30/16 20:59 08/09/16 21:14 Clonidine HCl (Catapres) 0.2 mg Q8H ORAL 07/28/16 14:00 08/27/16 13:59 08/10/16 05:54 Dextrose (Dextrose 50%) STAT PRN IV Hypoglycemia 07/21/16 15:00 08/20/16 14:59 Docusate Sodium (Colace) 100 mg THREE TIMES A DAY ORAL 07/22/16 09:00 08/21/16 08:59 08/10/16 18:18 Epoetin Sid (Procrit (for ESRD on dialysis)) 10,000 units MON-WED-WED SUBQ 07/22/16 21:00 08/21/16 20:59 08/10/16 20:11 Ergocalciferol (Drisdol) 50,000 intlu QWEEK ORAL 07/28/16 09:00 08/27/16 08:59 08/04/16 08:06 Heparin Sodium (Porcine) (Heparin 5000 units/ml) 5,000 units EVERY 12 HOURS SUBQ 07/21/16 21:00 08/20/16 20:59 08/10/16 20:14 Hydralazine HCl (Apresoline) 25 mg Q8HR ORAL 08/03/16 14:00 09/02/16 13:59 08/10/16 14:05 Lactulose (Cephulac) 30 gm THREE TIMES A DAY ORAL 08/02/16 13:30 09/01/16 13:29 08/10/16 18:17 Lisinopril (Prinivil) 20 mg Q12HR ORAL 07/22/16 22:00 08/21/16 21:59 08/10/16 20:10 Mineral Oil (Fleet's Mineral Oil Enema) 133 ml EVERY OTHER DAY RECTAL 08/04/16 09:00 09/03/16 08:59 08/08/16 10:00 Minoxidil (Loniten) 2.5 mg Q4H PRN ORAL SBP>160 07/23/16 13:45 08/22/16 13:44 08/08/16 18:05 Morphine Sulfate (Morphine Sulfate) 4 mg Q4H PRN IVP For Pain 08/06/16 23:00 08/13/16 22:59 08/10/16 18:19 Nifedipine (Procardia XL) 60 mg Q12HR ORAL 07/23/16 09:00 08/22/16 08:59 08/10/16 20:11 Nystatin (Nystop Powder) 1 applic THREE TIMES A DAY TOPIC 08/02/16 13:00 09/01/16 12:59 08/10/16 18:18 Ondansetron HCl (Zofran) 4 mg Q6H PRN IVP Nausea & Vomiting 07/21/16 15:00 08/20/16 14:59 08/10/16 05:53 Polyethylene Glycol (Miralax) 17 gm BEDTIME ORAL 08/02/16 21:00 09/01/16 20:59 08/09/16 21:14 Polyethylene Glycol (Miralax) 17 gm DAILYPRN PRN ORAL Constipation 07/21/16 15:00 08/20/16 14:59 08/01/16 17:58 Sennosides (Senokot) 8.6 mg DAILY ORAL 08/03/16 09:00 09/02/16 08:59 08/10/16 14:01 Sevelamer Carbonate (Renvela) 2,400 mg THREE TIMES A DAY ORAL 07/26/16 09:00 08/25/16 08:59 08/10/16 18:14 Simethicone (Mylicon) 80 mg TIDPRN PRN ORAL Abdominal cramps 08/08/16 16:00 09/07/16 15:59 08/10/16 18:14 JORGE LUIS FREEMAN M.D. Aug 10, 2016 20:28
[2016-08-11] VITALS: BP 146/73
[2016-08-11] MEDS: Morphine Sulfate 4mg/ml Inj IVP PRN ×5 (03:35→22:42)
[2016-08-11 04:00] VITALS: BP 169/75
[2016-08-11] MEDS: cloNIDine 0.2mg Tab ORAL SCH ×3 (05:32→21:26)
[2016-08-11] MEDS: HydrALAZINE 50mg tab ORAL SCH ×3 (05:33→21:26)
[2016-08-11] MEDS: Artificial Tears 1.4% Op Soln BOTH EYES PRN ×2 (05:33→18:35)
[2016-08-11 07:19] VITALS: BP 169/81
[2016-08-11] MEDS: Nystatin Powder 100,000 units/gm 15gm TOPIC SCH ×3 (09:14→18:38)
[2016-08-11] MEDS: Calcitriol 0.5mcg Cap ORAL SCH (09:15)
[2016-08-11] MEDS: Docusate 100mg cap ORAL SCH ×3 (09:15→18:34)
[2016-08-11] MEDS: Renvela 2400 mg pkt ORAL SCH ×3 (09:15→18:34)
[2016-08-11] MEDS: Vitamin D 50,000 units cap ORAL SCH (09:15)
[2016-08-11] MEDS: Lisinopril 20mg tab ORAL SCH ×2 (09:16→21:25)
[2016-08-11] MEDS: Lactulose 20gm/30ml UDC ORAL SCH ×3 (09:16→18:00)
[2016-08-11] MEDS: Heparin 5000 units/ml inj SUBQ SCH ×2 (09:18→21:32)
[2016-08-11] MEDS ORDERED: Vancomycin 1 GM in D5W 275 ML IVPB ONE (10:00)
--- NOTE | 2016-08-11 10:14 | Pulmonology Progress Note ---
Assessment/Plan Problems: (1) ESRF (end stage renal failure) (2) Fluid overload (3) Opiate dependence (4) Homelessness (5) Hepatitis C Assessment/Plan dc planning in process HD by nephrology check electrolytes monitor BP s/p bilateral arthrocentesis awaiting placement all notes reviewed. Subjective ROS Limited/Unobtainable: No Constitutional: Reports: no symptoms Respiratory: Reports: no symptoms Allergies: Coded Allergies: No Known Allergies (Unverified , 07/20/16) Objective Last 24 Hour Vital Signs Date Time Temp Pulse Resp B/P Pulse Ox O2 Delivery O2 Flow Rate FiO2 08/11/16 09:16 80 169/81 08/11/16 09:16 169/81 08/11/16 07:19 98.2 80 16 169/81 98 Nasal Cannula 08/11/16 05:33 169/75 08/11/16 05:32 169/75 08/11/16 04:00 97.2 78 20 169/75 99 Nasal Cannula 2.0 08/11/16 00:05 99.9 08/11/16 00:00 98.4 87 20 146/73 97 Nasal Cannula 2.0 08/10/16 21:21 176/88 08/10/16 21:21 176/88 08/10/16 20:11 76 184/91 08/10/16 20:10 184/91 08/10/16 20:00 99.9 20 184/91 99 Nasal Cannula 2.0 08/10/16 16:05 98.3 79 20 129/71 100 Nasal Cannula 2.0 08/10/16 14:05 125/64 08/10/16 14:00 125/64 08/10/16 12:00 97.6 83 20 125/64 96 Room Air 08/10/16 11:50 Room Air 2.0 28 Intake and Output 08/10/16 08/11/16 19:00 07:00 Intake Total 720 ml Output Total 3100 ml Balance -2380 ml Intake Oral 720 ml Hemodialysis UF 3100 ml # Voids 1 Objective General Appearance: WD/WN HEENT: normocephalic Respiratory/Chest: chest wall non-tender, lungs clear Cardiovascular: normal peripheral pulses, normal rate Abdomen: normal bowel sounds, soft, non tender Extremities: no cyanosis, other - effusion in both knees Skin: no rash Current Medications Medications (Trade) Dose Ordered Sig/Papo Route PRN Reason Start Time Stop Time Status Last Admin Dose Admin Acetaminophen (Tylenol) 650 mg Q4H PRN ORAL Fever 07/21/16 15:00 08/20/16 14:59 07/30/16 21:49 Acetaminophen/ Hydrocodone Bitart ([place] 10/325) 1 ea Q8HR PRN ORAL For Pain 08/06/16 16:15 08/13/16 16:14 08/08/16 20:53 Artificial Tears (Akwa-Tears) 2 drop Q6H PRN BOTH EYES Dry Eyes 07/25/16 22:30 08/24/16 22:29 08/11/16 05:33 Calcitriol (Rocaltrol) 0.5 mcg DAILY ORAL 07/22/16 09:00 08/21/16 08:59 08/11/16 09:15 Chlorhexidine Gluconate (Celeste-Hex 2%) 1 applic Q24H TOPIC 07/31/16 21:00 08/30/16 20:59 08/09/16 21:14 Clonidine HCl (Catapres) 0.2 mg Q8H ORAL 07/28/16 14:00 08/27/16 13:59 08/11/16 05:32 Dextrose (Dextrose 50%) STAT PRN IV Hypoglycemia 07/21/16 15:00 08/20/16 14:59 Docusate Sodium (Colace) 100 mg THREE TIMES A DAY ORAL 07/22/16 09:00 08/21/16 08:59 08/11/16 09:15 Epoetin Sid (Procrit (for ESRD on dialysis)) 10,000 units WED-WED-WED SUBQ 07/22/16 21:00 08/21/16 20:59 08/10/16 20:11 Ergocalciferol (Drisdol) 50,000 intlu QWEEK ORAL 07/28/16 09:00 08/27/16 08:59 08/11/16 09:15 Heparin Sodium (Porcine) (Heparin 5000 units/ml) 5,000 units EVERY 12 HOURS SUBQ 07/21/16 21:00 08/20/16 20:59 08/11/16 09:18 Hydralazine HCl (Apresoline) 25 mg Q8HR ORAL 08/03/16 14:00 09/02/16 13:59 08/11/16 05:33 Lactulose (Cephulac) 30 gm THREE TIMES A DAY ORAL 08/02/16 13:30 09/01/16 13:29 08/11/16 09:16 Lisinopril (Prinivil) 20 mg Q12HR ORAL 07/22/16 22:00 08/21/16 21:59 08/11/16 09:16 Mineral Oil (Fleet's Mineral Oil Enema) 133 ml EVERY OTHER DAY RECTAL 08/04/16 09:00 09/03/16 08:59 08/08/16 10:00 Minoxidil (Loniten) 2.5 mg Q4H PRN ORAL SBP>160 07/23/16 13:45 08/22/16 13:44 08/08/16 18:05 Morphine Sulfate (Morphine Sulfate) 4 mg Q4H PRN IVP For Pain 08/06/16 23:00 08/13/16 22:59 08/11/16 09:14 Nifedipine (Procardia XL) 60 mg Q12HR ORAL 07/23/16 09:00 08/22/16 08:59 08/11/16 09:16 Nystatin (Nystop Powder) 1 applic THREE TIMES A DAY TOPIC 08/02/16 13:00 09/01/16 12:59 08/11/16 09:14 Ondansetron HCl (Zofran) 4 mg Q6H PRN IVP Nausea & Vomiting 07/21/16 15:00 08/20/16 14:59 08/10/16 21:24 Polyethylene Glycol (Miralax) 17 gm BEDTIME ORAL 08/02/16 21:00 09/01/16 20:59 08/09/16 21:14 Polyethylene Glycol (Miralax) 17 gm DAILYPRN PRN ORAL Constipation 07/21/16 15:00 08/20/16 14:59 08/01/16 17:58 Sennosides (Senokot) 8.6 mg DAILY ORAL 08/03/16 09:00 09/02/16 08:59 08/11/16 09:15 Sevelamer Carbonate (Renvela) 2,400 mg THREE TIMES A DAY ORAL 07/26/16 09:00 08/25/16 08:59 08/11/16 09:15 Simethicone 80 mg 80 mg TIDPRN PRN ORAL Abdominal cramps 08/08/16 16:00 09/07/16 15:59 08/10/16 18:14 Vancomycin HCl/ Dextrose (Vancomycin/D5W) 275 ml @ 183.708 mls/hr ONCE ONCE IVPB 08/11/16 10:00 08/11/16 11:29 EMMANUEL DOUGHERTY Aug 11, 2016 10:14
--- NOTE | 2016-08-11 10:52 | Infectious Diseases Prog Note ---
Assessment/Plan Assessment/Plan ASSESSMENT: 51-year-old female with: Low grade fever , SP Leukocytosis , SP Hepatitis BS antibody positive. Hepatitis C antibody, PCR positive / chronic HCV - LFTs WNL status post knee joint tap : No evidence of arthritis ESRD on HD SP Left arm arteriovenous shunt revision and dialysis catheter replacement SP right, placement of left tunneled hemodialysis catheter 07/28 Homeless MRSA, VRE colonized NKDA Full Code PLAN: pt is off of antibiotics , she is stable , ok to DC from ID standpoint Monitor CBC. Monitor BMP. HD as per nephro awaiting placement Subjective Constitutional: Denies: anorexia, chills, drenching sweats, fatigue, fever, no symptoms, other Allergies: Coded Allergies: No Known Allergies (Unverified , 07/20/16) Objective Vital Signs Last 24 Hour Vital Signs Date Time Temp Pulse Resp B/P Pulse Ox O2 Delivery O2 Flow Rate FiO2 08/11/16 09:16 80 169/81 08/11/16 09:16 169/81 08/11/16 07:19 98.2 80 16 169/81 98 Nasal Cannula 08/11/16 05:33 169/75 08/11/16 05:32 169/75 08/11/16 04:00 97.2 78 20 169/75 99 Nasal Cannula 2.0 08/11/16 00:05 99.9 08/11/16 00:00 98.4 87 20 146/73 97 Nasal Cannula 2.0 08/10/16 21:21 176/88 08/10/16 21:21 176/88 08/10/16 20:11 76 184/91 08/10/16 20:10 184/91 08/10/16 20:00 99.9 20 184/91 99 Nasal Cannula 2.0 08/10/16 16:05 98.3 79 20 129/71 100 Nasal Cannula 2.0 08/10/16 14:05 125/64 08/10/16 14:00 125/64 08/10/16 12:00 97.6 83 20 125/64 96 Room Air 08/10/16 11:50 Room Air 2.0 28 Height (Feet): 5 Height (Inches): 4.00 Weight (Pounds): 160 HEENT: anicteric Respiratory/Chest: normal breath sounds Cardiovascular: regularly irregular Abdomen: non distended Current Medications Medications (Trade) Dose Ordered Sig/Papo Route PRN Reason Start Time Stop Time Status Last Admin Dose Admin Acetaminophen (Tylenol) 650 mg Q4H PRN ORAL Fever 07/21/16 15:00 08/20/16 14:59 07/30/16 21:49 Acetaminophen/ Hydrocodone Bitart ([place] 10/325) 1 ea Q8HR PRN ORAL For Pain 08/06/16 16:15 08/13/16 16:14 08/08/16 20:53 Artificial Tears ([place]wa-Tears) 2 drop Q6H PRN BOTH EYES Dry Eyes 07/25/16 22:30 08/24/16 22:29 08/11/16 05:33 Calcitriol (Rocaltrol) 0.5 mcg DAILY ORAL 07/22/16 09:00 08/21/16 08:59 08/11/16 09:15 Chlorhexidine Gluconate (Celeste-Hex 2%) 1 applic Q24H TOPIC 07/31/16 21:00 08/30/16 20:59 08/09/16 21:14 Clonidine HCl (Catapres) 0.2 mg Q8H ORAL 07/28/16 14:00 08/27/16 13:59 08/11/16 05:32 Dextrose (Dextrose 50%) STAT PRN IV Hypoglycemia 07/21/16 15:00 08/20/16 14:59 Docusate Sodium (Colace) 100 mg THREE TIMES A DAY ORAL 07/22/16 09:00 08/21/16 08:59 08/11/16 09:15 Epoetin Sid (Procrit (for ESRD on dialysis)) 10,000 units WED-WED-WED SUBQ 07/22/16 21:00 08/21/16 20:59 08/10/16 20:11 Ergocalciferol (Drisdol) 50,000 intlu QWEEK ORAL 07/28/16 09:00 08/27/16 08:59 08/11/16 09:15 Heparin Sodium (Porcine) (Heparin 5000 units/ml) 5,000 units EVERY 12 HOURS SUBQ 07/21/16 21:00 08/20/16 20:59 08/11/16 09:18 Hydralazine HCl (Apresoline) 25 mg Q8HR ORAL 08/03/16 14:00 09/02/16 13:59 08/11/16 05:33 Lactulose (Cephulac) 30 gm THREE TIMES A DAY ORAL 08/02/16 13:30 09/01/16 13:29 08/11/16 09:16 Lisinopril (Prinivil) 20 mg Q12HR ORAL 07/22/16 22:00 08/21/16 21:59 08/11/16 09:16 Mineral Oil (Fleet's Mineral Oil Enema) 133 ml EVERY OTHER DAY RECTAL 08/04/16 09:00 09/03/16 08:59 08/08/16 10:00 Minoxidil (Loniten) 2.5 mg Q4H PRN ORAL SBP>160 07/23/16 13:45 08/22/16 13:44 08/08/16 18:05 Morphine Sulfate (Morphine Sulfate) 4 mg Q4H PRN IVP For Pain 08/06/16 23:00 08/13/16 22:59 08/11/16 09:14 Nifedipine (Procardia XL) 60 mg Q12HR ORAL 07/23/16 09:00 08/22/16 08:59 08/11/16 09:16 Nystatin (Nystop Powder) 1 applic THREE TIMES A DAY TOPIC 08/02/16 13:00 09/01/16 12:59 08/11/16 09:14 Ondansetron HCl (Zofran) 4 mg Q6H PRN IVP Nausea & Vomiting 07/21/16 15:00 08/20/16 14:59 08/10/16 21:24 Polyethylene Glycol (Miralax) 17 gm BEDTIME ORAL 08/02/16 21:00 09/01/16 20:59 08/09/16 21:14 Polyethylene Glycol (Miralax) 17 gm DAILYPRN PRN ORAL Constipation 07/21/16 15:00 08/20/16 14:59 08/01/16 17:58 Sennosides (Senokot) 8.6 mg DAILY ORAL 08/03/16 09:00 09/02/16 08:59 08/11/16 09:15 Sevelamer Carbonate (Renvela) 2,400 mg THREE TIMES A DAY ORAL 07/26/16 09:00 08/25/16 08:59 7/4/17 09:15 Simethicone 80 mg 80 mg TIDPRN PRN ORAL Abdominal cramps 08/08/16 16:00 09/07/16 15:59 08/10/16 18:14 Vancomycin HCl/ Dextrose (Vancomycin/D5W) 275 ml @ 183.708 mls/hr ONCE ONCE IVPB 08/11/16 10:00 08/11/16 11:29 JORGE LUIS FREEMAN M.D. Aug 11, 2016 10:52
[2016-08-11 11:17] VITALS: BP 141/79
--- NOTE | 2016-08-11 12:48 | General Progress Note ---
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 Subjective ROS Limited/Unobtainable: No Allergies: Coded Allergies: No Known Allergies (Unverified , 07/20/16) Objective Last 24 Hour Vital Signs Date Time Temp Pulse Resp B/P Pulse Ox O2 Delivery O2 Flow Rate FiO2 08/11/16 11:17 98.6 78 15 141/79 95 Room Air 08/11/16 09:44 98.6 08/11/16 09:16 80 169/81 08/11/16 09:16 169/81 08/11/16 07:19 98.2 80 16 169/81 98 Nasal Cannula 08/11/16 05:33 169/75 08/11/16 05:32 169/75 08/11/16 04:00 97.2 78 20 169/75 99 Nasal Cannula 2.0 08/11/16 00:00 98.4 87 20 146/73 97 Nasal Cannula 2.0 08/10/16 21:21 176/88 08/10/16 21:21 176/88 08/10/16 20:11 76 184/91 08/10/16 20:10 184/91 08/10/16 20:00 99.9 20 184/91 99 Nasal Cannula 2.0 08/10/16 16:05 98.3 79 20 129/71 100 Nasal Cannula 2.0 08/10/16 14:05 125/64 08/10/16 14:00 125/64 Intake and Output 08/10/16 08/11/16 19:00 07:00 Intake Total 720 ml Output Total 3100 ml Balance -2380 ml Intake Oral 720 ml Hemodialysis UF 3100 ml # Voids 1 Height (Feet): 5 Height (Inches): 4.00 Weight (Pounds): 160 General Appearance: no apparent distress Objective no change ERICK MOSES Aug 11, 2016 12:48
[2016-08-11] MEDS: Simethicone 80mg tab ORAL PRN (13:59)
[2016-08-11 16:46] VITALS: BP 169/77
[2016-08-11] MEDS: Minoxidil 2.5mg tab ORAL PRN (18:49)
[2016-08-11 20:00] VITALS: BP 148/77
[2016-08-11] MEDS: Miralax 17gm pkt ORAL SCH (21:00)
[2016-08-11] MEDS: Dyna-Hex 2% Top Sol 8oz TOPIC SCH (21:26)
[2016-08-12] VITALS: BP 143/74
[2016-08-12] MEDS: Morphine Sulfate 4mg/ml Inj IVP PRN ×4 (03:38→23:15)
[2016-08-12 04:00] VITALS: BP 144/80
[2016-08-12] MEDS: HydrALAZINE 50mg tab ORAL SCH ×3 (05:40→21:57)
[2016-08-12] MEDS: cloNIDine 0.2mg Tab ORAL SCH ×3 (05:40→21:56)
[2016-08-12 07:29] LABS: BASOPHILS % (AUTO) 1.1 % (0.0-2.0); EOSINOPHILS % (AUTO) 7.4 % (0.0-3.0); LYMPHOCYTES % (AUTO) 21.9 % (20.0-45.0); MEAN CORPUSCULAR HEMOGLOBIN 27.7 PG (27.0-31.0); MEAN CORPUSCULAR HGB CONC 31.6 G/DL (32.0-36.0); MEAN CORPUSCULAR VOLUME 88 FL (80-99); MEAN PLATELET VOLUME 5.1 FL (6.5-10.1); MONOCYTES % (AUTO) 7.5 % (1.0-10.0); NEUTROPHILS % (AUTO) 62.2 % (45.0-75.0); PLATELET COUNT 364 K/UL (150-450); RED BLOOD COUNT 3.07 M/UL (4.20-5.40); WHITE BLOOD COUNT 9.2 K/UL (4.8-10.8)
[2016-08-12 08:00] VITALS: BP 138/76
[2016-08-12 08:09] LABS: ALBUMIN/GLOBULIN RATIO 0.7 (1.0-2.7); CALCIUM 7.9 mg/dL (8.6-10.2); CREATININE 6.9 mg/dL (0.5-0.9); GLOMERULAR FILTRATION RATE 6.2 mL/min (>60); PHOSPHORUS 4.3 mg/dL (2.5-4.8); POTASSIUM 5.2 mEQ/L (3.4-4.9); TOTAL PROTEIN 5.7 g/dL (6.6-8.7)
[2016-08-12] MEDS: Lactulose 20gm/30ml UDC ORAL SCH ×3 (08:42→18:00)
[2016-08-12] MEDS: Docusate 100mg cap ORAL SCH ×3 (08:42→18:49)
[2016-08-12] MEDS: Fleet's Mineral Oil Enema RECTAL SCH (08:43)
[2016-08-12] MEDS: Lisinopril 20mg tab ORAL SCH ×2 (08:43→20:34)
[2016-08-12] MEDS: Renvela 2400 mg pkt ORAL SCH ×3 (08:44→18:49)
[2016-08-12] MEDS: Calcitriol 0.5mcg Cap ORAL SCH (08:44)
[2016-08-12] MEDS: Nystatin Powder 100,000 units/gm 15gm TOPIC SCH ×3 (08:45→18:49)
[2016-08-12] MEDS: Heparin 5000 units/ml inj SUBQ SCH ×2 (08:46→20:36)
[2016-08-12 12:00] VITALS: BP 132/77
--- NOTE | 2016-08-12 13:48 | General Progress Note ---
Assessment/Plan Status: stable Assessment/Plan Status; ESRD , presented Right chest Permacath- ( and left arm fistula with bruit) No Dialysis for sometimes Volume Overload Encephalopathy Anemia right UE venous out let obstruction Plan: HD 08/12 Transfused 07/30 BP control- adjust meds- Phos binders , Vit D and Kayexelate prn SS eval for disposition per orders discussed with engraver seals ??? Subjective ROS Limited/Unobtainable: No Allergies: Coded Allergies: No Known Allergies (Unverified , 07/20/16) Objective Last 24 Hour Vital Signs Date Time Temp Pulse Resp B/P Pulse Ox O2 Delivery O2 Flow Rate FiO2 08/12/16 12:00 97.7 76 20 132/77 99 Nasal Cannula 3.0 08/12/16 09:14 97.9 08/12/16 08:44 77 138/76 08/12/16 08:43 138/76 08/12/16 08:00 97.9 77 20 138/76 93 Room Air 08/12/16 05:40 144/80 08/12/16 05:40 144/80 08/12/16 04:00 96.4 76 20 144/80 97 Room Air 08/12/16 00:00 98.1 78 20 143/74 92 Nasal Cannula 2.0 08/11/16 21:26 148/77 08/11/16 21:26 148/77 08/11/16 21:26 79 148/77 08/11/16 21:25 148/77 08/11/16 20:00 97.9 79 20 148/77 98 Nasal Cannula 2.0 08/11/16 18:49 169/77 08/11/16 16:46 74 16 169/77 99 Room Air 08/11/16 13:56 141/79 08/11/16 13:54 141/79 Intake and Output 08/11/16 08/12/16 19:00 07:00 Intake Total 1200 ml 250 ml Balance 1200 ml 250 ml Intake Oral 1200 ml 250 ml # Voids 1 # Bowel Movements 1 Laboratory Tests 08/12/16 04:00: White Blood Count 9.2, Red Blood Count 3.07L, Hemoglobin 8.5L, Hematocrit 27.0L , Mean Corpuscular Volume 88, Mean Corpuscular Hemoglobin 27.7, Mean Corpuscular Hemoglobin Concent 31.6L, Red Cell Distribution Width 17.0H, Platelet Count 364, Mean Platelet Volume 5.1L, Neutrophils (%) (Auto) 62.2, Lymphocytes (%) (Auto) 21.9, Monocytes (%) (Auto) 7.5, Eosinophils (%) (Auto) 7.4H, Basophils (%) (Auto) 1.1 08/12/16 05:30: Sodium Level 135, Potassium Level 5.2H, Chloride Level 92L, Carbon Dioxide Level 33H, Anion Gap 10, Blood Urea Nitrogen 35H, Creatinine 6.9H, Estimat Glomerular Filtration Rate 6.2, Glucose Level 88, Calcium Level 7.9L, Phosphorus Level 4.3, Total Bilirubin 0.2, Aspartate Amino Transf (AST/SGOT) 15 , Alanine Aminotransferase (ALT/SGPT) 5, Alkaline Phosphatase 121H, Total Protein 5.7L, Albumin 2.5L, Globulin 3.2, Albumin/Globulin Ratio 0.7L Height (Feet): 5 Height (Inches): 4.00 Weight (Pounds): 160 General Appearance: no apparent distress Objective no change ERICK MOSES Aug 12, 2016 13:48
--- NOTE | 2016-08-12 15:31 | Pulmonology Progress Note ---
Assessment/Plan Problems: (1) ESRF (end stage renal failure) (2) Fluid overload (3) Opiate dependence (4) Homelessness (5) Hepatitis C Assessment/Plan no new complains dc planning in process HD by nephrology check electrolytes monitor BP s/p bilateral arthrocentesis awaiting placement all notes reviewed. Subjective ROS Limited/Unobtainable: No Constitutional: Reports: no symptoms HEENT: Repors: no symptoms Respiratory: Reports: no symptoms Allergies: Coded Allergies: No Known Allergies (Unverified , 07/20/16) Objective Last 24 Hour Vital Signs Date Time Temp Pulse Resp B/P Pulse Ox O2 Delivery O2 Flow Rate FiO2 08/12/16 12:15 Nasal Cannula 3.0 28 08/12/16 12:00 97.7 76 20 132/77 99 Nasal Cannula 3.0 08/12/16 09:14 97.9 08/12/16 08:44 77 138/76 08/12/16 08:43 138/76 08/12/16 08:00 97.9 77 20 138/76 93 Room Air 08/12/16 05:40 144/80 08/12/16 05:40 144/80 08/12/16 04:00 96.4 76 20 144/80 97 Room Air 08/12/16 00:00 98.1 78 20 143/74 92 Nasal Cannula 2.0 08/11/16 21:26 148/77 08/11/16 21:26 148/77 08/11/16 21:26 79 148/77 08/11/16 21:25 148/77 08/11/16 20:00 97.9 79 20 148/77 98 Nasal Cannula 2.0 08/11/16 18:49 169/77 08/11/16 16:46 74 16 169/77 99 Room Air Intake and Output 08/11/16 08/12/16 19:00 07:00 Intake Total 1200 ml 250 ml Balance 1200 ml 250 ml Intake Oral 1200 ml 250 ml # Voids 1 # Bowel Movements 1 Objective General Appearance: WD/WN HEENT: normocephalic Respiratory/Chest: chest wall non-tender, lungs clear Cardiovascular: normal peripheral pulses, normal rate Abdomen: normal bowel sounds, soft, non tender Extremities: no cyanosis, other - effusion in both knees Skin: no rash Laboratory Tests 08/12/16 04:00: White Blood Count 9.2, Red Blood Count 3.07L, Hemoglobin 8.5L, Hematocrit 27.0L , Mean Corpuscular Volume 88, Mean Corpuscular Hemoglobin 27.7, Mean Corpuscular Hemoglobin Concent 31.6L, Red Cell Distribution Width 17.0H, Platelet Count 364, Mean Platelet Volume 5.1L, Neutrophils (%) (Auto) 62.2, Lymphocytes (%) (Auto) 21.9, Monocytes (%) (Auto) 7.5, Eosinophils (%) (Auto) 7.4H, Basophils (%) (Auto) 1.1 08/12/16 05:30: Sodium Level 135, Potassium Level 5.2H, Chloride Level 92L, Carbon Dioxide Level 33H, Anion Gap 10, Blood Urea Nitrogen 35H, Creatinine 6.9H, Estimat Glomerular Filtration Rate 6.2, Glucose Level 88, Calcium Level 7.9L, Phosphorus Level 4.3, Total Bilirubin 0.2, Aspartate Amino Transf (AST/SGOT) 15 , Alanine Aminotransferase (ALT/SGPT) 5, Alkaline Phosphatase 121H, Total Protein 5.7L, Albumin 2.5L, Globulin 3.2, Albumin/Globulin Ratio 0.7L Current Medications Medications (Trade) Dose Ordered Sig/Papo Route PRN Reason Start Time Stop Time Status Last Admin Dose Admin Acetaminophen (Tylenol) 650 mg Q4H PRN ORAL Fever 07/21/16 15:00 08/20/16 14:59 07/30/16 21:49 Acetaminophen/ Hydrocodone Bitart ([place] 10/325) 1 ea Q8HR PRN ORAL For Pain 08/06/16 16:15 08/13/16 16:14 08/08/16 20:53 Artificial Tears (Akwa-Tears) 2 drop Q6H PRN BOTH EYES Dry Eyes 07/25/16 22:30 08/24/16 22:29 08/11/16 18:35 Calcitriol (Rocaltrol) 0.5 mcg DAILY ORAL 07/22/16 09:00 08/21/16 08:59 08/12/16 08:44 Chlorhexidine Gluconate (Celeste-Hex 2%) 1 applic Q24H TOPIC 07/31/16 21:00 08/30/16 20:59 08/11/16 21:26 Clonidine HCl (Catapres) 0.2 mg Q8H ORAL 07/28/16 14:00 08/27/16 13:59 08/12/16 05:40 Dextrose (Dextrose 50%) STAT PRN IV Hypoglycemia 07/21/16 15:00 08/20/16 14:59 Docusate Sodium (Colace) 100 mg THREE TIMES A DAY ORAL 07/22/16 09:00 08/21/16 08:59 08/11/16 18:34 Epoetin Sid (Procrit (for ESRD on dialysis)) 10,000 units WED-WED-WED SUBQ 07/22/16 21:00 08/21/16 20:59 08/10/16 20:11 Ergocalciferol (Drisdol) 50,000 intlu QWEEK ORAL 07/28/16 09:00 08/27/16 08:59 08/11/16 09:15 Heparin Sodium (Porcine) (Heparin 5000 units/ml) 5,000 units EVERY 12 HOURS SUBQ 07/21/16 21:00 08/20/16 20:59 08/12/16 08:46 Hydralazine HCl (Apresoline) 25 mg Q8HR ORAL 08/03/16 14:00 09/02/16 13:59 08/12/16 05:40 Lactulose (Cephulac) 30 gm THREE TIMES A DAY ORAL 08/02/16 13:30 09/01/16 13:29 08/11/16 09:16 Lisinopril (Prinivil) 20 mg Q12HR ORAL 07/22/16 22:00 08/21/16 21:59 08/12/16 08:43 Mineral Oil (Fleet's Mineral Oil Enema) 133 ml EVERY OTHER DAY RECTAL 08/04/16 09:00 09/03/16 08:59 08/08/16 10:00 Minoxidil (Loniten) 2.5 mg Q4H PRN ORAL SBP>160 07/23/16 13:45 08/22/16 13:44 08/11/16 18:49 Morphine Sulfate (Morphine Sulfate) 4 mg Q4H PRN IVP For Pain 08/06/16 23:00 08/13/16 22:59 08/12/16 08:44 Nifedipine (Procardia XL) 60 mg Q12HR ORAL 07/23/16 09:00 08/22/16 08:59 08/12/16 08:44 Nystatin (Nystop Powder) 1 applic THREE TIMES A DAY TOPIC 08/02/16 13:00 09/01/16 12:59 08/12/16 08:45 Ondansetron HCl (Zofran) 4 mg Q6H PRN IVP Nausea & Vomiting 07/21/16 15:00 08/20/16 14:59 08/11/16 22:17 Polyethylene Glycol (Miralax) 17 gm BEDTIME ORAL 08/02/16 21:00 09/01/16 20:59 08/09/16 21:14 Polyethylene Glycol (Miralax) 17 gm DAILYPRN PRN ORAL Constipation 07/21/16 15:00 08/20/16 14:59 08/01/16 17:58 Sennosides (Senokot) 8.6 mg DAILY ORAL 08/03/16 09:00 09/02/16 08:59 08/11/16 09:15 Sevelamer Carbonate (Renvela) 2,400 mg THREE TIMES A DAY ORAL 07/26/16 09:00 08/25/16 08:59 08/12/16 08:44 Simethicone (Mylicon) 80 mg TIDPRN PRN ORAL Abdominal cramps 08/08/16 16:00 09/07/16 15:59 08/11/16 13:59 EMMANUEL DOUGHERTY Aug 12, 2016 15:31
[2016-08-12 16:00] VITALS: BP 139/72
--- NOTE | 2016-08-12 16:26 | Infectious Diseases Prog Note ---
Assessment/Plan Assessment/Plan ASSESSMENT: 51-year-old female with: Low grade fever , SP Leukocytosis , SP Hepatitis BS antibody positive. Hepatitis C antibody, PCR positive / chronic HCV - LFTs WNL status post knee joint tap : No evidence of arthritis ESRD on HD SP Left arm arteriovenous shunt revision and dialysis catheter replacement SP right, placement of left tunneled hemodialysis catheter 07/28 Homeless MRSA, VRE colonized NKDA Full Code PLAN: pt is off of antibiotics , she is stable , ok to DC from ID standpoint Monitor CBC. Monitor BMP. HD as per nephro awaiting placement Subjective Constitutional: Denies: anorexia, chills, drenching sweats, fatigue, fever, no symptoms, other Allergies: Coded Allergies: No Known Allergies (Unverified , 07/20/16) Objective Vital Signs Last 24 Hour Vital Signs Date Time Temp Pulse Resp B/P Pulse Ox O2 Delivery O2 Flow Rate FiO2 08/12/16 16:22 132/77 08/12/16 16:21 132/77 08/12/16 16:17 Nasal Cannula 3.0 28 08/12/16 16:00 97.9 75 20 139/72 95 Room Air 08/12/16 12:15 Nasal Cannula 3.0 28 08/12/16 12:00 97.7 76 20 132/77 99 Nasal Cannula 3.0 08/12/16 09:14 97.9 08/12/16 08:44 77 138/76 08/12/16 08:43 138/76 08/12/16 08:00 97.9 77 20 138/76 93 Room Air 08/12/16 05:40 144/80 08/12/16 05:40 144/80 08/12/16 04:00 96.4 76 20 144/80 97 Room Air 08/12/16 00:00 98.1 78 20 143/74 92 Nasal Cannula 2.0 08/11/16 21:26 148/77 08/11/16 21:26 148/77 08/11/16 21:26 79 148/77 08/11/16 21:25 148/77 08/11/16 20:00 97.9 79 20 148/77 98 Nasal Cannula 2.0 08/11/16 18:49 169/77 08/11/16 16:46 74 16 169/77 99 Room Air Height (Feet): 5 Height (Inches): 4.00 Weight (Pounds): 160 HEENT: anicteric Respiratory/Chest: normal breath sounds Cardiovascular: regular rhythm Abdomen: no organomegaly Laboratory Tests Test 08/12/16 04:00 08/12/16 05:30 White Blood Count 9.2 K/UL (4.8-10.8) Red Blood Count 3.07 M/UL (4.20-5.40) L Hemoglobin 8.5 G/DL (12.0-16.0) L Hematocrit 27.0 % (37.0-47.0) L Mean Corpuscular Volume 88 FL (80-99) Mean Corpuscular Hemoglobin 27.7 PG (27.0-31.0) Mean Corpuscular Hemoglobin Concent 31.6 G/DL (32.0-36.0) L Red Cell Distribution Width 17.0 % (11.6-14.8) H Platelet Count 364 K/UL (150-450) Mean Platelet Volume 5.1 FL (6.5-10.1) L Neutrophils (%) (Auto) 62.2 % (45.0-75.0) Lymphocytes (%) (Auto) 21.9 % (20.0-45.0) Monocytes (%) (Auto) 7.5 % (1.0-10.0) Eosinophils (%) (Auto) 7.4 % (0.0-3.0) H Basophils (%) (Auto) 1.1 % (0.0-2.0) Sodium Level 135 mEQ/L (135-145) Potassium Level 5.2 mEQ/L (3.4-4.9) H Chloride Level 92 mEQ/L (98-107) L Carbon Dioxide Level 33 mEQ/L (20-30) H Anion Gap 10 (5-15) Blood Urea Nitrogen 35 mg/dL (7-23) H Creatinine 6.9 mg/dL (0.5-0.9) H Estimat Glomerular Filtration Rate 6.2 mL/min (>60) Glucose Level 88 mg/dL (74-106) Calcium Level 7.9 mg/dL (8.6-10.2) L Phosphorus Level 4.3 mg/dL (2.5-4.8) Total Bilirubin 0.2 mg/dL (0.0-1.2) Aspartate Amino Transf (AST/SGOT) 15 U/L (5-40) Alanine Aminotransferase (ALT/SGPT) 5 U/L (3-33) Alkaline Phosphatase 121 U/L (35-104) H Total Protein 5.7 g/dL (6.6-8.7) L Albumin 2.5 g/dL (3.5-5.2) L Globulin 3.2 g/dL Albumin/Globulin Ratio 0.7 (1.0-2.7) L Current Medications Medications (Trade) Dose Ordered Sig/Papo Route PRN Reason Start Time Stop Time Status Last Admin Dose Admin Acetaminophen (Tylenol) 650 mg Q4H PRN ORAL Fever 07/21/16 15:00 08/20/16 14:59 07/30/16 21:49 Acetaminophen/ Hydrocodone Bitart ([place] 10/325) 1 ea Q8HR PRN ORAL For Pain 08/06/16 16:15 08/13/16 16:14 08/08/16 20:53 Artificial Tears (Akwa-Tears) 2 drop Q6H PRN BOTH EYES Dry Eyes 07/25/16 22:30 08/24/16 22:29 08/11/16 18:35 Calcitriol (Rocaltrol) 0.5 mcg DAILY ORAL 07/22/16 09:00 08/21/16 08:59 08/12/16 08:44 Chlorhexidine Gluconate (Celeste-Hex 2%) 1 applic Q24H TOPIC 07/31/16 21:00 08/30/16 20:59 08/11/16 21:26 Clonidine HCl (Catapres) 0.2 mg Q8H ORAL 07/28/16 14:00 08/27/16 13:59 08/12/16 16:22 Dextrose (Dextrose 50%) STAT PRN IV Hypoglycemia 07/21/16 15:00 08/20/16 14:59 Docusate Sodium (Colace) 100 mg THREE TIMES A DAY ORAL 07/22/16 09:00 08/21/16 08:59 08/11/16 18:34 Epoetin Sid (Procrit (for ESRD on dialysis)) 10,000 units WED-WED-WED SUBQ 07/22/16 21:00 08/21/16 20:59 08/10/16 20:11 Ergocalciferol (Drisdol) 50,000 intlu QWEEK ORAL 07/28/16 09:00 08/27/16 08:59 08/11/16 09:15 Heparin Sodium (Porcine) (Heparin 5000 units/ml) 5,000 units EVERY 12 HOURS SUBQ 07/21/16 21:00 08/20/16 20:59 08/12/16 08:46 Hydralazine HCl (Apresoline) 25 mg Q8HR ORAL 08/03/16 14:00 09/02/16 13:59 08/12/16 16:21 Lactulose (Cephulac) 30 gm THREE TIMES A DAY ORAL 08/02/16 13:30 09/01/16 13:29 08/11/16 09:16 Lisinopril (Prinivil) 20 mg Q12HR ORAL 07/22/16 22:00 08/21/16 21:59 08/12/16 08:43 Mineral Oil (Fleet's Mineral Oil Enema) 133 ml EVERY OTHER DAY RECTAL 08/04/16 09:00 09/03/16 08:59 08/08/16 10:00 Minoxidil (Loniten) 2.5 mg Q4H PRN ORAL SBP>160 07/23/16 13:45 08/22/16 13:44 08/11/16 18:49 Morphine Sulfate (Morphine Sulfate) 4 mg Q4H PRN IVP For Pain 08/06/16 23:00 08/13/16 22:59 08/12/16 08:44 Nifedipine (Procardia XL) 60 mg Q12HR ORAL 07/23/16 09:00 08/22/16 08:59 08/12/16 08:44 Nystatin (Nystop Powder) 1 applic THREE TIMES A DAY TOPIC 08/02/16 13:00 09/01/16 12:59 08/12/16 08:45 Ondansetron HCl (Zofran) 4 mg Q6H PRN IVP Nausea & Vomiting 07/21/16 15:00 08/20/16 14:59 08/11/16 22:17 Polyethylene Glycol (Miralax) 17 gm BEDTIME ORAL 08/02/16 21:00 09/01/16 20:59 08/09/16 21:14 Polyethylene Glycol (Miralax) 17 gm DAILYPRN PRN ORAL Constipation 07/21/16 15:00 08/20/16 14:59 08/01/16 17:58 Sennosides (Senokot) 8.6 mg DAILY ORAL 08/03/16 09:00 09/02/16 08:59 08/11/16 09:15 Sevelamer Carbonate (Renvela) 2,400 mg THREE TIMES A DAY ORAL 07/26/16 09:00 08/25/16 08:59 08/12/16 08:44 Simethicone (Mylicon) 80 mg TIDPRN PRN ORAL Abdominal cramps 08/08/16 16:00 09/07/16 15:59 08/11/16 13:59 JORGE LUIS FREEMAN M.D. Aug 12, 2016 16:26
[2016-08-12 20:19] VITALS: BP 143/75
[2016-08-12] MEDS: Miralax 17gm pkt ORAL SCH (20:34)
[2016-08-12] MEDS: Dyna-Hex 2% Top Sol 8oz TOPIC SCH (20:34)
[2016-08-12] MEDS: Epogen (for ESRD on dialysis) SUBQ SCH (20:35)
[2016-08-13] VITALS: BP 130/71
[2016-08-13] MEDS: Simethicone 80mg tab ORAL PRN (03:33)
[2016-08-13] MEDS: Morphine Sulfate 4mg/ml Inj IVP PRN ×4 (03:39→21:56)
[2016-08-13 04:00] VITALS: BP 109/71
[2016-08-13] MEDS: cloNIDine 0.2mg Tab ORAL SCH ×3 (05:54→21:55)
[2016-08-13] MEDS: Norco 10mg/325mg tab ORAL PRN (05:55)
[2016-08-13] MEDS: HydrALAZINE 50mg tab ORAL SCH ×3 (05:55→21:56)
[2016-08-13] MEDS: Artificial Tears 1.4% Op Soln BOTH EYES PRN (05:55)
[2016-08-13 07:59] VITALS: BP 154/74
[2016-08-13] MEDS: Calcitriol 0.5mcg Cap ORAL SCH (08:51)
[2016-08-13] MEDS: Renvela 2400 mg pkt ORAL SCH ×3 (08:51→18:10)
[2016-08-13] MEDS: Lactulose 20gm/30ml UDC ORAL SCH ×3 (08:54→18:00)
[2016-08-13] MEDS: Docusate 100mg cap ORAL SCH ×3 (08:54→18:10)
[2016-08-13] MEDS: Lisinopril 20mg tab ORAL SCH ×2 (08:54→20:21)
[2016-08-13] MEDS: Nystatin Powder 100,000 units/gm 15gm TOPIC SCH ×3 (08:57→18:10)
[2016-08-13] MEDS: Heparin 5000 units/ml inj SUBQ SCH ×2 (08:59→20:24)
--- NOTE | 2016-08-13 09:46 | General Progress Note ---
Assessment/Plan Status: doing well Assessment/Plan Status; ESRD , presented Right chest Permacath- ( and left arm fistula with bruit) No Dialysis for sometimes Volume Overload Encephalopathy Anemia right UE venous out let obstruction Plan: HD 08/12 next 08/14/ 07/30 BP control- adjust meds- Phos binders , Vit D and Kayexelate prn SS eval for disposition per orders discussed with bulk pigment reducer ??? Subjective ROS Limited/Unobtainable: No Allergies: Coded Allergies: No Known Allergies (Unverified , 07/20/16) Objective Last 24 Hour Vital Signs Date Time Temp Pulse Resp B/P Pulse Ox O2 Delivery O2 Flow Rate FiO2 08/13/16 08:54 154/74 08/13/16 08:52 73 154/74 08/13/16 07:59 97.9 73 20 154/74 95 Room Air 08/13/16 05:55 150/78 08/13/16 05:54 150/78 08/13/16 04:00 97.7 75 19 109/71 99 Nasal Cannula 3.0 08/13/16 00:00 98.1 75 20 130/71 96 Nasal Cannula 3.0 08/12/16 21:57 127/69 08/12/16 21:56 127/69 08/12/16 20:34 80 143/75 08/12/16 20:34 143/75 08/12/16 20:19 98.2 80 19 143/75 95 Nasal Cannula 3.0 08/12/16 19:19 97.9 08/12/16 16:22 132/77 08/12/16 16:21 132/77 08/12/16 16:17 Nasal Cannula 3.0 28 08/12/16 16:00 97.9 75 20 139/72 95 Room Air 08/12/16 12:15 Nasal Cannula 3.0 28 08/12/16 12:00 97.7 76 20 132/77 99 Nasal Cannula 3.0 Intake and Output 08/12/16 08/13/16 19:00 07:00 Intake Total 240 ml 240 ml Output Total 3100 ml Balance -2860 ml 240 ml Intake Oral 240 ml 240 ml Hemodialysis UF 3100 ml # Voids 3 2 Height (Feet): 5 Height (Inches): 4.00 Weight (Pounds): 160 General Appearance: no apparent distress Objective no change FOULADIAN,ERICK Aug 13, 2016 09:46
[2016-08-13] MEDS ORDERED: D5NS 1000ml IV ONE (10:36)
[2016-08-13 11:38] VITALS: BP 129/77
--- NOTE | 2016-08-13 14:08 | Infectious Diseases Prog Note ---
Assessment/Plan Assessment/Plan ASSESSMENT: 51-year-old female with: Low grade fever , resolved Leukocytosis , resolved. Hepatitis B sAb+ consistent with immunity. Chronic HCV, detectable viremia, with normal LFTs. status post knee joint tap : negative for septic arthritis 07/24/16 ESRD on HD SP Left arm arteriovenous shunt revision and dialysis catheter replacement SP right, placement of left tunneled hemodialysis catheter 07/28 Homeless MRSA, VRE colonized NKDA Full Code PLAN: pt is off of antibiotics , she is stable , ok to DC from ID standpoint Monitor CBC. Monitor BMP. HD as per nephro awaiting placement Subjective Allergies: Coded Allergies: No Known Allergies (Unverified , 07/20/16) Subjective afebrile. no new complaints. Objective Vital Signs Last 24 Hour Vital Signs Date Time Temp Pulse Resp B/P Pulse Ox O2 Delivery O2 Flow Rate FiO2 08/13/16 13:03 129/77 08/13/16 13:03 129/77 08/13/16 11:38 97.7 75 20 129/77 99 Nasal Cannula 2.0 08/13/16 10:50 97.9 08/13/16 08:54 154/74 08/13/16 08:52 73 154/74 08/13/16 07:59 97.9 73 20 154/74 95 Room Air 08/13/16 05:55 150/78 08/13/16 05:54 150/78 08/13/16 04:00 97.7 75 19 109/71 99 Nasal Cannula 3.0 08/13/16 00:00 98.1 75 20 130/71 96 Nasal Cannula 3.0 08/12/16 21:57 127/69 08/12/16 21:56 127/69 08/12/16 20:34 80 143/75 08/12/16 20:34 143/75 08/12/16 20:19 98.2 80 19 143/75 95 Nasal Cannula 3.0 08/12/16 16:22 132/77 08/12/16 16:21 132/77 08/12/16 16:17 Nasal Cannula 3.0 28 08/12/16 16:00 97.9 75 20 139/72 95 Room Air Height (Feet): 5 Height (Inches): 4.00 Weight (Pounds): 160 General Appearance: no acute distress HEENT: anicteric, mucous membranes moist Respiratory/Chest: lungs clear Cardiovascular: normal peripheral pulses, regular rhythm Abdomen: normal bowel sounds, soft, non tender Extremities: other - Knees w/o overlying erythema, nttp along joint line. Current Medications Medications (Trade) Dose Ordered Sig/Papo Route PRN Reason Start Time Stop Time Status Last Admin Dose Admin Acetaminophen (Tylenol) 650 mg Q4H PRN ORAL Fever 07/21/16 15:00 08/20/16 14:59 07/30/16 21:49 Acetaminophen/ Hydrocodone Bitart ([place] 10/325) 1 ea Q8HR PRN ORAL For Pain 08/06/16 16:15 08/13/16 16:14 08/13/16 05:55 Artificial Tears ([place]wa-Tears) 2 drop Q6H PRN BOTH EYES Dry Eyes 07/25/16 22:30 08/24/16 22:29 08/13/16 05:55 Calcitriol (Rocaltrol) 0.5 mcg DAILY ORAL 07/22/16 09:00 08/21/16 08:59 08/13/16 08:51 Chlorhexidine Gluconate (Celeste-Hex 2%) 1 applic Q24H TOPIC 07/31/16 21:00 08/30/16 20:59 08/12/16 20:34 Clonidine HCl (Catapres) 0.2 mg Q8H ORAL 07/28/16 14:00 08/27/16 13:59 08/13/16 13:03 Dextrose (Dextrose 50%) STAT PRN IV Hypoglycemia 07/21/16 15:00 08/20/16 14:59 Docusate Sodium (Colace) 100 mg THREE TIMES A DAY ORAL 07/22/16 09:00 08/21/16 08:59 08/13/16 13:03 Epoetin Sid (Procrit (for ESRD on dialysis)) 10,000 units MON-WED-FRI SUBQ 07/22/16 21:00 08/21/16 20:59 08/12/16 20:35 Ergocalciferol (Drisdol) 50,000 intlu QWEEK ORAL 07/28/16 09:00 08/27/16 08:59 08/11/16 09:15 Heparin Sodium (Porcine) (Heparin 5000 units/ml) 5,000 units EVERY 12 HOURS SUBQ 07/21/16 21:00 08/20/16 20:59 08/13/16 08:59 Hydralazine HCl (Apresoline) 25 mg Q8HR ORAL 08/03/16 14:00 09/02/16 13:59 08/13/16 13:03 Lactulose (Cephulac) 30 gm THREE TIMES A DAY ORAL 08/02/16 13:30 09/01/16 13:29 08/11/16 09:16 Lisinopril (Prinivil) 20 mg Q12HR ORAL 07/22/16 22:00 08/21/16 21:59 08/13/16 08:54 Mineral Oil (Fleet's Mineral Oil Enema) 133 ml EVERY OTHER DAY RECTAL 08/04/16 09:00 09/03/16 08:59 08/08/16 10:00 Minoxidil (Loniten) 2.5 mg Q4H PRN ORAL SBP>160 07/23/16 13:45 08/22/16 13:44 08/11/16 18:49 Morphine Sulfate (Morphine Sulfate) 4 mg Q4H PRN IVP For Pain 08/06/16 23:00 08/13/16 22:59 08/13/16 10:20 Nifedipine (Procardia XL) 60 mg Q12HR ORAL 07/23/16 09:00 08/22/16 08:59 08/13/16 08:52 Nystatin (Nystop Powder) 1 applic THREE TIMES A DAY TOPIC 08/02/16 13:00 09/01/16 12:59 08/13/16 13:02 Ondansetron HCl (Zofran) 4 mg Q6H PRN IVP Nausea & Vomiting 07/21/16 15:00 08/20/16 14:59 08/12/16 21:01 Polyethylene Glycol (Miralax) 17 gm BEDTIME ORAL 08/02/16 21:00 09/01/16 20:59 08/12/16 20:34 Polyethylene Glycol (Miralax) 17 gm DAILYPRN PRN ORAL Constipation 07/21/16 15:00 08/20/16 14:59 08/01/16 17:58 Sennosides (Senokot) 8.6 mg DAILY ORAL 08/03/16 09:00 09/02/16 08:59 08/13/16 08:51 Sevelamer Carbonate (Renvela) 2,400 mg THREE TIMES A DAY ORAL 07/26/16 09:00 08/25/16 08:59 08/13/16 13:03 Simethicone (Mylicon) 80 mg TIDPRN PRN ORAL Abdominal cramps 08/08/16 16:00 09/07/16 15:59 08/13/16 03:33 Ronan Hong M.D. Aug 13, 2016 14:08
--- NOTE | 2016-08-13 15:38 | Pulmonology Progress Note ---
Assessment/Plan Problems: (1) ESRF (end stage renal failure) (2) Fluid overload (3) Opiate dependence (4) Homelessness (5) Hepatitis C Assessment/Plan c/o distended abdomen US of abdomen dc planning in process HD by nephrology check electrolytes monitor BP s/p bilateral arthrocentesis awaiting placement all notes reviewed. Subjective ROS Limited/Unobtainable: No Constitutional: Reports: no symptoms HEENT: Repors: no symptoms Respiratory: Reports: no symptoms Allergies: Coded Allergies: No Known Allergies (Unverified , 07/20/16) Objective Last 24 Hour Vital Signs Date Time Temp Pulse Resp B/P Pulse Ox O2 Delivery O2 Flow Rate FiO2 08/13/16 13:03 129/77 08/13/16 13:03 129/77 08/13/16 11:38 97.7 75 20 129/77 99 Nasal Cannula 2.0 08/13/16 10:50 97.9 08/13/16 08:54 154/74 08/13/16 08:52 73 154/74 08/13/16 07:59 97.9 73 20 154/74 95 Room Air 08/13/16 05:55 150/78 08/13/16 05:54 150/78 08/13/16 04:00 97.7 75 19 109/71 99 Nasal Cannula 3.0 08/13/16 00:00 98.1 75 20 130/71 96 Nasal Cannula 3.0 08/12/16 21:57 127/69 08/12/16 21:56 127/69 08/12/16 20:34 80 143/75 08/12/16 20:34 143/75 08/12/16 20:19 98.2 80 19 143/75 95 Nasal Cannula 3.0 08/12/16 16:22 132/77 08/12/16 16:21 132/77 08/12/16 16:17 Nasal Cannula 3.0 28 08/12/16 16:00 97.9 75 20 139/72 95 Room Air Intake and Output 08/12/16 08/13/16 19:00 07:00 Intake Total 240 ml 240 ml Output Total 3100 ml Balance -2860 ml 240 ml Intake Oral 240 ml 240 ml Hemodialysis UF 3100 ml # Voids 3 2 Objective General Appearance: WD/WN HEENT: normocephalic Respiratory/Chest: chest wall non-tender, lungs clear Cardiovascular: normal peripheral pulses, normal rate Abdomen: normal bowel sounds, soft, non tender Extremities: no cyanosis, other - effusion in both knees Skin: no rash Current Medications Medications (Trade) Dose Ordered Sig/Papo Route PRN Reason Start Time Stop Time Status Last Admin Dose Admin Acetaminophen (Tylenol) 650 mg Q4H PRN ORAL Fever 07/21/16 15:00 08/20/16 14:59 07/30/16 21:49 Acetaminophen/ Hydrocodone Bitart (Moffat 10/325) 1 ea Q8HR PRN ORAL For Pain 08/06/16 16:15 08/13/16 16:14 08/13/16 05:55 Artificial Tears (Akwa-Tears) 2 drop Q6H PRN BOTH EYES Dry Eyes 07/25/16 22:30 08/24/16 22:29 08/13/16 05:55 Calcitriol (Rocaltrol) 0.5 mcg DAILY ORAL 07/22/16 09:00 08/21/16 08:59 08/13/16 08:51 Chlorhexidine Gluconate (Celeste-Hex 2%) 1 applic Q24H TOPIC 07/31/16 21:00 08/30/16 20:59 08/12/16 20:34 Clonidine HCl (Catapres) 0.2 mg Q8H ORAL 07/28/16 14:00 08/27/16 13:59 08/13/16 13:03 Dextrose (Dextrose 50%) STAT PRN IV Hypoglycemia 07/21/16 15:00 08/20/16 14:59 Docusate Sodium (Colace) 100 mg THREE TIMES A DAY ORAL 07/22/16 09:00 08/21/16 08:59 08/13/16 13:03 Epoetin Sid (Procrit (for ESRD on dialysis)) 10,000 units MON-WED-WED SUBQ 07/22/16 21:00 08/21/16 20:59 08/12/16 20:35 Ergocalciferol (Drisdol) 50,000 intlu QWEEK ORAL 07/28/16 09:00 08/27/16 08:59 08/11/16 09:15 Heparin Sodium (Porcine) (Heparin 5000 units/ml) 5,000 units EVERY 12 HOURS SUBQ 07/21/16 21:00 08/20/16 20:59 08/13/16 08:59 Hydralazine HCl (Apresoline) 25 mg Q8HR ORAL 08/03/16 14:00 09/02/16 13:59 08/13/16 13:03 Lactulose (Cephulac) 30 gm THREE TIMES A DAY ORAL 08/02/16 13:30 09/01/16 13:29 08/11/16 09:16 Lisinopril (Prinivil) 20 mg Q12HR ORAL 07/22/16 22:00 08/21/16 21:59 08/13/16 08:54 Mineral Oil (Fleet's Mineral Oil Enema) 133 ml EVERY OTHER DAY RECTAL 08/04/16 09:00 09/03/16 08:59 08/08/16 10:00 Minoxidil (Loniten) 2.5 mg Q4H PRN ORAL SBP>160 07/23/16 13:45 08/22/16 13:44 08/11/16 18:49 Morphine Sulfate (Morphine Sulfate) 4 mg Q4H PRN IVP For Pain 08/06/16 23:00 08/13/16 22:59 08/13/16 10:20 Nifedipine (Procardia XL) 60 mg Q12HR ORAL 07/23/16 09:00 08/22/16 08:59 08/13/16 08:52 Nystatin (Nystop Powder) 1 applic THREE TIMES A DAY TOPIC 08/02/16 13:00 09/01/16 12:59 08/13/16 13:02 Ondansetron HCl (Zofran) 4 mg Q6H PRN IVP Nausea & Vomiting 07/21/16 15:00 08/20/16 14:59 08/12/16 21:01 Polyethylene Glycol (Miralax) 17 gm BEDTIME ORAL 08/02/16 21:00 09/01/16 20:59 08/12/16 20:34 Polyethylene Glycol (Miralax) 17 gm DAILYPRN PRN ORAL Constipation 07/21/16 15:00 08/20/16 14:59 08/01/16 17:58 Sennosides (Senokot) 8.6 mg DAILY ORAL 08/03/16 09:00 09/02/16 08:59 08/13/16 08:51 Sevelamer Carbonate (Renvela) 2,400 mg THREE TIMES A DAY ORAL 07/26/16 09:00 08/25/16 08:59 08/13/16 13:03 Simethicone (Mylicon) 80 mg TIDPRN PRN ORAL Abdominal cramps 08/08/16 16:00 09/07/16 15:59 08/13/16 03:33 EMMANUEL DOUGHERTY Aug 13, 2016 15:38
[2016-08-13 16:12] VITALS: BP 134/82
[2016-08-13 20:00] VITALS: BP 133/73
[2016-08-13] MEDS: Miralax 17gm pkt ORAL SCH (20:21)
[2016-08-13] MEDS: Dyna-Hex 2% Top Sol 8oz TOPIC SCH (20:22)
[2016-08-14] VITALS (7 sets, daily range): BP systolic 109–173; BP diastolic 67–91
[2016-08-14] MEDS: cloNIDine 0.2mg Tab ORAL SCH ×3 (05:34→22:33)
[2016-08-14] MEDS: HydrALAZINE 50mg tab ORAL SCH ×3 (05:34→22:34)
--- NOTE | 2016-08-14 08:31 | General Progress Note ---
Assessment/Plan Status: stable Assessment/Plan Status; ESRD , presented Right chest Permacath- ( and left arm fistula with bruit) No Dialysis for sometimes Volume Overload Encephalopathy Anemia right UE venous out let obstruction Plan: HD Transfused 07/30 BP control- Phos binders , Vit D and Kayexelate prn per orders Placement ??? Subjective ROS Limited/Unobtainable: No Allergies: Coded Allergies: No Known Allergies (Unverified , 07/20/16) Objective Last 24 Hour Vital Signs Date Time Temp Pulse Resp B/P Pulse Ox O2 Delivery O2 Flow Rate FiO2 08/14/16 08:29 97.9 66 20 109/67 99 Nasal Cannula 33.0 08/14/16 05:34 138/75 08/14/16 05:34 138/75 08/14/16 04:00 97.7 78 20 137/78 95 Nasal Cannula 2.0 08/14/16 00:00 96.8 71 20 114/71 99 Nasal Cannula 2.0 08/13/16 21:56 171/74 08/13/16 21:55 171/74 08/13/16 20:22 75 133/73 08/13/16 20:21 133/73 08/13/16 20:00 97.9 75 19 133/73 99 Room Air 08/13/16 17:50 98.1 08/13/16 16:12 98.1 76 22 134/82 99 Nasal Cannula 2.0 08/13/16 13:03 129/77 08/13/16 13:03 129/77 08/13/16 11:38 97.7 75 20 129/77 99 Nasal Cannula 2.0 08/13/16 08:54 154/74 08/13/16 08:52 73 154/74 Intake and Output 08/13/16 08/14/16 18:59 06:59 Intake Total 1200 ml 300 ml Balance 1200 ml 300 ml Intake Oral 1200 ml 300 ml Height (Feet): 5 Height (Inches): 4.00 Weight (Pounds): 160 General Appearance: no apparent distress Objective no change ERICK MOSES Aug 14, 2016 08:31
[2016-08-14] MEDS: Calcitriol 0.5mcg Cap ORAL SCH (08:37)
[2016-08-14] MEDS: Renvela 2400 mg pkt ORAL SCH ×3 (08:38→18:20)
[2016-08-14] MEDS: Heparin 5000 units/ml inj SUBQ SCH ×2 (08:46→20:31)
[2016-08-14] MEDS: Lisinopril 20mg tab ORAL SCH ×2 (08:46→20:28)
[2016-08-14] MEDS: Docusate 100mg cap ORAL SCH ×3 (08:50→18:20)
[2016-08-14] MEDS: Lactulose 20gm/30ml UDC ORAL SCH ×3 (08:50→18:20)
[2016-08-14] MEDS: Fleet's Mineral Oil Enema RECTAL SCH (08:51)
[2016-08-14] MEDS: Nystatin Powder 100,000 units/gm 15gm TOPIC SCH ×3 (10:19→18:21)
[2016-08-14] MEDS: Morphine Sulfate 2mg/ml Inj IVP PRN ×4 (10:28→23:22)
[2016-08-14 12:16] LABS: PROTHROMBIN TIME 10.8 SEC (9.30-11.50)
--- NOTE | 2016-08-14 14:13 | Infectious Diseases Prog Note ---
Assessment/Plan Assessment/Plan ASSESSMENT: 51-year-old female with: Low grade fever , resolved Leukocytosis , resolved. Hepatitis B sAb+ consistent with immunity. Chronic HCV, detectable viremia, with normal LFTs. status post knee joint tap : negative for septic arthritis 07/24/16 ESRD on HD SP Left arm arteriovenous shunt revision and dialysis catheter replacement SP right, placement of left tunneled hemodialysis catheter 07/28 Homeless MRSA, VRE colonized NKDA Full Code PLAN: pt is off of antibiotics , she is stable , ok to DC from ID standpoint Monitor CBC. Monitor BMP. routine outpatient chronic HepC follow up with [facility] HD as per nephro awaiting placement Subjective Allergies: Coded Allergies: No Known Allergies (Unverified , 07/20/16) Subjective afebrile. no new complaints. Objective Vital Signs Last 24 Hour Vital Signs Date Time Temp Pulse Resp B/P Pulse Ox O2 Delivery O2 Flow Rate FiO2 08/14/16 12:15 98.1 74 18 155/72 98 Nasal Cannula 08/14/16 08:46 66 109/67 08/14/16 08:46 109/67 08/14/16 08:29 97.9 66 20 109/67 99 Nasal Cannula 33.0 08/14/16 05:34 138/75 08/14/16 05:34 138/75 08/14/16 04:00 97.7 78 20 137/78 95 Nasal Cannula 2.0 08/14/16 00:00 96.8 71 20 114/71 99 Nasal Cannula 2.0 08/13/16 21:56 171/74 08/13/16 21:55 171/74 08/13/16 20:22 75 133/73 08/13/16 20:21 133/73 08/13/16 20:00 97.9 75 19 133/73 99 Room Air 08/13/16 17:50 98.1 08/13/16 16:12 98.1 76 22 134/82 99 Nasal Cannula 2.0 Height (Feet): 5 Height (Inches): 4.00 Weight (Pounds): 160 HEENT: anicteric Respiratory/Chest: lungs clear Cardiovascular: regular rhythm Abdomen: soft, non tender Musculoskeletal: other - knees w/o signficant effusion, no overlying erythema, no warmth, no joint line tenderness Laboratory Tests Test 08/14/16 11:55 Prothrombin Time 10.8 SEC (9.30-11.50) Prothromb Time International Ratio 1.0 (0.9-1.1) Activated Partial Thromboplast Time 31 SEC (23-33) Current Medications Medications (Trade) Dose Ordered Sig/Papo Route PRN Reason Start Time Stop Time Status Last Admin Dose Admin Acetaminophen (Tylenol) 650 mg Q4H PRN ORAL Fever 07/21/16 15:00 08/20/16 14:59 07/30/16 21:49 Artificial Tears (Akwa-Tears) 2 drop Q6H PRN BOTH EYES Dry Eyes 07/25/16 22:30 08/24/16 22:29 08/13/16 05:55 Calcitriol (Rocaltrol) 0.5 mcg DAILY ORAL 07/22/16 09:00 08/21/16 08:59 08/14/16 08:37 Chlorhexidine Gluconate (Celeste-Hex 2%) 1 applic Q24H TOPIC 07/31/16 21:00 08/30/16 20:59 08/13/16 20:22 Clonidine HCl (Catapres) 0.2 mg Q8H ORAL 07/28/16 14:00 08/27/16 13:59 08/14/16 05:34 Dextrose (Dextrose 50%) STAT PRN IV Hypoglycemia 07/21/16 15:00 08/20/16 14:59 Docusate Sodium (Colace) 100 mg THREE TIMES A DAY ORAL 07/22/16 09:00 08/21/16 08:59 08/13/16 18:10 Epoetin Sid (Procrit (for ESRD on dialysis)) 10,000 units WED-WED-WED SUBQ 07/22/16 21:00 08/21/16 20:59 08/12/16 20:35 Ergocalciferol (Drisdol) 50,000 intlu QWEEK ORAL 07/28/16 09:00 08/27/16 08:59 08/11/16 09:15 Heparin Sodium (Porcine) (Heparin 5000 units/ml) 5,000 units EVERY 12 HOURS SUBQ 07/21/16 21:00 08/20/16 20:59 08/13/16 20:24 Hydralazine HCl (Apresoline) 25 mg Q8HR ORAL 08/03/16 14:00 09/02/16 13:59 08/14/16 05:34 Lactulose (Cephulac) 30 gm THREE TIMES A DAY ORAL 08/02/16 13:30 09/01/16 13:29 08/11/16 09:16 Lisinopril (Prinivil) 20 mg Q12HR ORAL 07/22/16 22:00 08/21/16 21:59 08/13/16 20:21 Mineral Oil (Fleet's Mineral Oil Enema) 133 ml EVERY OTHER DAY RECTAL 08/04/16 09:00 09/03/16 08:59 08/08/16 10:00 Minoxidil (Loniten) 2.5 mg Q4H PRN ORAL SBP>160 07/23/16 13:45 08/22/16 13:44 08/11/16 18:49 Morphine Sulfate (Morphine Sulfate) 2 mg Q4H PRN IVP For Pain 08/14/16 06:45 08/21/16 06:44 08/14/16 10:28 Nifedipine (Procardia XL) 60 mg Q12HR ORAL 07/23/16 09:00 08/22/16 08:59 08/13/16 20:22 Nystatin (Nystop Powder) 1 applic THREE TIMES A DAY TOPIC 08/02/16 13:00 09/01/16 12:59 08/14/16 12:29 Ondansetron HCl (Zofran) 4 mg Q6H PRN IVP Nausea & Vomiting 07/21/16 15:00 08/20/16 14:59 08/13/16 18:26 Polyethylene Glycol (Miralax) 17 gm BEDTIME ORAL 08/02/16 21:00 09/01/16 20:59 08/13/16 20:21 Polyethylene Glycol (Miralax) 17 gm DAILYPRN PRN ORAL Constipation 07/21/16 15:00 08/20/16 14:59 08/01/16 17:58 Sennosides (Senokot) 8.6 mg DAILY ORAL 08/03/16 09:00 09/02/16 08:59 08/14/16 08:37 Sevelamer Carbonate (Renvela) 2,400 mg THREE TIMES A DAY ORAL 07/26/16 09:00 08/25/16 08:59 08/14/16 12:28 Simethicone (Mylicon) 80 mg TIDPRN PRN ORAL Abdominal cramps 08/08/16 16:00 09/07/16 15:59 08/13/16 03:33 Ronan Hong M.D. Aug 14, 2016 14:13
[2016-08-14 15:33] LABS: BASOPHILS % (AUTO) 1.9 % (0.0-2.0); EOSINOPHILS % (AUTO) 8.4 % (0.0-3.0); LYMPHOCYTES % (AUTO) 27.8 % (20.0-45.0); MEAN CORPUSCULAR HEMOGLOBIN 28.3 PG (27.0-31.0); MEAN CORPUSCULAR HGB CONC 32.8 G/DL (32.0-36.0); MEAN CORPUSCULAR VOLUME 86 FL (80-99); MEAN PLATELET VOLUME 4.6 FL (6.5-10.1); PLATELET COUNT 404 K/UL (150-450); RED BLOOD COUNT 2.87 M/UL (4.20-5.40); RED CELL DISTRIBUTION WIDTH 17.2 % (11.6-14.8); WHITE BLOOD COUNT 6.7 K/UL (4.8-10.8)
--- NOTE | 2016-08-14 15:44 | Pulmonology Progress Note ---
Assessment/Plan Problems: (1) ESRF (end stage renal failure) (2) Fluid overload (3) Opiate dependence (4) Homelessness (5) Hepatitis C Assessment/Plan c/o distended abdomen US of abdomen paracentesis is scheduled for am awaiting placement all notes reviewed. Subjective ROS Limited/Unobtainable: No Constitutional: Reports: no symptoms HEENT: Repors: no symptoms Allergies: Coded Allergies: No Known Allergies (Unverified , 07/20/16) Objective Last 24 Hour Vital Signs Date Time Temp Pulse Resp B/P Pulse Ox O2 Delivery O2 Flow Rate FiO2 08/14/16 14:30 78 18 141/87 98 Nasal Cannula 08/14/16 14:00 Nasal Cannula 33.0 28 08/14/16 12:15 98.1 74 18 155/72 98 Nasal Cannula 08/14/16 08:46 66 109/67 08/14/16 08:46 109/67 08/14/16 08:29 97.9 66 20 109/67 99 Nasal Cannula 33.0 08/14/16 05:34 138/75 08/14/16 05:34 138/75 08/14/16 04:00 97.7 78 20 137/78 95 Nasal Cannula 2.0 08/14/16 00:00 96.8 71 20 114/71 99 Nasal Cannula 2.0 08/13/16 21:56 171/74 08/13/16 21:55 171/74 08/13/16 20:22 75 133/73 08/13/16 20:21 133/73 08/13/16 20:00 97.9 75 19 133/73 99 Room Air 08/13/16 17:50 98.1 08/13/16 16:12 98.1 76 22 134/82 99 Nasal Cannula 2.0 Intake and Output 08/13/16 08/14/16 19:00 07:00 Intake Total 1200 ml 300 ml Balance 1200 ml 300 ml Intake Oral 1200 ml 300 ml Objective General Appearance: WD/WN HEENT: normocephalic Respiratory/Chest: chest wall non-tender, lungs clear Cardiovascular: normal peripheral pulses, normal rate Abdomen: normal bowel sounds, soft, non tender Extremities: no cyanosis, other - effusion in both knees Skin: no rash Laboratory Tests 08/14/16 11:55: Prothrombin Time 10.8, Prothromb Time International Ratio 1.0, Activated Partial Thromboplast Time 31 08/14/16 14:56: White Blood Count 6.7, Red Blood Count 2.87L, Hemoglobin 8.1L, Hematocrit 24.8L , Mean Corpuscular Volume 86, Mean Corpuscular Hemoglobin 28.3, Mean Corpuscular Hemoglobin Concent 32.8, Red Cell Distribution Width 17.2H, Platelet Count 404, Mean Platelet Volume 4.6L, Neutrophils (%) (Auto) 58.0, Lymphocytes (%) (Auto) 27.8, Monocytes (%) (Auto) 4.0, Eosinophils (%) (Auto) 8.4H, Basophils (%) (Auto) 1.9, Sodium Level [Pending], Potassium Level [Pending ], Chloride Level [Pending], Carbon Dioxide Level [Pending], Blood Urea Nitrogen [Pending], Creatinine [Pending], Estimat Glomerular Filtration Rate [ Pending], Glucose Level [Pending], Calcium Level [Pending], Phosphorus Level [ Pending], Total Bilirubin [Pending], Aspartate Amino Transf (AST/SGOT) [Pending] , Alanine Aminotransferase (ALT/SGPT) [Pending], Alkaline Phosphatase [Pending] , Total Protein [Pending], Albumin [Pending], Globulin [Pending] Current Medications Medications (Trade) Dose Ordered Sig/Papo Route PRN Reason Start Time Stop Time Status Last Admin Dose Admin Acetaminophen (Tylenol) 650 mg Q4H PRN ORAL Fever 07/21/16 15:00 08/20/16 14:59 07/30/16 21:49 Artificial Tears (Akwa-Tears) 2 drop Q6H PRN BOTH EYES Dry Eyes 07/25/16 22:30 08/24/16 22:29 08/13/16 05:55 Calcitriol (Rocaltrol) 0.5 mcg DAILY ORAL 07/22/16 09:00 08/21/16 08:59 08/14/16 08:37 Chlorhexidine Gluconate (Celeste-Hex 2%) 1 applic Q24H TOPIC 07/31/16 21:00 08/30/16 20:59 08/13/16 20:22 Clonidine HCl (Catapres) 0.2 mg Q8H ORAL 07/28/16 14:00 08/27/16 13:59 08/14/16 05:34 Dextrose (Dextrose 50%) STAT PRN IV Hypoglycemia 07/21/16 15:00 08/20/16 14:59 Docusate Sodium (Colace) 100 mg THREE TIMES A DAY ORAL 07/22/16 09:00 08/21/16 08:59 08/13/16 18:10 Epoetin Sid (Procrit (for ESRD on dialysis)) 10,000 units WED-WED-WED SUBQ 07/22/16 21:00 08/21/16 20:59 08/12/16 20:35 Ergocalciferol (Drisdol) 50,000 intlu QWEEK ORAL 07/28/16 09:00 08/27/16 08:59 08/11/16 09:15 Heparin Sodium (Porcine) (Heparin 5000 units/ml) 5,000 units EVERY 12 HOURS SUBQ 07/21/16 21:00 08/20/16 20:59 08/13/16 20:24 Hydralazine HCl (Apresoline) 25 mg Q8HR ORAL 08/03/16 14:00 09/02/16 13:59 08/14/16 05:34 Lactulose (Cephulac) 30 gm THREE TIMES A DAY ORAL 08/02/16 13:30 09/01/16 13:29 08/11/16 09:16 Lisinopril (Prinivil) 20 mg Q12HR ORAL 07/22/16 22:00 08/21/16 21:59 08/13/16 20:21 Mineral Oil (Fleet's Mineral Oil Enema) 133 ml EVERY OTHER DAY RECTAL 08/04/16 09:00 09/03/16 08:59 08/08/16 10:00 Minoxidil (Loniten) 2.5 mg Q4H PRN ORAL SBP>160 07/23/16 13:45 08/22/16 13:44 08/11/16 18:49 Morphine Sulfate (Morphine Sulfate) 2 mg Q4H PRN IVP For Pain 08/14/16 06:45 08/21/16 06:44 08/14/16 14:46 Nifedipine (Procardia XL) 60 mg Q12HR ORAL 07/23/16 09:00 08/22/16 08:59 08/13/16 20:22 Nystatin (Nystop Powder) 1 applic THREE TIMES A DAY TOPIC 08/02/16 13:00 09/01/16 12:59 08/14/16 12:29 Ondansetron HCl (Zofran) 4 mg Q6H PRN IVP Nausea & Vomiting 07/21/16 15:00 08/20/16 14:59 08/13/16 18:26 Polyethylene Glycol (Miralax) 17 gm BEDTIME ORAL 08/02/16 21:00 09/01/16 20:59 08/13/16 20:21 Polyethylene Glycol (Miralax) 17 gm DAILYPRN PRN ORAL Constipation 07/21/16 15:00 08/20/16 14:59 08/01/16 17:58 Sennosides (Senokot) 8.6 mg DAILY ORAL 08/03/16 09:00 09/02/16 08:59 08/14/16 08:37 Sevelamer Carbonate (Renvela) 2,400 mg THREE TIMES A DAY ORAL 07/26/16 09:00 08/25/16 08:59 08/14/16 12:28 Simethicone (Mylicon) 80 mg TIDPRN PRN ORAL Abdominal cramps 08/08/16 16:00 09/07/16 15:59 08/13/16 03:33 EMMANUEL DOUGHERTY Aug 14, 2016 15:44
[2016-08-14 15:56] LABS: ALANINE AMINOTRANSFERASE 7 U/L (3-33); ALBUMIN/GLOBULIN RATIO 0.7 (1.0-2.7); ANION GAP 8 (5-15); ASPARTATE AMINO TRANSFERASE 10 U/L (5-40); CALCIUM 7.9 mg/dL (8.6-10.2); CARBON DIOXIDE 32 mEQ/L (20-30); CHLORIDE 95 mEQ/L (98-107); CREATININE 5.7 mg/dL (0.5-0.9); GLOMERULAR FILTRATION RATE 7.8 mL/min (>60); HEMOLYSIS 6; PHOSPHORUS 3.6 mg/dL (2.5-4.8); SODIUM 135 mEQ/L (135-145); TOTAL PROTEIN 5.5 g/dL (6.6-8.7)
[2016-08-14] MEDS: Miralax 17gm pkt ORAL SCH (20:29)
[2016-08-14] MEDS: Dyna-Hex 2% Top Sol 8oz TOPIC SCH (20:29)
[2016-08-14] MEDS: Epogen (for ESRD on dialysis) SUBQ SCH (20:49)
[2016-08-15] VITALS: BP 153/93
[2016-08-15] MEDS: Simethicone 80mg tab ORAL PRN (03:00)
[2016-08-15] MEDS: Morphine Sulfate 2mg/ml Inj IVP PRN (03:22)
[2016-08-15 04:00] VITALS: BP 155/82
[2016-08-15] MEDS: cloNIDine 0.2mg Tab ORAL SCH ×3 (05:46→21:11)
[2016-08-15] MEDS: HydrALAZINE 50mg tab ORAL SCH ×3 (05:46→21:11)
[2016-08-15 08:00] VITALS: BP 143/81
[2016-08-15] MEDS: Lactulose 20gm/30ml UDC ORAL SCH ×3 (09:00→18:00)
[2016-08-15] MEDS: Renvela 2400 mg pkt ORAL SCH ×3 (09:02→18:13)
[2016-08-15] MEDS: Calcitriol 0.5mcg Cap ORAL SCH (09:02)
[2016-08-15] MEDS: Docusate 100mg cap ORAL SCH ×3 (09:03→18:13)
[2016-08-15] MEDS: Lisinopril 20mg tab ORAL SCH ×2 (09:03→21:00)
[2016-08-15] MEDS: Nystatin Powder 100,000 units/gm 15gm TOPIC SCH ×3 (09:04→18:14)
[2016-08-15] MEDS: Heparin 5000 units/ml inj SUBQ SCH ×2 (09:07→21:03)
[2016-08-15] MEDS: Morphine Sulfate 4mg/ml Inj IVP PRN ×4 (09:11→22:43)
[2016-08-15 12:00] VITALS: BP 138/76
[2016-08-15] MEDS: Artificial Tears 1.4% Op Soln BOTH EYES PRN (12:39)
--- NOTE | 2016-08-15 13:55 | Infectious Diseases Prog Note ---
Assessment/Plan Assessment/Plan ASSESSMENT: 51-year-old female with: Low grade fever , resolved Leukocytosis , resolved. Hepatitis B sAb+ consistent with immunity. Chronic HCV, detectable viremia, with normal LFTs. status post knee joint tap : negative for septic arthritis 07/24/16 ESRD on HD SP Left arm arteriovenous shunt revision and dialysis catheter replacement SP right, placement of left tunneled hemodialysis catheter 07/28 Homeless MRSA, VRE colonized NKDA Full Code PLAN: pt is off of antibiotics , she is stable , ok to DC from ID standpoint Monitor CBC. Monitor BMP. routine outpatient chronic HepC follow up with [facility] HD as per nephro awaiting placement Subjective Constitutional: Reports: no symptoms Allergies: Coded Allergies: No Known Allergies (Unverified , 07/20/16) Subjective afebrile. no new complaints. Objective Vital Signs Last 24 Hour Vital Signs Date Time Temp Pulse Resp B/P Pulse Ox O2 Delivery O2 Flow Rate FiO2 08/15/16 13:20 138/76 08/15/16 13:19 138/76 08/15/16 12:00 97.6 77 20 138/76 98 Room Air 08/15/16 09:41 97.9 08/15/16 09:03 80 152/88 08/15/16 09:03 152/88 08/15/16 08:00 97.7 79 18 143/81 98 Room Air 08/15/16 05:46 152/88 08/15/16 05:46 152/88 08/15/16 04:00 97.9 80 18 155/82 97 Nasal Cannula 3.0 08/15/16 00:00 98.2 85 20 153/93 98 Nasal Cannula 3.0 08/14/16 22:34 167/67 08/14/16 22:33 167/97 08/14/16 20:29 83 153/90 08/14/16 20:28 153/90 08/14/16 20:00 98.2 83 20 153/90 98 Nasal Cannula 3.0 08/14/16 17:42 Nasal Cannula 33.0 28 08/14/16 16:00 98.1 79 18 173/91 98 Nasal Cannula 08/14/16 14:30 78 18 141/87 98 Nasal Cannula 08/14/16 14:00 Nasal Cannula 33.0 28 Height (Feet): 5 Height (Inches): 4.00 Weight (Pounds): 160 General Appearance: no acute distress HEENT: anicteric Respiratory/Chest: normal breath sounds Cardiovascular: normal rate Abdomen: soft, non tender Musculoskeletal: no effusion Laboratory Tests Test 08/14/16 14:56 White Blood Count 6.7 K/UL (4.8-10.8) Red Blood Count 2.87 M/UL (4.20-5.40) L Hemoglobin 8.1 G/DL (12.0-16.0) L Hematocrit 24.8 % (37.0-47.0) L Mean Corpuscular Volume 86 FL (80-99) Mean Corpuscular Hemoglobin 28.3 PG (27.0-31.0) Mean Corpuscular Hemoglobin Concent 32.8 G/DL (32.0-36.0) Red Cell Distribution Width 17.2 % (11.6-14.8) H Platelet Count 404 K/UL (150-450) Mean Platelet Volume 4.6 FL (6.5-10.1) L Neutrophils (%) (Auto) 58.0 % (45.0-75.0) Lymphocytes (%) (Auto) 27.8 % (20.0-45.0) Monocytes (%) (Auto) 4.0 % (1.0-10.0) Eosinophils (%) (Auto) 8.4 % (0.0-3.0) H Basophils (%) (Auto) 1.9 % (0.0-2.0) Sodium Level 135 mEQ/L (135-145) Potassium Level 5.0 mEQ/L (3.4-4.9) H Chloride Level 95 mEQ/L (98-107) L Carbon Dioxide Level 32 mEQ/L (20-30) H Anion Gap 8 (5-15) Blood Urea Nitrogen 30 mg/dL (7-23) H Creatinine 5.7 mg/dL (0.5-0.9) H Estimat Glomerular Filtration Rate 7.8 mL/min (>60) Glucose Level 92 mg/dL (74-106) Calcium Level 7.9 mg/dL (8.6-10.2) L Phosphorus Level 3.6 mg/dL (2.5-4.8) Total Bilirubin < 0.2 mg/dL (0.0-1.2) Aspartate Amino Transf (AST/SGOT) 10 U/L (5-40) Alanine Aminotransferase (ALT/SGPT) 7 U/L (3-33) Alkaline Phosphatase 89 U/L (35-104) Total Protein 5.5 g/dL (6.6-8.7) L Albumin 2.4 g/dL (3.5-5.2) L Globulin 3.1 g/dL Albumin/Globulin Ratio 0.7 (1.0-2.7) L Current Medications Medications (Trade) Dose Ordered Sig/Papo Route PRN Reason Start Time Stop Time Status Last Admin Dose Admin Acetaminophen (Tylenol) 650 mg Q4H PRN ORAL Fever 07/21/16 15:00 08/20/16 14:59 07/30/16 21:49 Artificial Tears (Akwa-Tears) 2 drop Q6H PRN BOTH EYES Dry Eyes 07/25/16 22:30 08/24/16 22:29 08/15/16 12:39 Calcitriol (Rocaltrol) 0.5 mcg DAILY ORAL 07/22/16 09:00 08/21/16 08:59 08/15/16 09:02 Chlorhexidine Gluconate (Celeste-Hex 2%) 1 applic Q24H TOPIC 07/31/16 21:00 08/30/16 20:59 08/14/16 20:29 Clonidine HCl (Catapres) 0.2 mg Q8H ORAL 07/28/16 14:00 08/27/16 13:59 08/15/16 13:19 Dextrose (Dextrose 50%) STAT PRN IV Hypoglycemia 07/21/16 15:00 08/20/16 14:59 Docusate Sodium (Colace) 100 mg THREE TIMES A DAY ORAL 07/22/16 09:00 08/21/16 08:59 08/15/16 13:19 Epoetin Sid (Procrit (for ESRD on dialysis)) 10,000 units WED-WED-WED SUBQ 07/22/16 21:00 08/21/16 20:59 08/14/16 20:49 Ergocalciferol (Drisdol) 50,000 intlu QWEEK ORAL 07/28/16 09:00 08/27/16 08:59 08/11/16 09:15 Heparin Sodium (Porcine) (Heparin 5000 units/ml) 5,000 units EVERY 12 HOURS SUBQ 07/21/16 21:00 08/20/16 20:59 08/15/16 09:07 Hydralazine HCl (Apresoline) 25 mg Q8HR ORAL 08/03/16 14:00 09/02/16 13:59 08/15/16 13:20 Lactulose (Cephulac) 30 gm THREE TIMES A DAY ORAL 08/02/16 13:30 09/01/16 13:29 08/14/16 18:20 Lisinopril (Prinivil) 20 mg Q12HR ORAL 07/22/16 22:00 08/21/16 21:59 08/15/16 09:03 Mineral Oil (Fleet's Mineral Oil Enema) 133 ml EVERY OTHER DAY RECTAL 08/04/16 09:00 09/03/16 08:59 08/08/16 10:00 Minoxidil (Loniten) 2.5 mg Q4H PRN ORAL SBP>160 07/23/16 13:45 08/22/16 13:44 08/11/16 18:49 Morphine Sulfate (Morphine Sulfate) 4 mg Q4H PRN IVP For Pain 08/15/16 06:45 08/22/16 06:44 08/15/16 13:20 Nifedipine (Procardia XL) 60 mg Q12HR ORAL 07/23/16 09:00 08/22/16 08:59 08/15/16 09:03 Nystatin (Nystop Powder) 1 applic THREE TIMES A DAY TOPIC 08/02/16 13:00 09/01/16 12:59 08/15/16 13:21 Ondansetron HCl (Zofran) 4 mg Q6H PRN IVP Nausea & Vomiting 07/21/16 15:00 08/20/16 14:59 08/15/16 13:20 Polyethylene Glycol (Miralax) 17 gm BEDTIME ORAL 08/02/16 21:00 09/01/16 20:59 08/14/16 20:29 Polyethylene Glycol (Miralax) 17 gm DAILYPRN PRN ORAL Constipation 07/21/16 15:00 08/20/16 14:59 08/01/16 17:58 Sennosides (Senokot) 8.6 mg DAILY ORAL 08/03/16 09:00 09/02/16 08:59 08/15/16 09:02 Sevelamer Carbonate (Renvela) 2,400 mg THREE TIMES A DAY ORAL 07/26/16 09:00 08/25/16 08:59 08/15/16 13:20 Simethicone (Mylicon) 80 mg TIDPRN PRN ORAL Abdominal cramps 08/08/16 16:00 09/07/16 15:59 08/15/16 03:00 Ronan Hong M.D. Aug 15, 2016 13:55
--- NOTE | 2016-08-15 15:10 | General Progress Note ---
Assessment/Plan Status: stable Assessment/Plan Status; ESRD , presented Right chest Permacath- ( and left arm fistula with bruit) No Dialysis for sometimes Volume Overload Encephalopathy Anemia right UE venous out let obstruction Plan: HD next due 08/17 Transfused 07/30 BP control- Phos binders , Vit D and Kayexelate prn per orders Placement ??? Subjective ROS Limited/Unobtainable: No Constitutional: Reports: malaise Allergies: Coded Allergies: No Known Allergies (Unverified , 07/20/16) Objective Last 24 Hour Vital Signs Date Time Temp Pulse Resp B/P Pulse Ox O2 Delivery O2 Flow Rate FiO2 08/15/16 13:50 97.6 08/15/16 13:20 138/76 08/15/16 13:19 138/76 08/15/16 12:00 97.6 77 20 138/76 98 Room Air 08/15/16 09:03 80 152/88 08/15/16 09:03 152/88 08/15/16 08:00 97.7 79 18 143/81 98 Room Air 08/15/16 05:46 152/88 08/15/16 05:46 152/88 08/15/16 04:00 97.9 80 18 155/82 97 Nasal Cannula 3.0 08/15/16 00:00 98.2 85 20 153/93 98 Nasal Cannula 3.0 08/14/16 22:34 167/67 08/14/16 22:33 167/97 08/14/16 20:29 83 153/90 08/14/16 20:28 153/90 08/14/16 20:00 98.2 83 20 153/90 98 Nasal Cannula 3.0 08/14/16 17:42 Nasal Cannula 33.0 28 08/14/16 16:00 98.1 79 18 173/91 98 Nasal Cannula Intake and Output 08/14/16 08/15/16 19:00 07:00 Intake Total 240 ml Output Total 3100 ml Balance -3100 ml 240 ml Intake Oral 240 ml Hemodialysis UF 3100 ml Height (Feet): 5 Height (Inches): 4.00 Weight (Pounds): 160 General Appearance: no apparent distress Objective no change ERICK MOSES Aug 15, 2016 15:10
[2016-08-15 16:00] VITALS: BP 141/79
--- NOTE | 2016-08-15 19:14 | Pulmonology Progress Note ---
Assessment/Plan Problems: (1) ESRF (end stage renal failure) (2) Fluid overload (3) Opiate dependence (4) Homelessness (5) Hepatitis C Assessment/Plan c/o distended abdomen US of abdomen paracentesis is scheduled for am awaiting placement all notes reviewed. Subjective ROS Limited/Unobtainable: No Allergies: Coded Allergies: No Known Allergies (Unverified , 07/20/16) Objective Last 24 Hour Vital Signs Date Time Temp Pulse Resp B/P Pulse Ox O2 Delivery O2 Flow Rate FiO2 08/15/16 18:43 97.7 08/15/16 16:00 97.7 80 20 141/79 98 Nasal Cannula 3.0 08/15/16 13:20 138/76 08/15/16 13:19 138/76 08/15/16 12:00 97.6 77 20 138/76 98 Room Air 08/15/16 09:03 80 152/88 08/15/16 09:03 152/88 08/15/16 08:00 97.7 79 18 143/81 98 Room Air 08/15/16 05:46 152/88 08/15/16 05:46 152/88 08/15/16 04:00 97.9 80 18 155/82 97 Nasal Cannula 3.0 08/15/16 00:00 98.2 85 20 153/93 98 Nasal Cannula 3.0 08/14/16 22:34 167/67 08/14/16 22:33 167/97 08/14/16 20:29 83 153/90 08/14/16 20:28 153/90 08/14/16 20:00 98.2 83 20 153/90 98 Nasal Cannula 3.0 Intake and Output 08/14/16 08/15/16 19:00 07:00 Intake Total 240 ml Output Total 3100 ml Balance -3100 ml 240 ml Intake Oral 240 ml Hemodialysis UF 3100 ml Objective General Appearance: WD/WN HEENT: normocephalic Respiratory/Chest: chest wall non-tender, lungs clear Cardiovascular: normal peripheral pulses, normal rate Abdomen: normal bowel sounds, soft, non tender Extremities: no cyanosis, other - effusion in both knees Skin: no rash Current Medications Medications (Trade) Dose Ordered Sig/Papo Route PRN Reason Start Time Stop Time Status Last Admin Dose Admin Acetaminophen (Tylenol) 650 mg Q4H PRN ORAL Fever 07/21/16 15:00 08/20/16 14:59 07/30/16 21:49 Artificial Tears (Akwa-Tears) 2 drop Q6H PRN BOTH EYES Dry Eyes 07/25/16 22:30 08/24/16 22:29 08/15/16 12:39 Calcitriol (Rocaltrol) 0.5 mcg DAILY ORAL 07/22/16 09:00 08/21/16 08:59 08/15/16 09:02 Chlorhexidine Gluconate (Celeste-Hex 2%) 1 applic Q24H TOPIC 07/31/16 21:00 08/30/16 20:59 08/14/16 20:29 Clonidine HCl (Catapres) 0.2 mg Q8H ORAL 07/28/16 14:00 08/27/16 13:59 08/15/16 13:19 Dextrose (Dextrose 50%) STAT PRN IV Hypoglycemia 07/21/16 15:00 08/20/16 14:59 Docusate Sodium (Colace) 100 mg THREE TIMES A DAY ORAL 07/22/16 09:00 08/21/16 08:59 08/15/16 18:13 Epoetin Sid (Procrit (for ESRD on dialysis)) 10,000 units WED-WED-WED SUBQ 07/22/16 21:00 08/21/16 20:59 08/14/16 20:49 Ergocalciferol (Drisdol) 50,000 intlu QWEEK ORAL 07/28/16 09:00 08/27/16 08:59 08/11/16 09:15 Heparin Sodium (Porcine) (Heparin 5000 units/ml) 5,000 units EVERY 12 HOURS SUBQ 07/21/16 21:00 08/20/16 20:59 08/15/16 09:07 Hydralazine HCl (Apresoline) 25 mg Q8HR ORAL 08/03/16 14:00 09/02/16 13:59 08/15/16 13:20 Lactulose (Cephulac) 30 gm THREE TIMES A DAY ORAL 08/02/16 13:30 09/01/16 13:29 08/14/16 18:20 Lisinopril (Prinivil) 20 mg Q12HR ORAL 07/22/16 22:00 08/21/16 21:59 08/15/16 09:03 Mineral Oil (Fleet's Mineral Oil Enema) 133 ml EVERY OTHER DAY RECTAL 08/04/16 09:00 09/03/16 08:59 08/08/16 10:00 Minoxidil (Loniten) 2.5 mg Q4H PRN ORAL SBP>160 07/23/16 13:45 08/22/16 13:44 08/11/16 18:49 Morphine Sulfate (Morphine Sulfate) 4 mg Q4H PRN IVP For Pain 08/15/16 06:45 08/22/16 06:44 08/15/16 18:13 Nifedipine (Procardia XL) 60 mg Q12HR ORAL 07/23/16 09:00 08/22/16 08:59 08/15/16 09:03 Nystatin (Nystop Powder) 1 applic THREE TIMES A DAY TOPIC 08/02/16 13:00 09/01/16 12:59 08/15/16 18:14 Ondansetron HCl (Zofran) 4 mg Q6H PRN IVP Nausea & Vomiting 07/21/16 15:00 08/20/16 14:59 08/15/16 13:20 Polyethylene Glycol (Miralax) 17 gm BEDTIME ORAL 08/02/16 21:00 09/01/16 20:59 08/14/16 20:29 Polyethylene Glycol (Miralax) 17 gm DAILYPRN PRN ORAL Constipation 07/21/16 15:00 08/20/16 14:59 08/01/16 17:58 Sennosides (Senokot) 8.6 mg DAILY ORAL 08/03/16 09:00 09/02/16 08:59 08/15/16 09:02 Sevelamer Carbonate (Renvela) 2,400 mg THREE TIMES A DAY ORAL 07/26/16 09:00 08/25/16 08:59 08/15/16 18:13 Simethicone (Mylicon) 80 mg TIDPRN PRN ORAL Abdominal cramps 08/08/16 16:00 09/07/16 15:59 08/15/16 03:00 EMMANUEL DOUGHERTY Aug 15, 2016 19:14
[2016-08-15 20:00] VITALS: BP 180/85
[2016-08-15] MEDS: Miralax 17gm pkt ORAL SCH (21:01)
[2016-08-15] MEDS: Dyna-Hex 2% Top Sol 8oz TOPIC SCH (21:01)
[2016-08-16] VITALS: BP 155/76
[2016-08-16] MEDS: Morphine Sulfate 4mg/ml Inj IVP PRN ×4 (03:38→20:52)
[2016-08-16 04:00] VITALS: BP 162/77
[2016-08-16] MEDS: cloNIDine 0.2mg Tab ORAL SCH ×3 (05:40→22:13)
[2016-08-16] MEDS: HydrALAZINE 50mg tab ORAL SCH ×3 (05:41→22:13)
[2016-08-16 08:00] VITALS: BP 159/75
[2016-08-16] MEDS: Docusate 100mg cap ORAL SCH ×3 (08:34→18:57)
[2016-08-16] MEDS: Lactulose 20gm/30ml UDC ORAL SCH ×3 (08:34→18:57)
[2016-08-16] MEDS: Calcitriol 0.5mcg Cap ORAL SCH (08:34)
[2016-08-16] MEDS: Lisinopril 20mg tab ORAL SCH ×2 (08:41→20:53)
[2016-08-16] MEDS: Renvela 2400 mg pkt ORAL SCH ×3 (08:43→18:57)
[2016-08-16] MEDS: Heparin 5000 units/ml inj SUBQ SCH ×2 (08:46→21:00)
[2016-08-16] MEDS: Nystatin Powder 100,000 units/gm 15gm TOPIC SCH ×3 (08:49→18:57)
[2016-08-16] MEDS: Fleet's Mineral Oil Enema RECTAL SCH (08:52)
--- NOTE | 2016-08-16 09:22 | General Progress Note ---
Assessment/Plan Status: stable Assessment/Plan Status; ESRD , presented Right chest Permacath- ( and left arm fistula with bruit) No Dialysis for sometimes Volume Overload Encephalopathy Anemia right UE venous out let obstruction Plan: HD next due 08/17 Transfused 07/30 BP control- Phos binders , Vit D and Kayexelate prn per orders Placement ??? Subjective ROS Limited/Unobtainable: No Allergies: Coded Allergies: No Known Allergies (Unverified , 07/20/16) Objective Last 24 Hour Vital Signs Date Time Temp Pulse Resp B/P Pulse Ox O2 Delivery O2 Flow Rate FiO2 08/16/16 08:43 76 131/73 08/16/16 08:41 131/73 08/16/16 05:41 162/77 08/16/16 05:40 162/77 08/16/16 04:00 97.9 70 20 162/77 98 Nasal Cannula 2.0 08/16/16 00:00 98.1 73 20 155/76 98 Nasal Cannula 2.0 08/15/16 21:11 180/85 08/15/16 21:11 180/85 08/15/16 21:01 76 180/85 08/15/16 21:00 180/85 08/15/16 20:00 98.2 76 20 180/85 98 Nasal Cannula 2.0 08/15/16 18:43 97.7 08/15/16 16:00 97.7 80 20 141/79 98 Nasal Cannula 3.0 08/15/16 13:20 138/76 08/15/16 13:19 138/76 08/15/16 12:00 97.6 77 20 138/76 98 Room Air Intake and Output 08/15/16 08/16/16 19:00 07:00 Intake Total 540 ml Balance 540 ml Intake Oral 540 ml # Voids 3 1 Height (Feet): 5 Height (Inches): 4.00 Weight (Pounds): 160 General Appearance: no apparent distress Objective no change ERICK MOSES Aug 16, 2016 09:22
[2016-08-16 12:00] VITALS: BP 150/76
--- NOTE | 2016-08-16 15:17 | Infectious Diseases Prog Note ---
Assessment/Plan Assessment/Plan ASSESSMENT: 51-year-old female with: Low grade fever , resolved Leukocytosis , resolved. Hepatitis B sAb+ consistent with immunity. Chronic HCV, detectable viremia, with normal LFTs. status post knee joint tap : negative for septic arthritis 07/24/16 ESRD on HD SP Left arm arteriovenous shunt revision and dialysis catheter replacement SP right, placement of left tunneled hemodialysis catheter 07/28 Homeless MRSA, VRE colonized NKDA Full Code PLAN: pt is off of antibiotics , she is stable , ok to DC from ID standpoint Monitor CBC. Monitor BMP. routine outpatient chronic HepC follow up with [facility] HD as per nephro awaiting placement Subjective Allergies: Coded Allergies: No Known Allergies (Unverified , 07/20/16) Subjective afebrile. no new complaints. Objective Vital Signs Last 24 Hour Vital Signs Date Time Temp Pulse Resp B/P Pulse Ox O2 Delivery O2 Flow Rate FiO2 08/16/16 13:08 150/76 08/16/16 13:07 150/76 08/16/16 12:00 98.2 70 20 150/76 99 Nasal Cannula 3.0 08/16/16 08:43 76 131/73 08/16/16 08:41 131/73 08/16/16 08:00 98.4 71 18 159/75 98 Nasal Cannula 3.0 08/16/16 05:41 162/77 08/16/16 05:40 162/77 08/16/16 04:00 97.9 70 20 162/77 98 Nasal Cannula 2.0 08/16/16 00:00 98.1 73 20 155/76 98 Nasal Cannula 2.0 08/15/16 21:11 180/85 08/15/16 21:11 180/85 08/15/16 21:01 76 180/85 08/15/16 21:00 180/85 08/15/16 20:00 98.2 76 20 180/85 98 Nasal Cannula 2.0 08/15/16 18:43 97.7 08/15/16 16:00 97.7 80 20 141/79 98 Nasal Cannula 3.0 Height (Feet): 5 Height (Inches): 4.00 Weight (Pounds): 160 General Appearance: no acute distress HEENT: anicteric Respiratory/Chest: lungs clear Cardiovascular: normal rate Musculoskeletal: no effusion Current Medications Medications (Trade) Dose Ordered Sig/Papo Route PRN Reason Start Time Stop Time Status Last Admin Dose Admin Acetaminophen (Tylenol) 650 mg Q4H PRN ORAL Fever 07/21/16 15:00 08/20/16 14:59 07/30/16 21:49 Artificial Tears (Akwa-Tears) 2 drop Q6H PRN BOTH EYES Dry Eyes 07/25/16 22:30 08/24/16 22:29 08/15/16 12:39 Calcitriol (Rocaltrol) 0.5 mcg DAILY ORAL 07/22/16 09:00 08/21/16 08:59 08/16/16 08:34 Chlorhexidine Gluconate (Celeste-Hex 2%) 1 applic Q24H TOPIC 07/31/16 21:00 08/30/16 20:59 08/15/16 21:01 Clonidine HCl (Catapres) 0.2 mg Q8H ORAL 07/28/16 14:00 08/27/16 13:59 08/16/16 13:07 Dextrose (Dextrose 50%) STAT PRN IV Hypoglycemia 07/21/16 15:00 08/20/16 14:59 Docusate Sodium (Colace) 100 mg THREE TIMES A DAY ORAL 07/22/16 09:00 08/21/16 08:59 08/16/16 13:08 Epoetin Sid (Procrit (for ESRD on dialysis)) 10,000 units WED-WED-WED SUBQ 07/22/16 21:00 08/21/16 20:59 08/14/16 20:49 Ergocalciferol (Drisdol) 50,000 intlu QWEEK ORAL 07/28/16 09:00 08/27/16 08:59 08/11/16 09:15 Heparin Sodium (Porcine) (Heparin 5000 units/ml) 5,000 units EVERY 12 HOURS SUBQ 07/21/16 21:00 08/20/16 20:59 08/16/16 08:46 Hydralazine HCl (Apresoline) 25 mg Q8HR ORAL 08/03/16 14:00 09/02/16 13:59 08/16/16 13:08 Lactulose (Cephulac) 30 gm THREE TIMES A DAY ORAL 08/02/16 13:30 09/01/16 13:29 08/16/16 13:07 Lisinopril (Prinivil) 20 mg Q12HR ORAL 07/22/16 22:00 08/21/16 21:59 08/16/16 08:41 Mineral Oil (Fleet's Mineral Oil Enema) 133 ml EVERY OTHER DAY RECTAL 08/04/16 09:00 09/03/16 08:59 08/16/16 08:52 Minoxidil (Loniten) 2.5 mg Q4H PRN ORAL SBP>160 07/23/16 13:45 08/22/16 13:44 08/11/16 18:49 Morphine Sulfate (Morphine Sulfate) 4 mg Q4H PRN IVP For Pain 08/15/16 06:45 08/22/16 06:44 08/16/16 14:18 Nifedipine (Procardia XL) 60 mg Q12HR ORAL 07/23/16 09:00 08/22/16 08:59 08/16/16 08:43 Nystatin (Nystop Powder) 1 applic THREE TIMES A DAY TOPIC 08/02/16 13:00 09/01/16 12:59 08/16/16 14:10 Ondansetron HCl (Zofran) 4 mg Q6H PRN IVP Nausea & Vomiting 07/21/16 15:00 08/20/16 14:59 08/16/16 10:13 Polyethylene Glycol (Miralax) 17 gm BEDTIME ORAL 08/02/16 21:00 09/01/16 20:59 08/15/16 21:01 Polyethylene Glycol (Miralax) 17 gm DAILYPRN PRN ORAL Constipation 07/21/16 15:00 08/20/16 14:59 08/01/16 17:58 Sennosides (Senokot) 8.6 mg DAILY ORAL 08/03/16 09:00 09/02/16 08:59 08/16/16 08:34 Sevelamer Carbonate (Renvela) 2,400 mg THREE TIMES A DAY ORAL 07/26/16 09:00 08/25/16 08:59 08/16/16 13:07 Simethicone (Mylicon) 80 mg TIDPRN PRN ORAL Abdominal cramps 08/08/16 16:00 09/07/16 15:59 08/15/16 03:00 Ronan Hong M.D. Aug 16, 2016 15:17
--- NOTE | 2016-08-16 15:37 | Pulmonology Progress Note ---
Assessment/Plan Problems: (1) ESRF (end stage renal failure) (2) Fluid overload (3) Opiate dependence (4) Homelessness (5) Hepatitis C Assessment/Plan c/o distended abdomen US of abdomen paracentesis is scheduled for am awaiting placement all notes reviewed. Subjective ROS Limited/Unobtainable: No Allergies: Coded Allergies: No Known Allergies (Unverified , 07/20/16) Objective Last 24 Hour Vital Signs Date Time Temp Pulse Resp B/P Pulse Ox O2 Delivery O2 Flow Rate FiO2 08/16/16 13:08 150/76 08/16/16 13:07 150/76 08/16/16 12:00 98.2 70 20 150/76 99 Nasal Cannula 3.0 08/16/16 08:43 76 131/73 08/16/16 08:41 131/73 08/16/16 08:00 98.4 71 18 159/75 98 Nasal Cannula 3.0 08/16/16 05:41 162/77 08/16/16 05:40 162/77 08/16/16 04:00 97.9 70 20 162/77 98 Nasal Cannula 2.0 08/16/16 00:00 98.1 73 20 155/76 98 Nasal Cannula 2.0 08/15/16 21:11 180/85 08/15/16 21:11 180/85 08/15/16 21:01 76 180/85 08/15/16 21:00 180/85 08/15/16 20:00 98.2 76 20 180/85 98 Nasal Cannula 2.0 08/15/16 18:43 97.7 08/15/16 16:00 97.7 80 20 141/79 98 Nasal Cannula 3.0 Intake and Output 08/15/16 08/16/16 19:00 07:00 Intake Total 540 ml Balance 540 ml Intake Oral 540 ml # Voids 3 1 Objective General Appearance: WD/WN HEENT: normocephalic Respiratory/Chest: chest wall non-tender, lungs clear Cardiovascular: normal peripheral pulses, normal rate Abdomen: normal bowel sounds, soft, non tender Extremities: no cyanosis, other - effusion in both knees Skin: no rash Current Medications Medications (Trade) Dose Ordered Sig/Papo Route PRN Reason Start Time Stop Time Status Last Admin Dose Admin Acetaminophen (Tylenol) 650 mg Q4H PRN ORAL Fever 07/21/16 15:00 08/20/16 14:59 07/30/16 21:49 Artificial Tears (Akwa-Tears) 2 drop Q6H PRN BOTH EYES Dry Eyes 07/25/16 22:30 08/24/16 22:29 08/15/16 12:39 Calcitriol (Rocaltrol) 0.5 mcg DAILY ORAL 07/22/16 09:00 08/21/16 08:59 08/16/16 08:34 Chlorhexidine Gluconate (Celeste-Hex 2%) 1 applic Q24H TOPIC 07/31/16 21:00 08/30/16 20:59 08/15/16 21:01 Clonidine HCl (Catapres) 0.2 mg Q8H ORAL 07/28/16 14:00 08/27/16 13:59 08/16/16 13:07 Dextrose (Dextrose 50%) STAT PRN IV Hypoglycemia 07/21/16 15:00 08/20/16 14:59 Docusate Sodium (Colace) 100 mg THREE TIMES A DAY ORAL 07/22/16 09:00 08/21/16 08:59 08/16/16 13:08 Epoetin Sid (Procrit (for ESRD on dialysis)) 10,000 units WED-WED-WED SUBQ 07/22/16 21:00 08/21/16 20:59 08/14/16 20:49 Ergocalciferol (Drisdol) 50,000 intlu QWEEK ORAL 07/28/16 09:00 08/27/16 08:59 08/11/16 09:15 Heparin Sodium (Porcine) (Heparin 5000 units/ml) 5,000 units EVERY 12 HOURS SUBQ 07/21/16 21:00 08/20/16 20:59 08/16/16 08:46 Hydralazine HCl (Apresoline) 25 mg Q8HR ORAL 08/03/16 14:00 09/02/16 13:59 08/16/16 13:08 Lactulose (Cephulac) 30 gm THREE TIMES A DAY ORAL 08/02/16 13:30 09/01/16 13:29 08/16/16 13:07 Lisinopril (Prinivil) 20 mg Q12HR ORAL 07/22/16 22:00 08/21/16 21:59 08/16/16 08:41 Mineral Oil (Fleet's Mineral Oil Enema) 133 ml EVERY OTHER DAY RECTAL 08/04/16 09:00 09/03/16 08:59 08/16/16 08:52 Minoxidil (Loniten) 2.5 mg Q4H PRN ORAL SBP>160 07/23/16 13:45 08/22/16 13:44 08/11/16 18:49 Morphine Sulfate (Morphine Sulfate) 4 mg Q4H PRN IVP For Pain 08/15/16 06:45 08/22/16 06:44 08/16/16 14:18 Nifedipine (Procardia XL) 60 mg Q12HR ORAL 07/23/16 09:00 08/22/16 08:59 08/16/16 08:43 Nystatin (Nystop Powder) 1 applic THREE TIMES A DAY TOPIC 08/02/16 13:00 09/01/16 12:59 08/16/16 14:10 Ondansetron HCl (Zofran) 4 mg Q6H PRN IVP Nausea & Vomiting 07/21/16 15:00 08/20/16 14:59 08/16/16 10:13 Polyethylene Glycol (Miralax) 17 gm BEDTIME ORAL 08/02/16 21:00 09/01/16 20:59 08/15/16 21:01 Polyethylene Glycol (Miralax) 17 gm DAILYPRN PRN ORAL Constipation 07/21/16 15:00 08/20/16 14:59 08/01/16 17:58 Sennosides (Senokot) 8.6 mg DAILY ORAL 08/03/16 09:00 09/02/16 08:59 08/16/16 08:34 Sevelamer Carbonate (Renvela) 2,400 mg THREE TIMES A DAY ORAL 07/26/16 09:00 08/25/16 08:59 08/16/16 13:07 Simethicone (Mylicon) 80 mg TIDPRN PRN ORAL Abdominal cramps 08/08/16 16:00 09/07/16 15:59 08/15/16 03:00 EMMANUEL DOUGHERTY Aug 16, 2016 15:37
[2016-08-16 16:00] VITALS: BP 144/80
[2016-08-16 20:00] VITALS: BP 174/88
[2016-08-16] MEDS: Artificial Tears 1.4% Op Soln BOTH EYES PRN (20:52)
[2016-08-16] MEDS: Dyna-Hex 2% Top Sol 8oz TOPIC SCH (20:53)
[2016-08-16] MEDS: Miralax 17gm pkt ORAL SCH (21:00)
[2016-08-17] VITALS: BP 159/91
[2016-08-17] MEDS: Simethicone 80mg tab ORAL PRN ×2 (01:21→09:59)
[2016-08-17] MEDS: Morphine Sulfate 4mg/ml Inj IVP PRN ×5 (01:21→22:01)
[2016-08-17 04:00] VITALS: BP 178/82
[2016-08-17] MEDS: cloNIDine 0.2mg Tab ORAL SCH ×5 (06:15→22:01)
[2016-08-17] MEDS: HydrALAZINE 50mg tab ORAL SCH ×3 (06:16→22:02)
[2016-08-17 07:57] VITALS: BP 151/78
[2016-08-17] MEDS: Docusate 100mg cap ORAL SCH ×3 (09:00→17:43)
[2016-08-17] MEDS: Lisinopril 20mg tab ORAL SCH ×2 (09:00→20:56)
[2016-08-17] MEDS: Lactulose 20gm/30ml UDC ORAL SCH ×3 (09:00→17:43)
[2016-08-17] MEDS: Renvela 2400 mg pkt ORAL SCH ×3 (09:02→17:43)
[2016-08-17] MEDS: Calcitriol 0.5mcg Cap ORAL SCH (09:02)
[2016-08-17] MEDS: Heparin 5000 units/ml inj SUBQ SCH ×2 (09:05→20:58)
[2016-08-17] MEDS: Nystatin Powder 100,000 units/gm 15gm TOPIC SCH ×3 (09:20→17:44)
--- NOTE | 2016-08-17 11:14 | General Progress Note ---
Assessment/Plan Status: stable Assessment/Plan Status; ESRD , presented Right chest Permacath- ( and left arm fistula with bruit) No Dialysis for sometimes Volume Overload Encephalopathy Anemia right UE venous out let obstruction Plan: HD next due 08/17 then 08/19 Transfused 07/30 BP control- Phos binders , Vit D and Kayexelate prn per orders Placement ??? Subjective ROS Limited/Unobtainable: No Allergies: Coded Allergies: No Known Allergies (Unverified , 07/20/16) Objective Last 24 Hour Vital Signs Date Time Temp Pulse Resp B/P Pulse Ox O2 Delivery O2 Flow Rate FiO2 08/17/16 09:00 75 151/78 08/17/16 09:00 151/78 08/17/16 07:57 98.2 75 21 151/78 98 Nasal Cannula 2.0 08/17/16 06:16 178/82 08/17/16 06:15 178/82 08/17/16 04:00 98.6 77 18 178/82 98 Nasal Cannula 3.0 08/17/16 00:00 97.7 77 20 159/91 98 Nasal Cannula 3.0 08/16/16 22:13 144/80 08/16/16 22:13 144/80 08/16/16 20:53 77 144/80 08/16/16 20:53 144/80 08/16/16 20:00 98.2 75 18 174/88 98 Nasal Cannula 3.0 08/16/16 16:00 98.0 77 20 144/80 Nasal Cannula 3.0 08/16/16 13:08 150/76 08/16/16 13:07 150/76 08/16/16 12:00 98.2 70 20 150/76 99 Nasal Cannula 3.0 Intake and Output 08/16/16 08/17/16 19:00 07:00 Intake Total 820 ml Balance 820 ml Intake Oral 820 ml # Voids 2 3 Height (Feet): 5 Height (Inches): 4.00 Weight (Pounds): 160 General Appearance: no apparent distress Objective no change ERICK MOSES Aug 17, 2016 11:14
[2016-08-17 12:19] VITALS: BP 157/76
[2016-08-17 13:46] LABS: BASOPHILS % (AUTO) 1.3 % (0.0-2.0); EOSINOPHILS % (AUTO) 8.8 % (0.0-3.0); MEAN CORPUSCULAR HEMOGLOBIN 27.4 PG (27.0-31.0); MEAN CORPUSCULAR HGB CONC 30.7 G/DL (32.0-36.0); MEAN CORPUSCULAR VOLUME 89 FL (80-99); MEAN PLATELET VOLUME 4.7 FL (6.5-10.1); MONOCYTES % (AUTO) 6.7 % (1.0-10.0); NEUTROPHILS % (AUTO) 59.2 % (45.0-75.0); PLATELET COUNT 426 K/UL (150-450); RED BLOOD COUNT 3.14 M/UL (4.20-5.40); RED CELL DISTRIBUTION WIDTH 18.2 % (11.6-14.8); WHITE BLOOD COUNT 8.8 K/UL (4.8-10.8)
[2016-08-17 14:00] LABS: ALBUMIN/GLOBULIN RATIO 0.7 (1.0-2.7); CREATININE 7.3 mg/dL (0.5-0.9); GLOMERULAR FILTRATION RATE 5.9 mL/min (>60); PHOSPHORUS 3.9 mg/dL (2.5-4.8); POTASSIUM 5.6 mEQ/L (3.4-4.9); TOTAL PROTEIN 5.7 g/dL (6.6-8.7)
--- NOTE | 2016-08-17 14:36 | Infectious Diseases Prog Note ---
Assessment/Plan Assessment/Plan ASSESSMENT: 51-year-old female with: Low grade fever , resolved Leukocytosis , resolved. Hepatitis B sAb+ consistent with immunity. Chronic HCV, detectable viremia, with normal LFTs. status post knee joint tap : negative for septic arthritis 07/24/16 ESRD on HD SP Left arm arteriovenous shunt revision and dialysis catheter replacement SP right, placement of left tunneled hemodialysis catheter 07/28 Homeless MRSA, VRE colonized NKDA Full Code PLAN: pt is off of antibiotics , she is stable , ok to DC from ID standpoint Monitor CBC. Monitor BMP. routine outpatient chronic HepC follow up with [facility] HD as per nephro awaiting placement Subjective ROS Limited/Unobtainable: Yes Allergies: Coded Allergies: No Known Allergies (Unverified , 07/20/16) Subjective afebrile. no new complaints. Objective Vital Signs Last 24 Hour Vital Signs Date Time Temp Pulse Resp B/P Pulse Ox O2 Delivery O2 Flow Rate FiO2 08/17/16 12:30 Room Air 2.0 28 08/17/16 12:19 97.9 75 21 157/76 94 Room Air 08/17/16 09:00 75 151/78 08/17/16 09:00 151/78 08/17/16 07:57 98.2 75 21 151/78 98 Nasal Cannula 2.0 08/17/16 06:16 178/82 08/17/16 06:15 178/82 08/17/16 04:00 98.6 77 18 178/82 98 Nasal Cannula 3.0 08/17/16 00:00 97.7 77 20 159/91 98 Nasal Cannula 3.0 08/16/16 22:13 144/80 08/16/16 22:13 144/80 08/16/16 20:53 77 144/80 08/16/16 20:53 144/80 08/16/16 20:00 98.2 75 18 174/88 98 Nasal Cannula 3.0 08/16/16 16:00 98.0 77 20 144/80 Nasal Cannula 3.0 Height (Feet): 5 Height (Inches): 4.00 Weight (Pounds): 160 General Appearance: no acute distress HEENT: anicteric Respiratory/Chest: lungs clear Cardiovascular: normal rate, regular rhythm Abdomen: soft, non tender Extremities: no cyanosis, no clubbing Musculoskeletal: no effusion Laboratory Tests Test 08/17/16 12:55 White Blood Count 8.8 K/UL (4.8-10.8) Red Blood Count 3.14 M/UL (4.20-5.40) L Hemoglobin 8.6 G/DL (12.0-16.0) L Hematocrit 28.0 % (37.0-47.0) L Mean Corpuscular Volume 89 FL (80-99) Mean Corpuscular Hemoglobin 27.4 PG (27.0-31.0) Mean Corpuscular Hemoglobin Concent 30.7 G/DL (32.0-36.0) L Red Cell Distribution Width 18.2 % (11.6-14.8) H Platelet Count 426 K/UL (150-450) Mean Platelet Volume 4.7 FL (6.5-10.1) L Neutrophils (%) (Auto) 59.2 % (45.0-75.0) Lymphocytes (%) (Auto) 24.0 % (20.0-45.0) Monocytes (%) (Auto) 6.7 % (1.0-10.0) Eosinophils (%) (Auto) 8.8 % (0.0-3.0) H Basophils (%) (Auto) 1.3 % (0.0-2.0) Sodium Level 131 mEQ/L (135-145) L Potassium Level 5.6 mEQ/L (3.4-4.9) H Chloride Level 90 mEQ/L (98-107) L Carbon Dioxide Level 32 mEQ/L (20-30) H Anion Gap 9 (5-15) Blood Urea Nitrogen 38 mg/dL (7-23) H Creatinine 7.3 mg/dL (0.5-0.9) H Estimat Glomerular Filtration Rate 5.9 mL/min (>60) Glucose Level 91 mg/dL (74-106) Calcium Level 8.0 mg/dL (8.6-10.2) L Phosphorus Level 3.9 mg/dL (2.5-4.8) Total Bilirubin 0.2 mg/dL (0.0-1.2) Aspartate Amino Transf (AST/SGOT) 10 U/L (5-40) Alanine Aminotransferase (ALT/SGPT) 5 U/L (3-33) Alkaline Phosphatase 77 U/L (35-104) Total Protein 5.7 g/dL (6.6-8.7) L Albumin 2.5 g/dL (3.5-5.2) L Globulin 3.2 g/dL Albumin/Globulin Ratio 0.7 (1.0-2.7) L Current Medications Medications (Trade) Dose Ordered Sig/Papo Route PRN Reason Start Time Stop Time Status Last Admin Dose Admin Acetaminophen (Tylenol) 650 mg Q4H PRN ORAL Fever 07/21/16 15:00 08/20/16 14:59 07/30/16 21:49 Artificial Tears (Akwa-Tears) 2 drop Q6H PRN BOTH EYES Dry Eyes 07/25/16 22:30 08/24/16 22:29 08/16/16 20:52 Calcitriol (Rocaltrol) 0.5 mcg DAILY ORAL 07/22/16 09:00 08/21/16 08:59 08/17/16 09:02 Chlorhexidine Gluconate (Celeste-Hex 2%) 1 applic Q24H TOPIC 07/31/16 21:00 08/30/16 20:59 08/16/16 20:53 Clonidine HCl (Catapres) 0.2 mg Q8H ORAL 07/28/16 14:00 08/27/16 13:59 08/17/16 06:15 Dextrose (Dextrose 50%) STAT PRN IV Hypoglycemia 07/21/16 15:00 08/20/16 14:59 Docusate Sodium (Colace) 100 mg THREE TIMES A DAY ORAL 07/22/16 09:00 08/21/16 08:59 08/16/16 18:57 Epoetin Sid (Procrit (for ESRD on dialysis)) 10,000 units WED-WED-WED SUBQ 07/22/16 21:00 08/21/16 20:59 08/14/16 20:49 Ergocalciferol (Drisdol) 50,000 intlu QWEEK ORAL 07/28/16 09:00 08/27/16 08:59 08/11/16 09:15 Heparin Sodium (Porcine) (Heparin 5000 units/ml) 5,000 units EVERY 12 HOURS SUBQ 07/21/16 21:00 08/20/16 20:59 08/17/16 09:05 Hydralazine HCl (Apresoline) 25 mg Q8HR ORAL 08/03/16 14:00 09/02/16 13:59 08/17/16 06:16 Lactulose (Cephulac) 30 gm THREE TIMES A DAY ORAL 08/02/16 13:30 09/01/16 13:29 08/16/16 18:57 Lisinopril (Prinivil) 20 mg Q12HR ORAL 07/22/16 22:00 08/21/16 21:59 08/16/16 20:53 Mineral Oil (Fleet's Mineral Oil Enema) 133 ml EVERY OTHER DAY RECTAL 08/04/16 09:00 09/03/16 08:59 08/16/16 08:52 Minoxidil (Loniten) 2.5 mg Q4H PRN ORAL SBP>160 07/23/16 13:45 08/22/16 13:44 08/11/16 18:49 Morphine Sulfate (Morphine Sulfate) 4 mg Q4H PRN IVP For Pain 08/15/16 06:45 08/22/16 06:44 08/17/16 10:18 Nifedipine (Procardia XL) 60 mg Q12HR ORAL 07/23/16 09:00 08/22/16 08:59 08/16/16 20:53 Nystatin (Nystop Powder) 1 applic THREE TIMES A DAY TOPIC 08/02/16 13:00 09/01/16 12:59 08/17/16 13:03 Ondansetron HCl (Zofran) 4 mg Q6H PRN IVP Nausea & Vomiting 07/21/16 15:00 08/20/16 14:59 08/17/16 03:06 Polyethylene Glycol (Miralax) 17 gm BEDTIME ORAL 08/02/16 21:00 09/01/16 20:59 08/15/16 21:01 Polyethylene Glycol (Miralax) 17 gm DAILYPRN PRN ORAL Constipation 07/21/16 15:00 08/20/16 14:59 08/01/16 17:58 Sennosides (Senokot) 8.6 mg DAILY ORAL 08/03/16 09:00 09/02/16 08:59 08/16/16 08:34 Sevelamer Carbonate (Renvela) 2,400 mg THREE TIMES A DAY ORAL 07/26/16 09:00 08/25/16 08:59 08/17/16 12:57 Simethicone (Mylicon) 80 mg TIDPRN PRN ORAL Abdominal cramps 08/08/16 16:00 09/07/16 15:59 08/17/16 09:59 Ronan Hong M.D. Aug 17, 2016 14:36
[2016-08-17 16:17] VITALS: BP 185/79
[2016-08-17 20:00] VITALS: BP 174/78
[2016-08-17] MEDS: Miralax 17gm pkt ORAL SCH (20:56)
[2016-08-17] MEDS: Dyna-Hex 2% Top Sol 8oz TOPIC SCH (20:57)
[2016-08-17] MEDS: Epogen (for ESRD on dialysis) SUBQ SCH (20:57)
[2016-08-18] VITALS: BP 153/80
[2016-08-18] MEDS: Morphine Sulfate 4mg/ml Inj IVP PRN ×5 (02:20→23:25)
[2016-08-18 04:00] VITALS: BP 142/79
[2016-08-18] MEDS: HydrALAZINE 50mg tab ORAL SCH ×3 (05:58→20:38)
[2016-08-18] MEDS: cloNIDine 0.2mg Tab ORAL SCH ×3 (05:58→20:39)
[2016-08-18 07:48] VITALS: BP 142/79
[2016-08-18] MEDS: Renvela 2400 mg pkt ORAL SCH ×3 (08:32→18:28)
[2016-08-18] MEDS: Lactulose 20gm/30ml UDC ORAL SCH ×3 (08:32→18:28)
[2016-08-18] MEDS: Docusate 100mg cap ORAL SCH ×3 (08:32→18:28)
[2016-08-18] MEDS: Lisinopril 20mg tab ORAL SCH ×2 (08:36→20:39)
[2016-08-18] MEDS: Calcitriol 0.5mcg Cap ORAL SCH (08:36)
[2016-08-18] MEDS: Fleet's Mineral Oil Enema RECTAL SCH (08:42)
[2016-08-18] MEDS: Vitamin D 50,000 units cap ORAL SCH (08:42)
[2016-08-18] MEDS: Heparin 5000 units/ml inj SUBQ SCH ×2 (09:00→20:43)
[2016-08-18] MEDS: Nystatin Powder 100,000 units/gm 15gm TOPIC SCH ×4 (09:00→18:28)
--- NOTE | 2016-08-18 09:45 | General Progress Note ---
Assessment/Plan Status: unchanged Assessment/Plan Status; ESRD , presented Right chest Permacath- ( and left arm fistula with bruit) No Dialysis for sometimes Volume Overload Encephalopathy Anemia right UE venous out let obstruction Plan: HD next 08/19 Transfused 07/30 BP control- Phos binders , Vit D and Kayexelate prn per orders Placement ??? Subjective ROS Limited/Unobtainable: No Allergies: Coded Allergies: No Known Allergies (Unverified , 07/20/16) Objective Last 24 Hour Vital Signs Date Time Temp Pulse Resp B/P Pulse Ox O2 Delivery O2 Flow Rate FiO2 08/18/16 08:42 87 142/79 08/18/16 08:36 142/79 08/18/16 07:48 98.4 87 16 142/79 93 Room Air 08/18/16 05:58 132/83 08/18/16 05:58 132/83 08/18/16 04:00 97.7 73 20 142/79 97 Nasal Cannula 2.0 08/18/16 00:00 99.5 82 20 153/80 98 Nasal Cannula 2.0 08/17/16 22:02 158/85 08/17/16 22:01 158/85 08/17/16 20:57 72 174/78 08/17/16 20:56 174/78 08/17/16 20:00 98.2 72 20 174/78 96 Nasal Cannula 08/17/16 16:35 Nasal Cannula 2.0 08/17/16 16:17 97.5 73 20 185/79 100 Nasal Cannula 2.0 08/17/16 15:23 201/87 08/17/16 12:30 Room Air 2.0 08/17/16 12:19 97.9 75 21 157/76 94 Room Air Intake and Output 08/17/16 08/18/16 19:00 07:00 Intake Total 360 ml Output Total 3500 ml 50 ml Balance -3140 ml -50 ml Intake Oral 360 ml Output Urine Total 0 ml 50 ml Hemodialysis UF 3500 ml Laboratory Tests 08/17/16 12:55: White Blood Count 8.8, Red Blood Count 3.14L, Hemoglobin 8.6L, Hematocrit 28.0L , Mean Corpuscular Volume 89, Mean Corpuscular Hemoglobin 27.4, Mean Corpuscular Hemoglobin Concent 30.7L, Red Cell Distribution Width 18.2H, Platelet Count 426, Mean Platelet Volume 4.7L, Neutrophils (%) (Auto) 59.2, Lymphocytes (%) (Auto) 24.0, Monocytes (%) (Auto) 6.7, Eosinophils (%) (Auto) 8.8H, Basophils (%) (Auto) 1.3, Sodium Level 131L, Potassium Level 5.6H, Chloride Level 90L, Carbon Dioxide Level 32H, Anion Gap 9, Blood Urea Nitrogen 38H, Creatinine 7.3H, Estimat Glomerular Filtration Rate 5.9, Glucose Level 91, Calcium Level 8.0L, Phosphorus Level 3.9, Total Bilirubin 0.2, Aspartate Amino Transf (AST/SGOT) 10, Alanine Aminotransferase (ALT/SGPT) 5, Alkaline Phosphatase 77, Total Protein 5.7L, Albumin 2.5L, Globulin 3.2, Albumin/ Globulin Ratio 0.7L Height (Feet): 5 Height (Inches): 4.00 Weight (Pounds): 160 General Appearance: no apparent distress Objective no change ERICK MOSES Aug 18, 2016 09:45
--- NOTE | 2016-08-18 11:40 | Infectious Diseases Prog Note ---
Assessment/Plan Assessment/Plan ASSESSMENT: 51-year-old female with: Low grade fever , SP Leukocytosis , SP Hepatitis BS antibody positive. Hepatitis C antibody, PCR positive / chronic HCV - LFTs WNL status post knee joint tap : No evidence of arthritis ESRD on HD SP Left arm arteriovenous shunt revision and dialysis catheter replacement SP right, placement of left tunneled hemodialysis catheter 07/28 Homeless MRSA, VRE colonized NKDA Full Code PLAN: pt is off of antibiotics , she is stable , ok to DC from ID standpoint Monitor CBC. Monitor BMP. HD as per nephro awaiting placement Subjective Constitutional: Denies: anorexia, chills, drenching sweats, fatigue, fever, no symptoms, other Allergies: Coded Allergies: No Known Allergies (Unverified , 07/20/16) Objective Vital Signs Last 24 Hour Vital Signs Date Time Temp Pulse Resp B/P Pulse Ox O2 Delivery O2 Flow Rate FiO2 08/18/16 08:42 87 142/79 08/18/16 08:36 142/79 08/18/16 07:48 98.4 87 16 142/79 93 Room Air 08/18/16 05:58 132/83 08/18/16 05:58 132/83 08/18/16 04:00 97.7 73 20 142/79 97 Nasal Cannula 2.0 08/18/16 00:00 99.5 82 20 153/80 98 Nasal Cannula 2.0 08/17/16 22:02 158/85 08/17/16 22:01 158/85 08/17/16 20:57 72 174/78 08/17/16 20:56 174/78 08/17/16 20:00 98.2 72 20 174/78 96 Nasal Cannula 08/17/16 16:35 Nasal Cannula 2.0 08/17/16 16:17 97.5 73 20 185/79 100 Nasal Cannula 2.0 08/17/16 15:23 201/87 08/17/16 12:30 Room Air 2.0 08/17/16 12:19 97.9 75 21 157/76 94 Room Air Height (Feet): 5 Height (Inches): 4.00 Weight (Pounds): 160 HEENT: atraumatic Respiratory/Chest: normal breath sounds Cardiovascular: regularly irregular Abdomen: no organomegaly Laboratory Tests Test 08/17/16 12:55 White Blood Count 8.8 K/UL (4.8-10.8) Red Blood Count 3.14 M/UL (4.20-5.40) L Hemoglobin 8.6 G/DL (12.0-16.0) L Hematocrit 28.0 % (37.0-47.0) L Mean Corpuscular Volume 89 FL (80-99) Mean Corpuscular Hemoglobin 27.4 PG (27.0-31.0) Mean Corpuscular Hemoglobin Concent 30.7 G/DL (32.0-36.0) L Red Cell Distribution Width 18.2 % (11.6-14.8) H Platelet Count 426 K/UL (150-450) Mean Platelet Volume 4.7 FL (6.5-10.1) L Neutrophils (%) (Auto) 59.2 % (45.0-75.0) Lymphocytes (%) (Auto) 24.0 % (20.0-45.0) Monocytes (%) (Auto) 6.7 % (1.0-10.0) Eosinophils (%) (Auto) 8.8 % (0.0-3.0) H Basophils (%) (Auto) 1.3 % (0.0-2.0) Sodium Level 131 mEQ/L (135-145) L Potassium Level 5.6 mEQ/L (3.4-4.9) H Chloride Level 90 mEQ/L (98-107) L Carbon Dioxide Level 32 mEQ/L (20-30) H Anion Gap 9 (5-15) Blood Urea Nitrogen 38 mg/dL (7-23) H Creatinine 7.3 mg/dL (0.5-0.9) H Estimat Glomerular Filtration Rate 5.9 mL/min (>60) Glucose Level 91 mg/dL (74-106) Calcium Level 8.0 mg/dL (8.6-10.2) L Phosphorus Level 3.9 mg/dL (2.5-4.8) Total Bilirubin 0.2 mg/dL (0.0-1.2) Aspartate Amino Transf (AST/SGOT) 10 U/L (5-40) Alanine Aminotransferase (ALT/SGPT) 5 U/L (3-33) Alkaline Phosphatase 77 U/L (35-104) Total Protein 5.7 g/dL (6.6-8.7) L Albumin 2.5 g/dL (3.5-5.2) L Globulin 3.2 g/dL Albumin/Globulin Ratio 0.7 (1.0-2.7) L Current Medications Medications (Trade) Dose Ordered Sig/Papo Route PRN Reason Start Time Stop Time Status Last Admin Dose Admin Acetaminophen (Tylenol) 650 mg Q4H PRN ORAL Fever 07/21/16 15:00 08/20/16 14:59 07/30/16 21:49 Artificial Tears (Akwa-Tears) 2 drop Q6H PRN BOTH EYES Dry Eyes 07/25/16 22:30 08/24/16 22:29 08/16/16 20:52 Calcitriol (Rocaltrol) 0.5 mcg DAILY ORAL 07/22/16 09:00 08/21/16 08:59 08/18/16 08:36 Chlorhexidine Gluconate (Celeste-Hex 2%) 1 applic Q24H TOPIC 07/31/16 21:00 08/30/16 20:59 08/17/16 20:57 Clonidine HCl (Catapres) 0.2 mg Q8H ORAL 07/28/16 14:00 08/27/16 13:59 08/18/16 05:58 Dextrose (Dextrose 50%) STAT PRN IV Hypoglycemia 07/21/16 15:00 08/20/16 14:59 Docusate Sodium (Colace) 100 mg THREE TIMES A DAY ORAL 07/22/16 09:00 08/21/16 08:59 08/18/16 08:32 Epoetin Sid (Procrit (for ESRD on dialysis)) 10,000 units WED-WED-WED SUBQ 07/22/16 21:00 08/21/16 20:59 08/17/16 20:57 Ergocalciferol (Drisdol) 50,000 intlu QWEEK ORAL 07/28/16 09:00 08/27/16 08:59 08/18/16 08:42 Heparin Sodium (Porcine) (Heparin 5000 units/ml) 5,000 units EVERY 12 HOURS SUBQ 07/21/16 21:00 08/20/16 20:59 08/17/16 20:58 Hydralazine HCl (Apresoline) 25 mg Q8HR ORAL 08/03/16 14:00 09/02/16 13:59 08/18/16 05:58 Lactulose (Cephulac) 30 gm THREE TIMES A DAY ORAL 08/02/16 13:30 09/01/16 13:29 08/18/16 08:32 Lisinopril (Prinivil) 20 mg Q12HR ORAL 07/22/16 22:00 08/21/16 21:59 08/18/16 08:36 Mineral Oil (Fleet's Mineral Oil Enema) 133 ml EVERY OTHER DAY RECTAL 08/04/16 09:00 09/03/16 08:59 08/18/16 08:42 Minoxidil (Loniten) 2.5 mg Q4H PRN ORAL SBP>160 07/23/16 13:45 08/22/16 13:44 08/11/16 18:49 Morphine Sulfate (Morphine Sulfate) 4 mg Q4H PRN IVP For Pain 08/15/16 06:45 08/22/16 06:44 08/18/16 11:37 Nifedipine (Procardia XL) 60 mg Q12HR ORAL 07/23/16 09:00 08/22/16 08:59 08/18/16 08:42 Nystatin (Nystop Powder) 1 applic THREE TIMES A DAY TOPIC 08/02/16 13:00 09/01/16 12:59 08/17/16 17:44 Ondansetron HCl (Zofran) 4 mg Q6H PRN IVP Nausea & Vomiting 07/21/16 15:00 08/20/16 14:59 08/18/16 06:27 Polyethylene Glycol (Miralax) 17 gm BEDTIME ORAL 08/02/16 21:00 09/01/16 20:59 08/17/16 20:56 Polyethylene Glycol (Miralax) 17 gm DAILYPRN PRN ORAL Constipation 07/21/16 15:00 08/20/16 14:59 08/01/16 17:58 Sennosides (Senokot) 8.6 mg DAILY ORAL 08/03/16 09:00 09/02/16 08:59 08/18/16 08:32 Sevelamer Carbonate (Renvela) 2,400 mg THREE TIMES A DAY ORAL 07/26/16 09:00 08/25/16 08:59 08/18/16 08:32 Simethicone (Mylicon) 80 mg TIDPRN PRN ORAL Abdominal cramps 08/08/16 16:00 09/07/16 15:59 08/17/16 09:59 JORGE LUIS FREEMAN M.D. Aug 18, 2016 11:40
[2016-08-18 11:54] VITALS: BP 146/73
[2016-08-18 15:53] VITALS: BP 129/76
--- NOTE | 2016-08-18 17:14 | Pulmonology Progress Note ---
Assessment/Plan Problems: (1) ESRF (end stage renal failure) (2) Fluid overload (3) Opiate dependence (4) Homelessness (5) Hepatitis C Assessment/Plan US of abdomen done paracentesis done awaiting placement all notes reviewed. Subjective ROS Limited/Unobtainable: No Constitutional: Reports: no symptoms HEENT: Repors: no symptoms Allergies: Coded Allergies: No Known Allergies (Unverified , 07/20/16) Objective Last 24 Hour Vital Signs Date Time Temp Pulse Resp B/P Pulse Ox O2 Delivery O2 Flow Rate FiO2 08/18/16 15:53 98.2 77 14 129/76 94 Room Air 08/18/16 14:22 141/74 08/18/16 14:21 141/74 08/18/16 11:54 98.2 77 15 146/73 94 Nasal Cannula 08/18/16 08:42 87 142/79 08/18/16 08:36 142/79 08/18/16 07:48 98.4 87 16 142/79 93 Room Air 08/18/16 05:58 132/83 08/18/16 05:58 132/83 08/18/16 04:00 97.7 73 20 142/79 97 Nasal Cannula 2.0 08/18/16 00:00 99.5 82 20 153/80 98 Nasal Cannula 2.0 08/17/16 22:02 158/85 08/17/16 22:01 158/85 08/17/16 20:57 72 174/78 08/17/16 20:56 174/78 08/17/16 20:00 98.2 72 20 174/78 96 Nasal Cannula Intake and Output 08/17/16 08/18/16 19:00 07:00 Intake Total 360 ml Output Total 3500 ml 50 ml Balance -3140 ml -50 ml Intake Oral 360 ml Output Urine Total 0 ml 50 ml Hemodialysis UF 3500 ml Objective General Appearance: WD/WN HEENT: normocephalic Respiratory/Chest: chest wall non-tender, lungs clear Cardiovascular: normal peripheral pulses, normal rate Abdomen: normal bowel sounds, soft, non tender Extremities: no cyanosis, other - effusion in both knees Skin: no rash Laboratory Tests 08/18/16 12:15: Body Fluid Source [Pending], Body Fluid Volume [Pending], Body Fluid Appearance [Pending], Body Fluid RBC [Pending], Body Fluid Total Nucleated Cells [Pending] , Body Fluid Polynuclear WBCs (%) [Pending], Body Fluid Mononuclear WBCs (%) [ Pending], Body Fluid Mesothelial Cells (%) [Pending], Body Fluid Glucose [ Pending], Body Fluid Total Protein [Pending], Body Fluid Lactate Dehydrogenase [ Pending] Current Medications Medications (Trade) Dose Ordered Sig/Papo Route PRN Reason Start Time Stop Time Status Last Admin Dose Admin Acetaminophen (Tylenol) 650 mg Q4H PRN ORAL Fever 07/21/16 15:00 08/20/16 14:59 07/30/16 21:49 Artificial Tears (Akwa-Tears) 2 drop Q6H PRN BOTH EYES Dry Eyes 07/25/16 22:30 08/24/16 22:29 08/16/16 20:52 Calcitriol (Rocaltrol) 0.5 mcg DAILY ORAL 07/22/16 09:00 08/21/16 08:59 08/18/16 08:36 Chlorhexidine Gluconate (Celeste-Hex 2%) 1 applic Q24H TOPIC 07/31/16 21:00 08/30/16 20:59 08/17/16 20:57 Clonidine HCl (Catapres) 0.2 mg Q8H ORAL 07/28/16 14:00 08/27/16 13:59 08/18/16 14:22 Dextrose (Dextrose 50%) STAT PRN IV Hypoglycemia 07/21/16 15:00 08/20/16 14:59 Docusate Sodium (Colace) 100 mg THREE TIMES A DAY ORAL 07/22/16 09:00 08/21/16 08:59 08/18/16 14:19 Epoetin Sid (Procrit (for ESRD on dialysis)) 10,000 units MON-WED-WED SUBQ 07/22/16 21:00 08/21/16 20:59 08/17/16 20:57 Ergocalciferol (Drisdol) 50,000 intlu QWEEK ORAL 07/28/16 09:00 08/27/16 08:59 08/18/16 08:42 Heparin Sodium (Porcine) (Heparin 5000 units/ml) 5,000 units EVERY 12 HOURS SUBQ 07/21/16 21:00 08/20/16 20:59 08/17/16 20:58 Hydralazine HCl (Apresoline) 25 mg Q8HR ORAL 08/03/16 14:00 09/02/16 13:59 08/18/16 14:21 Lactulose (Cephulac) 30 gm THREE TIMES A DAY ORAL 08/02/16 13:30 09/01/16 13:29 08/18/16 14:19 Lisinopril (Prinivil) 20 mg Q12HR ORAL 07/22/16 22:00 08/21/16 21:59 08/18/16 08:36 Mineral Oil (Fleet's Mineral Oil Enema) 133 ml EVERY OTHER DAY RECTAL 08/04/16 09:00 09/03/16 08:59 08/18/16 08:42 Minoxidil (Loniten) 2.5 mg Q4H PRN ORAL SBP>160 07/23/16 13:45 08/22/16 13:44 08/11/16 18:49 Morphine Sulfate (Morphine Sulfate) 4 mg Q4H PRN IVP For Pain 08/15/16 06:45 08/22/16 06:44 08/18/16 11:37 Nifedipine (Procardia XL) 60 mg Q12HR ORAL 07/23/16 09:00 08/22/16 08:59 08/18/16 08:42 Nystatin (Nystop Powder) 1 applic THREE TIMES A DAY TOPIC 08/02/16 13:00 09/01/16 12:59 08/17/16 17:44 Ondansetron HCl (Zofran) 4 mg Q6H PRN IVP Nausea & Vomiting 07/21/16 15:00 08/20/16 14:59 08/18/16 14:19 Polyethylene Glycol (Miralax) 17 gm BEDTIME ORAL 08/02/16 21:00 09/01/16 20:59 08/17/16 20:56 Polyethylene Glycol (Miralax) 17 gm DAILYPRN PRN ORAL Constipation 07/21/16 15:00 08/20/16 14:59 08/01/16 17:58 Sennosides (Senokot) 8.6 mg DAILY ORAL 08/03/16 09:00 09/02/16 08:59 08/18/16 08:32 Sevelamer Carbonate (Renvela) 2,400 mg THREE TIMES A DAY ORAL 07/26/16 09:00 08/25/16 08:59 08/18/16 14:19 Simethicone (Mylicon) 80 mg TIDPRN PRN ORAL Abdominal cramps 08/08/16 16:00 09/07/16 15:59 08/17/16 09:59 EMMANUEL DOUGHERTY Aug 18, 2016 17:14
[2016-08-18 17:35] LABS: APPEARANCE, BODY FLUID HAZY; BD FL SOURCE PARACENTESIS; BD FL VOLUME 24 mL; BODY FLUID NUCLEATED CELLS 76 /CUMM; BODY FLUID RBC 204 /CUMM; MONONUCLEAR WBC 58 %; POLYMORPHONUCLEAR WBC 15 %
[2016-08-18 20:00] VITALS: BP 130/76
[2016-08-18] MEDS: Miralax 17gm pkt ORAL SCH (20:39)
[2016-08-18] MEDS: Dyna-Hex 2% Top Sol 8oz TOPIC SCH (20:40)
[2016-08-19] VITALS: BP 150/77
[2016-08-19 04:00] VITALS: BP 135/84
[2016-08-19] MEDS: Simethicone 80mg tab ORAL PRN (04:14)
[2016-08-19] MEDS: Morphine Sulfate 4mg/ml Inj IVP PRN ×4 (04:14→18:31)
[2016-08-19] MEDS: cloNIDine 0.2mg Tab ORAL SCH ×2 (05:16→15:23)
[2016-08-19] MEDS: HydrALAZINE 50mg tab ORAL SCH ×2 (05:17→15:23)
[2016-08-19 08:00] VITALS: BP 152/78
--- NOTE | 2016-08-19 08:47 | Diagnostic Imaging Report ---
Indications: Ascites Procedure: Informed consent obtained. Ultrasound used to localize optimal puncture site. Sterile prepping and draping over the optimum site. Local anesthesia with 1% lidocaine. Under real-time ultrasound guidance, puncture of the peritoneal space performed using paracentesis needle. Digital image was saved and archived. Stylet removed. Catheter placed to vacuum bottle suction. Fluid was aspirated. Patient tolerated procedure well, without immediate complication. Diagnostic paracentesis also done. The fluid was sent for studies as requested. Findings: Followup sonography demonstrates complete resolution of peritoneal fluid Impression: Successful ultrasound-guided paracentesis, yielding 2.3 liters of fluid
[2016-08-19] MEDS: Renvela 2400 mg pkt ORAL SCH ×3 (09:00→17:30)
[2016-08-19] MEDS: Lactulose 20gm/30ml UDC ORAL SCH ×3 (09:00→17:30)
[2016-08-19] MEDS: Docusate 100mg cap ORAL SCH ×3 (09:00→17:30)
[2016-08-19] MEDS: Calcitriol 0.5mcg Cap ORAL SCH (09:00)
[2016-08-19] MEDS: Lisinopril 20mg tab ORAL SCH (09:01)
[2016-08-19] MEDS: Heparin 5000 units/ml inj SUBQ SCH (09:04)
[2016-08-19] MEDS: Nystatin Powder 100,000 units/gm 15gm TOPIC SCH ×3 (09:17→17:31)
--- NOTE | 2016-08-19 11:00 | General Progress Note ---
Assessment/Plan Status: stable Assessment/Plan Status; ESRD , presented Right chest Permacath- ( and left arm fistula with bruit) No Dialysis for sometimes Volume Overload Encephalopathy Anemia right UE venous out let obstruction Plan: HD next 08/19 Transfused 07/30 BP control- Phos binders , Vit D and Kayexelate prn per orders Placement ??? Subjective ROS Limited/Unobtainable: No Allergies: Coded Allergies: No Known Allergies (Unverified , 07/20/16) Objective Last 24 Hour Vital Signs Date Time Temp Pulse Resp B/P Pulse Ox O2 Delivery O2 Flow Rate FiO2 08/19/16 09:12 74 152/78 08/19/16 09:01 152/78 08/19/16 08:00 97.1 74 18 152/78 97 Nasal Cannula 08/19/16 05:17 135/84 08/19/16 05:16 135/84 08/19/16 04:00 97.5 74 17 135/84 95 Nasal Cannula 08/19/16 00:00 97.9 82 17 150/77 97 Nasal Cannula 08/18/16 20:41 76 134/80 08/18/16 20:39 134/80 08/18/16 20:39 134/80 08/18/16 20:38 134/80 08/18/16 20:00 96.9 74 18 130/76 97 Room Air 08/18/16 15:53 98.2 77 14 129/76 94 Room Air 08/18/16 14:22 141/74 08/18/16 14:21 141/74 08/18/16 11:54 98.2 77 15 146/73 94 Nasal Cannula Intake and Output 08/18/16 08/19/16 19:00 07:00 Intake Total 800 ml 240 ml Balance 800 ml 240 ml Intake Oral 800 ml 240 ml Laboratory Tests 08/18/16 12:15: Body Fluid Source Paracentesis, Body Fluid Volume 24, Body Fluid Appearance Hazy , Body Fluid RBC 204, Body Fluid Total Nucleated Cells 76, Body Fluid Polynuclear WBCs (%) 15, Body Fluid Mononuclear WBCs (%) 58, Body Fluid Mesothelial Cells (%) 27, Body Fluid Glucose [Pending], Body Fluid Total Protein [Pending], Body Fluid Lactate Dehydrogenase [Pending] Height (Feet): 5 Height (Inches): 4.00 Weight (Pounds): 160 General Appearance: no apparent distress Objective no change ERICK MOSES Aug 19, 2016 11:00
[2016-08-19] MEDS ORDERED: ACETAMINOPHEN325 M1 ORAL (13:57)
[2016-08-19] MEDS ORDERED: LACTULOSE20 GM/301 ORAL (13:58)
[2016-08-19] MEDS ORDERED: LISINOPRIL20 MG ORAL (13:59)
[2016-08-19] MEDS ORDERED: MINOXIDIL2.5 MG PO (14:02)
[2016-08-19] MEDS ORDERED: PROCARDIA XL30 MG ORAL (14:05)
[2016-08-19] MEDS ORDERED: ZOFRAN ODT4 MG ORAL (14:05)
[2016-08-19] MEDS ORDERED: MIRALAX17 G2 ORAL (14:06)
[2016-08-19] MEDS ORDERED: ROCALTROL0.5 MCG ORAL (14:10)
[2016-08-19] MEDS ORDERED: CATAPRES0.2 MG ORAL (14:14)
[2016-08-19] MEDS ORDERED: HYDRALAZINE HCL25 M1 ORAL (14:15)
[2016-08-19] MEDS ORDERED: DOCUSATE SODIU100 MG ORAL (14:15)
[2016-08-19] MEDS ORDERED: VITAMIN D250000 UNI1 ORAL (14:17)
[2016-08-19] MEDS ORDERED: EPOGEN20000 UNI1 SUBQ (14:17)
[2016-08-19] MEDS ORDERED: RENVELA2.4 GM ORAL (14:18)
[2016-08-19] MEDS ORDERED: SIMETHICONE80 MG ORAL (14:19)
[2016-08-19] MEDS ORDERED: NORCO 10-325 T1 EACH ORAL (14:20)
--- NOTE | 2016-08-19 15:09 | Pulmonology Progress Note ---
Assessment/Plan Problems: (1) ESRF (end stage renal failure) (2) Fluid overload (3) Opiate dependence (4) Homelessness (5) Hepatitis C Assessment/Plan doing better US of abdomen done awaiting placement all notes reviewed. ready to be discharged Subjective ROS Limited/Unobtainable: No Constitutional: Reports: no symptoms HEENT: Repors: no symptoms Respiratory: Reports: no symptoms Allergies: Coded Allergies: No Known Allergies (Unverified , 07/20/16) Objective Last 24 Hour Vital Signs Date Time Temp Pulse Resp B/P Pulse Ox O2 Delivery O2 Flow Rate FiO2 08/19/16 12:30 Nasal Cannula 2.0 28 08/19/16 09:12 74 152/78 08/19/16 09:01 152/78 08/19/16 08:00 97.1 74 18 152/78 97 Nasal Cannula 08/19/16 05:17 135/84 08/19/16 05:16 135/84 08/19/16 04:00 97.5 74 17 135/84 95 Nasal Cannula 08/19/16 00:00 97.9 82 17 150/77 97 Nasal Cannula 08/18/16 20:41 76 134/80 08/18/16 20:39 134/80 08/18/16 20:39 134/80 08/18/16 20:38 134/80 08/18/16 20:00 96.9 74 18 130/76 97 Room Air 08/18/16 15:53 98.2 77 14 129/76 94 Room Air Intake and Output 08/18/16 08/19/16 19:00 07:00 Intake Total 800 ml 240 ml Balance 800 ml 240 ml Intake Oral 800 ml 240 ml Objective General Appearance: WD/WN HEENT: normocephalic Respiratory/Chest: chest wall non-tender, lungs clear Cardiovascular: normal peripheral pulses, normal rate Abdomen: normal bowel sounds, soft, non tender Extremities: no cyanosis, other - effusion in both knees Skin: no rash Current Medications Medications (Trade) Dose Ordered Sig/Papo Route PRN Reason Start Time Stop Time Status Last Admin Dose Admin Acetaminophen (Tylenol) 650 mg Q4H PRN ORAL Fever 07/21/16 15:00 08/20/16 14:59 07/30/16 21:49 Artificial Tears (Akwa-Tears) 2 drop Q6H PRN BOTH EYES Dry Eyes 07/25/16 22:30 08/24/16 22:29 08/16/16 20:52 Calcitriol (Rocaltrol) 0.5 mcg DAILY ORAL 07/22/16 09:00 08/21/16 08:59 08/19/16 09:00 Chlorhexidine Gluconate (Celeste-Hex 2%) 1 applic Q24H TOPIC 07/31/16 21:00 08/30/16 20:59 08/18/16 20:40 Clonidine HCl (Catapres) 0.2 mg Q8H ORAL 07/28/16 14:00 08/27/16 13:59 08/19/16 05:16 Dextrose (Dextrose 50%) STAT PRN IV Hypoglycemia 07/21/16 15:00 08/20/16 14:59 Docusate Sodium (Colace) 100 mg THREE TIMES A DAY ORAL 07/22/16 09:00 08/21/16 08:59 08/18/16 18:28 Epoetin Sid (Procrit (for ESRD on dialysis)) 10,000 units WED-WED-WED SUBQ 07/22/16 21:00 08/21/16 20:59 08/17/16 20:57 Ergocalciferol (Drisdol) 50,000 intlu QWEEK ORAL 07/28/16 09:00 08/27/16 08:59 08/18/16 08:42 Heparin Sodium (Porcine) (Heparin 5000 units/ml) 5,000 units EVERY 12 HOURS SUBQ 07/21/16 21:00 08/20/16 20:59 08/19/16 09:04 Hydralazine HCl (Apresoline) 25 mg Q8HR ORAL 08/03/16 14:00 09/02/16 13:59 08/19/16 05:17 Lactulose (Cephulac) 30 gm THREE TIMES A DAY ORAL 08/02/16 13:30 09/01/16 13:29 08/18/16 18:28 Lisinopril (Prinivil) 20 mg Q12HR ORAL 07/22/16 22:00 08/21/16 21:59 08/19/16 09:01 Mineral Oil (Fleet's Mineral Oil Enema) 133 ml EVERY OTHER DAY RECTAL 08/04/16 09:00 09/03/16 08:59 08/18/16 08:42 Minoxidil (Loniten) 2.5 mg Q4H PRN ORAL SBP>160 07/23/16 13:45 08/22/16 13:44 08/11/16 18:49 Morphine Sulfate (Morphine Sulfate) 4 mg Q4H PRN IVP For Pain 08/15/16 06:45 08/22/16 06:44 08/19/16 13:18 Nifedipine (Procardia XL) 60 mg Q12HR ORAL 07/23/16 09:00 08/22/16 08:59 08/19/16 09:12 Nystatin (Nystop Powder) 1 applic THREE TIMES A DAY TOPIC 08/02/16 13:00 09/01/16 12:59 08/19/16 13:18 Ondansetron HCl (Zofran) 4 mg Q6H PRN IVP Nausea & Vomiting 07/21/16 15:00 08/20/16 14:59 08/18/16 23:25 Polyethylene Glycol (Miralax) 17 gm BEDTIME ORAL 08/02/16 21:00 09/01/16 20:59 08/18/16 20:39 Polyethylene Glycol (Miralax) 17 gm DAILYPRN PRN ORAL Constipation 07/21/16 15:00 08/20/16 14:59 08/01/16 17:58 Sennosides (Senokot) 8.6 mg DAILY ORAL 08/03/16 09:00 09/02/16 08:59 08/18/16 08:32 Sevelamer Carbonate (Renvela) 2,400 mg THREE TIMES A DAY ORAL 07/26/16 09:00 08/25/16 08:59 08/19/16 13:18 Simethicone (Mylicon) 80 mg TIDPRN PRN ORAL Abdominal cramps 08/08/16 16:00 09/07/16 15:59 08/19/16 04:14 EMMANUEL DOUGHERTY Aug 19, 2016 15:09
[2016-08-19 15:45] VITALS: BP 199/89
[2016-08-19] MEDS ORDERED: Tubing IV Secondary IV ONE (19:00)
[2016-08-19 22:08] LABS: PROTEIN, BODY FLUID 2.6 g/dL (.)
[2016-08-20 07:05] LABS: BD FL SOURCE PARACENTESIS; BD FL VOLUME 24 mL
[2016-08-20 07:06] LABS: LDH, BODY FLUID 113 U/L
[2016-08-20 14:02] LABS: COMMENT,BODY FLUID PATHOLOGIST COMMENT
--- NOTE | 2016-08-21 16:15 | Discharge Summary ---
Discharge Summary Hospital Course Date of Admission Jul 20, 2016 at 09:12 Date of Discharge Aug 19, 2016 at 19:01 Admitting Diagnosis ALTERD MENTAL STATUS,FLUID OVERLOAD HPI Bridget Wilhelm is a 51 year old female who was admitted on Jul 20, 2016 at 09:12 for Altered Mental Status,Fluid Overload Hospital Course [id number] Discharge Discharge Disposition Patient was discharged to SNF/Subacute Facility(03) Discharge Diagnoses: Ashley Hernandez NP Aug 21, 2016 16:15
--- NOTE | 2016-08-22 04:30 | Discharge Summary 2 SIG ---
DATE OF ADMISSION: 07/20/2016 DATE OF DISCHARGE: 08/19/2016 CONSULTANTS: 1. Cortes Rick M.D. 2. Albert Todd M.D. 3. Michael Arroyo M.D. BRIEF HOSPITAL COURSE: The patient is a 51-year-old female with history of end-stage renal failure and homeless, presented to ED for evaluation of back pain. She was found on the street and was lethargic, had swollen eyes, and swollen arms and legs. She was taken to ED. Her last dialysis was 10 days prior to admission. On evaluation at ED, potassium was 6, BUN was 79, creatinine 10, and hemoglobin was 7.4. She had an EKG done, which showed normal sinus rhythm. Chest x-ray showed right jugular PermCath, otherwise no acute process. She was given Kayexalate, insulin with D50, and calcium. The patient is fluid overloaded and would not tolerate blood transfusion and would require dialysis. She was admitted initially to telemetry for hyperkalemia, fluid overload, end-stage renal disease, opiate dependence, and homelessness. She was given respiratory treatments. Dr. Rick was consulted for inpatient hemodialysis. She was given heparin for DVT prophylaxis. Urine toxicology was positive for opiates. She was given blood transfusion and was given IV iron and Epogen. Echocardiogram done showed ejection fraction of 60% with RVSP of 71 consistent with severe pulmonary hypertension and moderate mitral regurgitation. Potassium improved post Kayexalate. Encephalopathy was likely due to end-stage renal disease and missed hemodialysis as well as elevated ammonia. She was continued with her antihypertensives and was given phosphate binders. Venous study of the upper extremities was negative for DVT. Venous imaging revealed patency of internal jugular, subclavian, axillary, and brachial veins. She had arthrocentesis done from swelling on the knees. Body fluid culture did not isolate any growth. Urine culture was also negative. A non-tunneled dialysis catheter was placed on 07/28/2016. The patient had difficult placement and was referred to multiple nursing homes, however, was not accepted. On 07/30/2016, she had a left arm AV shunt revision and placement of a left internal jugular vein tunneled hemodialysis PermCath. The patient needed placement to fdc facility and outpatient dialysis. Unable to be discharged home without hepatitis panel results. She had ultrasound-guided paracenteses done on 12/19/2015 yielding 2.3 liters of fluid. She was finally accepted to [facility] Transportation and outpatient dialysis was arranged. The patient was discharged to SNF. FINAL DIAGNOSES: 1. End-stage renal failure. 2. Fluid overload. 3. Opiate dependence. 4. Homelessness. 5. Hepatitis C. 6. Acute metabolic encephalopathy. 7. Right upper extremity venous outlet obstruction. 8. Status post knee joint tap, negative for septic arthritis. 9. Homelessness. 10. Status post placement of tunneled hemodialysis catheter 07/28/2016. 11. Status post left arm arteriovenous shunt revision and dialysis catheter placement on 07/30/2016. Mikey Luna M.D. I have been assigned to dictate discharge summary on this account and I was not involved in the patient's management. Ashley Hernandez N.P. DR: CHELSIE JOB#: [id number] CC:
== END 2016-08-19 19:01 | DRG 405 ==
LOC: EDBD 08:24 → EMR 08:54 → 2E 09:12 → EDBEDREQ 09:22 → 4E 07-21 14:15
DX: E87.70 Fluid overload, unspecified (principal); G92 Toxic encephalopathy; I12.0 Hypertensive chronic kidney disease with stage 5 chronic kidney disease or end stage renal disease; N18.6 End stage renal disease; I27.2 Other secondary pulmonary hypertension; R18.8 Other ascites; E11.22 Type 2 diabetes mellitus with diabetic chronic kidney disease; E87.5 Hyperkalemia; F11.20 Opioid dependence, uncomplicated; Z99.2 Dependence on renal dialysis; Z59.0 Homelessness; D72.829 Elevated white blood cell count, unspecified; D63.1 Anemia in chronic kidney disease; I87.1 Compression of vein; M25.462 Effusion, left knee; M25.461 Effusion, right knee; I34.0 Nonrheumatic mitral (valve) insufficiency; Z91.19 Patient's noncompliance with other medical treatment and regimen; B19.20 Unspecified viral hepatitis C without hepatic coma; Z91.15 Patient's noncompliance with renal dialysis
CPT/HCPCS: 36415; 36569; 36589; 36902; 71010; 76001; 76937; 76942; 80048; 80053; 80061; 80076; 80300; 80329; 81001; 82140; 82550; 82553; 82607; 82728; 82746; 82962; 83036; 83540; 83550; 83615; 83735; 83880; 84100; 84484; 84550; 85007; 85025; 85610; 85730; 86706; 86707; 86803; 86850; 86900; 86901; 86920; 87070; 87081; 87086; 87205; 87522; 88104; 89051; 89060; 93005; 93306; 93922; 93970; 93971; 94003; 94150; 94640; 94664; 94760; J2180; J2250; J2405; J7620